=== PATIENT | male | born 1955 | race Two or more races ===

== ENCOUNTER → 2017-05-11 | Outpatient (CLI) | payer MEDICARE, OTHER ==
[~2017-05-11] MED LIST: ACET325 PO; ALBU2.5V5 NEB; ALBU3IS INH; ALBU90OI INH; ALBU90OI6 INH; ALPR.25 PO; ALPR.5 PO; ASCO500 PO; ASTEPRO205.5 MCG/; AZIT250 PO; AZIT500 PO; Acidophilus La100 GM PO; Advil200 M1 PO; Atrovent Inha12.9 GM INH; BENADRYL25 MG PO; BUSP10 PO; Bactrim Ds Tab1 EACH PO; CEFD300 PO; CEPH500 PO; CITA20 PO; CLOT10 MT; CLOT10 SS; DIPH12.5EL PO; DOCU100 PO; ERGO400 PO; FLONASE ALLERG9.9 ML; FLUSAL2505 INH; FURO40 PO; GARCINIA CAMBO1 EACH PO; GUAI600T33 PO; IBUP600 PO; INSDET100 SUBQ; INSUASPI; INSUASPI SUBQ; IPRA.06NI; LACTOBACILLUS PO; LAVAP17G PO; LEVFLO500 PO; LEVO750 PO; LORA.5 PO; LORA10 PO; LORA10ER PO; LORA1SY PO; MONT10T PO; Merrem1000 MG INJ; NYST100P TOP; Novolog Fl100 UNIT/1 SC; OMEP20ER PO; OXYC10TA19 PO; OXYC1TAB11; OXYC5 PO; PANT40 PO; PERIDEX; POTCHL20ER PO; Pedi-Dri 100,0060 GM TOP; Perforomis20 MCG/2 M INH; SACC250C PO; SIME80CH PO; Tazicef1 G1 IV; VANCOCIN HCL250 MG PO; VANCOMYCIN1.5 GM/252 IV; Vancocin 11000 MG/20 INJ; XANAX PO; ZOLP5 PO; Zithromax250 MG PO; [UNRECOGNIZED DRUG - OTHER]
== END | disposition home or self-care (01) ==
LOC: OLS 13:00
DX: J44.9 Chronic obstructive pulmonary disease, unspecified (principal)
CPT/HCPCS: 87070; 87077; 87186; 87205

== ENCOUNTER 2017-06-26 10:27 | Inpatient (IN) | payer MEDICARE, OTHER ==
[~2017-06-26] VITALS: Ht 152.4 cm; Wt 147.4 kg
[~2017-06-26 10:27] MED LIST changes: -ACET325 PO; -ALBU90OI INH; -ALPR.25 PO; -ASTEPRO205.5 MCG/; -AZIT250 PO; -Acidophilus La100 GM PO; -Atrovent Inha12.9 GM INH; -CEFD300 PO; -CEPH500 PO; -CLOT10 MT; -CLOT10 SS; -FLONASE ALLERG9.9 ML; -LACTOBACILLUS PO; -LORA.5 PO; -LORA1SY PO; -Novolog Fl100 UNIT/1 SC; -OXYC1TAB11; -OXYC5 PO; -Pedi-Dri 100,0060 GM TOP; -SACC250C PO; -Tazicef1 G1 IV; -VANCOCIN HCL250 MG PO; -VANCOMYCIN1.5 GM/252 IV; -Vancocin 11000 MG/20 INJ
[2017-06-26 12:02] LABS: BASOPHILS ABSOLUTE AUTO 0.04 K/mm3 (0.00-0.23); BASOPHILS PERCENT AUTO 1 % (0-2); EOSINOPHILS PERCENT AUTO 4 % (0-6); Hematocrit 44.8 % (37.0-53.0); Hemoglobin 14.6 g/dL (13.5-17.5); IMMATURE GRAN ABSOLUTE AUTO 0.01 K/mm3 (0.00-0.10); IMMATURE GRAN PERCENT AUTO 0 % (0-1); LYMPHOCYTES ABSOLUTE AUTO 0.97 K/mm3 (0.84-5.20); LYMPHOCYTES PERCENT AUTO 19 % (21-46); MONOCYTES ABSOLUTE AUTO 0.54 K/mm3 (0.16-1.47); MONOCYTES PERCENT AUTO 11 % (4-13); Mean Corpuscular HGB 31.2 pg (26.0-34.0); Mean Corpuscular HGB Conc 32.6 g/dL (31.5-36.5); Mean Corpuscular Volume 96 fL (80-100); Mean Platelet Volume 9.9 fL (9.1-12.4); NEUTROPHILS ABSOLUTE AUTO 3.25 K/mm3 (1.96-9.15); NEUTROPHILS PERCENT AUTO 65 % (41-73); Platelet Count 224 K/mm3 (150-400); RDW Coefficient Variation 13.6 % (11.7-14.2); Red Blood Cell Count 4.68 M/mm3 (4.30-5.90); White Blood Cell Count 5.01 K/mm3 (4.00-11.30)
[2017-06-26 12:23] LABS: Anion Gap 6 mmol/L (6-16); Blood Urea Nitrogen 12 mg/dL (8-24); Bun/Creatinine Ratio 14.6 (12.0-20.0); CO2, Blood 25 mmol/L (21-32); Calcium, Blood 8.4 mg/dL (8.5-10.1); Chloride, Blood 107 mmol/L (98-108); Creatinine, Blood 0.82 mg/dL (0.60-1.20); Glomerular Filtration Rate >60 (60-); Glucose, Blood 96 mg/dL (70-99); Potassium, Blood 4.2 mmol/L (3.5-5.5); Sodium, Blood 138 mmol/L (136-145)
[2017-06-27 06:01] LABS: BASOPHILS ABSOLUTE AUTO 0.04 K/mm3 (0.00-0.23); BASOPHILS PERCENT AUTO 1 % (0-2); EOSINOPHILS ABSOLUTE AUTO 0.22 K/mm3 (0.00-0.68); EOSINOPHILS PERCENT AUTO 5 % (0-6); Hematocrit 40.6 % (37.0-53.0); Hemoglobin 13.4 g/dL (13.5-17.5); IMMATURE GRAN ABSOLUTE AUTO 0.01 K/mm3 (0.00-0.10); IMMATURE GRAN PERCENT AUTO 0 % (0-1); LYMPHOCYTES ABSOLUTE AUTO 1.75 K/mm3 (0.84-5.20); LYMPHOCYTES PERCENT AUTO 40 % (21-46); MONOCYTES ABSOLUTE AUTO 0.51 K/mm3 (0.16-1.47); MONOCYTES PERCENT AUTO 12 % (4-13); Mean Corpuscular Volume 94 fL (80-100); NEUTROPHILS ABSOLUTE AUTO 1.84 K/mm3 (1.96-9.15); NEUTROPHILS PERCENT AUTO 42 % (41-73); Platelet Count 213 K/mm3 (150-400); RDW Coefficient Variation 13.6 % (11.7-14.2); RDW Standard Deviation 46.5 fL (35.1-46.3); Red Blood Cell Count 4.32 M/mm3 (4.30-5.90); White Blood Cell Count 4.37 K/mm3 (4.00-11.30)
[2017-06-27 06:23] LABS: Anion Gap 8 mmol/L (6-16); Blood Urea Nitrogen 15 mg/dL (8-24); Bun/Creatinine Ratio 16.5 (12.0-20.0); CO2, Blood 24 mmol/L (21-32); Calcium, Blood 8.3 mg/dL (8.5-10.1); Chloride, Blood 107 mmol/L (98-108); Creatinine, Blood 0.91 mg/dL (0.60-1.20); Glomerular Filtration Rate >60 (60-); Glucose, Blood 89 mg/dL (70-99); Sodium, Blood 139 mmol/L (136-145)
[2017-06-27 16:06] LABS: Amikacin, Peak 27.5 ug/mL (10.0-30.0)
[2017-06-28 11:07] LABS: Amikacin 7.1 ug/mL
[2017-06-29 06:23] LABS: Anion Gap 11 mmol/L (6-16); Blood Urea Nitrogen 20 mg/dL (8-24); Bun/Creatinine Ratio 21.8 (12.0-20.0); CO2, Blood 23 mmol/L (21-32); Calcium, Blood 9.1 mg/dL (8.5-10.1); Chloride, Blood 105 mmol/L (98-108); Creatinine, Blood 0.92 mg/dL (0.60-1.20); Glomerular Filtration Rate >60 (60-); Glucose, Blood 95 mg/dL (70-99); Potassium, Blood 4.3 mmol/L (3.5-5.5); Sodium, Blood 139 mmol/L (136-145)
[2017-06-29 06:24] LABS: Vancomycin, Trough 10.3 ug/mL (5.0-10.0)
[2017-06-29] MEDS ORDERED: Pedi-Dri 100,0060 GM TOP (14:53)
[2017-06-30] MEDS ORDERED: Vancocin 11000 MG/20 INJ (07:38)
[2017-06-30] MEDS ORDERED: ALBU90OI6 INH (07:40)
[2017-06-30] MEDS ORDERED: Tazicef1 G1 IV (07:41)
== END 2017-06-30 12:02 | disposition home health service (06) | DRG 189 ==
LOC: ER 10:27 → PCU 15:54 → ERHOLD 15:54 → PCU 17:24
PROVIDERS: Emergency Medicine; Internal Medicine
PROC: 05HY33Z Insertion of Infusion Device into Upper Vein, Percutaneous Approach (ICD-10-PCS; principal; 2017-06-29)
DX: J96.21 Acute and chronic respiratory failure with hypoxia (principal); Z99.11 Dependence on respirator [ventilator] status; J44.1 Chronic obstructive pulmonary disease with (acute) exacerbation; E66.2 Morbid (severe) obesity with alveolar hypoventilation; Z68.43 Body mass index [BMI] 50.0-59.9, adult; J96.22 Acute and chronic respiratory failure with hypercapnia; J40 Bronchitis, not specified as acute or chronic; B95.62 Methicillin resistant Staphylococcus aureus infection as the cause of diseases classified elsewhere; B96.5 Pseudomonas (aeruginosa) (mallei) (pseudomallei) as the cause of diseases classified elsewhere; F41.9 Anxiety disorder, unspecified; F32.9 Major depressive disorder, single episode, unspecified; K21.9 Gastro-esophageal reflux disease without esophagitis; Z93.0 Tracheostomy status; Z87.891 Personal history of nicotine dependence; Z88.8 Allergy status to other drugs, medicaments and biological substances; Z79.1 Long term (current) use of non-steroidal anti-inflammatories (NSAID); Z79.891 Long term (current) use of opiate analgesic; Z79.899 Other long term (current) drug therapy
CPT/HCPCS: 31720; 36415; 36569; 71046; 71260; 80048; 80150; 80202; 82947; 85025; 85379; 87070; 87077; 87147; 87186; 87205; 93005; 93010; 94640; 94760; 94762; 96365; 96367; 97161; 99285; C1751; G8978; G8979; G8980; J0278; J0696; J0713; J1650; J1956; J3370; J7030; J7050; Q9967

== ENCOUNTER 2017-07-16 18:01 | Inpatient (IN) | payer MEDICARE, OTHER ==
[~2017-07-16] VITALS: Ht 152.4 cm; Wt 140.0 kg
[~2017-07-16 18:01] MED LIST changes: +Pedi-Dri 100,0060 GM TOP; +Tazicef1 G1 IV; +Vancocin 11000 MG/20 INJ
[2017-07-16 18:18] LABS: BASOPHILS ABSOLUTE AUTO 0.12 K/mm3 (0.00-0.23); BASOPHILS PERCENT AUTO 1 % (0-2); EOSINOPHILS ABSOLUTE AUTO 0.65 K/mm3 (0.00-0.68); EOSINOPHILS PERCENT AUTO 6 % (0-6); Hematocrit 48.3 % (37.0-53.0); Hemoglobin 15.6 g/dL (13.5-17.5); IMMATURE GRAN ABSOLUTE AUTO 0.06 K/mm3 (0.00-0.10); IMMATURE GRAN PERCENT AUTO 1 % (0-1); LYMPHOCYTES ABSOLUTE AUTO 3.43 K/mm3 (0.84-5.20); LYMPHOCYTES PERCENT AUTO 32 % (21-46); MONOCYTES ABSOLUTE AUTO 1.16 K/mm3 (0.16-1.47); MONOCYTES PERCENT AUTO 11 % (4-13); Mean Corpuscular HGB 31.4 pg (26.0-34.0); Mean Corpuscular HGB Conc 32.3 g/dL (31.5-36.5); Mean Corpuscular Volume 97 fL (80-100); NEUTROPHILS ABSOLUTE AUTO 5.24 K/mm3 (1.96-9.15); NEUTROPHILS PERCENT AUTO 49 % (41-73); Platelet Count 275 K/mm3 (150-400); RDW Coefficient Variation 13.4 % (11.7-14.2); Red Blood Cell Count 4.97 M/mm3 (4.30-5.90); White Blood Cell Count 10.66 K/mm3 (4.00-11.30)
[2017-07-16 18:32] LABS: Alanine Aminotransfer (ALT/SGP 23 U/L (12-78); Albumin, Blood 4.1 g/dL (3.4-5.0); Albumin/Globulin Ratio 0.8 (0.8-1.8); Alk Phos 100 U/L (50-136); Anion Gap 4 mmol/L (6-16); Aspartate Aminotrans (AST/SGOT 28 U/L (12-37); Bilirubin, Total 1.2 mg/dL (0.1-1.0); Blood Urea Nitrogen 16 mg/dL (8-24); Bun/Creatinine Ratio 17.6 (12.0-20.0); CO2, Blood 30 mmol/L (21-32); Calcium, Blood 9.1 mg/dL (8.5-10.1); Chloride, Blood 105 mmol/L (98-108); Creatinine, Blood 0.91 mg/dL (0.60-1.20); Globulin, Blood 4.9 g/dL (2.2-4.0); Glomerular Filtration Rate >60 (60-); Glucose, Blood 146 mg/dL (70-99); Potassium, Blood 4.5 mmol/L (3.5-5.5); Sodium, Blood 139 mmol/L (136-145); Troponin I <0.015 ng/mL (0.000-0.040)
[2017-07-16 19:00] LABS: PCO2 Arterial 89 mmHg (35-45); PO2 Arterial 177 mmHg (80-100); pH Blood Arterial 7.13 (7.35-7.45)
[2017-07-16 21:31] LABS: Influenza A Negative (NEGATIVE); Influenza B Negative (NEGATIVE)
[2017-07-16 21:50] LABS: Source, Urine Catheter
[2017-07-16 21:58] LABS: Bilirubin, Urine Neg (Neg); Blood, Urine 2+ (Neg); Glucose Qualitative, Urine Neg (Neg); Ketones, Urine Neg (Neg); Leukocyte Esterase, Urine Neg (Neg); Nitrite, Urine Neg (Neg); Protein, Urine 4+ (Neg); Specific Gravity, Urine 1.025 (1.003-1.022); Urobilinogen, Urine NORM (Normal)
[2017-07-16 22:09] LABS: U Amphetamine Screen Not Detected; U Barbituate Screen Not Detected; U Benzodiazapine Screen DETECTED; U Buprenorphine Screen Not Detected; U Cannabinoids Screen DETECTED; U Cocaine Screen Not Detected; U Methadone Screen Not Detected; U Methamphetamine Screen Not Detected; U Opiates Screen Not Detected; U Oxycodone Screen Not Detected; U Phencyclidine Screen Not Detected; U Propoxyphene Screen Not Detected
[2017-07-16 22:10] LABS: Appearance, Urine Clear (Clear); Color, Urine Yellow (P-Yellow)
[2017-07-16 22:11] LABS: Bacteria Few /hpf; Granular Casts 0-2 /lpf (0); Red Blood Cells, Urine 0-2 /hpf (0-2); Squamous Epithelial Cells Not Seen /hpf (Few)
[2017-07-16 23:41] LABS: PCO2 Arterial 48.4 mmHg (35-45); PO2 Arterial 98.9 mmHg (80-100); pH Blood Arterial 7.39 (7.35-7.45)
[2017-07-17 01:01] LABS: International Normalized Ratio 1.06
[2017-07-17 03:56] LABS: BASOPHILS ABSOLUTE AUTO 0.04 K/mm3 (0.00-0.23); BASOPHILS PERCENT AUTO 1 % (0-2); EOSINOPHILS ABSOLUTE AUTO 0.07 K/mm3 (0.00-0.68); EOSINOPHILS PERCENT AUTO 1 % (0-6); Hematocrit 38.9 % (37.0-53.0); Hemoglobin 12.7 g/dL (13.5-17.5); IMMATURE GRAN ABSOLUTE AUTO 0.03 K/mm3 (0.00-0.10); IMMATURE GRAN PERCENT AUTO 1 % (0-1); LYMPHOCYTES ABSOLUTE AUTO 1.32 K/mm3 (0.84-5.20); LYMPHOCYTES PERCENT AUTO 21 % (21-46); MONOCYTES ABSOLUTE AUTO 0.74 K/mm3 (0.16-1.47); MONOCYTES PERCENT AUTO 12 % (4-13); Mean Corpuscular HGB Conc 32.6 g/dL (31.5-36.5); Mean Corpuscular Volume 95 fL (80-100); Mean Platelet Volume 10.2 fL (9.1-12.4); NEUTROPHILS PERCENT AUTO 66 % (41-73); Platelet Count 128 K/mm3 (150-400); RDW Coefficient Variation 13.3 % (11.7-14.2); RDW Standard Deviation 46.8 fL (35.1-46.3)
[2017-07-17 04:21] LABS: Alanine Aminotransfer (ALT/SGP 19 U/L (12-78); Albumin, Blood 2.9 g/dL (3.4-5.0); Albumin/Globulin Ratio 0.7 (0.8-1.8); Alk Phos 75 U/L (50-136); Anion Gap 8 mmol/L (6-16); Aspartate Aminotrans (AST/SGOT 16 U/L (12-37); Bilirubin, Total 0.9 mg/dL (0.1-1.0); Blood Urea Nitrogen 15 mg/dL (8-24); Bun/Creatinine Ratio 17.2 (12.0-20.0); CO2, Blood 26 mmol/L (21-32); Calcium, Blood 7.7 mg/dL (8.5-10.1); Chloride, Blood 108 mmol/L (98-108); Creatinine, Blood 0.87 mg/dL (0.60-1.20); Globulin, Blood 3.9 g/dL (2.2-4.0); Glomerular Filtration Rate >60 (60-); Glucose, Blood 112 mg/dL (70-99); Potassium, Blood 4.4 mmol/L (3.5-5.5); Sodium, Blood 142 mmol/L (136-145)
[2017-07-17 04:39] LABS: Total Protein, Blood 6.8 g/dL (6.4-8.2)
[2017-07-17 20:40] LABS: Vancomycin, Trough 17.6 ug/mL (5.0-10.0)
[2017-07-18 03:38] LABS: BASOPHILS ABSOLUTE AUTO 0.05 K/mm3 (0.00-0.23); BASOPHILS PERCENT AUTO 1 % (0-2); EOSINOPHILS ABSOLUTE AUTO 0.41 K/mm3 (0.00-0.68); EOSINOPHILS PERCENT AUTO 7 % (0-6); Hematocrit 40.6 % (37.0-53.0); IMMATURE GRAN ABSOLUTE AUTO 0.02 K/mm3 (0.00-0.10); IMMATURE GRAN PERCENT AUTO 0 % (0-1); LYMPHOCYTES ABSOLUTE AUTO 1.18 K/mm3 (0.84-5.20); LYMPHOCYTES PERCENT AUTO 21 % (21-46); MONOCYTES ABSOLUTE AUTO 0.67 K/mm3 (0.16-1.47); MONOCYTES PERCENT AUTO 12 % (4-13); Mean Corpuscular HGB 30.7 pg (26.0-34.0); Mean Corpuscular Volume 96 fL (80-100); Mean Platelet Volume 10.1 fL (9.1-12.4); NEUTROPHILS ABSOLUTE AUTO 3.38 K/mm3 (1.96-9.15); NEUTROPHILS PERCENT AUTO 59 % (41-73); Platelet Count 183 K/mm3 (150-400); RDW Coefficient Variation 13.7 % (11.7-14.2); RDW Standard Deviation 47.8 fL (35.1-46.3); Red Blood Cell Count 4.24 M/mm3 (4.30-5.90); White Blood Cell Count 5.71 K/mm3 (4.00-11.30)
[2017-07-18 03:55] LABS: Anion Gap 4 mmol/L (6-16); Blood Urea Nitrogen 15 mg/dL (8-24); Bun/Creatinine Ratio 14.7 (12.0-20.0); CO2, Blood 28 mmol/L (21-32); Calcium, Blood 8.4 mg/dL (8.5-10.1); Chloride, Blood 109 mmol/L (98-108); Creatinine, Blood 1.02 mg/dL (0.60-1.20); Glomerular Filtration Rate >60 (60-); Glucose, Blood 98 mg/dL (70-99); Potassium, Blood 4.2 mmol/L (3.5-5.5); Sodium, Blood 141 mmol/L (136-145)
[2017-07-18 06:20] LABS: PCO2 Arterial 39.8 mmHg (35-45); pH Blood Arterial 7.41 (7.35-7.45)
[2017-07-18 14:41] LABS: PO2 Arterial 70.5 mmHg (80-100); pH Blood Arterial 7.04 (7.35-7.45)
[2017-07-18 14:42] LABS: PCO2 Arterial > 105 mmHg (35-45)
[2017-07-18 16:13] LABS: PCO2 Arterial 58.1 mmHg (35-45); PO2 Arterial 82.9 mmHg (80-100)
[2017-07-18 16:14] LABS: pH Blood Arterial 7.25 (7.35-7.45)
[2017-07-19 05:17] LABS: PCO2 Arterial 44.1 mmHg (35-45); PO2 Arterial 117 mmHg (80-100); pH Blood Arterial 7.36 (7.35-7.45)
[2017-07-20 04:26] LABS: BASOPHILS ABSOLUTE AUTO 0.07 K/mm3 (0.00-0.23); BASOPHILS PERCENT AUTO 1 % (0-2); EOSINOPHILS PERCENT AUTO 3 % (0-6); Hematocrit 38.7 % (37.0-53.0); Hemoglobin 12.8 g/dL (13.5-17.5); IMMATURE GRAN ABSOLUTE AUTO 0.01 K/mm3 (0.00-0.10); IMMATURE GRAN PERCENT AUTO 0 % (0-1); LYMPHOCYTES ABSOLUTE AUTO 1.16 K/mm3 (0.84-5.20); LYMPHOCYTES PERCENT AUTO 19 % (21-46); MONOCYTES ABSOLUTE AUTO 0.89 K/mm3 (0.16-1.47); MONOCYTES PERCENT AUTO 15 % (4-13); Mean Corpuscular HGB Conc 33.1 g/dL (31.5-36.5); Mean Corpuscular Volume 94 fL (80-100); NEUTROPHILS ABSOLUTE AUTO 3.71 K/mm3 (1.96-9.15); NEUTROPHILS PERCENT AUTO 61 % (41-73); Platelet Count 219 K/mm3 (150-400); RDW Coefficient Variation 13.8 % (11.7-14.2); RDW Standard Deviation 47.5 fL (35.1-46.3); Red Blood Cell Count 4.13 M/mm3 (4.30-5.90); White Blood Cell Count 6.04 K/mm3 (4.00-11.30)
[2017-07-20 04:42] LABS: Anion Gap 5 mmol/L (6-16); Blood Urea Nitrogen 10 mg/dL (8-24); Bun/Creatinine Ratio 11.7 (12.0-20.0); CO2, Blood 29 mmol/L (21-32); Chloride, Blood 109 mmol/L (98-108); Creatinine, Blood 0.85 mg/dL (0.60-1.20); Glomerular Filtration Rate >60 (60-); Glucose, Blood 118 mg/dL (70-99); Potassium, Blood 3.7 mmol/L (3.5-5.5); Sodium, Blood 143 mmol/L (136-145)
[2017-07-20 05:18] LABS: PCO2 Arterial 43.3 mmHg (35-45); PO2 Arterial 112 mmHg (80-100); pH Blood Arterial 7.43 (7.35-7.45)
[2017-08-09] MEDS ORDERED: OXYC5 (14:54)
[2017-08-09] MEDS ORDERED: Novolog Fl100 UNIT/1 SC (14:55)
[2017-08-09] MEDS ORDERED: Atrovent Inha12.9 GM INH (14:56)
[2017-08-09] MEDS ORDERED: ALBU90OI INH (14:56)
[2017-08-09] MEDS ORDERED: GUAI600T33 PO (14:57)
[2017-08-09] MEDS ORDERED: LORA1SY PO (14:57)
== END 2017-07-20 11:49 | disposition home or self-care (01) | DRG 871 ==
LOC: ER 18:01 → ICUW 19:46 → ICUE 19:46 → ICUW 20:33 → ICUE 07-18 08:00 → PCU 07-18 11:01 → ICUW 07-18 14:55
PROVIDERS: Emergency Medicine; Internal Medicine; Internal Medicine Critical Care Medicine; Internal Medicine Pulmonary Disease
DX: A41.9 Sepsis, unspecified organism (principal); J18.9 Pneumonia, unspecified organism; J96.21 Acute and chronic respiratory failure with hypoxia; J96.22 Acute and chronic respiratory failure with hypercapnia; G93.40 Encephalopathy, unspecified; E66.2 Morbid (severe) obesity with alveolar hypoventilation; Z68.44 Body mass index [BMI] 60.0-69.9, adult; J44.9 Chronic obstructive pulmonary disease, unspecified; Z99.81 Dependence on supplemental oxygen; K21.9 Gastro-esophageal reflux disease without esophagitis; F41.9 Anxiety disorder, unspecified; Z93.0 Tracheostomy status
CPT/HCPCS: 31720; 36415; 36600; 51703; 70450; 71045; 71250; 80048; 80053; 80202; 81001; 82803; 82947; 83605; 83880; 84484; 85025; 85610; 87040; 87070; 87077; 87186; 87205; 87804; 93005; 93010; 94002; 94003; 94640; 94644; 94667; 96365; 96367; 96375; 97110; 97162; 97530; 99285; G8978; G8979; J0278; J0360; J1650; J1956; J2060; J2543; J3370; J7030; J7050; J7120

== ENCOUNTER 2017-08-06 09:34 | Emergency (ER) | payer MEDICARE, OTHER ==
[~2017-08-06] VITALS: Ht 165.1 cm; Wt 226.8 kg
[2017-08-06] MEDS ORDERED: LORA.5 PO (10:28)
[2017-08-06] MEDS ORDERED: OXYC1TAB11 (10:29)
[2017-08-06 10:35] LABS: BASOPHILS ABSOLUTE AUTO 0.03 K/mm3 (0.00-0.23); BASOPHILS PERCENT AUTO 0 % (0-2); EOSINOPHILS ABSOLUTE AUTO 0.08 K/mm3 (0.00-0.68); EOSINOPHILS PERCENT AUTO 1 % (0-6); Hematocrit 38.7 % (37.0-53.0); Hemoglobin 12.6 g/dL (13.5-17.5); IMMATURE GRAN ABSOLUTE AUTO 0.04 K/mm3 (0.00-0.10); IMMATURE GRAN PERCENT AUTO 0 % (0-1); LYMPHOCYTES ABSOLUTE AUTO 0.38 K/mm3 (0.84-5.20); LYMPHOCYTES PERCENT AUTO 4 % (21-46); MONOCYTES ABSOLUTE AUTO 0.77 K/mm3 (0.16-1.47); MONOCYTES PERCENT AUTO 8 % (4-13); Mean Corpuscular HGB 30.7 pg (26.0-34.0); Mean Corpuscular HGB Conc 32.6 g/dL (31.5-36.5); Mean Corpuscular Volume 94 fL (80-100); Mean Platelet Volume 10.1 fL (9.1-12.4); NEUTROPHILS ABSOLUTE AUTO 8.05 K/mm3 (1.96-9.15); NEUTROPHILS PERCENT AUTO 86 % (41-73); Platelet Count 275 K/mm3 (150-400); RDW Coefficient Variation 13.4 % (11.7-14.2); White Blood Cell Count 9.35 K/mm3 (4.00-11.30)
[2017-08-06 10:52] LABS: Alanine Aminotransfer (ALT/SGP 35 U/L (12-78); Albumin/Globulin Ratio 0.7 (0.8-1.8); Alk Phos 126 U/L (50-136); Anion Gap 8 mmol/L (6-16); Aspartate Aminotrans (AST/SGOT 31 U/L (12-37); Bilirubin, Total 1.6 mg/dL (0.1-1.0); Blood Urea Nitrogen 12 mg/dL (8-24); Bun/Creatinine Ratio 16.8 (12.0-20.0); CO2, Blood 25 mmol/L (21-32); Calcium, Blood 8.8 mg/dL (8.5-10.1); Chloride, Blood 107 mmol/L (98-108); Creatinine, Blood 0.71 mg/dL (0.60-1.20); Globulin, Blood 4.4 g/dL (2.2-4.0); Glomerular Filtration Rate >60 (60-); Glucose, Blood 152 mg/dL (70-99); Potassium, Blood 4.2 mmol/L (3.5-5.5); Sodium, Blood 140 mmol/L (136-145); Total Protein, Blood 7.4 g/dL (6.4-8.2)
[2017-08-06] MEDS ORDERED: AZIT250 PO (11:00)
[2017-08-09] MEDS ORDERED: OXYC5 (14:54)
[2017-08-09] MEDS ORDERED: Novolog Fl100 UNIT/1 SC (14:55)
[2017-08-09] MEDS ORDERED: ALBU90OI INH (14:56)
[2017-08-09] MEDS ORDERED: Atrovent Inha12.9 GM INH (14:56)
[2017-08-09] MEDS ORDERED: LORA1SY PO (14:57)
[2017-08-09] MEDS ORDERED: GUAI600T33 PO (14:57)
== END 2017-08-06 12:35 | disposition home or self-care (01) ==
LOC: ER 09:34
PROVIDERS: Emergency Medicine
DX: J44.0 Chronic obstructive pulmonary disease with (acute) lower respiratory infection (principal); J18.9 Pneumonia, unspecified organism; E11.9 Type 2 diabetes mellitus without complications; E66.2 Morbid (severe) obesity with alveolar hypoventilation; Z91.048 Other nonmedicinal substance allergy status; Z91.030 Bee allergy status; Z88.8 Allergy status to other drugs, medicaments and biological substances; Z79.899 Other long term (current) drug therapy; Z79.51 Long term (current) use of inhaled steroids; Z87.891 Personal history of nicotine dependence; Z68.45 Body mass index [BMI] 70 or greater, adult; Z93.0 Tracheostomy status
CPT/HCPCS: 31720; 36415; 71045; 80053; 85025; 93005; 93010; 94640; 96374; 99283; J2060

== ENCOUNTER 2017-08-09 14:06 | Inpatient (IN) | END 2017-08-15 13:57 | disposition home or self-care (01) | DRG 353 ==

== ENCOUNTER 2017-08-18 11:48 | Inpatient (IN) | payer MEDICARE, OTHER ==
[~2017-08-18] VITALS: Ht 167.6 cm; Wt 137.0 kg
[~2017-08-18 11:48] MED LIST changes: +ALBU90OI INH; +AZIT250 PO; +Atrovent Inha12.9 GM INH; +CEPH500 PO; +CLOT10 MT; +LORA.5 PO; +LORA1SY PO; +Novolog Fl100 UNIT/1 SC; +OXYC1TAB11; +OXYC5; +SACC250C PO
[2017-08-18 15:45] LABS: Hematocrit 37.5 % (37.0-53.0); Hemoglobin 12.1 g/dL (13.5-17.5); Mean Corpuscular HGB 30.5 pg (26.0-34.0); Mean Corpuscular HGB Conc 32.3 g/dL (31.5-36.5); Mean Corpuscular Volume 95 fL (80-100); Mean Platelet Volume 9.2 fL (9.1-12.4); Platelet Count 459 K/mm3 (150-400); RDW Coefficient Variation 14.1 % (11.7-14.2); Red Blood Cell Count 3.97 M/mm3 (4.30-5.90)
[2017-08-18 16:04] LABS: Alanine Aminotransfer (ALT/SGP 20 U/L (12-78); Albumin, Blood 2.1 g/dL (3.4-5.0); Albumin/Globulin Ratio 0.4 (0.8-1.8); Alk Phos 225 U/L (50-136); Anion Gap 8 mmol/L (6-16); Aspartate Aminotrans (AST/SGOT 38 U/L (12-37); Bilirubin, Total 1.3 mg/dL (0.1-1.0); Blood Urea Nitrogen 14 mg/dL (8-24); Bun/Creatinine Ratio 18.7 (12.0-20.0); CO2, Blood 26 mmol/L (21-32); Calcium, Blood 9.1 mg/dL (8.5-10.1); Chloride, Blood 102 mmol/L (98-108); Creatinine, Blood 0.75 mg/dL (0.60-1.20); Globulin, Blood 5.3 g/dL (2.2-4.0); Glomerular Filtration Rate >60 (60-); Glucose, Blood 103 mg/dL (70-99); Sodium, Blood 136 mmol/L (136-145); Total Protein, Blood 7.4 g/dL (6.4-8.2)
[2017-08-18 16:31] LABS: BAND PERCENT MAN 3 % (0-8); BASOPHILS PERCENT MAN 0 % (0-2); EOSINOPHILS ABSOLUTE MAN 0.19 K/mm3 (0.00-0.68); EOSINOPHILS PERCENT MAN 1 % (0-6); LYMPHOCYTES ABSOLUTE MAN 1.35 K/mm3 (0.84-5.20); LYMPHOCYTES PERCENT MAN 7 % (21-46); METAMYELOCYTE ABSOLUTE MAN 0.19 K/mm3 (0.00-0.00); METAMYELOCYTE PERCENT MAN 1 % (0-0); MONOCYTES ABSOLUTE MAN 1.73 K/mm3 (0.16-1.47); MONOCYTES PERCENT MAN 9 % (4-13); NEUTROPHILS ABSOLUTE MAN 15.82 K/mm3 (1.96-9.15); SEG NEUTROPHILS PERCENT MAN 79 % (41-73); TOTAL CELLS COUNTED 100
== END 2017-08-18 21:23 | disposition short-term general hospital (02) | DRG 353 ==
LOC: ER 11:48 → PCU 15:51
PROVIDERS: Emergency Medicine
PROC: 0WUF4JZ Supplement Abdominal Wall with Synthetic Substitute, Percutaneous Endoscopic Approach (ICD-10-PCS; principal; 2017-08-18)
DX: K42.0 Umbilical hernia with obstruction, without gangrene (principal); K65.1 Peritoneal abscess; J96.12 Chronic respiratory failure with hypercapnia; Z68.42 Body mass index [BMI] 45.0-49.9, adult; E66.2 Morbid (severe) obesity with alveolar hypoventilation; Z99.81 Dependence on supplemental oxygen; J44.9 Chronic obstructive pulmonary disease, unspecified; E11.9 Type 2 diabetes mellitus without complications; Z79.4 Long term (current) use of insulin; K21.9 Gastro-esophageal reflux disease without esophagitis; F41.9 Anxiety disorder, unspecified; E66.01 Morbid (severe) obesity due to excess calories; Z93.0 Tracheostomy status
CPT/HCPCS: 36415; 74177; 80053; 83690; 85025; 87040; 96361; 96365; 96367; 96375; 96376; 99285; J0744; J3010; J7030; J7120; Q9967

== ENCOUNTER 2017-10-25 09:15 | Inpatient (IN) | payer MEDICARE, OTHER ==
[~2017-10-25] VITALS: Ht 152.4 cm; Wt 127.6 kg
[~2017-10-25 09:15] MED LIST changes: -OXYC5; +OXYC5 PO
[2017-10-25 09:48] LABS: BASOPHILS ABSOLUTE AUTO 0.03 K/mm3 (0.00-0.23); BASOPHILS PERCENT AUTO 0 % (0-2); EOSINOPHILS PERCENT AUTO 3 % (0-6); Hematocrit 34.8 % (37.0-53.0); Hemoglobin 11.2 g/dL (13.5-17.5); IMMATURE GRAN ABSOLUTE AUTO 0.03 K/mm3 (0.00-0.10); IMMATURE GRAN PERCENT AUTO 0 % (0-1); LYMPHOCYTES ABSOLUTE AUTO 0.62 K/mm3 (0.84-5.20); LYMPHOCYTES PERCENT AUTO 8 % (21-46); MONOCYTES ABSOLUTE AUTO 0.66 K/mm3 (0.16-1.47); MONOCYTES PERCENT AUTO 9 % (4-13); Mean Corpuscular HGB 29.4 pg (26.0-34.0); Mean Corpuscular HGB Conc 32.2 g/dL (31.5-36.5); Mean Corpuscular Volume 91 fL (80-100); Mean Platelet Volume 9.4 fL (9.1-12.4); NEUTROPHILS ABSOLUTE AUTO 5.98 K/mm3 (1.96-9.15); NEUTROPHILS PERCENT AUTO 80 % (41-73); Platelet Count 337 K/mm3 (150-400); RDW Coefficient Variation 14.5 % (11.7-14.2); Red Blood Cell Count 3.81 M/mm3 (4.30-5.90); White Blood Cell Count 7.52 K/mm3 (4.00-11.30)
[2017-10-25 10:08] LABS: Alanine Aminotransfer (ALT/SGP 43 U/L (12-78); Albumin, Blood 2.6 g/dL (3.4-5.0); Albumin/Globulin Ratio 0.5 (0.8-1.8); Alk Phos 277 U/L (50-136); Anion Gap 8 mmol/L (6-16); Aspartate Aminotrans (AST/SGOT 35 U/L (12-37); Bilirubin, Total 0.6 mg/dL (0.1-1.0); Blood Urea Nitrogen 9 mg/dL (8-24); Bun/Creatinine Ratio 16.5 (12.0-20.0); CO2, Blood 26 mmol/L (21-32); Calcium, Blood 8.6 mg/dL (8.5-10.1); Chloride, Blood 107 mmol/L (98-108); Creatinine, Blood 0.55 mg/dL (0.60-1.20); Globulin, Blood 5.1 g/dL (2.2-4.0); Glomerular Filtration Rate >60 (60-); Glucose, Blood 157 mg/dL (70-99); Potassium, Blood 3.5 mmol/L (3.5-5.5); Sodium, Blood 141 mmol/L (136-145); Total Protein, Blood 7.7 g/dL (6.4-8.2); Troponin I <0.015 ng/mL (0.000-0.040)
[2017-10-25 12:40] LABS: Source, Urine Catheter
[2017-10-25 12:44] LABS: Appearance, Urine Clear (Clear); Bilirubin, Urine Neg (Neg); Blood, Urine Neg (Neg); Color, Urine Yellow (P-Yellow); Glucose Qualitative, Urine Neg (Neg); Ketones, Urine 1+ (Neg); Leukocyte Esterase, Urine 1+ (Neg); Nitrite, Urine Neg (Neg); Protein, Urine 2+ (Neg); Urobilinogen, Urine 1+ (Normal)
[2017-10-25 12:55] LABS: Bacteria Few /hpf; Red Blood Cells, Urine 0-2 /hpf (0-2); Squamous Epithelial Cells Not Seen /hpf (Few)
[2017-10-25] MEDS ORDERED: ACET325 PO (14:30)
[2017-10-25] MEDS ORDERED: Pedi-Dri 100,0060 GM TOP (14:32)
[2017-10-26 04:59] LABS: BASOPHILS ABSOLUTE AUTO 0.03 K/mm3 (0.00-0.23); BASOPHILS PERCENT AUTO 1 % (0-2); EOSINOPHILS ABSOLUTE AUTO 0.32 K/mm3 (0.00-0.68); EOSINOPHILS PERCENT AUTO 6 % (0-6); Hemoglobin 9.9 g/dL (13.5-17.5); IMMATURE GRAN ABSOLUTE AUTO 0.03 K/mm3 (0.00-0.10); IMMATURE GRAN PERCENT AUTO 1 % (0-1); LYMPHOCYTES ABSOLUTE AUTO 0.74 K/mm3 (0.84-5.20); LYMPHOCYTES PERCENT AUTO 13 % (21-46); MONOCYTES PERCENT AUTO 11 % (4-13); Mean Corpuscular HGB 29.7 pg (26.0-34.0); Mean Corpuscular HGB Conc 30.9 g/dL (31.5-36.5); Mean Platelet Volume 9.5 fL (9.1-12.4); NEUTROPHILS PERCENT AUTO 70 % (41-73); Platelet Count 295 K/mm3 (150-400); RDW Coefficient Variation 14.6 % (11.7-14.2); RDW Standard Deviation 52.2 fL (35.1-46.3); Red Blood Cell Count 3.33 M/mm3 (4.30-5.90); White Blood Cell Count 5.72 K/mm3 (4.00-11.30)
[2017-10-26 05:00] LABS: Mean Corpuscular Volume 96 fL (80-100)
[2017-10-26 05:22] LABS: Albumin, Blood 2.3 g/dL (3.4-5.0); Anion Gap 9 mmol/L (6-16); Blood Urea Nitrogen 10 mg/dL (8-24); Bun/Creatinine Ratio 15.6 (12.0-20.0); CO2, Blood 23 mmol/L (21-32); Calcium, Blood 8.4 mg/dL (8.5-10.1); Chloride, Blood 106 mmol/L (98-108); Creatinine, Blood 0.64 mg/dL (0.60-1.20); Glomerular Filtration Rate >60 (60-); Glucose, Blood 147 mg/dL (70-99); Phosphorus, Blood 3.2 mg/dL (2.5-4.9); Potassium, Blood 3.4 mmol/L (3.5-5.5); Sodium, Blood 138 mmol/L (136-145)
[2017-10-28 04:02] LABS: BASOPHILS ABSOLUTE AUTO 0.04 K/mm3 (0.00-0.23); BASOPHILS PERCENT AUTO 1 % (0-2); EOSINOPHILS ABSOLUTE AUTO 0.47 K/mm3 (0.00-0.68); EOSINOPHILS PERCENT AUTO 7 % (0-6); Hematocrit 31.7 % (37.0-53.0); Hemoglobin 9.9 g/dL (13.5-17.5); IMMATURE GRAN ABSOLUTE AUTO 0.03 K/mm3 (0.00-0.10); IMMATURE GRAN PERCENT AUTO 1 % (0-1); LYMPHOCYTES ABSOLUTE AUTO 1.48 K/mm3 (0.84-5.20); LYMPHOCYTES PERCENT AUTO 23 % (21-46); MONOCYTES PERCENT AUTO 9 % (4-13); Mean Corpuscular HGB 28.9 pg (26.0-34.0); Mean Corpuscular HGB Conc 31.2 g/dL (31.5-36.5); Mean Platelet Volume 9.4 fL (9.1-12.4); NEUTROPHILS ABSOLUTE AUTO 3.86 K/mm3 (1.96-9.15); NEUTROPHILS PERCENT AUTO 60 % (41-73); Platelet Count 369 K/mm3 (150-400); RDW Coefficient Variation 15.1 % (11.7-14.2); RDW Standard Deviation 51.2 fL (35.1-46.3); Red Blood Cell Count 3.42 M/mm3 (4.30-5.90); White Blood Cell Count 6.48 K/mm3 (4.00-11.30)
[2017-10-28 04:03] LABS: Mean Corpuscular Volume 93 fL (80-100)
[2017-10-28 04:20] LABS: Albumin, Blood 2.3 g/dL (3.4-5.0); Anion Gap 6 mmol/L (6-16); Blood Urea Nitrogen 13 mg/dL (8-24); Bun/Creatinine Ratio 16.8 (12.0-20.0); CO2, Blood 30 mmol/L (21-32); Calcium, Blood 8.5 mg/dL (8.5-10.1); Chloride, Blood 105 mmol/L (98-108); Creatinine, Blood 0.78 mg/dL (0.60-1.20); Glomerular Filtration Rate >60 (60-); Glucose, Blood 112 mg/dL (70-99); Phosphorus, Blood 3.4 mg/dL (2.5-4.9); Sodium, Blood 141 mmol/L (136-145)
[2017-10-30 05:37] LABS: Hematocrit 36.4 % (37.0-53.0); Hemoglobin 11.2 g/dL (13.5-17.5); Mean Corpuscular HGB 28.9 pg (26.0-34.0); Mean Corpuscular HGB Conc 30.8 g/dL (31.5-36.5); Mean Corpuscular Volume 94 fL (80-100); Mean Platelet Volume 9.3 fL (9.1-12.4); Platelet Count 441 K/mm3 (150-400); RDW Standard Deviation 52.1 fL (35.1-46.3); Red Blood Cell Count 3.88 M/mm3 (4.30-5.90); White Blood Cell Count 7.53 K/mm3 (4.00-11.30)
[2017-10-30 05:54] LABS: Anion Gap 6 mmol/L (6-16); Blood Urea Nitrogen 13 mg/dL (8-24); Bun/Creatinine Ratio 20.6 (12.0-20.0); CO2, Blood 30 mmol/L (21-32); Chloride, Blood 104 mmol/L (98-108); Creatinine, Blood 0.63 mg/dL (0.60-1.20); Glomerular Filtration Rate >60 (60-); Glucose, Blood 101 mg/dL (70-99); Potassium, Blood 4.5 mmol/L (3.5-5.5); Sodium, Blood 140 mmol/L (136-145)
[2017-10-30 06:19] LABS: Percent Saturation 15.5 % (20.0-50.0)
[2017-10-30] MEDS ORDERED: FLONASE ALLERG9.9 ML (09:45)
[2017-10-30] MEDS ORDERED: GUAI600T33 PO (09:46)
[2017-10-30] MEDS ORDERED: LACTOBACILLUS PO (09:53)
[2017-10-30] MEDS ORDERED: Tazicef1 G1 IV (09:54)
== END 2017-10-31 10:56 | disposition home or self-care (01) | DRG 870 ==
LOC: ER 09:15 → ICUW 12:12 → ICUE 12:12 → PCU 10-26 14:55
PROVIDERS: Emergency Medicine; Internal Medicine; Internal Medicine Critical Care Medicine
PROC: 5A1955Z Respiratory Ventilation, Greater than 96 Consecutive Hours (ICD-10-PCS; principal; 2017-10-25)
DX: A41.9 Sepsis, unspecified organism (principal); J15.1 Pneumonia due to Pseudomonas; J96.21 Acute and chronic respiratory failure with hypoxia; Z99.11 Dependence on respirator [ventilator] status; Z68.43 Body mass index [BMI] 50.0-59.9, adult; E66.2 Morbid (severe) obesity with alveolar hypoventilation; J43.9 Emphysema, unspecified; Y95 Nosocomial condition; E11.9 Type 2 diabetes mellitus without complications; Z87.891 Personal history of nicotine dependence; J47.9 Bronchiectasis, uncomplicated; Z86.14 Personal history of Methicillin resistant Staphylococcus aureus infection
CPT/HCPCS: 31720; 36415; 71045; 80048; 80053; 80069; 81001; 82728; 83540; 83550; 83605; 84484; 85025; 85027; 87040; 87070; 87077; 87086; 87186; 87205; 93005; 93010; 94640; 94762; 96365; 96366; 96368; 99285-25; C9113; J0456; J0713; J2543; J3370; J7030; J7050

== ENCOUNTER 2017-12-15 12:56 | Emergency (ER) | payer MEDICARE, OTHER ==
[~2017-12-15] VITALS: Ht 154.9 cm; Wt 124.7 kg
[~2017-12-15 12:56] MED LIST changes: +ACET325 PO; +FLONASE ALLERG9.9 ML; +LACTOBACILLUS PO
[2017-12-15] MEDS ORDERED: ASTEPRO205.5 MCG/ (13:43)
[2017-12-15] MEDS ORDERED: LORA.5 PO (13:43)
[2017-12-15] MEDS ORDERED: FURO40 PO (13:44)
[2017-12-15] MEDS ORDERED: CEFD300 PO (13:44)
[2017-12-15] MEDS ORDERED: POTCHL20ER PO (13:45)
[2017-12-15] MEDS ORDERED: ALBU90OI INH (13:45)
[2017-12-15] MEDS ORDERED: CLOT10 SS (13:46)
[2017-12-15 14:00] LABS: BASOPHILS ABSOLUTE AUTO 0.05 K/mm3 (0.00-0.23); BASOPHILS PERCENT AUTO 1 % (0-2); EOSINOPHILS ABSOLUTE AUTO 0.16 K/mm3 (0.00-0.68); EOSINOPHILS PERCENT AUTO 3 % (0-6); Hematocrit 46.2 % (37.0-53.0); Hemoglobin 13.8 g/dL (13.5-17.5); IMMATURE GRAN ABSOLUTE AUTO 0.02 K/mm3 (0.00-0.10); IMMATURE GRAN PERCENT AUTO 0 % (0-1); LYMPHOCYTES ABSOLUTE AUTO 1.18 K/mm3 (0.84-5.20); LYMPHOCYTES PERCENT AUTO 19 % (21-46); MONOCYTES ABSOLUTE AUTO 0.47 K/mm3 (0.16-1.47); MONOCYTES PERCENT AUTO 8 % (4-13); Mean Corpuscular HGB 28.2 pg (26.0-34.0); Mean Corpuscular HGB Conc 29.9 g/dL (31.5-36.5); Mean Corpuscular Volume 95 fL (80-100); Mean Platelet Volume 9.2 fL (9.1-12.4); NEUTROPHILS ABSOLUTE AUTO 4.39 K/mm3 (1.96-9.15); NEUTROPHILS PERCENT AUTO 70 % (41-73); Platelet Count 277 K/mm3 (150-400); RDW Coefficient Variation 14.8 % (11.7-14.2); RDW Standard Deviation 51.9 fL (35.1-46.3); Red Blood Cell Count 4.89 M/mm3 (4.30-5.90); White Blood Cell Count 6.27 K/mm3 (4.00-11.30)
[2017-12-15 14:17] LABS: Alanine Aminotransfer (ALT/SGP 27 U/L (12-78); Albumin, Blood 3.6 g/dL (3.4-5.0); Albumin/Globulin Ratio 0.7 (0.8-1.8); Alk Phos 110 U/L (50-136); Anion Gap 6 mmol/L (6-16); Aspartate Aminotrans (AST/SGOT 26 U/L (12-37); Bilirubin, Total 1.1 mg/dL (0.1-1.0); Blood Urea Nitrogen 18 mg/dL (8-24); Bun/Creatinine Ratio 24.6 (12.0-20.0); CO2, Blood 24 mmol/L (21-32); Calcium, Blood 8.8 mg/dL (8.5-10.1); Chloride, Blood 108 mmol/L (98-108); Creatinine, Blood 0.73 mg/dL (0.60-1.20); Globulin, Blood 5.1 g/dL (2.2-4.0); Glomerular Filtration Rate >60 (60-); Glucose, Blood 130 mg/dL (70-99); Potassium, Blood 4.5 mmol/L (3.5-5.5); Sodium, Blood 138 mmol/L (136-145); Total Protein, Blood 8.7 g/dL (6.4-8.2)
== END 2017-12-15 15:50 | disposition home or self-care (01) ==
LOC: ER 12:56
PROVIDERS: Emergency Medicine
DX: J95.03 Malfunction of tracheostomy stoma (principal); A24.9 Melioidosis, unspecified; J44.9 Chronic obstructive pulmonary disease, unspecified; Z91.048 Other nonmedicinal substance allergy status; Z91.038 Other insect allergy status; Z88.8 Allergy status to other drugs, medicaments and biological substances; Z79.51 Long term (current) use of inhaled steroids; Z79.899 Other long term (current) drug therapy; Z87.891 Personal history of nicotine dependence
CPT/HCPCS: 31502; 31720; 36415; 71046; 80053; 85025; 99284-25

== ENCOUNTER 2019-01-25 08:57 | Inpatient (IN) | payer MEDICARE, OTHER ==
[~2019-01-25] VITALS: Ht 152.4 cm; Wt 118.0 kg
[~2019-01-25 08:57] MED LIST changes: +ALPR.25 PO; +ASTEPRO205.5 MCG/; +Acidophilus La100 GM PO; +CEFD300 PO; +CLOT10 SS; +VANCOCIN HCL250 MG PO; +VANCOMYCIN1.5 GM/252 IV
[2019-01-25 09:17] LABS: BASOPHILS PERCENT AUTO 1 % (0-2); EOSINOPHILS PERCENT AUTO 4 % (0-6); Hematocrit 47.9 % (37.0-53.0); Hemoglobin 15.3 g/dL (13.5-17.5); IMMATURE GRAN ABSOLUTE AUTO 0.04 K/mm3 (0.00-0.10); IMMATURE GRAN PERCENT AUTO 0 % (0-1); LYMPHOCYTES ABSOLUTE AUTO 3.09 K/mm3 (0.84-5.20); LYMPHOCYTES PERCENT AUTO 27 % (21-46); MONOCYTES ABSOLUTE AUTO 0.83 K/mm3 (0.16-1.47); MONOCYTES PERCENT AUTO 7 % (4-13); Mean Corpuscular HGB 31.9 pg (26.0-34.0); Mean Corpuscular HGB Conc 31.9 g/dL (31.5-36.5); Mean Corpuscular Volume 100 fL (80-100); NEUTROPHILS ABSOLUTE AUTO 7.11 K/mm3 (1.96-9.15); NEUTROPHILS PERCENT AUTO 61 % (41-73); Platelet Count 273 K/mm3 (150-400); RDW Coefficient Variation 13.5 % (11.7-14.2); RDW Standard Deviation 50.2 fL (35.1-46.3); Red Blood Cell Count 4.79 M/mm3 (4.30-5.90); White Blood Cell Count 11.67 K/mm3 (4.00-11.30)
[2019-01-25 09:28] LABS: PO2 Arterial 92.9 mmHg (80-100); pH Blood Arterial 7.19 (7.35-7.45)
[2019-01-25 09:31] LABS: Alanine Aminotransfer (ALT/SGP 33 U/L (12-78); Albumin, Blood 3.9 g/dL (3.4-5.0); Albumin/Globulin Ratio 0.9 (0.8-1.8); Alk Phos 159 U/L (50-136); Anion Gap 9 mmol/L (6-16); Aspartate Aminotrans (AST/SGOT 33 U/L (12-37); Bilirubin, Total 2.2 mg/dL (0.1-1.0); Blood Urea Nitrogen 16 mg/dL (8-24); Bun/Creatinine Ratio 20.9 (12.0-20.0); CO2, Blood 22 mmol/L (21-32); Calcium, Blood 9.2 mg/dL (8.5-10.1); Chloride, Blood 107 mmol/L (98-108); Creatinine, Blood 0.76 mg/dL (0.60-1.20); Globulin, Blood 4.5 g/dL (2.2-4.0); Glomerular Filtration Rate >60 (60-); Glucose, Blood 134 mg/dL (70-99); Potassium, Blood 3.9 mmol/L (3.5-5.5); Sodium, Blood 138 mmol/L (136-145); Total Protein, Blood 8.4 g/dL (6.4-8.2); Troponin I <0.015 ng/mL (0.000-0.040)
[2019-01-25 10:25] LABS: Influenza A Negative (NEGATIVE); Influenza B Negative (NEGATIVE)
--- NOTE | 2019-01-25 11:45 | NUR ---
PATIENT ADMITTED FROM ED AT 1141. A&O X 3, COOPERATIVE, SLIGHTLY ANXIOUS. HAS #8 XLT WENDY ZENA, INNER CANNULA CHANGED THIS MORNING, IS ON HOME VENTILATOR WITH 3 L/MIN O2 BLED IN. SINUS TACH 108. 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 AZITHROMYCIN INFUSING IN LH 20 G IV. ORIENTED PT TO ROOM, CALL LIGHT, FALL PRECAUTIONS; VERBALIZED UNDERSTANDING. URINAL AT BEDSIDE.
--- NOTE | 2019-01-25 18:15 | NUR ---
SHIFT SUMMARY: DR. PERKINS AT BEDSIDE FOR CONSULTATION AT 1500, NEW ORDERS PLACED. Khushi MARTINEZ, RESP THERAPIST, AT BEDSIDE SEVERAL TIMES TO ADJUST VENT SETTINGS AND EQUIPMENT. POWERGLIDE IV PLACED IN JUDY, IS POSITIONAL. IS IN SINUS RHYTHM, HR 80-90; O2 SAT >95%. LUNGS CONTINUE TO SOUND TIGHT, IS GRUNTING PERIODICALLY WHEN HE DEFLATES TRACH CUFF. C/O GENERALIZED PAIN; MEDICATED WITH OXYCODONE WITH SLOW ONSET OF RELIEF. USING URINAL INDEPENDENTLY. APPETITE FAIR. PLAN IS FOR ABX.
--- NOTE | 2019-01-25 20:14 | NUR ---
ASSUMED CARE RECIEVED REPORT FROM JULY RN. PT IS IN BED AWAKE ON HOME VENT, HE DEFLATES HIS CUFF TO SPEAK (WHEN INSTRUCTED NOT TO), BUT IS ORIENTED TO SELF, PLACE, SITUATION AND TIME. HE SAT'S IN THE HIGH 90'S. HE IS SALINE LOCKED IN HIS LEFT HAND IV, AND LEFT UPPER ARM PG. HE HAS STABLE VITALS. HE HAS A TRACH WITH AN 8.0 SHILEY THAT WAS CHANGED TODAY. SITE IS [facility]. HE SUCTIONS HIMSELF AND IS FAIRLY INDEPENDENT DESPITE MECHANICAL VENTILATION. BED IS LOW AND LOCKED.
[2019-01-26 04:11] LABS: BASOPHILS ABSOLUTE AUTO 0.01 K/mm3 (0.00-0.23); BASOPHILS PERCENT AUTO 0 % (0-2); EOSINOPHILS PERCENT AUTO 0 % (0-6); Hematocrit 45.5 % (37.0-53.0); Hemoglobin 14.6 g/dL (13.5-17.5); IMMATURE GRAN ABSOLUTE AUTO 0.01 K/mm3 (0.00-0.10); IMMATURE GRAN PERCENT AUTO 0 % (0-1); LYMPHOCYTES ABSOLUTE AUTO 0.36 K/mm3 (0.84-5.20); LYMPHOCYTES PERCENT AUTO 8 % (21-46); MONOCYTES ABSOLUTE AUTO 0.13 K/mm3 (0.16-1.47); MONOCYTES PERCENT AUTO 3 % (4-13); Mean Corpuscular HGB 31.2 pg (26.0-34.0); Mean Corpuscular HGB Conc 32.1 g/dL (31.5-36.5); Mean Platelet Volume 10.1 fL (9.1-12.4); NEUTROPHILS PERCENT AUTO 89 % (41-73); Platelet Count 126 K/mm3 (150-400); RDW Coefficient Variation 13.6 % (11.7-14.2); RDW Standard Deviation 48.4 fL (35.1-46.3); Red Blood Cell Count 4.68 M/mm3 (4.30-5.90); White Blood Cell Count 4.71 K/mm3 (4.00-11.30)
[2019-01-26 04:14] LABS: Mean Corpuscular Volume 97 fL (80-100)
--- NOTE | 2019-01-26 04:26 | NUR ---
UPDATE PT CAN GET WORKED UP AND FEEL THAT "[HE] CAN'T BREATHE", WHILE THIS HAPPENS HE MAINTAINS SAT'S IN THE HIGH 90'S. HE COMPLAINS THAT THE HME FILTER IS CLOGGED, SO WE REPLACED IT. HE CONTINUES TO GRUNT AND USE ACCESSORY MUSCLES FOR BREATHING. BUT IT ALL SEEMS TO BE RELATED TO ANXIETY. HOB IS ELEVATED AROUND 45 DEGREES. PT SUCTIONS HIMSELF, AND KEEPS DEFLATING HIS CUFF AROUND HIS INNER CANNULA. I HAVE INFORMED HIM THAT HE SHOULD KEEP INFLATED, BUT HE BELIEVES IT IS WORSE WHEN IT IS INFLATED.
--- NOTE | 2019-01-26 07:17 | NUR ---
SHIFT SUMMARY PT SLEPT MINIMALLY THROUGHOUT NIGHT. HE IS ON HIS HOME VENT WITH 4L O2 BLEED IN; SAT'ING HIGH 90'S. STABLE VITALS, SINUS RHYTHM. VOIDS MINIMALLY IN URINE, ABOUT 100ML PER TIME. SEE PREVIOUS NOTE REGARDING EVENT OVERNIGHT. PT DID NOT HAVE A BM OVERNIGHT. PT WAS WARM AT START OF SHIFT, TEMP 99. AND HAS BEEN AFEBRILE SINCE, AND EVEN COLD/SHIVERING AT ONE POINT, BUT WAS NOT HYPOTHERMIC. PT WAS ABLE TO SUCTION LARGE AMOUNT OF THICK CAZARES SPUTUM, MULTIPLE TIMES THROUGHOUT NIGHT. BED IS LOW AND LOCKED. CALL LIGHT WITHIN REACH.
--- NOTE | 2019-01-26 18:24 | NUR ---
SHIFT SUMMARY: PT A&O X 3, C/O INCREASED ANXIETY; RECEIVED ORDER FOR ATIVAN PRN, WHICH PROVIDES RELIEF. PAIN WELL CONTROLLED WITH CURRENT REGIMEN. IN SINUS RHYTHM WITH PRLONGED QT INTERVAL THIS MORNING, WHICH RESOLVED BY THIS AFTERNOON. DENIES CHEST DISCOMFORT. LUNGS HAVE GREATER AIR MOVEMENT TODAY; PT STATES HE FEELS LIKE HE'S BREATHING BETTER. USING URINAL FREQUENTLY D/T DIURETICS. SISTER VISITED FOR A SHORT TIME TODAY. PLAN IS TO TRANSFER TO PCU AFTER CHANGE OF SHIFT.
--- NOTE | 2019-01-26 23:21 | NUR ---
ASSUMED PT CARE FROM NITO VELÁSQUEZ AT 1999 PT ALERT AND ORIENTED X4; ABLE TO MAKE NEEDS KNOWN. PLEASANT AND COOPERATIVE WITH CARES. HOME VENT SETTINGS: TV 600, RR 24, PEEP 10, 4L OXYGEN BLEED IN; BIOX 95%. PT ABLE TO INDEPENDENTLY CARE FOR TRACH. SUCTIONS OWN SECRETIONS; THICK, BROWN/CAZARES NOTED TO TUBING. LUNG SOUNDS ARE CLEAR T/O ALL LOBES. NSR WITH HR 80'S. ABDOMEN IS MODERATELY DISTENDED, WHICH PT STATES IS NORMAL. UP TO BSC FOR BM TODAY ON DAY SHIFT. PT DENIES ANY NUMBNESS TINGLING TO HANDS/FEET. ABLE TO REPOSITION SELF IN BED. CALL LIGHT LEFT WITHIN REACH.
[2019-01-27 04:49] LABS: BASOPHILS ABSOLUTE AUTO 0.01 K/mm3 (0.00-0.23); BASOPHILS PERCENT AUTO 0 % (0-2); EOSINOPHILS PERCENT AUTO 0 % (0-6); Hemoglobin 13.6 g/dL (13.5-17.5); IMMATURE GRAN ABSOLUTE AUTO 0.08 K/mm3 (0.00-0.10); IMMATURE GRAN PERCENT AUTO 1 % (0-1); LYMPHOCYTES ABSOLUTE AUTO 0.59 K/mm3 (0.84-5.20); LYMPHOCYTES PERCENT AUTO 7 % (21-46); MONOCYTES ABSOLUTE AUTO 0.42 K/mm3 (0.16-1.47); MONOCYTES PERCENT AUTO 5 % (4-13); Mean Corpuscular HGB 31.9 pg (26.0-34.0); Mean Corpuscular HGB Conc 32.4 g/dL (31.5-36.5); Mean Corpuscular Volume 98 fL (80-100); Mean Platelet Volume 10.6 fL (9.1-12.4); NEUTROPHILS ABSOLUTE AUTO 7.96 K/mm3 (1.96-9.15); NEUTROPHILS PERCENT AUTO 88 % (41-73); Platelet Count 159 K/mm3 (150-400); RDW Coefficient Variation 13.9 % (11.7-14.2); RDW Standard Deviation 50.2 fL (35.1-46.3); Red Blood Cell Count 4.27 M/mm3 (4.30-5.90); White Blood Cell Count 9.06 K/mm3 (4.00-11.30)
[2019-01-27 04:54] LABS: PO2 Arterial 101 mmHg (80-100); pH Blood Arterial 7.37 (7.35-7.45)
[2019-01-27 05:07] LABS: Anion Gap 8 mmol/L (6-16); Blood Urea Nitrogen 18 mg/dL (8-24); CO2, Blood 27 mmol/L (21-32); Chloride, Blood 107 mmol/L (98-108); Creatinine, Blood 0.82 mg/dL (0.60-1.20); Glomerular Filtration Rate >60 (60-); Glucose, Blood 159 mg/dL (70-99); Magnesium, Blood 1.9 mg/dL (1.6-2.4); Phosphorus, Blood 1.7 mg/dL (2.5-4.9); Potassium, Blood 4.1 mmol/L (3.5-5.5); Sodium, Blood 142 mmol/L (136-145)
--- NOTE | 2019-01-27 06:48 | NUR ---
END OF SHIFT SUMMARY NO SIGNIFICANT CHANGES FROM LAST ENTRY. VENT SETTINGS REMAIN HOME SETTINGS; TV 600, RR 24, PEEP 10 WITH 3L OXYGEN BLEED IN; BIOX GREATER THAN 91% T/O SHIFT. POWERGLIDE TO LEFT UPPER ARM THAT IS VERY POSITIONAL WITH INFUSIONS; ARM MUST REMAIN STRAIGHT AND IN AN UPWARD FASHION; HOWEVER, PT TOLERATES WELL. PT INDEPENDENT WITH REPOSITIONING SELF IN BED; ASSISTED WITH URINAL TO PREVENT SPILLAGE. PT IS VERY PLEASANT AND COOPERATIVE WITH CARES. WILL CONTINUE TO MONITOR UNTIL REPORT IS HANDED OFF TO ONCOMING RN.
--- NOTE | 2019-01-27 08:00 | NUR ---
ASSUMED CARE OF PATIENT. LYING IN BED, IN NAD. HOME VENTILATOR WITH 3 L/MIN BLED IN, SELF SUCTIONS. DENIES PAIN AT THIS TIME.
[2019-01-27 08:31] LABS: Vancomycin, Trough 10.8 ug/mL (5.0-10.0)
--- NOTE | 2019-01-27 16:12 | NUR ---
GAVE REPORT TO SHO BEAUCHAMP IN PCU. WILL TRANSFER PT TO PCU BED 1.
--- NOTE | 2019-01-27 17:22 | NUR ---
PT ARRIVED TO THE ROOM AT APPROXIMATELY 1645. PT ALERT AND ORIENTED. HE REPORTED ANXIETY. PT ENCOURAGED TO FOCUS ON BREATHING AND RELAX, RESPONDED WELL. WILL CONTINUE TO MONITOR UNTIL REPORT TO ONCOMING RN.
--- NOTE | 2019-01-27 18:01 | NUR ---
SHIFT SUMMARY PT HAS BEEN ALERT AND ORIENTED SINCE ARRIVAL TO THE UNIT. PT HAS HAD NO COMPLAINT OF PAIN SINCE ARRIVING. HE HAS HAD SOME ANXIETY BUT IS ABLE TO DISTRACT. HE CALLS APPROPRIATELY. BP IS ELEVATED, WILL REASSESS AND CONTINUE TO MONITOR.
--- NOTE | 2019-01-28 01:48 | NUR ---
ASSUMED CARE AT 1900. REQUESTS PAIN MED NOW ALTHOUGH REPORTS TRIES VERY HARD TO HOLD OFF LONG POSSIBLE.LIRA SEEMS UNUSUAL TO HIM ALONG W/ USUAL BACK PAIN. COMFORTABLE , BASELINE RELIEF .ENC HS SNACK AND REFUSED. SPILLS URINAL AND STAFF WILL ASSIST IF ALLOWED. TIGHT AIR EXCHANGE. WILL GET ORDER FOR NYSTATIN POWDER PER HOME USE. ONE EXCORIATED AREA NOTED.SEE ASSESS.SELF CARE FOR INFLATE CUFF IN AND OUR W/ AIR DUE TO TALING CAPIBILITIES. VERY CLEAR TO EXPRESS NEEDS .SLEEPING SOUNDLY MOSTLY . AROUSBLE, BUT WHEN ASLEEP HR FREQ SB AT 48. NO MENTATION IMPAIRMENT.ENC TO TURN AND MOVE ABOUT IN BED AND POOR EFFORT. REFUSED HELP FROM STAFF. SX SELF AND SCANT SECRETIONS.
--- NOTE | 2019-01-28 05:41 | NUR ---
SHIFT SUMMARY . SLEPT ALL NOC . NO CHANGE FROM ABOVE. POSITION CHANGE RARE TO MINIMAL. VERY STRONG ARMS . PULLS SELF UP ALOT.
--- NOTE | 2019-01-28 12:03 | NUR ---
awaiting susi from pharmacy
--- NOTE | 2019-01-28 18:50 | NUR ---
sHIFT NOTE PT HAS MANAGED OWN TRACH T/O THE DAY. PT A/O X4, ANSWERING QUESTIONS APPROPRIATELY. PT HAS DENIED PAIN, CP OR WORSENING SOB TODAY. PT STS THAT HE IS FEELING BETTER TODAY THAT HIS BREATHING FEELS LESS DIFFICULT. VITALS HAVE REMAINED STABLE T/O THE DAY. PT HAS DENIED MANY NEEDS T/O THIS SHIFT. POWERGLIDE IS POSITIONAL BUT PATENT
--- NOTE | 2019-01-29 01:57 | NUR ---
ASSUMED CARE AT 1900. NO ACUTE COMPLAINTS. SELF CARE AND REPOSITIONING IN BED.RARE NEED TO SX SELF. AND NOTED PALE YELLOW SECRETIONS. LG HS SNACK AMD H2O. RECENT BATH AND REFUSED VIJAY CARE. LT PANIS EXCORIATED AND REFUSED UNGT TO PROTECT FROM MOISTURE . NO REQ OF PAIN MED AND OFF TO SLEEP POST SLEEPER.MINIMAL TURN WNEN ASLEEP/ NOTED SB AT 50 RATE LOWEST
--- NOTE | 2019-01-29 06:34 | NUR ---
SHIFT SUMMARY. SLEEPING WELL UNTIL AWAKENED BY STAFF. NO ACUTE CHANGES FROM NOTE ABOVE. REVIEWED MEDS AND POTENTIAL HOME HEALTH ASSIST . NO REQUEST FOR PAIN MED TONIGHT
--- NOTE | 2019-01-29 16:08 | NUR ---
SHIFT SUMMARY PT A&Ox4. CALM AND COOPERATIVE WITH CARE. PT IS AWKAING AND RESTING IN BED. 1 PERSON ASSIST TO BSC. REPOSITIONS SELF IN BED. PT DENIES PAIN, CP, WORSENING SOB AND NAUSEA T/O SHIFT. PT HAS TRACH, PT SUCTIONS AND CARE FOR TRACH T/O SHIFT. PT ON VENTILATOR, HOME SETTINGS WITH 3L O2 BLEED IN. SHILEY 8.0, INNER CANNULA CHANGES YESTERDAY PER PT. PT RECEIVING IV STEROIDS AND ANTIBIOTICS. PLANS TO DISCHARGE [facility] WITH HOME HEALTH WITH IV STEROIDS. VSS T/O. NO OTHER ACUTE CHANGES NOTED. WILL CONTINUE TO MONITOR UNITL REPORT GIVNE TO ONCOMING RN.
--- NOTE | 2019-01-29 21:22 | NUR ---
ASSSUMED CARE OF PATIENT AT APPROXIMATELY 1900 FROM DEE DEE Henley RN. PATIENT ALERT AND ORIENTED X4; REPORTEDLY INDEPENDENT TO BEDSIDE COMMODE TODAY; VERBAL CUES ONLY. PATIENT REPORTS PAIN IN BACK AND RIGHT HIP; CHRONIC; MEDICATED PER EMAR. PATIENT ON HOME TRACH VENT WITH 3LPM VIA BLEED IN (BASELINE); PATIENT SUCTIONS SELF AND DOES TRACH CARE. PATIENT DENIES DIZZINESS AND NAUSEA. PATIENT REPORTS RECENT 100LB WEIGHT LOSS SINCE LAST ADMIT AND HIS DIABETES IS CURED. NSR ON TELE; OXYGEN SATURATION ABOVE 90% ON HOME TRACH VENT. PLAN IS TO DISCHARGE TOMORROW POSSIBLY; IV ABX OUTPATIENT; PG TO JUDY S/L. PATIENT EXPRESSED FRUSTRATION WITH SOLUMEDROL "THEY WERE SUPPOSE TO TAPER ME". PATIENT CURRENTLY RESTING IN BED; CALL LIGHT IN REACH; BED ALARM ON; BED IN LOWEST POSISTION; WILL CONTINUE TO MONITOR AND ASSESS UNTIL END OF SHIFT.
--- NOTE | 2019-01-30 06:04 | NUR ---
NO ACUTE CHANGES TO REPORT. PATIENT SLEPT ABOUT SEVEN HOURS LAST NIGHT. VSS. WILL CONTINUE TO MONITOR AND ASSESS UNTIL END OF SHIFT.
--- NOTE | 2019-01-30 10:30 | NUR ---
NOTIFIED DR STOLL THAT HOME ANTIBIOTICS WILL NOT BE AVAILABLE UNITL TOMORROW AFTERNOON. NEW ORDERS TO HOLD DISCHARGE UNTIL TOMORROW AND DISCONTINUE IV SOLUMEDROL
--- NOTE | 2019-01-30 17:30 | NUR ---
SHIFT SUMMARY PT A&Ox4. PT CALM AND COOPERATIVE WITH CARE. PT AWAKW AND RESTING IN BED DURING SHIFT. UP TO BSC THIS AFTERNOON WITH SBA. PT ON HOME VENT SETTING WITH 3L BLEED IN (BASELINE) AND 4L O2 VIA NC WITH ACTIVITY. PT HAS TRACH, SELF SUCTIONS AND CARE FOR TRACH. PT REPORTS HE CHANGED THE INNER CANULA DURING SHIFT. PT REPORTS BACK PAIN, MEDICATED x1 WITH POSITIVE RESULTS. PT DENIES NAUSEA. GOOD APPETEITE. PT STATES HE CURED HIS DIABETES BY LOSSING 100LBS. PT RECEIVED 1 DOSE IV STEROIDS THIS AM. PT RECEIVING IV ANTIBIOTICS. PLANS TO DISCHARGE HOME WITH HOME HEALTH AND IV ANTIBIOTICS TOMORROW. VSS. NO OTHER ACUTE CHANGES NOTED DURING SHIFT. WILL CONTINUE TO MONITOR UNTIL REPORT GIVEN TO ONCOMING RN.
--- NOTE | 2019-01-31 04:35 | NUR ---
LYING IN SEMI FOWLERS WITH EYES CLOSED. HAS RESTED WELL THIS SHIFT. SELF CARE WITH TRACH AND VENT WITH O2 AT 3L/BLED IN. REPOSITIONS SELF IN BED WITH EASE. USES URINAL WHILE IN BED. LEFT UPPER ARM POWERGLIDE SL X ABX. DENIES PAIN, DISCOMFORT, OR FURTHER NEEDS AT THIS TIME. SAFETY MEASURES IN PLACE. WILL GIVE HAND OFF TO ONCOMING SHIFT USING SBAR.
--- NOTE | 2019-01-31 07:37 | NUR ---
PATIENT REFUSED TO LET ME CHECK HIS AM CBG
--- NOTE | 2019-01-31 08:00 | NUR ---
PT LAYING IN BED, UP TO BSC, A/OX3, PLEASANT AND COOPERATIVE WITH CARE, FOLLOWS COMMANDS WELL, DENIES PAIN, STATES HE IS BREATHING OK, DEFLATES HIS TRACH CUFF TO SPEAK, LUNGS ARE COURSE T/O, RESP EVEN AND UNLABORED, IS CURRETNLY ON HIS HOME VENT WITH 3 LITER BLEED IN, HRR, TELE IN PLACE RUNNING SB TO SR PER MONITOR SEE STRIP, NO EDEMA NOTED, PPP+1, CAP REFILL <3SEC, VS STABLE, AFEBRILE, IV IS POWER GLIDE TO JUDY SITE IS CLEAR AND PATENT, BTX4, ABD LARGE SOFT NONTENDER, VOIDS VIA URINAL CLEAR YELLOW URINE, SKIN C/W/D, MOVES UPPER EXT. KRISTI, CALL LIGHT IN REACH.
[2019-01-31] MEDS ORDERED: ACET325 PO ×2 (12:59)
[2019-01-31] MEDS ORDERED: CIPR500 PO ×2 (12:59)
[2019-01-31] MEDS ORDERED: FURO20 PO ×2 (13:00)
[2019-01-31] MEDS ORDERED: ALBU3IS INH ×2 (13:01)
[2019-01-31] MEDS ORDERED: LACT PO ×2 (13:02)
[2019-01-31] MEDS ORDERED: SENN187 PO ×2 (13:03)
[2019-01-31] MEDS ORDERED: Tazicef1 G1 IV ×2 (13:04)
--- NOTE | 2019-01-31 13:16 | NUR ---
SASKIA HAS BEEN DISCHARGED TO HOME, WENT OVER DISCHARGE INSTRUCTIONS WITH HIS SISTER WHO MANAGES HIS MEDS AND APPTS, SHE VERBALIZED UNDERSTANDING. MCKENNA CARRANZA WAS LEFT IN PLACE HE WILL BE GETTING IV ABX FROM . HE HAS ALL HIS BELONGINGS LEFT VIA WHEELCHAIR WITH FAMILY IN ATTENDENCE.
== END 2019-01-31 13:45 | disposition home or self-care (01) | DRG 177 ==
LOC: ER 08:57 → ICUW 10:29 → ICUE 10:29 → PCU 01-27 16:45
PROVIDERS: Emergency Medicine; Internal Medicine Critical Care Medicine; Pharmacist; ADMIT Hospitalist
DX: J15.1 Pneumonia due to Pseudomonas (principal); J96.21 Acute and chronic respiratory failure with hypoxia; J96.22 Acute and chronic respiratory failure with hypercapnia; J44.1 Chronic obstructive pulmonary disease with (acute) exacerbation; J44.0 Chronic obstructive pulmonary disease with (acute) lower respiratory infection; E66.2 Morbid (severe) obesity with alveolar hypoventilation; Z99.11 Dependence on respirator [ventilator] status; E11.9 Type 2 diabetes mellitus without complications; F41.9 Anxiety disorder, unspecified; F32.9 Major depressive disorder, single episode, unspecified; Z93.0 Tracheostomy status; Z86.14 Personal history of Methicillin resistant Staphylococcus aureus infection; Z87.891 Personal history of nicotine dependence
CPT/HCPCS: 31720; 36415; 36600; 71045; 80048; 80053; 80202; 82803; 82947; 83605; 83735; 84100; 84145; 84484; 85025; 87040; 87070; 87077; 87186; 87205; 87804; 93005; 93010; 94640; 94644; 94762; 96361-59; 96365-59; 96367-59; 96375-59; 99285-25; C1751; C9113; J0456; J0696; J0713; J1650; J2060; J2920; J2930; J3370; J7030; J7040; J7050; J7060

== ENCOUNTER 2019-02-02 12:14 | Emergency (ER) | payer MEDICARE, OTHER ==
[~2019-02-02] VITALS: Ht 152.4 cm; Wt 111.1 kg
[~2019-02-02 12:14] MED LIST changes: +CIPR500 PO; +FURO20 PO; +LACT PO; +SENN187 PO
== END 2019-02-02 15:53 | disposition home or self-care (01) ==
LOC: ER 12:14
DX: Z45.2 Encounter for adjustment and management of vascular access device (principal); E11.9 Type 2 diabetes mellitus without complications; Z91.030 Bee allergy status; J44.9 Chronic obstructive pulmonary disease, unspecified; Z87.01 Personal history of pneumonia (recurrent); Z87.891 Personal history of nicotine dependence; Z88.5 Allergy status to narcotic agent; Z88.8 Allergy status to other drugs, medicaments and biological substances; Z79.899 Other long term (current) drug therapy
CPT/HCPCS: 36573; 99283-25; C1894

== ENCOUNTER 2019-02-20 12:32 | Inpatient (IN) | payer MEDICARE, OTHER ==
[~2019-02-20] VITALS: Ht 152.4 cm; Wt 117.0 kg
[2019-02-20 13:36] LABS: BASOPHILS ABSOLUTE AUTO 0.03 K/mm3 (0.00-0.23); BASOPHILS PERCENT AUTO 1 % (0-2); EOSINOPHILS ABSOLUTE AUTO 0.21 K/mm3 (0.00-0.68); EOSINOPHILS PERCENT AUTO 4 % (0-6); Hematocrit 40.8 % (37.0-53.0); Hemoglobin 13.4 g/dL (13.5-17.5); IMMATURE GRAN ABSOLUTE AUTO 0.02 K/mm3 (0.00-0.10); IMMATURE GRAN PERCENT AUTO 0 % (0-1); LYMPHOCYTES ABSOLUTE AUTO 0.73 K/mm3 (0.84-5.20); LYMPHOCYTES PERCENT AUTO 15 % (21-46); MONOCYTES ABSOLUTE AUTO 0.58 K/mm3 (0.16-1.47); MONOCYTES PERCENT AUTO 12 % (4-13); Mean Corpuscular HGB 32.2 pg (26.0-34.0); Mean Corpuscular HGB Conc 32.8 g/dL (31.5-36.5); Mean Corpuscular Volume 98 fL (80-100); Mean Platelet Volume 10.2 fL (9.1-12.4); NEUTROPHILS ABSOLUTE AUTO 3.25 K/mm3 (1.96-9.15); NEUTROPHILS PERCENT AUTO 68 % (41-73); Platelet Count 228 K/mm3 (150-400); RDW Coefficient Variation 13.7 % (11.7-14.2); RDW Standard Deviation 49.8 fL (35.1-46.3); Red Blood Cell Count 4.16 M/mm3 (4.30-5.90); White Blood Cell Count 4.82 K/mm3 (4.00-11.30)
[2019-02-20 13:50] LABS: Alanine Aminotransfer (ALT/SGP 31 U/L (12-78); Albumin, Blood 3.4 g/dL (3.4-5.0); Albumin/Globulin Ratio 0.8 (0.8-1.8); Alk Phos 106 U/L (50-136); Anion Gap 7 mmol/L (6-16); Aspartate Aminotrans (AST/SGOT 29 U/L (12-37); Bilirubin, Total 1.5 mg/dL (0.1-1.0); Blood Urea Nitrogen 15 mg/dL (8-24); Bun/Creatinine Ratio 18.5 (12.0-20.0); CO2, Blood 27 mmol/L (21-32); Calcium, Blood 9.1 mg/dL (8.5-10.1); Chloride, Blood 106 mmol/L (98-108); Creatinine, Blood 0.81 mg/dL (0.60-1.20); Globulin, Blood 4.3 g/dL (2.2-4.0); Glomerular Filtration Rate >60 (60-); Glucose, Blood 101 mg/dL (70-99); Potassium, Blood 4.2 mmol/L (3.5-5.5); Sodium, Blood 140 mmol/L (136-145); Total Protein, Blood 7.7 g/dL (6.4-8.2)
[2019-02-20] MEDS ORDERED: THERA-D2000 UNIT PO (15:40)
--- NOTE | 2019-02-20 20:29 | NUR ---
PT REFUSING CBG AT THIS TIME PT STS NOT DIABETIC AND REFUSING CBG. PT EDUCATED THAT STERIODS BEING USED TO TREAT HIS LUNGS WILL INCREASE BLOOD SUGAR AND THAT IS WHY CBG'S ARE BEING TAKEN. PT REPORTS HIS SUGARS ALWAYS STAYT LEVEL WITH STEROID USE AND CONTINUES TO REFUSE CBG CHECKS.
[2019-02-21 04:46] LABS: BASOPHILS ABSOLUTE AUTO 0.02 K/mm3 (0.00-0.23); BASOPHILS PERCENT AUTO 1 % (0-2); EOSINOPHILS ABSOLUTE AUTO 0.27 K/mm3 (0.00-0.68); EOSINOPHILS PERCENT AUTO 8 % (0-6); Hematocrit 36.1 % (37.0-53.0); Hemoglobin 11.7 g/dL (13.5-17.5); IMMATURE GRAN ABSOLUTE AUTO 0.01 K/mm3 (0.00-0.10); IMMATURE GRAN PERCENT AUTO 0 % (0-1); LYMPHOCYTES PERCENT AUTO 29 % (21-46); MONOCYTES ABSOLUTE AUTO 0.45 K/mm3 (0.16-1.47); MONOCYTES PERCENT AUTO 13 % (4-13); Mean Corpuscular HGB 31.2 pg (26.0-34.0); Mean Corpuscular HGB Conc 32.4 g/dL (31.5-36.5); Mean Corpuscular Volume 96 fL (80-100); Mean Platelet Volume 10.4 fL (9.1-12.4); NEUTROPHILS ABSOLUTE AUTO 1.65 K/mm3 (1.96-9.15); NEUTROPHILS PERCENT AUTO 49 % (41-73); Platelet Count 195 K/mm3 (150-400); RDW Coefficient Variation 13.7 % (11.7-14.2); RDW Standard Deviation 49.1 fL (35.1-46.3); Red Blood Cell Count 3.75 M/mm3 (4.30-5.90)
[2019-02-21 05:04] LABS: Anion Gap 8 mmol/L (6-16); Blood Urea Nitrogen 17 mg/dL (8-24); Bun/Creatinine Ratio 18.8 (12.0-20.0); CO2, Blood 27 mmol/L (21-32); Calcium, Blood 8.5 mg/dL (8.5-10.1); Chloride, Blood 108 mmol/L (98-108); Glomerular Filtration Rate >60 (60-); Glucose, Blood 86 mg/dL (70-99); Potassium, Blood 3.7 mmol/L (3.5-5.5); Sodium, Blood 143 mmol/L (136-145)
--- NOTE | 2019-02-21 06:35 | NUR ---
ASSUMED CARE OF PATIENT AT [facility] 0100 FROM KATERIN Chawla RN. PATIENT ALERT AND ORINETED X4; AGREE WITH PREVIOUS SR. DIRECTOR PRODUCT MANAGEMENT. PATIENT ON HOME TRACH WITH 3-4 LPM BLEED IN; INCREASE TO 4 WITH AMBULATION; 1-2 ASSIST OUT OF BED TO BEDSIDE COMMODE; PATIENT HAD LARGE BM TODAY. NSR ON TELE. PATIENT CURRRENTLY RESTING IN BED; CALL LIGHT IN REACH; BED IN LOWEST POSISITON; BED ALARM ON; WILL CONTINUE TO MONITOR AND ASSESS UNTIL END OF SHIFT.
--- NOTE | 2019-02-21 18:15 | NUR ---
SHIFT NOTE PT HAS REFUSED CBGs TODAY HE STS THE HE IS NO LONGER DIABETIC, ALSO REFUSED LOVENOX SHOT. PT A/O X4. WHEN DEFLATES TRACH CUFF ABLE TO TALK IN FULL SENTENCES. DID HAVE HTN YESTERDAY WHICH HAS SINCE RESOLVED. LS DIMINISHED. VSS. PT REPOSITIONS SELF FOR COMFORT AND PERFORMS OWN TRACH CARE. DR RUSSELL AND DR CONLEY HAVE BEEN IN TO SEE PT.
--- NOTE | 2019-02-22 05:59 | NUR ---
Shift Summary Pt with no acute events overnight. This is a chronic trach pt who self manages suction and care. VSS. No acute concerns throughout night. Pt remains on 3 L which is baseline per pt. Pt uses call light to make needs known, remains alert and oriented. No acute concerns to note. No declines from initial assessment. Pt clinically stable as evidenced by above. Will continue to monitor until day RN assumes care
--- NOTE | 2019-02-23 06:50 | NUR ---
SHIFT SUMMARY PATIENT PLEASENT THROUGHOUT THE NIGHT. PATIENT PROVIDED PAIN MEDICATION AND ANXIETY MEDICATION PER EMAR. PATIENT APPEARED TO SLEEP WELL THROUGHOUT MOST OF THE NIGHT. PATIENT REFUSED TRACH CARE LAST NIGHT. PATIENT ON HOME VENT, RESPIRTORY THERAPY MANAGING SETTINGS. PATIENT MANAGES SUCTION AND THE CUFF. CONTINUOUS BIOX IN PLACE. WILL CONTINUE TO MONITOR PATIENT AND REPORT TO ONCOMING RN.
--- NOTE | 2019-02-23 08:30 | NUR ---
AM NOTE... ASSUMED CARE OF PT APROX 0700. PT IS A&Ox4. PT WAS ADMITTED FOR RESP FAILURE AND IS ON A HOME VENT. PT'S VS STABLE AT THIS TIME. PT STATED THAT HE FEELS THE INHALED TOBRAMYCIN IS CAUSING HIM TO HAVE SOB. PT HAD COUGHED/SUCTIONED UP MODERATE AMOUNT OF THICK CAZARES SPUTUM DURING THIS TIME OF TAKING THE INHALED TOBRAMYCIN. L/S VERY DIM T/O. BT PRESENT AND HYPOACTIVE, ABD IS SOFT AND NONTENDER TO PALP. PT C/O OF BEING ANXIOUS AND CHRONIC PAIN, PT WAS MEDICATED FOR ANXEITY PER EMAR. CALL LIGHT IN REACH, BED IS LOCKED AND LOW WILL CONTINUE TO MONITOR.
[2019-02-23 09:33] LABS: BASOPHILS ABSOLUTE AUTO 0.03 K/mm3 (0.00-0.23); BASOPHILS PERCENT AUTO 1 % (0-2); EOSINOPHILS ABSOLUTE AUTO 0.42 K/mm3 (0.00-0.68); EOSINOPHILS PERCENT AUTO 10 % (0-6); Hematocrit 42.2 % (37.0-53.0); Hemoglobin 13.6 g/dL (13.5-17.5); IMMATURE GRAN ABSOLUTE AUTO 0.01 K/mm3 (0.00-0.10); IMMATURE GRAN PERCENT AUTO 0 % (0-1); LYMPHOCYTES ABSOLUTE AUTO 0.58 K/mm3 (0.84-5.20); LYMPHOCYTES PERCENT AUTO 14 % (21-46); MONOCYTES ABSOLUTE AUTO 0.58 K/mm3 (0.16-1.47); MONOCYTES PERCENT AUTO 14 % (4-13); Mean Corpuscular HGB 31.9 pg (26.0-34.0); Mean Corpuscular HGB Conc 32.2 g/dL (31.5-36.5); Mean Platelet Volume 9.9 fL (9.1-12.4); NEUTROPHILS ABSOLUTE AUTO 2.66 K/mm3 (1.96-9.15); NEUTROPHILS PERCENT AUTO 62 % (41-73); Platelet Count 218 K/mm3 (150-400); RDW Standard Deviation 51.1 fL (35.1-46.3); Red Blood Cell Count 4.27 M/mm3 (4.30-5.90); White Blood Cell Count 4.28 K/mm3 (4.00-11.30)
[2019-02-23 09:34] LABS: Mean Corpuscular Volume 99 fL (80-100)
[2019-02-23 09:48] LABS: Anion Gap 7 mmol/L (6-16); Blood Urea Nitrogen 12 mg/dL (8-24); Bun/Creatinine Ratio 15.6 (12.0-20.0); CO2, Blood 27 mmol/L (21-32); Calcium, Blood 9.1 mg/dL (8.5-10.1); Chloride, Blood 107 mmol/L (98-108); Creatinine, Blood 0.77 mg/dL (0.60-1.20); Glomerular Filtration Rate >60 (60-); Glucose, Blood 103 mg/dL (70-99); Potassium, Blood 4.1 mmol/L (3.5-5.5); Sodium, Blood 141 mmol/L (136-145)
--- NOTE | 2019-02-23 17:59 | NUR ---
SHIFT SUMMARY. NO ACUTE NEGATIVE CHANGES NOTED THIS SHIFT. PT WAS VERY ANXIOUS THE FIRST FEW HOURS OF THIS SHIFT. PT WAS GIVEN ATIVAN 0.25MG AND THIS HELPED. PT HAS BEEN STABLE ON HIS HOME VENT SINCE THIS AM WHEN THE PT HAD SUSPECTED BRONCHO SPASMS. PT REFUSED BEDBATH AND PERSONAL CARE THIS SHIFT. PT EDUCATED ON SKIN CARE AND THE PREVENTION OF SKIN BREAKDOWN, PT STATED HIS UNDERSTANDING. CALL LIGHT IN REACH, BED IS LOCKED AND LOW WILL CONTINUE TO MONITOR UNTIL REPORT IS GIVEN TO ONCOMING RN.
--- NOTE | 2019-02-24 05:08 | NUR ---
SHIFT SUMMARY PATIENT PLEASENT THROUGHOUT THE NIGHT. PATIENT MEDICATED FOR PAIN AND ANXIETY PER EMAR. PATIENT APPEARED TO SLEEP WELL THROUGHOUT THE NIGHT. ANXIETY APPEARED WELL CONTROLLED WITH CURRENT ORDERED MEDICATIONS. PATIENT ON HOME VENT VIA TRACH. RESPIRATORY THERAPY AND PATIENT MANAGING HOME VENT. VITAL SIGNS CHARTED. PATIENT CURRENTLY APPEARS TO BE SLEEPING AT THIS TIME. WILL CONTINUE TO MONITOR PATIENT AND REPORT TO ONCOMING RN.
--- NOTE | 2019-02-24 09:44 | NUR ---
AM NOTE.. ASSUMEDC ARE OF PT APROX 0700. PT IS A&Ox4. PT WAS ADMITTED FOR RESP FAILURE. PT IS ON HIS HOME VENT SETTINGS AND SELF MANAGES. PT'S L/S SLIGHTLY BETTER THAN YESTERDAY BUT STILL VERY DIM T/O. PT IS ON 3L TRACH/VENT. PT IS C/O OF BACK PAIN AND ANXIETY EVEN THOUGH THE PT WAS SLEEPING HARD PRIOR TO THIS RN WAKING HIM UP. PT'S VS STABLE AT THIS TIME. CALL LIGHT IN REACH, BED IS LOCKED AND LOW WILL CONTINUE TO MONITOR.
--- NOTE | 2019-02-24 18:24 | NUR ---
SHIFT SUMMARY PT HAS HAD SOME ANXIETY T/O THE DAY, WHICH HAS BEEN MANAGED WITH ATIVAN. PLAN FOR PICC LINE PLACEMENT TOMORROW SO PT CAN RETURN HOME WITH ANTIBIOTICS. PT'S SISTER WAS PRESENT TO DAY FOR SUPPORT, SHE IS ALSO HIS CAREGIVER. VSS. WILL MONITOR UNTIL REPORT TO ONCOMING RN.
--- NOTE | 2019-02-25 06:45 | NUR ---
SHIFT SUMMARY PATIENT PLEASENT AND COOPERATIVE THROUGHOUT THE NIGHT. PATIENT APPEARED TO HAVE A GOOD NIGHT. PAIN AND ANXIETY MEDICATION GIVEN PER EMAR. PATIENT'S PAIN AND ANXIETY APPEAR TO BE MANAGED WELL WITH CURRENT ORDERED MEDICATIONS. PATIENT ON HOME VENT VIA TRACH. RESPIRTORY THERAPY MANAGING VENT SETTINGS. PATIENT SUCTIONS SELF NEEDED. WILL CONTINUE TO MONITOR PATIENT AND REPORT TO ONCOMING RN.
--- NOTE | 2019-02-25 18:20 | NUR ---
SHIFT SUMMARY PT ALERT; COMPLIANT W/ CARE; PT ON HOME VENT W/ TRACH; RESPIRATORY THERAPY MANAGING SETTINGS; FAMILY AT BEDSIDE EARLIER WHICH SEEMED TO LIFT PT'S SPIRITS; PT STATED HE DID NOT WANT TO RECIEVE A PICC, BUT WANTED TO RECIEVE ANTIBIOTIC REGIMEN IN THE HOSPITAL; HOSPITALIST AWARE OF PT'S DESIRE; CALL LIGHT IN REACH; BED IN LOWEST POSITION; WILL CONTINUE TO MONITOR UNTIL HAND OFF TO NOC RN
--- NOTE | 2019-02-26 05:31 | NUR ---
END OF SHIFT SUMMARY NO ACUTE CHANGES THIS SHIFT. VSS. TRACH CARE BY PT AND THIS RN. HOME VENT SETTINGS. PT REPOSITIONING SELF IN BED. VOIDING IN UIRINAL. HAS REQUIRED LORAZEPAM FOR ANXIETY. PT HAS NOT BEEN OUT OF BED THIS SHIFT. PT STATES BREATHING FEELS BETTER. OCCASIUONALLY HAS TO SUCTION. WILL CONTINUE TO MONITOR UNTIL SHIFT CHANGE. USES SO LLIGHT APPROPRIATELY, WITHIN REACH.
--- NOTE | 2019-02-26 18:50 | NUR ---
PT REPORTS TO KUSUM PIRES THAT HE IS FEELING SHAKEY, DIZZY AND DIAPHORETIC; REQUESTING CBG. CBG 165, PT REQUESTS INSULIN COVERAGE ON MEDIUM SLIDING SCALE. BP 154/82, HR 85, TEMP 99.1. RESP 22-24 AND O2 SATURATIONS 97% ON HOME VENT SETTING VIA TRACH. NOTIFIED DR CONLEY OF PT REQUESTS, NEW ORDERS FOR CBG TID WITH MEALS AND INSULIN COVERAGE WITH LOWE SLIDING SCALE. EDUCATED PT ON COVERAGE AND CBG AND INSULIN, PT REFUSES TO ALLOW REGULAR CBG CHECKS AND INSULIN COVERAGES. STATES "ITS A WASTE OF SKIN, I ONLY WANT TO BE CHECKED WHEN IM NO FEELING WELL." WILL CONTINUE TO MONITOR.
--- NOTE | 2019-02-26 19:40 | NUR ---
PT A&O; STATES HE IS SWEATY AND NOT FEELING "RIGHT"; REFER TO RN NOTE AFTER CALL TO HOSPITALIST; PT ANXIETY HAS INCREASED THIS PM; ATIVAN GIVEN PER EMAR; CONVERSATION TO REDIRECT; IV IN L WRIST FLUSHING APPROPRIATELY; PT ON HOME VENT W/ TRACH; RESPIRATORY THERAPY MONITORING SETTINGS; VSS; DENIES NEEDS AT THIS TIME; CALL LIGHT IN REACH; BED IN LOWEST POSITION; HAND OFF GIVEN TO NOC RN
--- NOTE | 2019-02-26 21:53 | NUR ---
ASSUMED CARE OF PATIENT AT APPROXIMATELY 1910 FROM ANAM Falcon RN. PATIENT ALERT AND ORIENTED X4; ANXIOUS. PATIENT REPORTS PAIN; MEDICATED PER EMAR. PATIENT DENIES NUMBNESS, TINGLING, DIZZINESS AND NAUSEA. NSR ON TELE; OXYGEN SATURATION ABOVE 90% ON HOME VENT WITH 3LPM BLEED INTO HOME VENT; PAITNET DOES TRACH CARE. ONE ASSIST OUT OF BED; PATIENT REPORTS REDUCED APPETITE. PIV S/L. PATIENT CURRENTLY RESTING IN BED; CALL LIGHT IN REACH; BED IN LOWEST POSISTION; WILL CONTINUE TO MONITOR AND ASSESS UNTIL END OF SHIFT.
--- NOTE | 2019-02-27 06:23 | NUR ---
PATIENT MEDICATED ONCE FOR ANXIETY PER EMAR. PATIENT SLEPT ABOUT SEVEN HOURS LAST NIGHT. VSS. WILL CONTINUE TO MONITOR AND ASSESS UNTIL END SHIFT.
--- NOTE | 2019-02-27 18:41 | NUR ---
SHIFT SUMMARY PT A&Ox4. ANXIOUS AT TIMES, MEDICATED PER EMAR. PT COOPERATIVE WITH CARE. PT RESTING IN BED DURING SHIFT. PT ON HOME VENT SETTING WITH 3L O2 BLEED IN, VIA TRACH. PT TAKES CARE OF TRACH, SUCTIONS AND CLEANS. PT LS DIM T/O. PT REPORTS PAIN T/O, MEDICATED PER EMAR WITH POSITIVE RESULTS. PT RECEIVING IV ANTIBIOTICS. PT DENIES DIZZINESS, NAUSEA AND EMESIS. PT REQUESTING GLUCERNA WITH MEALS. VSS. NO OTHER ACUTE CHANGES NOTED DURING SHIFT. WILL CONTINUE TO MONITOR UNTIL REPORT GIVEN TO ONCOMING RN.
--- NOTE | 2019-02-27 23:22 | NUR ---
Assumed care of pt at approx 1900. VSS, breathing even and unlabored on home vent wtih 3.5L bleed in. Pt complains of pain, medicated per emar. Pt also complains of anxiety, medicated at 2300 per orders. No acute concerns to note. Pt is alert and oriented. See shift assessment for detailed assessment. Pt able to communicate needs with call light. Voiding in urinal at bedside. Will continue to monitor
[2019-02-28 03:53] LABS: Hematocrit 37.5 % (37.0-53.0); Hemoglobin 12.3 g/dL (13.5-17.5); Mean Corpuscular HGB 32.1 pg (26.0-34.0); Mean Corpuscular HGB Conc 32.8 g/dL (31.5-36.5); Mean Corpuscular Volume 98 fL (80-100); Mean Platelet Volume 10.3 fL (9.1-12.4); Platelet Count 188 K/mm3 (150-400); RDW Coefficient Variation 13.4 % (11.7-14.2); RDW Standard Deviation 47.9 fL (35.1-46.3); Red Blood Cell Count 3.83 M/mm3 (4.30-5.90); White Blood Cell Count 5.87 K/mm3 (4.00-11.30)
[2019-02-28 04:19] LABS: Alanine Aminotransfer (ALT/SGP 28 U/L (12-78); Albumin, Blood 2.7 g/dL (3.4-5.0); Albumin/Globulin Ratio 0.8 (0.8-1.8); Alk Phos 73 U/L (50-136); Anion Gap 6 mmol/L (6-16); Aspartate Aminotrans (AST/SGOT 13 U/L (12-37); Bilirubin, Total 0.7 mg/dL (0.1-1.0); Blood Urea Nitrogen 22 mg/dL (8-24); Bun/Creatinine Ratio 30.7 (12.0-20.0); CO2, Blood 29 mmol/L (21-32); Calcium, Blood 8.8 mg/dL (8.5-10.1); Chloride, Blood 105 mmol/L (98-108); Creatinine, Blood 0.72 mg/dL (0.60-1.20); Globulin, Blood 3.6 g/dL (2.2-4.0); Glomerular Filtration Rate >60 (60-); Glucose, Blood 113 mg/dL (70-99); Phosphorus, Blood 2.5 mg/dL (2.5-4.9); Sodium, Blood 140 mmol/L (136-145); Total Protein, Blood 6.3 g/dL (6.4-8.2)
[2019-02-28 04:29] LABS: BASOPHILS ABSOLUTE MAN 0.05 K/mm3 (0.00-0.23); BASOPHILS PERCENT MAN 1 % (0-2); EOSINOPHILS ABSOLUTE MAN 0.05 K/mm3 (0.00-0.68); EOSINOPHILS PERCENT MAN 1 % (0-6); LYMPHOCYTES ABSOLUTE MAN 0.82 K/mm3 (0.84-5.20); LYMPHOCYTES PERCENT MAN 14 % (21-46); MONOCYTES ABSOLUTE MAN 0.82 K/mm3 (0.16-1.47); MONOCYTES PERCENT MAN 14 % (4-13); SEG NEUTROPHILS PERCENT MAN 70 % (41-73); TOTAL CELLS COUNTED 100
--- NOTE | 2019-02-28 04:59 | NUR ---
Shift Summary No acute changes this shift. VSS. alert and oriented. no declines from initial assessment. Pt continues to use call light to make needs known. Voids in urinal at bedside. ABX infused per orders. plan is to finish IVABX today then possible d/c per MD notes. No changes in oxygen demand or requirements, continues to manage home vent. No concerns to notes. Will continue to monitor until day RN assumes care.
--- NOTE | 2019-02-28 08:53 | NUR ---
pt laying in bed requeting ativan for anxiety, he is a/ox3, cooperative with care, follows commands well, denies pain, lungs are very dim t/o, resp even and unlabored at this time, he reports he has a lot of anxiety after breathing tx. 0.25 ativan given. he reports he is settling down, he has a trach, with home vent, he manages it himself, hrr, tele in place running sr in the 80's, iv site to left wrist, site is clear and patent, btx4, abd round soft nontender, voids without diff, skin c/w/d, maew, erick, call light in reach.
--- NOTE | 2019-02-28 19:33 | NUR ---
PT NEEDED ATIVAN TWICE TODAY, OTHERWISE HAD AN UNEVENTFUL DAY, HAD A BED BATH, HAD A LARGE BM, DOING WELL. CALL LIGHT IN REACH.
--- NOTE | 2019-03-01 06:27 | NUR ---
SHIFT SUMMARY PT SLEEPING IN ROOM COMFORTABLY AT THIS TIME. NO ACUTE CHANGES IN STATUS. PT SLEPT WELL, DENIED NEEDS T/O NIGHT. CALLED APPROPRIATELY TO EMPTY URINAL. PT MANGED OWN TRACH/VENT AND DID NOT CALL FOR ASSISTANCE. SATS >92% T/O NIGHT. DENIED OTHER NEEDS. CALL LIGHT IN REACH.
--- NOTE | 2019-03-01 08:00 | NUR ---
pt laying in bed watching tv. a/ox3, pleasant and cooperative with care, follows commands, states he is doing ok, needs urinal, lungs are dim t/o, trach with home vent, has 3 liter bleed in, he has no needs this am, his probiotic was given, hrr, no edema noted, iv site is clear and patent, btx4, voids without diff, skin c/w/d, erwin, erick, call light in reach.
--- NOTE | 2019-03-01 12:25 | NUR ---
PT HAS BEEN DISCHARGED TO HOME, CHARGE NURSE WENT OVER INSTRUCTIONS WITH HIM AND HIS SISTER WHO IS HERE. HIS IV WAS REMOVED INTACT, NO NEW MEDS TO CALL IN. HE HAS ALL HIS BELONGINGS. LEFT VIA HIS WHEELCHAIR, WITH FAMILY IN ATTENDENCE.
== END 2019-03-01 12:27 | disposition home or self-care (01) | DRG 207 ==
LOC: ER 12:32 → PCU 15:44
PROVIDERS: Emergency Medicine; Internal Medicine Critical Care Medicine; ADMIT Internal Medicine
PROC: 5A1955Z Respiratory Ventilation, Greater than 96 Consecutive Hours (ICD-10-PCS; principal; 2019-02-20)
PROC: 3E02340 Introduction of Influenza Vaccine into Muscle, Percutaneous Approach (ICD-10-PCS; 2019-02-20)
DX: J96.21 Acute and chronic respiratory failure with hypoxia (principal); J15.1 Pneumonia due to Pseudomonas; J44.1 Chronic obstructive pulmonary disease with (acute) exacerbation; E66.2 Morbid (severe) obesity with alveolar hypoventilation; Z68.42 Body mass index [BMI] 45.0-49.9, adult; Z99.81 Dependence on supplemental oxygen; J96.22 Acute and chronic respiratory failure with hypercapnia; Z87.891 Personal history of nicotine dependence; Z93.0 Tracheostomy status; E11.22 Type 2 diabetes mellitus with diabetic chronic kidney disease; Z22.39 Carrier of other specified bacterial diseases; Z23 Encounter for immunization
CPT/HCPCS: 31720; 36415; 71045; 80048; 80053; 80069; 82947; 84100; 84145; 85007; 85025; 85027; 87070; 87077; 87186; 87205; 90686; 93005; 93010; 94640; 94664; 94667; 94668; 94760; 94762; 98960; 99285-25; G0008; J0713; J1650; J2060; J2543; J2920; J3475; J7050

== ENCOUNTER 2019-04-11 01:15 | Inpatient (IN) | payer MEDICARE, OTHER ==
[~2019-04-11] VITALS: Ht 170.2 cm; Wt 114.2 kg
[~2019-04-11 01:15] MED LIST changes: +THERA-D2000 UNIT PO
[2019-04-11 01:58] LABS: BASOPHILS ABSOLUTE AUTO 0.09 K/mm3 (0.00-0.23); BASOPHILS PERCENT AUTO 1 % (0-2); EOSINOPHILS PERCENT AUTO 2 % (0-6); Hematocrit 45.8 % (37.0-53.0); Hemoglobin 14.6 g/dL (13.5-17.5); IMMATURE GRAN ABSOLUTE AUTO 0.12 K/mm3 (0.00-0.10); IMMATURE GRAN PERCENT AUTO 1 % (0-1); LYMPHOCYTES ABSOLUTE AUTO 2.02 K/mm3 (0.84-5.20); LYMPHOCYTES PERCENT AUTO 16 % (21-46); MONOCYTES ABSOLUTE AUTO 0.97 K/mm3 (0.16-1.47); MONOCYTES PERCENT AUTO 8 % (4-13); Mean Corpuscular HGB 31.5 pg (26.0-34.0); Mean Corpuscular HGB Conc 31.9 g/dL (31.5-36.5); Mean Corpuscular Volume 99 fL (80-100); NEUTROPHILS ABSOLUTE AUTO 8.82 K/mm3 (1.96-9.15); NEUTROPHILS PERCENT AUTO 72 % (41-73); Platelet Count 320 K/mm3 (150-400); RDW Coefficient Variation 13.8 % (11.7-14.2); RDW Standard Deviation 50.3 fL (35.1-46.3); Red Blood Cell Count 4.63 M/mm3 (4.30-5.90); White Blood Cell Count 12.32 K/mm3 (4.00-11.30)
[2019-04-11 02:04] LABS: Alanine Aminotransfer (ALT/SGP 27 U/L (12-78); Albumin, Blood 3.6 g/dL (3.4-5.0); Albumin/Globulin Ratio 0.8 (0.8-1.8); Alk Phos 125 U/L (50-136); Anion Gap 5 mmol/L (6-16); Aspartate Aminotrans (AST/SGOT 17 U/L (12-37); Bilirubin, Total 1.3 mg/dL (0.1-1.0); Blood Urea Nitrogen 15 mg/dL (8-24); Bun/Creatinine Ratio 21.7 (12.0-20.0); CO2, Blood 26 mmol/L (21-32); Calcium, Blood 8.9 mg/dL (8.5-10.1); Chloride, Blood 108 mmol/L (98-108); Creatinine, Blood 0.69 mg/dL (0.60-1.20); Globulin, Blood 4.7 g/dL (2.2-4.0); Glomerular Filtration Rate >60 (60-); Glucose, Blood 145 mg/dL (70-99); Potassium, Blood 4.2 mmol/L (3.5-5.5); Sodium, Blood 139 mmol/L (136-145); Total Protein, Blood 8.3 g/dL (6.4-8.2); Troponin I 0.048 ng/mL (0.000-0.040)
[2019-04-11] MEDS ORDERED: FUROSEMIDE20 MG PO (02:31)
--- NOTE | 2019-04-11 04:30 | NUR ---
PT ADMITTED TO ROOM ICU 6 AT 0304 UNDER PCU STATUS. 5 PERSON SLIDE TRANSFER PT TO BED. PT VERY ANXIOUS, AND WANTS MULTIPLE TASKS DONE FOR HIM. HE MAKES A CLICKING NOISE WITH MOUTH TO TRY TO EXPRESS HIS WANTS AND NEEDS. PT'S BED COMPLETELY SATURATED WITH URINE. WHILE ATTEMPTING TO CLEAN PT, HE WAS TRYING TO GET STAFF TO DO OTHER TASKS AT THE SAME TIME. VERBALLY ATTEMPTED TO CALM PT AND AWAIT BED CHANGE. PT REMAINED VERY ANXIOUS. SECONDARY TO BUMEX BEING GIVEN IN ED DID ATTEMPT TO PLACE CONDOM CATHETER. UNFORTUNATELY, SECONDARY TO ANATOMICAL REASONS, WAS UNABLE TO GET CONDOM CATH TO REMAIN IN PLACE. PT WANTED TO HAVE A SYRINGE AVAILABLE FOR HIM TO INFLATE AND DEFLATE CUFF. RT ADDRESSES PT, AND DID PROVIDE PT WITH 10 ML SYRINGE. WILL REVIEW CHART AND PLAN OF CARE.
--- NOTE | 2019-04-11 06:02 | NUR ---
DR REYES COMES TO ROOM TO ASSESS PT. NEW ORDERS HAVE BEEN RECEIVED. PT HAS BEEN ABLE TO USE URINAL TO VOID. HAS ALSO BEEN INCONTINENT AT TIMES. PT'S ANXIOUSNESS HAS CALMED SOME. USES CALL LIGHT TO HAVE NEEDS MET. SPUTUM SAMPLE COLLECTED AND SENT TO LAB FOR PROCESSING. WILL CONTINUE TO MONITOR PT, AND WILL REPORT OFF TO ONCOMING RN.
--- NOTE | 2019-04-11 07:30 | NUR ---
Received report in room from Adi BEAUCHAMP. Patient lying supine in bed with HOB at 30 degrees. He is alert and oriented and releases trach cuff to peak and reinflates, he is able to communicate his needs. Echo in room finishing up and Dr Pollack present as well. He is on his home vent and RT states 600/34/10/3L bleedin and sats 99%. He denies any difficulty breathing. He refuses simmons and has 4 urinals on bed rail and urinates about 200ml of clear yellow urine at a time and has had 600ml out this shift. He is on droplet and contact isolation for MRSA. He has 20ga LH and dressing intact and site WNL's and is flushed and SL. HR 50-60, systolic 120-140's and is in SR.
[2019-04-11 08:23] LABS: Adenovirus Not Detected (NOT DETECT); Bordetella pertussis Not Detected (NOT DETECT); Chlamydophila pneumoniae Not Detected (NOT DETECT); Coronavirus 229E Not Detected (NOT DETECT); Coronavirus HKU1 Not Detected (NOT DETECT); Coronavirus NL63 Not Detected (NOT DETECT); Coronavirus OC43 Not Detected (NOT DETECT); Human Metapneumovirus Not Detected (NOT DETECT); Human Rhinovirus/Enterovirus Not Detected (NOT DETECT); Influenza A Not Detected (NOT DETECT); Influenza A/2009-H1 Not Detected (NOT DETECT); Influenza A/H1 Not Detected (NOT DETECT); Influenza A/H3 Not Detected (NOT DETECT); Influenza B Not Detected (NOT DETECT); Mycoplasma pneumoniae Not Detected (NOT DETECT); Parainfluenza Virus 1 Not Detected (NOT DETECT); Parainfluenza Virus 2 Not Detected (NOT DETECT); Parainfluenza Virus 3 Not Detected (NOT DETECT); Parainfluenza Virus 4 Not Detected (NOT DETECT); Respiratory Syncytial Virus Not Detected (NOT DETECT)
--- NOTE | 2019-04-11 09:37 | NUR ---
Patient sitting up in bed watching TV. He continues to tolerate home vent at same settings. Notified Pulm. of consult Dr. Rockwell. VSS. He has Abx infusing. No significant changes from am assessment.
[2019-04-11 10:32] LABS: Troponin I 0.822 ng/mL (0.000-0.040)
--- NOTE | 2019-04-11 11:33 | NUR ---
PATIENT CONTINUES ON HOME VENT AND SATS MID 90%'S. HE RECEIVED LASIX 40MG AND HAS HAD ANOTHER 900 CLEAR YELLOW URINE OUT USING URINAL. SISTER CAME BY AND GAVE HER UPDATES AND ANSWERED ANY QUESTIONS SHE HAD. DR RUSSELL BY AND WILL ASSESS PATIENT LATER SINCE NOT IN DISRESS. PATIENT JACQUE ANY CURRENT NEEDS. pLACED WARMBLANKETS OVER PATIENT.
[2019-04-11 13:19] LABS: International Normalized Ratio 1.07; Prothrombin Time Results 11.4 Sec (9.7-11.5)
--- NOTE | 2019-04-11 13:57 | NUR ---
Patient continues to diuresis about 800 q2hrs. Called in cardiology consult for increased troponin Dr Pollack thinks possible NSTEMI. He Denies chest pain but states anxiety and was medicated. Remains on home vent and self suctions and releases cuff for speech. He shows No signs of distress.
--- NOTE | 2019-04-11 16:00 | NUR ---
Dr Khalil by and talked with patient and is doing several more follow up Troponins. He will be NPO after midnight.. He has been drinking Glucerna strawberry. He has been managing his suctin and cuff. Changed out trach sponge and cleaned area. No changes with home vent. He is able to communicate his needs and calls appropriately.
--- NOTE | 2019-04-11 17:11 | NUR ---
Cleaned patient up best he allows and changed linen anbd attends out, repositioned him up. RT changed circuit out earlier. No significant changes.
--- NOTE | 2019-04-11 20:43 | NUR ---
PT RESTING IN BED. ON HOME VENT TO TRACH. DENIES PAIN, SOB, AND N/T. REQUESTING ATIVAN FOR ANXIETY-GIVEN. NO SIGN OF DISTRESS.
[2019-04-11 20:48] LABS: Troponin I 0.497 ng/mL (0.000-0.040)
[2019-04-12 03:26] LABS: BASOPHILS ABSOLUTE AUTO 0.04 K/mm3 (0.00-0.23); BASOPHILS PERCENT AUTO 1 % (0-2); EOSINOPHILS ABSOLUTE AUTO 0.14 K/mm3 (0.00-0.68); EOSINOPHILS PERCENT AUTO 3 % (0-6); Hematocrit 38.7 % (37.0-53.0); Hemoglobin 12.5 g/dL (13.5-17.5); IMMATURE GRAN ABSOLUTE AUTO 0.01 K/mm3 (0.00-0.10); IMMATURE GRAN PERCENT AUTO 0 % (0-1); LYMPHOCYTES ABSOLUTE AUTO 1.14 K/mm3 (0.84-5.20); LYMPHOCYTES PERCENT AUTO 24 % (21-46); MONOCYTES ABSOLUTE AUTO 0.63 K/mm3 (0.16-1.47); MONOCYTES PERCENT AUTO 13 % (4-13); Mean Corpuscular HGB 30.8 pg (26.0-34.0); Mean Corpuscular HGB Conc 32.3 g/dL (31.5-36.5); Mean Platelet Volume 9.9 fL (9.1-12.4); NEUTROPHILS ABSOLUTE AUTO 2.89 K/mm3 (1.96-9.15); NEUTROPHILS PERCENT AUTO 60 % (41-73); Platelet Count 174 K/mm3 (150-400); RDW Coefficient Variation 13.9 % (11.7-14.2); RDW Standard Deviation 49.1 fL (35.1-46.3); Red Blood Cell Count 4.06 M/mm3 (4.30-5.90); White Blood Cell Count 4.85 K/mm3 (4.00-11.30)
[2019-04-12 03:28] LABS: Mean Corpuscular Volume 95 fL (80-100)
[2019-04-12 03:48] LABS: Alanine Aminotransfer (ALT/SGP 23 U/L (12-78); Albumin, Blood 2.9 g/dL (3.4-5.0); Albumin/Globulin Ratio 0.8 (0.8-1.8); Alk Phos 91 U/L (50-136); Anion Gap 6 mmol/L (6-16); Aspartate Aminotrans (AST/SGOT 18 U/L (12-37); Bilirubin, Total 1.3 mg/dL (0.1-1.0); Blood Urea Nitrogen 14 mg/dL (8-24); Bun/Creatinine Ratio 17.2 (12.0-20.0); CO2, Blood 30 mmol/L (21-32); Calcium, Blood 8.8 mg/dL (8.5-10.1); Chloride, Blood 104 mmol/L (98-108); Creatinine, Blood 0.81 mg/dL (0.60-1.20); Globulin, Blood 3.8 g/dL (2.2-4.0); Glomerular Filtration Rate >60 (60-); Glucose, Blood 103 mg/dL (70-99); Potassium, Blood 3.2 mmol/L (3.5-5.5); Sodium, Blood 140 mmol/L (136-145); Total Protein, Blood 6.7 g/dL (6.4-8.2)
--- NOTE | 2019-04-12 05:33 | NUR ---
SUMMARY PT RESTING IN BED. ON HOME VENT TO TRACH WITH HOME SETTINGS. PT ABLE TO INFLATE AND DEFLATE CUFF SO HE CAN TALK AND TAKE PILLS. PT HAS BEEN NPO SINCE MIDNIGHT IN CASE HE IS TO GO TO THE MANUGRAPHER TODAY. TROPONINS STILL ELEVATED BUT IMPROVED. PT IS ABLE TO MOVE SELF IN BED. NO SIGN OF DISTRESS AND CALL LIGHT IN REACH.
--- NOTE | 2019-04-12 07:40 | NUR ---
DR. GUERRA AT BEDSIDE. INSTRUCTED THIS AUTHOR THAT PT NOT GOING TO RF DESIGN ENGINEER TODAY, MORE LIKELY Monday04/15/19. MAKE PT NPO ON MONDAY NIGHT. ORDERS ENTERED.
--- NOTE | 2019-04-12 08:15 | NUR ---
DR. GUARDADO AT BEDSIDE. NO NEW ORDERS AT THIS TIME.
--- NOTE | 2019-04-12 10:30 | NUR ---
DR. DIAZ AT BEDSIDE. THIS AUTHOR GAVE UPDATE ON PT CONDITION. NO NEW ORDERS AT THIS TIME.
--- NOTE | 2019-04-12 12:00 | NUR ---
PT RESTING IN BED. RR 24-26, DEFLATES OWN TRACH CUFF TO SPEAK. DENIES PAIN OR DISCOMFORT.DECLINES TO BE REPOSITIONED, CAN CHANGE POSITION INDEPENDENTLY. VSS, O2 AT 3 L/MIN PER HIS HOME VENT. LUNG SOUNDS DIM THROUGHOUT, LARGE AMT YELLOW SECRETIONS. USING URINAL INDEPENDENTLY.
--- NOTE | 2019-04-12 17:46 | NUR ---
SHIFT SUMMARY: PT REMAINED IN BED ALL SHIFT. VSS, DENIES PAIN. LUNG SOUNDS ARE COARSE THROUGHOUT WITH THICK YELLOW/CAZARES SECRETIONS, SUCTIONS SELF, DEFLATES TRACH CUFF AT WILL TO SPEAK. USED BEDPAN FOR BM, USING URINAL INDEPENDENTLY. APPETITE OK, TAKING ADEQUATE PO FLUIDS. PLAN IS FOR KST OPERATOR FOR POSSIBLLE PCI ON MONDAY.
--- NOTE | 2019-04-12 20:44 | NUR ---
PT RESTING IN BED WATCHING TV. TRACH TO HOME VENT. ABLE TO DEFLATE CUFF TO VOCALIZE NEEDS. CALL LIGHT IN REACH AND PT USES APPROPRIATELY.
[2019-04-13 03:33] LABS: BASOPHILS ABSOLUTE AUTO 0.04 K/mm3 (0.00-0.23); BASOPHILS PERCENT AUTO 1 % (0-2); EOSINOPHILS ABSOLUTE AUTO 0.22 K/mm3 (0.00-0.68); EOSINOPHILS PERCENT AUTO 5 % (0-6); Hematocrit 36.2 % (37.0-53.0); Hemoglobin 11.9 g/dL (13.5-17.5); IMMATURE GRAN PERCENT AUTO 0 % (0-1); LYMPHOCYTES ABSOLUTE AUTO 1.19 K/mm3 (0.84-5.20); LYMPHOCYTES PERCENT AUTO 30 % (21-46); MONOCYTES ABSOLUTE AUTO 0.53 K/mm3 (0.16-1.47); MONOCYTES PERCENT AUTO 13 % (4-13); Mean Corpuscular HGB 31.4 pg (26.0-34.0); Mean Corpuscular HGB Conc 32.9 g/dL (31.5-36.5); Mean Corpuscular Volume 96 fL (80-100); Mean Platelet Volume 10.1 fL (9.1-12.4); NEUTROPHILS ABSOLUTE AUTO 2.06 K/mm3 (1.96-9.15); NEUTROPHILS PERCENT AUTO 51 % (41-73); Platelet Count 163 K/mm3 (150-400); RDW Coefficient Variation 14.1 % (11.7-14.2); RDW Standard Deviation 49.3 fL (35.1-46.3); Red Blood Cell Count 3.79 M/mm3 (4.30-5.90); White Blood Cell Count 4.04 K/mm3 (4.00-11.30)
[2019-04-13 03:51] LABS: Anion Gap 7 mmol/L (6-16); Blood Urea Nitrogen 14 mg/dL (8-24); Bun/Creatinine Ratio 19.6 (12.0-20.0); CO2, Blood 29 mmol/L (21-32); Calcium, Blood 8.8 mg/dL (8.5-10.1); Chloride, Blood 104 mmol/L (98-108); Creatinine, Blood 0.72 mg/dL (0.60-1.20); Glomerular Filtration Rate >60 (60-); Glucose, Blood 99 mg/dL (70-99); Sodium, Blood 140 mmol/L (136-145)
--- NOTE | 2019-04-13 05:57 | NUR ---
SUMMARY PT RESTING IN BED ON HOME VENT TO TRACH. PT DEFLATES CUFF TO VOCALIZE NEEDS. SUCTIONS SELF WITH INLINE SUCTION WELL. ABLE TO MOVE SELF IN BED. NO ISSUES DURING THE NIGHT. WILL BE TRANSFERING TO PCU 5 WHEN BED IS AVAILABLE. NO SIGN OF DISTRESS.
--- NOTE | 2019-04-13 06:14 | NUR ---
CALLED DR. GUIDRY ABOUT LOW POTASSIUM LEVEL. NEW ORDERS FOR PO AND IV POTASSIUM TO BE GIVEN.
--- NOTE | 2019-04-13 06:42 | NUR ---
REPORT GIVEN TO BRANDON BEAUCHAMP. PT TRANSFERED TO PCU 5.
--- NOTE | 2019-04-13 07:00 | NUR ---
PCU CARE ASSUMPTION - TRANSFER OF CARE PT BROUGHT TO PCU RM 05 FROM ICU @ 0451. PT A&O X4. SPO2 > 92% ON HOME VENT. HEPARIN GTT INFUSING PER ORDERS. REPORT GIVEN TO PCU DAY SHIFT RN WHO IS TO ASSUME CARE.
--- NOTE | 2019-04-13 18:21 | NUR ---
SHIFT SUMMARY PT REMAINS ON HOME VENT ON 3L. PT DEFLATES TRACH AT WILL TO TALK AND SELF SUCTIONS. THIS AFTERNOON PT GOT UP TO BSC AND RETURNED TO BED WITH 1 PERSON ASSIST. PT REQUIRED A COUPLE MINUTE RECOVERY WITH O2 AT 7L AND WAS ABLE TO TITRATE BACK DOWN TO 3L. LUNG SOUNDS REMAINED COURSE THROUGH OUT. VSS, TELEMETRY SHOWED PT SINUS INDIRA HIGH 50'S TO SINUS RHYTHM. PT WAS ANXIOUS AT TIMES AND MEDICATED PRN WITH LORAZAPAM.
--- NOTE | 2019-04-13 22:49 | NUR ---
ASSUMED CARE PATIENT AWAKE AND ALERT IN BED, BREATHING REGULAR THROUGH TRACH HOME VENT. ALL VSS. HR AT 74 PER MONITOR, SATURATING AT 97% ON 3L O2 BLEED IN. HEPARIN GTT CONFIRMED WITH SECOND RN AT 18U/KG/HR DOSED AT 85KG = 30.6 ML/HR. PT C/O PAIN TO BACK 12/04, WILL MEDICATE PER EMAR. PATIENT REPORTS OCC SPILLING WHILE USING URINAL, GAVE VIJAY-CARE, PLACED ABSORBENT PAD, AND WILL OBTAIN ORDER FOR NYSTANTIN POWDER. WILL CONTINUE TO MONITOR AND PROVIDE CARE, CALL LIGHT W/IN REACH
[2019-04-14 04:21] LABS: Anion Gap 8 mmol/L (6-16); Blood Urea Nitrogen 14 mg/dL (8-24); Bun/Creatinine Ratio 19.4 (12.0-20.0); CO2, Blood 29 mmol/L (21-32); Chloride, Blood 103 mmol/L (98-108); Creatinine, Blood 0.72 mg/dL (0.60-1.20); Glomerular Filtration Rate >60 (60-); Glucose, Blood 93 mg/dL (70-99); Potassium, Blood 3.4 mmol/L (3.5-5.5); Sodium, Blood 140 mmol/L (136-145)
--- NOTE | 2019-04-14 10:53 | NUR ---
HEPARIN GTT STOPPED AT [address] GUERRA FOR HEART CATH.
--- NOTE | 2019-04-14 11:55 | NUR ---
PT TP [facility] FOR CARDIAC CATH. RT AT BEDSIDE WITH HOME VENT.
--- NOTE | 2019-04-14 13:00 | NUR ---
ASSUMED PT CARE FROM CHRISTINA. PT ARRIVES FROM IT SYSTEMS ANALYST A/O X4, SHOUTING DEMANDS TO STAFF, NEEDING TO BE REMINDED CONSTANTLY NOT TO USE RT ARM THIS IS THE ANGIO INSERTION SITE. PT DOES COMPLY AND SETTLES DOWN STOPS SHOUTING. VSS. TR BAND IN PLACE, NO ACTIVE BLEEDING, RT RADIAL PULSES INTACT, PT WITH GOOD SENSATION AND MOBILITY OF HAND. 11ML AIR IN TR BAND. PT DENIES ANY CP AND INCREASE IN SOB FROM BASELINE.
--- NOTE | 2019-04-14 13:09 | NUR ---
REPORT GIVEN TO NITO HUBER. PT NOW RETURNING BACK TO ROOM FROM [facility].
--- NOTE | 2019-04-14 14:00 | NUR ---
PT REFUSED LUNCH IT WAS NOT WHAT HE ORDERED
--- NOTE | 2019-04-14 17:03 | NUR ---
1ML AIR REMOVED FROM TR BAND, PULSES REMAIN INTACT, NO ACTIVE BLEEDING FROM SITE
--- NOTE | 2019-04-14 18:14 | NUR ---
TOTAL OF 4ML OF AIR REMOVED FROM TR BAND SINCE DEFLATION BEGAN. RADIAL PULSES INTACT. REPORTS GOOD SENSATION. FULL ROM OF FINGERS. NO ACTIVE BLEEDING. CONTUSION NOTED BUT HAS NOT CHANGED SINCE RETUERNING FROM BLAST FURNACE BLOWER
--- NOTE | 2019-04-14 18:44 | NUR ---
SHIFT NNOTE ASSUMED PT CARE POST ANGIO THIS AFTERNOON. A TOTAL OF 6ML REMOVED FROM TR BAND, PT REMAINS WITH GOOD CAP REFILL, FULL ROM OF FINGERS, RADIAL PULSES STRONG. PT TUGS AT TR BAND ATTEMPTING TO REPOSITION DURING LAST AIR REMOVAL, PT AGAIN REMINDED THAT SEVERE BLEEDING WILL OCCUR IF HE REMOVES BAND, PT EXPRESSED UNDERSTANDING OF TEACHING. THERE IS NO ACTIVE BLEEDING FROM SITE. HEMATOMA NOTED BUT HAS NOT CHANGED SINCE RETURNING FROM RAMP MANAGER. PT DNEIES WORSENING SOB OR ANY CP
--- NOTE | 2019-04-15 05:05 | NUR ---
SHIFT SUMMARY PT RESTIGN IN ROOM COMFORTABLY AT THIS TIME. NO ACUTE CHANGES IN STATUS T/O NIGHT. PT SLEPT OFF AND ON. TR BAND WAS FULLY DEFLATED AND REMOVED BY MIDNIGHT. TEGADERM AND ARMBOARD IN PLACE. SLIGHTLY PURPLE AREA NOTED AT INSERTION SITE, THIS WAS UNCHNAGED SINCE SHIFT CHANGE SITE ASSESSMENT WITH DAY SHIFT RN. NO HEMATOMAS NOTED. RESP EVEN UNLABORED ON HOME VENT SETUP. PT MANAGING OWN AIRWAY AND SELF SUCTIONING. SATS >92% ON 3.5L BLEED IN. PT HAS BEEN IRRITABLE W/ STAFF T/O NIGHT, MAKING DEMANDS AND YELLING AT LAB TECHS. PT DEMANDING POWERGLIDE IV TODAY TO AVOID FURTHER POKES. WILL INFORM LADLE WATCHER. PT REFUSING BEDSIDE REPORT IN AM. CALL [facility] IN REACH.
[2019-04-15 05:06] LABS: Albumin, Blood 2.9 g/dL (3.4-5.0); Anion Gap 5 mmol/L (6-16); Blood Urea Nitrogen 13 mg/dL (8-24); Bun/Creatinine Ratio 18.1 (12.0-20.0); CO2, Blood 30 mmol/L (21-32); Calcium, Blood 8.8 mg/dL (8.5-10.1); Chloride, Blood 105 mmol/L (98-108); Creatinine, Blood 0.72 mg/dL (0.60-1.20); Glomerular Filtration Rate >60 (60-); Glucose, Blood 90 mg/dL (70-99); Phosphorus, Blood 2.9 mg/dL (2.5-4.9); Potassium, Blood 3.8 mmol/L (3.5-5.5); Sodium, Blood 140 mmol/L (136-145)
--- NOTE | 2019-04-15 18:08 | NUR ---
SHIFT SUMMARY PT ALERT AND ORIENTED. VS STABLE. 02 SATS REMAIN ABOVE 90% ON HOME VENT WITH 3L BLEED IN. BP STABLE. HR NSR. PT COMPLAINED OF LOWER BACK PAIN THAT WAS RELIEVED WITH MEDICATION ADMINISTRATION. PT ANXIOUS THROUGHOUT SHIFT. PT ABLE TO AMBULATE TO BSC AND RECLINER NEEDED WITH SBA. WILL CONTINUE TO MONITOR AND REPORT TO ONCOMING RN. CALL LIGHT IN REACH.
--- NOTE | 2019-04-16 06:06 | NUR ---
SHIFT SUMMARY PT SLEEPING IN ROOM COMFORTABLY AT THIS TIME. NO ACUTE CHANGES IN STATUS T/O NIGHT. PT SLEPT WELL. DENIED ANY CP OR SOB. PT ON HOME VENT W/ TRACH, AND SELF MANAGES TRACH, AND DEFLATES CUFF TO COMMUNICATE. RESP EVEN UNLABORED W/ SATS >92%. PT DENIED NEEDS T/O NIGHT. CALL LIGHT IN REACH. PT REFUSING BEDSIDE REPORT.
--- NOTE | 2019-04-16 09:11 | NUR ---
SHIFT SUMMARY PT ALERT AND ORIENTED. VS STABLE. HR NSR. BP STABLE. O2 SATS REMAIN ABOVE 90% ON HOME VENT WTIH 3.5L BLEED IN. PT SELF SUCTIONING THICK WHITE SPUTUM. PT DENIES ANY PAIN. PT ANXIOUS AT THIS TIME AND MEDICATED REQUESTED. WILL CONTINUE TO MONITOR CLOSELY.
[2019-04-16] MEDS ORDERED: Aspir 8181 MG PO (11:21)
[2019-04-16] MEDS ORDERED: ATOR20 PO (11:22)
[2019-04-16] MEDS ORDERED: ROBITUSSIN COU237 ML PO (11:24)
[2019-04-16] MEDS ORDERED: Bactrim Ds Tab1 EACH PO (11:26)
--- NOTE | 2019-04-16 12:51 | NUR ---
DISCHARGE DISCHARGE INSTRUCTIONS PROVIDED. IV'S REMOVED. PT EDUCATED ON NEW MEDICATIONS AND MEDICATION CHANGES. PT INSTRUCTED TO MAKE FOLLOW-UP APPTS. ALL QUESTIONS ASNWERED. PT TAKEN OUT BY TRANSPORT.
== END 2019-04-16 12:41 | disposition home or self-care (01) | DRG 280 ==
LOC: ER 01:15 → ICUE 03:02 → ICUW 03:02 → ICUE 03:04 → PCU 04-13 06:40
PROVIDERS: Emergency Medicine; Family Medicine; Hospitalist; Internal Medicine Pulmonary Disease; Pharmacist; ADMIT Internal Medicine
PROC: 4A023N7 Measurement of Cardiac Sampling and Pressure, Left Heart, Percutaneous Approach (ICD-10-PCS; principal; 2019-04-14)
PROC: B211YZZ Fluoroscopy of Multiple Coronary Arteries using Other Contrast (ICD-10-PCS; 2019-04-14)
DX: I21.A1 Myocardial infarction type 2 (principal); J15.6 Pneumonia due to other Gram-negative bacteria; J96.21 Acute and chronic respiratory failure with hypoxia; J96.11 Chronic respiratory failure with hypoxia; J44.0 Chronic obstructive pulmonary disease with (acute) lower respiratory infection; J44.1 Chronic obstructive pulmonary disease with (acute) exacerbation; Z99.11 Dependence on respirator [ventilator] status; E66.2 Morbid (severe) obesity with alveolar hypoventilation; Z93.0 Tracheostomy status; G47.30 Sleep apnea, unspecified; J47.9 Bronchiectasis, uncomplicated; M54.5 Low back pain; E66.01 Morbid (severe) obesity due to excess calories; Z68.39 Body mass index [BMI] 39.0-39.9, adult; E11.9 Type 2 diabetes mellitus without complications
CPT/HCPCS: 0099U; 31720; 36415; 71045; 80048; 80053; 80069; 82550; 83880; 84145; 84484; 85025; 85610; 85730; 87070; 87077; 87186; 87205; 93005; 93010; 93306; 93454; 94640; 94667; 94668; 94762; 96374-59; 97110; 97162; 97166; 97530; 99152; 99285-25; A9270-GY; C1769; C1894; J0456; J0713; J1644; J1650; J1940; J1956; J2250; J3010; J3370; J3480; J7030; J7050; Q9967

== ENCOUNTER 2019-04-19 12:09 | Inpatient (IN) | payer MEDICARE, OTHER ==
[~2019-04-19] VITALS: Ht 165.1 cm; Wt 109.2 kg
[~2019-04-19 12:09] MED LIST changes: +ATOR20 PO; +Aspir 8181 MG PO; +FUROSEMIDE20 MG PO; +ROBITUSSIN COU237 ML PO
[2019-04-19 13:07] LABS: BASOPHILS ABSOLUTE AUTO 0.06 K/mm3 (0.00-0.23); BASOPHILS PERCENT AUTO 1 % (0-2); EOSINOPHILS PERCENT AUTO 4 % (0-6); Hemoglobin 13.8 g/dL (13.5-17.5); IMMATURE GRAN ABSOLUTE AUTO 0.04 K/mm3 (0.00-0.10); IMMATURE GRAN PERCENT AUTO 1 % (0-1); LYMPHOCYTES ABSOLUTE AUTO 0.83 K/mm3 (0.84-5.20); LYMPHOCYTES PERCENT AUTO 11 % (21-46); MONOCYTES ABSOLUTE AUTO 0.68 K/mm3 (0.16-1.47); MONOCYTES PERCENT AUTO 9 % (4-13); Mean Corpuscular HGB 31.4 pg (26.0-34.0); Mean Corpuscular HGB Conc 32.1 g/dL (31.5-36.5); Mean Corpuscular Volume 98 fL (80-100); Mean Platelet Volume 10.5 fL (9.1-12.4); NEUTROPHILS ABSOLUTE AUTO 6.03 K/mm3 (1.96-9.15); NEUTROPHILS PERCENT AUTO 76 % (41-73); Platelet Count 197 K/mm3 (150-400); RDW Coefficient Variation 13.7 % (11.7-14.2); RDW Standard Deviation 50.2 fL (35.1-46.3); Red Blood Cell Count 4.39 M/mm3 (4.30-5.90); White Blood Cell Count 7.94 K/mm3 (4.00-11.30)
[2019-04-19 13:26] LABS: Alanine Aminotransfer (ALT/SGP 29 U/L (12-78); Albumin, Blood 3.5 g/dL (3.4-5.0); Albumin/Globulin Ratio 0.8 (0.8-1.8); Alk Phos 138 U/L (50-136); Anion Gap 5 mmol/L (6-16); Aspartate Aminotrans (AST/SGOT 30 U/L (12-37); Bilirubin, Total 1.2 mg/dL (0.1-1.0); Blood Urea Nitrogen 19 mg/dL (8-24); Bun/Creatinine Ratio 20.3 (12.0-20.0); CO2, Blood 28 mmol/L (21-32); Chloride, Blood 104 mmol/L (98-108); Creatinine, Blood 0.94 mg/dL (0.60-1.20); Globulin, Blood 4.6 g/dL (2.2-4.0); Glomerular Filtration Rate >60 (60-); Glucose, Blood 121 mg/dL (70-99); Sodium, Blood 137 mmol/L (136-145); Total Protein, Blood 8.1 g/dL (6.4-8.2)
[2019-04-19] MEDS ORDERED: STIOLTO RESPIMAT4 GM INH (14:57)
[2019-04-19] MEDS ORDERED: QNASL10.6 GM (14:58)
--- NOTE | 2019-04-19 18:46 | NUR ---
RECEIVED REPORT FROM ER NURSE KANDACE PT ADMITTED FOR ACUTE/CHRONIC RESPI FAILURE. PT ON HOME MECH VENT, PT PERFORMS TRACH CARE AT BEDSIDE PT REPORTED HE WAS DISCHARGED HERE COUPLE DAYS AGO AND HAD BREATHING ISSUES AGAIN. PT WITH HISTORY OF COPD, DM, MRSA, AMD PNA. PT ON DROPLET PRECAUTION. PT REPORTED COPIUOS AMOUNT OF BLOODY SPUTUM ON THE TRACH. PT ARRIVED VIA STRETCHER 1715, HR SR ON THE 80'S DENIES ANY CHEST PAIN AT THIS TIME. TO REPORT TO ONCOMING SHIFT.
--- NOTE | 2019-04-19 19:48 | NUR ---
RECEIVED REPORT FROM NITO RAPHAEL. ASSUMED CARE OF PT. IN NO ACUTE DISTRESS AT THIS TIME, RESTING COMFORTABLY. O2 SATS STABLE AT THIS TIME. CALL LIGHT AND POSSESSIONS IN REACH, WILL CONTINUE TO MONITOR.
[2019-04-20 04:00] LABS: BASOPHILS ABSOLUTE AUTO 0.06 K/mm3 (0.00-0.23); BASOPHILS PERCENT AUTO 2 % (0-2); EOSINOPHILS ABSOLUTE AUTO 0.24 K/mm3 (0.00-0.68); EOSINOPHILS PERCENT AUTO 6 % (0-6); Hematocrit 35.3 % (37.0-53.0); Hemoglobin 11.6 g/dL (13.5-17.5); IMMATURE GRAN ABSOLUTE AUTO 0.01 K/mm3 (0.00-0.10); IMMATURE GRAN PERCENT AUTO 0 % (0-1); LYMPHOCYTES ABSOLUTE AUTO 1.09 K/mm3 (0.84-5.20); LYMPHOCYTES PERCENT AUTO 27 % (21-46); MONOCYTES ABSOLUTE AUTO 0.47 K/mm3 (0.16-1.47); MONOCYTES PERCENT AUTO 12 % (4-13); Mean Corpuscular HGB 31.6 pg (26.0-34.0); Mean Corpuscular HGB Conc 32.9 g/dL (31.5-36.5); Mean Corpuscular Volume 96 fL (80-100); Mean Platelet Volume 10.6 fL (9.1-12.4); NEUTROPHILS PERCENT AUTO 54 % (41-73); Platelet Count 145 K/mm3 (150-400); RDW Coefficient Variation 13.8 % (11.7-14.2); RDW Standard Deviation 48.9 fL (35.1-46.3); Red Blood Cell Count 3.67 M/mm3 (4.30-5.90); White Blood Cell Count 4.07 K/mm3 (4.00-11.30)
[2019-04-20 04:19] LABS: Anion Gap 7 mmol/L (6-16); Blood Urea Nitrogen 22 mg/dL (8-24); CO2, Blood 27 mmol/L (21-32); Calcium, Blood 8.7 mg/dL (8.5-10.1); Chloride, Blood 106 mmol/L (98-108); Creatinine, Blood 0.96 mg/dL (0.60-1.20); Glomerular Filtration Rate >60 (60-); Glucose, Blood 85 mg/dL (70-99); Potassium, Blood 4.1 mmol/L (3.5-5.5); Sodium, Blood 140 mmol/L (136-145)
--- NOTE | 2019-04-20 05:58 | NUR ---
SHIFT SUMMARY: PT SITTING UP IN BED WATCHING TELEVISION, APPEARS COMFORTABLE AT THIS TIME, IN NO ACUTE DISTRESS. PT SELF SUCTIONING APPROPRIATELY. WAS MONITORED EVERY 1-2 HOURS WITH NEEDS MET, DENIES ANY NEEDS AT THIS TIME. CALL LIGHT AND POSSESSIONS IN REACH.
--- NOTE | 2019-04-20 19:22 | NUR ---
SHIFT SUMMARY PT A&Ox4. ANXIOUS BUT COOPERATIVE WITH CARE. PT RESTING IN BED DURING SHIFT, UP 1 PERSON ASSIST TO BSC. PT SOB WITH EXERTION; TRACH WITH HOME VENT SETTING AND 5L O2; INCREASED TO 7-8L O2 WITH ACTIVITY. LUNG DIMINISHED T/O, THIS AM CORASE IN UPPER LOBES. PT SELF SUCTIONS WITH INLINE SUCTIONS. REPORTS OF BLOOD SPUTUM, SPUTUM PINK AT THE BEGINING OF SHIFT, TRANSITIONED TO CAZARES THIS AFTERNOO. PT REPORTS PAIN IN LOWER BACK AND HEADACHE AFTER UP TO BSC; REFUSING TYLENOL; NOTIFIED DR STOLL; NEW ORDERS FOR OXYCODONE 5MG PO BID PRN FOR PAIN. PT DENIES NASUSEA. VSS. NO OTHER ACUTE CHANGES NOTED DURING SHIFT. REPORT GIVEN TO ONCOMING RN.
--- NOTE | 2019-04-20 19:30 | NUR ---
RECEIVED REPORT FROM NITO FUNEZ. ASSUMED CARE OF PT. IN NO ACUTE DISTRESS AT THIS TIME. CALL LIGHT AND POSSESSIONS IN REACH, WILL CONTINUE TO MONITOR.
--- NOTE | 2019-04-20 23:30 | NUR ---
SPOKE WITH DR. EARLY REGARDING PT C/O COUGH AND THROAT IRRITATION. ORDERS RECEIVED.
--- NOTE | 2019-04-21 04:29 | NUR ---
PT REFUSING LAB DRAW AT THIS TIME. WILL ATTEMPT LATER.
--- NOTE | 2019-04-21 06:43 | NUR ---
PT RESTING IN BED COMFORTABLY, IN NO ACUTE DISTRESS. WAS MONITORED EVERY 1-2 HOURS WITH NEEDS MET, DENIES ANY FURTHER NEEDS AT THIS TIME. CALL LIGHT AND POSSESSIONS IN REACH, BED IN LOW POSITION.
--- NOTE | 2019-04-21 18:27 | NUR ---
SHIFT SUMMARY PT A&Ox4; ANXIOUS BUT COOPERATIVE WITH CARE. PT RESTING IN BED DURING SHIFT SHIFT, UP WITH 1 PERSON ASSIST. SOB WITH EXERTION; TRACH COLLAR WITH HOME VENT WITH 4-5L O2, INCREASED TO 6-7L O2 WITH ACTIVITY. PT STARTED CPT DURING SHIFT. LS COARSE AND DIMINISHED T/O. PT DENIES PAIN AND NAUSEA. PT RECEIVING PO LASIX AND IV ANTIBIOTICS. BREATHING TREATMENTS PER RT. VSS. NO OTHER ACUTE CHANGES DURING SHIFT. WILL CONTINUE TO MONITOR UNTIL REPORT GIVEN TO ONCOMING RN.
--- NOTE | 2019-04-21 19:20 | NUR ---
RECEIVED REPORT FROM NITO FUNEZ. ASSUMED CARE OF PT. RESTING IN BED, APPEARS MORE COMFORTABLE AT THIS TIME. DENIES ANY NEEDS AT THIS TIME. CALL LIGHT AND POSSESSIONS IN REACH, WILL CONTINUE TO MONITOR.
--- NOTE | 2019-04-22 06:29 | NUR ---
PT RESTING IN BED COMFORTABLY AT THIS TIME, IN NO ACUTE DISTRESS. WAS MONITORED EVERY 1-2 HOURS WITH NEEDS MET. SLEPT THROUGHOUT THE NIGHT. 02 SATS AND BPS STABLE. DENIES ANY NEEDS AT THIS TIME. CALL LIGHT AND POSSESSIONS IN REACH, WILL CONTINUE TO MONITOR UNTIL REPORT GIVEN TO ONCOMING RN.
--- NOTE | 2019-04-22 20:00 | NUR ---
SHIFT SUMMARY NO ACUTE CHANGES NOTED THROUGH THE DAY. PT REMAINS ON 4 L O2 VIA TRACH THAT SELF MANAGES. PT DENIES CP/SOB. COUGH IS PRODUCTIVE. FAMILY CAME TO VISIT AND BROUGHT IN TRACH SUPPLIES. PT IS REQUESTING TO NOT HAVE INVOLVED IN HIS CARE ANY LONGER. THIS REQUEST WAS MADE KNOWN AT SHIFT CHANGE, NOC RN AWARE. CALL LIGHT IN REACH. REPORT GIVEN TO RN
[2019-04-23 05:48] LABS: BASOPHILS ABSOLUTE AUTO 0.05 K/mm3 (0.00-0.23); BASOPHILS PERCENT AUTO 1 % (0-2); EOSINOPHILS ABSOLUTE AUTO 0.45 K/mm3 (0.00-0.68); EOSINOPHILS PERCENT AUTO 7 % (0-6); Hematocrit 41.5 % (37.0-53.0); Hemoglobin 13.4 g/dL (13.5-17.5); IMMATURE GRAN ABSOLUTE AUTO 0.01 K/mm3 (0.00-0.10); IMMATURE GRAN PERCENT AUTO 0 % (0-1); LYMPHOCYTES ABSOLUTE AUTO 1.51 K/mm3 (0.84-5.20); LYMPHOCYTES PERCENT AUTO 23 % (21-46); MONOCYTES ABSOLUTE AUTO 0.69 K/mm3 (0.16-1.47); MONOCYTES PERCENT AUTO 11 % (4-13); Mean Corpuscular HGB Conc 32.3 g/dL (31.5-36.5); Mean Corpuscular Volume 96 fL (80-100); NEUTROPHILS ABSOLUTE AUTO 3.73 K/mm3 (1.96-9.15); NEUTROPHILS PERCENT AUTO 58 % (41-73); Platelet Count 209 K/mm3 (150-400); RDW Coefficient Variation 13.5 % (11.7-14.2); RDW Standard Deviation 48.4 fL (35.1-46.3); Red Blood Cell Count 4.32 M/mm3 (4.30-5.90); White Blood Cell Count 6.44 K/mm3 (4.00-11.30)
[2019-04-23 06:03] LABS: Anion Gap 5 mmol/L (6-16); Blood Urea Nitrogen 12 mg/dL (8-24); Bun/Creatinine Ratio 19.8 (12.0-20.0); CO2, Blood 28 mmol/L (21-32); Calcium, Blood 9.1 mg/dL (8.5-10.1); Chloride, Blood 105 mmol/L (98-108); Creatinine, Blood 0.61 mg/dL (0.60-1.20); Glomerular Filtration Rate >60 (60-); Glucose, Blood 91 mg/dL (70-99); Sodium, Blood 138 mmol/L (136-145)
--- NOTE | 2019-04-23 07:20 | NUR ---
PT RESTING IN BED COMFORTABLY AT THIS TIME, IN NO ACUTE DISTRESS. WAS MONITORED EVERY 1-2 HOURS WITH NEEDS MET, DENIES ANY NEEDS AT THIS TIME. CALL LIGHT AND POSSESSIONS IN REACH, RT AT THE BEDSIDE. REPORTED OFF TO NITO MEZA.
--- NOTE | 2019-04-23 07:36 | NUR ---
BEDSIDE REPORT AT DOORWAY REC'D FROM TRENA BEAUCHAMP. RT AT BEDSIDE. PT ON HOME VENT. DENIES ANY NEEDS. MUSIC PLAYING, PT APPEARS TO BE SLEEPING, ASSESSMENT NOTED. CALL LIGHT IN REACH.
--- NOTE | 2019-04-23 15:05 | NUR ---
PT WAS DC'D WITH WRITTEN AND VERBAL INSTRUCTIONS. HOME O2 ISSUES RESOLVED TO PT'S AND HIS CG/SISTERS SATISFACTION. PT VERY ANXIOUS WHEN IT WAS TIME TO DC. FEARFUL CONCERNS REGARDING HOME O2. UNABLE TO REDIRECT OR EDUCATE OTHERWISE, UNDERSTANDABLY SO R/T FEELINGS OF HYPOXIA BUT MAKES IT DIFFICULT TO REASON WITH OR EDUCATE. DC INFO PRESENTED TO PT BY PLASTIC PRESS MOLDER. PT ESCORTED OOD IN OWN WC BY SON AND ACCOMPANIED BY SISTER. PT MEASURED FOR CPT VEST AND ORDER SUBMITTED BY RT. WILL DUNAWAY.
== END 2019-04-23 15:07 | disposition home or self-care (01) | DRG 189 ==
LOC: ER 12:09 → PCU 15:09
PROVIDERS: Emergency Medicine; Internal Medicine; ADMIT Internal Medicine
DX: J96.21 Acute and chronic respiratory failure with hypoxia (principal); J47.1 Bronchiectasis with (acute) exacerbation; Z99.11 Dependence on respirator [ventilator] status; E66.2 Morbid (severe) obesity with alveolar hypoventilation; Z68.41 Body mass index [BMI] 40.0-44.9, adult; Z93.0 Tracheostomy status; F41.8 Other specified anxiety disorders; E11.9 Type 2 diabetes mellitus without complications; M54.5 Low back pain; G47.33 Obstructive sleep apnea (adult) (pediatric)
CPT/HCPCS: 31720; 36415; 71045; 71260; 80048; 80053; 84145; 85025; 86003; 87070; 87186; 87205; 87305; 93005; 93010; 94640; 94667; 94668; 94761; 94762; 96374-59; 99285-25; J0696; Q9967

== ENCOUNTER 2019-07-29 19:05 | Emergency (ER) | payer MEDICARE, OTHER ==
[~2019-07-29] VITALS: Ht 152.4 cm; Wt 111.1 kg
[~2019-07-29 19:05] MED LIST changes: +QNASL10.6 GM; +STIOLTO RESPIMAT4 GM INH; -THERA-D2000 UNIT PO
[2019-07-29] MEDS ORDERED: ALPR.5 PO (19:21)
[2019-07-29 19:25] LABS: PCO2 Arterial 56.3 mmHg (35-45); PO2 Arterial 119 mmHg (80-100); pH Blood Arterial 7.34 (7.35-7.45)
[2019-07-29 20:13] LABS: Source, Urine Clean Catch
[2019-07-29 20:16] LABS: Bilirubin, Urine Neg (Neg); Blood, Urine Neg (Neg); Glucose Qualitative, Urine Neg (Neg); Ketones, Urine Neg (Neg); Leukocyte Esterase, Urine Neg (Neg); Nitrite, Urine Neg (Neg); Protein, Urine 1+ (Neg); Urobilinogen, Urine NORM (Normal)
[2019-07-29 20:25] LABS: Appearance, Urine Clear (Clear); Color, Urine Yellow (P-Yellow)
[2019-07-29 20:30] LABS: BASOPHILS ABSOLUTE AUTO 0.06 K/mm3 (0.00-0.23); BASOPHILS PERCENT AUTO 1 % (0-2); EOSINOPHILS ABSOLUTE AUTO 0.36 K/mm3 (0.00-0.68); EOSINOPHILS PERCENT AUTO 6 % (0-6); Hematocrit 41.8 % (37.0-53.0); IMMATURE GRAN ABSOLUTE AUTO 0.02 K/mm3 (0.00-0.10); IMMATURE GRAN PERCENT AUTO 0 % (0-1); LYMPHOCYTES ABSOLUTE AUTO 1.23 K/mm3 (0.84-5.20); LYMPHOCYTES PERCENT AUTO 19 % (21-46); MONOCYTES ABSOLUTE AUTO 0.62 K/mm3 (0.16-1.47); MONOCYTES PERCENT AUTO 10 % (4-13); Mean Corpuscular HGB 29.6 pg (26.0-34.0); Mean Corpuscular HGB Conc 31.1 g/dL (31.5-36.5); Mean Corpuscular Volume 95 fL (80-100); Mean Platelet Volume 9.4 fL (9.1-12.4); NEUTROPHILS ABSOLUTE AUTO 4.15 K/mm3 (1.96-9.15); NEUTROPHILS PERCENT AUTO 65 % (41-73); Platelet Count 299 K/mm3 (150-400); RDW Coefficient Variation 16.2 % (11.7-14.2); RDW Standard Deviation 57.1 fL (35.1-46.3); Red Blood Cell Count 4.39 M/mm3 (4.30-5.90); White Blood Cell Count 6.44 K/mm3 (4.00-11.30)
[2019-07-29 20:51] LABS: Alanine Aminotransfer (ALT/SGP 33 U/L (12-78); Albumin, Blood 3.2 g/dL (3.4-5.0); Albumin/Globulin Ratio 0.6 (0.8-1.8); Alk Phos 128 U/L (50-136); Anion Gap 3 mmol/L (6-16); Aspartate Aminotrans (AST/SGOT 24 U/L (12-37); Bilirubin, Total 1.1 mg/dL (0.1-1.0); Blood Urea Nitrogen 13 mg/dL (8-24); Bun/Creatinine Ratio 22.8 (12.0-20.0); CO2, Blood 31 mmol/L (21-32); Calcium, Blood 9.4 mg/dL (8.5-10.1); Chloride, Blood 106 mmol/L (98-108); Creatinine, Blood 0.57 mg/dL (0.60-1.20); Globulin, Blood 5.6 g/dL (2.2-4.0); Glomerular Filtration Rate >60 (60-); Glucose, Blood 106 mg/dL (70-99); Magnesium, Blood 2.1 mg/dL (1.6-2.4); Potassium, Blood 4.5 mmol/L (3.5-5.5); Sodium, Blood 140 mmol/L (136-145); Total Protein, Blood 8.8 g/dL (6.4-8.2)
[2019-07-30] MEDS ORDERED: AZIT250 PO (16:35)
[2019-07-30] MEDS ORDERED: ATOR40TA PO (19:10)
[2019-07-30] MEDS ORDERED: Ventolin/Prove6.7 GM INH (19:11)
[2019-07-30] MEDS ORDERED: NYST100000 SS (19:16)
[2019-07-30] MEDS ORDERED: IPRATROPIUM 0.02% NEB (19:18)
[2019-07-30] MEDS ORDERED: Vitamin D2000 UNIT PO (19:24)
[2019-07-30] MEDS ORDERED: GUAI600T33 PO (19:32)
[2019-07-30] MEDS ORDERED: OXYC5 PO (19:33)
== END 2019-07-29 22:53 | disposition home or self-care (01) ==
LOC: ER 19:05
PROVIDERS: Emergency Medicine
DX: F41.9 Anxiety disorder, unspecified (principal); J96.11 Chronic respiratory failure with hypoxia; J96.12 Chronic respiratory failure with hypercapnia; J47.9 Bronchiectasis, uncomplicated; F41.8 Other specified anxiety disorders; E11.9 Type 2 diabetes mellitus without complications; Z79.899 Other long term (current) drug therapy; Z79.82 Long term (current) use of aspirin; Z79.51 Long term (current) use of inhaled steroids
CPT/HCPCS: 31720; 36415; 36600; 71045; 80053; 82803; 83735; 85025; 93005; 93010; 99285-25

== ENCOUNTER 2019-07-30 15:56 | Inpatient (IN) | payer MEDICARE, OTHER ==
[~2019-07-30] VITALS: Ht 152.4 cm; Wt 103.1 kg
[2019-07-30] MEDS ORDERED: AZIT250 PO (16:35)
[2019-07-30 16:45] LABS: PO2 Arterial 107 mmHg (80-100)
[2019-07-30 16:47] LABS: pH Blood Arterial 7.29 (7.35-7.45)
[2019-07-30 17:15] LABS: BASOPHILS ABSOLUTE AUTO 0.06 K/mm3 (0.00-0.23); BASOPHILS PERCENT AUTO 1 % (0-2); EOSINOPHILS ABSOLUTE AUTO 0.24 K/mm3 (0.00-0.68); EOSINOPHILS PERCENT AUTO 3 % (0-6); Hematocrit 43.4 % (37.0-53.0); Hemoglobin 13.5 g/dL (13.5-17.5); IMMATURE GRAN ABSOLUTE AUTO 0.03 K/mm3 (0.00-0.10); IMMATURE GRAN PERCENT AUTO 0 % (0-1); LYMPHOCYTES ABSOLUTE AUTO 0.94 K/mm3 (0.84-5.20); LYMPHOCYTES PERCENT AUTO 11 % (21-46); MONOCYTES ABSOLUTE AUTO 0.65 K/mm3 (0.16-1.47); MONOCYTES PERCENT AUTO 7 % (4-13); Mean Corpuscular HGB 29.6 pg (26.0-34.0); Mean Corpuscular HGB Conc 31.1 g/dL (31.5-36.5); Mean Corpuscular Volume 95 fL (80-100); Mean Platelet Volume 9.4 fL (9.1-12.4); NEUTROPHILS ABSOLUTE AUTO 6.88 K/mm3 (1.96-9.15); NEUTROPHILS PERCENT AUTO 78 % (41-73); Platelet Count 293 K/mm3 (150-400); RDW Coefficient Variation 16.1 % (11.7-14.2); Red Blood Cell Count 4.56 M/mm3 (4.30-5.90)
[2019-07-30 17:45] LABS: Magnesium, Blood 1.9 mg/dL (1.6-2.4); Phosphorus, Blood 5.2 mg/dL (2.5-4.9)
[2019-07-30 17:50] LABS: Troponin I <0.015 ng/mL (0.000-0.040)
[2019-07-30 18:01] LABS: Alanine Aminotransfer (ALT/SGP 32 U/L (12-78); Albumin, Blood 3.3 g/dL (3.4-5.0); Albumin/Globulin Ratio 0.6 (0.8-1.8); Alk Phos 127 U/L (50-136); Anion Gap 7 mmol/L (6-16); Aspartate Aminotrans (AST/SGOT 27 U/L (12-37); Bilirubin, Total 1.5 mg/dL (0.1-1.0); Blood Urea Nitrogen 18 mg/dL (8-24); Bun/Creatinine Ratio 26.8 (12.0-20.0); CO2, Blood 27 mmol/L (21-32); Calcium, Blood 9.8 mg/dL (8.5-10.1); Chloride, Blood 104 mmol/L (98-108); Creatinine, Blood 0.67 mg/dL (0.60-1.20); Globulin, Blood 5.5 g/dL (2.2-4.0); Glomerular Filtration Rate >60 (60-); Glucose, Blood 114 mg/dL (70-99); Potassium, Blood 4.4 mmol/L (3.5-5.5); Sodium, Blood 138 mmol/L (136-145); Total Protein, Blood 8.8 g/dL (6.4-8.2)
[2019-07-30] MEDS ORDERED: ATOR40TA PO (19:10)
[2019-07-30] MEDS ORDERED: Ventolin/Prove6.7 GM INH (19:11)
[2019-07-30] MEDS ORDERED: NYST100000 SS (19:16)
[2019-07-30] MEDS ORDERED: IPRATROPIUM 0.02% NEB (19:18)
[2019-07-30] MEDS ORDERED: Vitamin D2000 UNIT PO (19:24)
[2019-07-30] MEDS ORDERED: GUAI600T33 PO (19:32)
[2019-07-30] MEDS ORDERED: OXYC5 PO (19:33)
--- NOTE | 2019-07-30 23:10 | NUR ---
ASSUMED PT CARE FROM ER AT 2145 PT IS ALERT AND ORIENTED AND ABLE TO COMMUNICATE HIS NEEDS WHEN HE DEFLATES HIS TRACH CUFF. ARRIVED ON HOME VENT WITH AC 24, TV 600, PEEP 10 AND 5L OXYGEN BLEEDING IN. PT MANAGES HIS OWN TRACH; SUCTIONED MODERATE AMOUNTS OF THICK, YELLOW SPUTUM. DEFLATES CUFF FREQUENTLY TO COMMUNICATE WITH STAFF. NEEDS REMINDERS TO FULLY INFLATE CUFF IN ORDER TO OBTAIN ADEQUATE TIDAL VOLUMES. PT NOTED TO BE NSR WITH HR 80-90'S; BP'S STABLE; SEE FLOWSHEET. VOIDS USING URINAL WITH ASSIST; MINIMAL AMOUNTS OF TOYIN COLORED URINE. BLANCHABLE REDNESS NOTED TO COCCYX WITH SLIGHT OPEN AREA TO GLUTEAL CLEFT THAT ALIGNS WITH CREASE. PT C/O 10/10 HEADACHE; MEDICATED WITH PRN OXY PER ORDERS. PT ALSO HAD UNCOLLECTED COVID AND RESPIRATORY PANELS THAT NEEDED COLLECTED. PT DIDN'T TOLERATE PROCEDURE VERY WELL; ABLE TO HOLD COVID SWAB IN PLACE FOR 30 SECONDS; HOWEVER, WITH PCR PANEL PT PULL AWAY AND SWAB WAS ONLY IN PLACE FOR A FEW SECONDS. PT HAS ONE IV ACCESS TO RIGHT UPPER CHEST, 22G, THAT IS PATENT AND INFUSING IV VANCO AT THIS TIME. WILL ASK POWERGLIDE NURSE TO ASSESS OTHER SITES LATER THIS SHIFT. CALL LIGHT WITHIN REACH; PT ABLE TO MAKE NEEDS KNOWN. WILL CONTINUE TO MONITOR.
[2019-07-30 23:48] LABS: Adenovirus Not Detected (NOT DETECT); Bordetella pertussis Not Detected (NOT DETECT); Chlamydophila pneumoniae Not Detected (NOT DETECT); Coronavirus 229E Not Detected (NOT DETECT); Coronavirus HKU1 Not Detected (NOT DETECT); Coronavirus NL63 Not Detected (NOT DETECT); Coronavirus OC43 Not Detected (NOT DETECT); Human Metapneumovirus Not Detected (NOT DETECT); Human Rhinovirus/Enterovirus Not Detected (NOT DETECT); Influenza A/2009-H1 Not Detected (NOT DETECT); Influenza A/H1 Not Detected (NOT DETECT); Influenza A/H3 Not Detected (NOT DETECT); Influenza B Not Detected (NOT DETECT); Mycoplasma pneumoniae Not Detected (NOT DETECT); Parainfluenza Virus 1 Not Detected (NOT DETECT); Parainfluenza Virus 2 Not Detected (NOT DETECT); Parainfluenza Virus 3 Not Detected (NOT DETECT); Parainfluenza Virus 4 Not Detected (NOT DETECT); Respiratory Syncytial Virus Not Detected (NOT DETECT)
--- NOTE | 2019-07-31 04:09 | NUR ---
REPOSITIONING EDUCATION OFFERED PT REPOSITIONING WITH PILLOW TO OFFLOAD PRESSURE ON BUTTOCKS THAT HAVE NOTED BLANCHABLE REDNESS. PT DECLINED AND STATED HE IS ABLE TO REPOSITION HIMSELF. PT IS ABLE TO MAKE SLIGHT CHANGES IN POSITION; HOWEVER, MAINLY STAYS ON HIS BACKSIDE WITH PRESSURE ON HIS BUTTOCKS. EDUCATED REGARDING REDNESS AND OPEN AREA NOTED TO BUTTOCK/GLUTEAL CLEFT AREA AND THAT IT IS CAUSED FROM PROLONGED PRESSURE TO AREA WITH LACK OF BLOOD FLOW. EDUCATED REGARDING POSITIONING PILLOW UNDER HIPS TO OFFLOAD PRESSURE. PT VERBALIZED UNDERSTANDING AND STATED FOR NOW HE WOULD LIKE TO STAY HOW HE IS. WILL REAPPROACH PILLOW POSITIONING AGAIN DURING NEXT ROUNDS.
[2019-07-31 04:27] LABS: Anion Gap 9 mmol/L (6-16); Blood Urea Nitrogen 18 mg/dL (8-24); Bun/Creatinine Ratio 27.6 (12.0-20.0); CO2, Blood 24 mmol/L (21-32); Calcium, Blood 8.9 mg/dL (8.5-10.1); Chloride, Blood 106 mmol/L (98-108); Creatinine, Blood 0.65 mg/dL (0.60-1.20); Glomerular Filtration Rate >60 (60-); Glucose, Blood 104 mg/dL (70-99); Potassium, Blood 4.3 mmol/L (3.5-5.5); Sodium, Blood 139 mmol/L (136-145); Vancomycin, Random 20.7 ug/mL
[2019-07-31 04:38] LABS: BASOPHILS ABSOLUTE AUTO 0.06 K/mm3 (0.00-0.23); BASOPHILS PERCENT AUTO 1 % (0-2); EOSINOPHILS ABSOLUTE AUTO 0.41 K/mm3 (0.00-0.68); EOSINOPHILS PERCENT AUTO 7 % (0-6); Hemoglobin 12.8 g/dL (13.5-17.5); IMMATURE GRAN ABSOLUTE AUTO 0.02 K/mm3 (0.00-0.10); IMMATURE GRAN PERCENT AUTO 0 % (0-1); LYMPHOCYTES ABSOLUTE AUTO 1.31 K/mm3 (0.84-5.20); LYMPHOCYTES PERCENT AUTO 21 % (21-46); MONOCYTES ABSOLUTE AUTO 0.66 K/mm3 (0.16-1.47); MONOCYTES PERCENT AUTO 11 % (4-13); Mean Corpuscular HGB 29.7 pg (26.0-34.0); Mean Corpuscular HGB Conc 31.2 g/dL (31.5-36.5); Mean Corpuscular Volume 95 fL (80-100); Mean Platelet Volume 9.4 fL (9.1-12.4); NEUTROPHILS ABSOLUTE AUTO 3.67 K/mm3 (1.96-9.15); NEUTROPHILS PERCENT AUTO 60 % (41-73); Platelet Count 289 K/mm3 (150-400); RDW Coefficient Variation 15.9 % (11.7-14.2); RDW Standard Deviation 56.8 fL (35.1-46.3); Red Blood Cell Count 4.31 M/mm3 (4.30-5.90); White Blood Cell Count 6.13 K/mm3 (4.00-11.30)
--- NOTE | 2019-07-31 06:03 | NUR ---
END OF SHIFT SUMMARY NO SIGNIFICANT CHANGES SINCE ASSUMPTION OF CARE. PT REMAINS ON HOME VENT WITH AC 24, TV 600, PEEP 10, AND 5L BLEED IN. ALERT AND ORIENTED AND ABLE TO COMMUNICATE NEEDS. NSR WITH HR 50-60'S WHEN SLEEPING AND UP TO THE 80'S WHILE AWAKE. BP'S STABLE; SEE FLOWSHEET. PT DOESN'T TOLERATE CUFF ANYWHERE ELSE OTHER THAN RIGHT WRIST. LUNG SOUNDS HAVE BEEN DIMINISHED T/O ALL LOBES. PT CONTINUES TO SUCTION OWN SECRETIONS; THICK AND YELLOW. SPUTUM SAMPLE SENT TO LAB PER ORDERS. PT ABLE TO VOID UTILIZING URINAL. BEDPAN FOR BM'S; NO BM THIS SHIFT. PT UTILIZES CALL LIGHT APPROPRIATELY. CONTINUED TO DECLINE REPOSITIONING EVEN AFTER EDUCATING REGARDING REDNESS TO COCCYX AND THE IMPORTANCE OF OFFLOADING PRESSURE TO BUTTOCKS REGION. PT STATES HE IS ABLE TO MAKE SLIGHT CHANGES BY HIMSELF AND PREFERRED NOT TO HAVE PILLOWS UNDER HIS HIPS IT MAKES IT MORE DIFFICULT FOR HIM TO REPOSITION HIMSELF. WILL CONTINUE TO MONITOR UNTIL REPORT IS HANDED OFF TO ONCOMING RN. PT REMAINS ISOLATION PRECAUTIONS FOR RULE OUT COVID; HOWEVER, PT WILL ALSO REMAIN DROPLET D/T MRSA IN NARES EVEN IF COVID RETURNS NEGATIVE.
[2019-07-31 07:45] LABS: PCO2 Arterial 45.3 mmHg (35-45); PO2 Arterial 132 mmHg (80-100); pH Blood Arterial 7.41 (7.35-7.45)
--- NOTE | 2019-07-31 16:37 | NUR ---
Patient has been resting for several hours and called to try to use bedpan and had small jelly stool with hard small round and 150 ml smiley urine. VSS. He called to have breathing treatment afterwards. Gave warm blankets and turned up heat. He denies any other needs.
--- NOTE | 2019-08-01 00:02 | NUR ---
ASSUMED CARE NOTE: ASSUMED CARE OF PT AT 1900, RECEVIED REPORT FROM MAGGIE BEAUCHAMP. PT IS ALERT AND ORIENTEDX3. PT IS ON HOME VENT WITH SETTINGS AT AC: 24 TV:600, PEEP 10. LUNGS DIM T/O. PT C/O PAIN, MEDICATION GIVEN PER EMAR. PT USES BED BAHENA AND URINE AT BEDSIDE. PT C/O ANXIETY, XANAX GIVEN PERSCRIBED. WILL CONTINUE TO MONITOR PT T/O SHIFT.
--- NOTE | 2019-08-01 06:11 | NUR ---
SHIFT SUMMARY: SEE PREVIOUS NOTES. NO MAJOR CHANGES T/O SHIFT. PT CONTINUES TO BE HOME VENT WITH SETTINGS AT AC24/600/10/3L, SPO2 ABOVE 90% PT HAS BEEN PRODUCING THICK YELLOW SPUTUM. PT DOES OWN TRACH CARE. VITALS HAVE BEEN STABLE. PT HAS BEEN IN SINUS RHYTHM WITH HR IN THE 60'S. PT HAS CHRONIC BACK PAIN, MEDS GIVEN ORDERED. PT HAS USED URINAL T/O SHIFT. PT SLEPT WELL THIS SHIFT. WILL CONTINUE TO MONITOR PT UNTIL REPORT IS GIVEN TO ONCOMING SHIFT
--- NOTE | 2019-08-01 09:00 | NUR ---
ASSUMPTION OF CARE ASSUMED CARE OF PT @ 0700, PT AWAKE IN BED, ORIENTED TO SELF, EVENT, LOCATION AND FOLLOWING DIRECTIONS, USING CALL LIGHT APPROPRIATLEY. PT ON HOME VENT PER TRACH, SET TO AC 24/600/10 WITH A 3L FLOW IN, O2 SATURATIONS>92%, PT SUCTIONS SELF NEEDED. MONITOR SHOWS SINUS RHYTHM, HR 70'S, BP STABLE. PT REPORTS 6/10 HEAD PAIN, DECLINES MEDICATIONS AT THIS TIME. PT MOVES ALL EXTREMETIES, ABLE TO POSITION SELF INDEPENDENTLY, BOOSTS SELF UP IN BED NEEDED. PT TOLERATES PO INTAKE. CALL LIGHT WITHIN REACH.
[2019-08-01 10:12] LABS: Vancomycin, Trough 24.7 ug/mL (5.0-10.0)
--- NOTE | 2019-08-01 10:26 | NUR ---
TO PTS ROOM TO ASSIST TO BEDPAN. PT REPORTS PAIN IN HIS SACRAL AREA, REQUEST CREAM/POWDER TO THE AREA FOR RELEIF. EDUCATED PT ON REDNESS/PAIN RELATED TO PRESSURE FROM LAYING IN BED AND IMPORTANCE OF REPOSITIONING. PT DECLINED MEPILEX AND REPOSITIONING TO R OR L SIDES. PT AGREED TO TRY UP IN CHAIR AFTER XANAX STARTS WORKING FOR ANXIETY.
--- NOTE | 2019-08-01 18:02 | NUR ---
SHIFT SUMMARY PT REMAINS ORIENTED x4 T/O SHIFT, ON HOME VENT SET TO AC 24/600/10 WITH 3L FLOW IN, INCREASED AT TIMES OF EXERTION TO MAINTAIN O2>92%, CPT INITIATED THIS SHIFT, PT CONTINUES TO HAVE MODERATE AMOUNT OF THICK YELLOW SECRETIONS, SUCTIONS PER TRACH ON OWN. MONITOR SHOWS SINUS RHYTHM, HR 70'S-90'S, BP STABLE. PT WITH MILD EXCORIATION/REDNESS TO SACRAL AREA (SEE PREVIOUS NOTE), PT AGREED TO APPLY MEPILEX TO AREA. PT TOLERATES PO INTAKE, BUT HAS POOR APPETITE, PT TO BSC WITH ONE BM THIS SHIFT, PT DECLINES CBG/INSULIN STS HE NO LONGER HAS DIABETES. VOIDS INDEPENDENTLY WITH URINAL. PT UP TO CHAIR THIS SHIFT, ONE PERSON SBA. CALL LIGHT WITHIN REACH, PT USES APPROPRIATELY.
--- NOTE | 2019-08-01 18:27 | NUR ---
REPORT GIVEN TO CHEY BEAUCHAMP
--- NOTE | 2019-08-01 18:31 | NUR ---
Telephone report received from Jeanette Bullard RN. Anticipate transfer of pt from ICU when PCU 7 is clean.
--- NOTE | 2019-08-01 20:01 | NUR ---
TRANSFERED PT TO PCU 7. RT ASSISTED WITH TRANSFER, PT WAS ORIENTED TO THE ROOM. AMARIS BEAUCHAMP TAKING OVER AT BEDSIDE.
--- NOTE | 2019-08-01 20:15 | NUR ---
TRANSFER NOTE PATIENT TRANSFERED FROM ICU AT THIS TIME. PATIENT SETTLED IN AND ORIENTED TO THE ROOM, UNIT, AND CALL LIGHT. WILL CONTINUE TO MONITOR PATIENT.
--- NOTE | 2019-08-01 20:45 | NUR ---
UPDATE PATIENT REFUSED TO HAVE HIS BLOOD SUGAR CHECKED AMADOR STATING, "I'M NOT DIABETIC SO YOU DON'T NEED TO DO THAT." PATIENT ALSO REFUSING TO BE TURNED AND IS REFUSING TRACH CARE STATING, "I DO THAT MYSELF." WILL CONTINUE TO MONITOR.
[2019-08-02 03:58] LABS: BASOPHILS ABSOLUTE AUTO 0.05 K/mm3 (0.00-0.23); BASOPHILS PERCENT AUTO 1 % (0-2); EOSINOPHILS ABSOLUTE AUTO 0.56 K/mm3 (0.00-0.68); EOSINOPHILS PERCENT AUTO 10 % (0-6); Hematocrit 36.9 % (37.0-53.0); Hemoglobin 11.7 g/dL (13.5-17.5); IMMATURE GRAN ABSOLUTE AUTO 0.02 K/mm3 (0.00-0.10); IMMATURE GRAN PERCENT AUTO 0 % (0-1); LYMPHOCYTES ABSOLUTE AUTO 1.48 K/mm3 (0.84-5.20); LYMPHOCYTES PERCENT AUTO 26 % (21-46); MONOCYTES ABSOLUTE AUTO 0.62 K/mm3 (0.16-1.47); MONOCYTES PERCENT AUTO 11 % (4-13); Mean Corpuscular HGB 29.8 pg (26.0-34.0); Mean Corpuscular HGB Conc 31.7 g/dL (31.5-36.5); Mean Corpuscular Volume 94 fL (80-100); Mean Platelet Volume 9.7 fL (9.1-12.4); NEUTROPHILS ABSOLUTE AUTO 3.05 K/mm3 (1.96-9.15); NEUTROPHILS PERCENT AUTO 53 % (41-73); Platelet Count 262 K/mm3 (150-400); RDW Coefficient Variation 16.1 % (11.7-14.2); RDW Standard Deviation 56.4 fL (35.1-46.3); Red Blood Cell Count 3.93 M/mm3 (4.30-5.90); White Blood Cell Count 5.78 K/mm3 (4.00-11.30)
[2019-08-02 04:32] LABS: Anion Gap 7 mmol/L (6-16); Blood Urea Nitrogen 15 mg/dL (8-24); Bun/Creatinine Ratio 21.1 (12.0-20.0); CO2, Blood 28 mmol/L (21-32); Calcium, Blood 9.3 mg/dL (8.5-10.1); Chloride, Blood 104 mmol/L (98-108); Creatinine, Blood 0.71 mg/dL (0.60-1.20); Glomerular Filtration Rate >60 (60-); Glucose, Blood 91 mg/dL (70-99); Potassium, Blood 4.1 mmol/L (3.5-5.5); Sodium, Blood 139 mmol/L (136-145)
--- NOTE | 2019-08-02 07:23 | NUR ---
SHIFT SUMMARY PATIENT PLEASENT THROUGHOUT THE NIGHT BUT FREQUENTLY REFUSED CARE. PATIENT MEDICATED FOR ANXIETY PER EMAR. PATIENT APPEARED TO SLEEP WELL LAST NIGHT. PATIENT USING HOME VENT VIA TRACH COLLAR. VENT SETTINGS BEING MANAGED BY RESPRITORY THERAPY. PATIENT SELF SUCTIONING NEEDED. CONTINUOUS BIOX IN PLACE. REPORT GIVEN TO ONCOMING RN.
--- NOTE | 2019-08-02 08:28 | NUR ---
Refusing CBG checks this morning. STates he is no longer a diabetic. Blood glucose per lab draw this morning 91.
--- NOTE | 2019-08-02 08:51 | NUR ---
Karel states that he is not feeling that much better today. He has been getting up some yellowish secretions when he self-suctions. Presently he is in no distress, but c/o back pain and requesting his ordered prn daily pain medication.
--- NOTE | 2019-08-02 15:13 | NUR ---
Karel requested a breathing treatment after I was in the room to administer his lovenox shot and assist with him getting back to bed after using the BSC.
--- NOTE | 2019-08-02 17:21 | NUR ---
summary Karel has had no episodes of distress or extreme pain today. He was given one dose of narcotic this morning for back pain, with stated good relief. He also was medicated for anxiety this evening, which was indiscernable to me, but vocalized by him, and it was noted that he did have an increase in his blood pressure at the time as well. He has had a good appetite today, voiding using the urinal independently, and was up to the bedside commode with minimal assistance today for a bowel movement.
--- NOTE | 2019-08-03 06:09 | NUR ---
PATIENT HAS BEEN ASLEEP FOR THE MAJORITY OF THE NIGHT. HE IS ABLE TO DO MOST OF HIS SELF CARE. NO ACUTE CHANGED THROUGH OUT THE SHIFT. CALL LIGHT IN REACH. WILL GIVE REPORT TO DAY SHIFT.
--- NOTE | 2019-08-03 07:33 | NUR ---
PATIENT REFUSED CBG
--- NOTE | 2019-08-03 19:24 | NUR ---
SHIFT SUMMARY: PT CONTINUES ON HOME VENT ON 4L OF O2, PT ABLE TO SELF SUCTION AND DEFLATE CUFF WITH NO PROBLEMS. STILL HAS YELLOW THICK SPUTUM ON HIS SUCTION CANISTER. PT CONTINUES ON IV ABO ZOSYN, PLAN TO DISCHARGE ON MONDAY. PT USES BEDSIDE COMMODE FOR TOILETING 1PA. PT HAS BEEN RESTING IN BED ALL DAY. XANAX GIVEN TODAY X1 SO PAIN MEDICATION THIS AFTERNOON AND WAS EFFECTIVE. TOOK MEDS WITHOUT PROBLEM. COOPERATIVE WITH CARES ABLE TO MAKE NEEDS KNOWN. WILL REPORT TO ONCOMING SHIFT.
--- NOTE | 2019-08-04 06:39 | NUR ---
PATIENT SLEPT ENTIRE SHIFT, WOKE FOR VS AND MEDICATIONS. VENT ON SETTINGS 24/600. PERFORMS INLINE SUCTION, CHANGED TRACH DRESSING OUT, AND DEFLATES CUFF FOR COMMUNICATION PURPOSES. NEW SUCTION CANISTER AND TUBING TONIGHT. NO ACUTE CHANGES, WILL REPORT OFF TO ONCOMING SHIFT.
--- NOTE | 2019-08-04 13:32 | NUR ---
PT CONTINUES ON IV ABO, VITALS HAS BEEN STABLE ON HOME VENT 24/600 ON 4L OF O2, PT SELF SUCTIONS AND DEFLATES CUFF WHEN TALKING, SBA TO BEDSIDE COMMODE. CHESTPHYSIOTHERAPY PER RT. PT HAS BEEN COOPERATIVE WITH CARES, ABLE TO MAKE NEEDS KNOWN, CALLS APPROPRIATELY. PT PLAN TO DISCHARGE TOMORROW IF STABLE TO GO HOME. WILL MONITOR
[2019-08-05 05:03] LABS: Hematocrit 38.9 % (37.0-53.0); Hemoglobin 12.3 g/dL (13.5-17.5); Mean Corpuscular HGB 29.9 pg (26.0-34.0); Mean Corpuscular HGB Conc 31.6 g/dL (31.5-36.5); Mean Corpuscular Volume 95 fL (80-100); Mean Platelet Volume 9.5 fL (9.1-12.4); Platelet Count 275 K/mm3 (150-400); RDW Coefficient Variation 16.2 % (11.7-14.2); RDW Standard Deviation 57.1 fL (35.1-46.3); Red Blood Cell Count 4.11 M/mm3 (4.30-5.90); White Blood Cell Count 6.19 K/mm3 (4.00-11.30)
[2019-08-05 05:18] LABS: Anion Gap 7 mmol/L (6-16); Blood Urea Nitrogen 14 mg/dL (8-24); Bun/Creatinine Ratio 16.4 (12.0-20.0); CO2, Blood 27 mmol/L (21-32); Calcium, Blood 9.1 mg/dL (8.5-10.1); Chloride, Blood 104 mmol/L (98-108); Creatinine, Blood 0.85 mg/dL (0.60-1.20); Glomerular Filtration Rate >60 (60-); Glucose, Blood 88 mg/dL (70-99); Potassium, Blood 3.9 mmol/L (3.5-5.5); Sodium, Blood 138 mmol/L (136-145)
--- NOTE | 2019-08-05 06:30 | NUR ---
Shift Summary Pt sleeping throughout shift, VSS, Alert and oriented. home trach, inline suctions. No acute changes overnight. Breathing treatments PRN. Deflates cuff for communication purpose. See shift assessment for detailed systems assessment. SBA to BSC and staff needed for bsc placement and line/trach guidance. Possible d/c today.
--- NOTE | 2019-08-05 10:26 | NUR ---
UPDATE PT ALERT AND ORIENTED. VS STABLE. DR. CONLEY IN THIS AM WITH PLANS FOR DISCHARGE. DISCHARGE INSTRUCTIONS PROVIDED TO PT. NO NEW MEDICATIONS. ALL QUESTIONS ANSWERED. PT'S SISTER AND CAREGIVER NOTIFIED OF PLAN FOR DISCHARGE. TRANSPORT TO BE HERE AT 11 TO TAKE PT HOME. IV REMOVED.
== END 2019-08-05 11:52 | disposition home or self-care (01) | DRG 870 ==
LOC: ER 15:56 → ICUW 21:26 → PCU 21:26 → ICUE 21:26 → ICUW 07-31 05:51 → ICUE 07-31 05:53 → PCU 08-01 19:59
PROVIDERS: Internal Medicine; Physician Assistant; ADMIT Family Medicine
PROC: 5A1955Z Respiratory Ventilation, Greater than 96 Consecutive Hours (ICD-10-PCS; principal; 2019-07-30)
PROC: 8E0ZXY6 Isolation (ICD-10-PCS; 2019-07-30)
DX: A41.4 Sepsis due to anaerobes (principal); J18.0 Bronchopneumonia, unspecified organism; J96.21 Acute and chronic respiratory failure with hypoxia; J96.22 Acute and chronic respiratory failure with hypercapnia; Z99.11 Dependence on respirator [ventilator] status; Z68.42 Body mass index [BMI] 45.0-49.9, adult; I48.92 Unspecified atrial flutter; E66.2 Morbid (severe) obesity with alveolar hypoventilation; R65.20 Severe sepsis without septic shock; Z79.82 Long term (current) use of aspirin; Z87.891 Personal history of nicotine dependence; Z93.0 Tracheostomy status; F32.9 Major depressive disorder, single episode, unspecified; F41.9 Anxiety disorder, unspecified; J43.9 Emphysema, unspecified; J47.9 Bronchiectasis, uncomplicated; B96.89 Other specified bacterial agents as the cause of diseases classified elsewhere
CPT/HCPCS: 0099U; 31720; 36415; 36600; 71260; 80048; 80053; 80202; 82803; 82947; 83605; 83735; 83880; 84100; 84145; 84484; 85025; 85027; 87040; 87070; 87077; 87186; 87205; 93005; 93010; 94640; 94667; 94762; 96365-59; 96367-59; 96375-59; 99285-25; A9270; J0744; J1650; J2543; J3010; J3370; J7050; Q9967; U0003

== ENCOUNTER 2019-11-21 11:06 | Emergency (ER) | payer MEDICARE, OTHER ==
[~2019-11-21] VITALS: Ht 157.5 cm; Wt 95.2 kg
[~2019-11-21 11:06] MED LIST changes: +ATOR40TA PO; -Aspir 8181 MG PO; +IPRATROPIUM 0.02% NEB; +MIRALAX17 GM PO; +Milk Of Ma400 MG/5 M PO; +Vitamin D2000 UNIT PO
[2019-11-21 11:37] LABS: Base Excess Venous 2.7 mmol/L; Bicarbonate Venous 25.7 mmol/L (24.0-30.0); PCO2 Venous 55.4 mmHg (38-42); PO2 Venous 92.1 mmHg (38-42); pH Blood Venous 7.32 (7.34-7.37)
[2019-11-21 11:40] LABS: BASOPHILS ABSOLUTE AUTO 0.05 K/mm3 (0.00-0.23); BASOPHILS PERCENT AUTO 1 % (0-2); EOSINOPHILS ABSOLUTE AUTO 0.29 K/mm3 (0.00-0.68); EOSINOPHILS PERCENT AUTO 4 % (0-6); Hematocrit 42.8 % (37.0-53.0); Hemoglobin 13.4 g/dL (13.5-17.5); IMMATURE GRAN ABSOLUTE AUTO 0.03 K/mm3 (0.00-0.10); IMMATURE GRAN PERCENT AUTO 0 % (0-1); LYMPHOCYTES ABSOLUTE AUTO 0.98 K/mm3 (0.84-5.20); LYMPHOCYTES PERCENT AUTO 14 % (21-46); MONOCYTES PERCENT AUTO 9 % (4-13); Mean Corpuscular HGB 30.7 pg (26.0-34.0); Mean Corpuscular HGB Conc 31.3 g/dL (31.5-36.5); Mean Corpuscular Volume 98 fL (80-100); NEUTROPHILS ABSOLUTE AUTO 5.09 K/mm3 (1.96-9.15); NEUTROPHILS PERCENT AUTO 72 % (41-73); Platelet Count 220 K/mm3 (150-400); RDW Coefficient Variation 14.2 % (11.7-14.2); RDW Standard Deviation 51.6 fL (35.1-46.3); Red Blood Cell Count 4.37 M/mm3 (4.30-5.90); White Blood Cell Count 7.04 K/mm3 (4.00-11.30)
[2019-11-21 12:23] LABS: Anion Gap 5 mmol/L (6-16); Blood Urea Nitrogen 15 mg/dL (8-24); CO2, Blood 29 mmol/L (21-32); Chloride, Blood 104 mmol/L (98-108); Glomerular Filtration Rate >60 (60-); Glucose, Blood 120 mg/dL (70-99); Potassium, Blood 4.3 mmol/L (3.5-5.5); Sodium, Blood 138 mmol/L (136-145)
[2019-11-21 12:24] LABS: Alanine Aminotransfer (ALT/SGP 25 U/L (12-78); Albumin, Blood 3.2 g/dL (3.4-5.0); Albumin/Globulin Ratio 0.6 (0.8-1.8); Alk Phos 145 U/L (50-136); Aspartate Aminotrans (AST/SGOT 22 U/L (12-37); Bilirubin, Total 1.6 mg/dL (0.1-1.0); Calcium, Blood 9.4 mg/dL (8.5-10.1); Total Protein, Blood 8.2 g/dL (6.4-8.2); Troponin I <0.015 ng/mL (0.000-0.040)
[2019-11-21] MEDS ORDERED: ALPR.5 PO (13:49)
[2019-11-21] MEDS ORDERED: OXYC5 PO (13:50)
[2019-11-21] MEDS ORDERED: Ventolin/Prove6.7 GM INH (13:51)
[2019-11-21] MEDS ORDERED: ALBU2.5V5 NEB (13:55)
[2019-11-21] MEDS ORDERED: Aspir 8181 MG PO (13:55)
[2019-11-21] MEDS ORDERED: Brovana15 MCG/2 M INH (14:06)
[2019-11-21] MEDS ORDERED: NYSTATIN100000 UN1 PO (15:56)
[2019-11-26] MEDS ORDERED: BUDE.25 INH (13:51)
[2019-11-26] MEDS ORDERED: SULTRIDS PO (13:52)
[2019-11-26] MEDS ORDERED: Nebcin40 MG/ML INH (13:54)
[2019-11-27] MEDS ORDERED: ALPRAZOLAM0.5 M1 PO (12:50)
[2019-11-27] MEDS ORDERED: SULFAMETHOXAZO1 EACH PO (17:08)
[2019-11-27] MEDS ORDERED: TOBRAMYCIN INH (17:09)
== END 2019-11-21 16:18 | disposition home or self-care (01) ==
LOC: ER 11:06
PROVIDERS: Emergency Medicine
DX: J44.9 Chronic obstructive pulmonary disease, unspecified (principal); F41.9 Anxiety disorder, unspecified; F32.9 Major depressive disorder, single episode, unspecified; E11.9 Type 2 diabetes mellitus without complications; Z99.11 Dependence on respirator [ventilator] status; Z91.030 Bee allergy status; Z79.82 Long term (current) use of aspirin; Z79.899 Other long term (current) drug therapy; Z20.828 Contact with and (suspected) exposure to other viral communicable diseases
CPT/HCPCS: 36415; 36416; 71045; 80053; 82803; 83605; 84484; 85025; 87040; 87070; 87077; 87186; 87205; 93005; 93010; 96361; 96365; 99285-25; J0713; J7030; U0002

== ENCOUNTER 2019-12-01 11:47 | Emergency (ER) | payer MEDICARE, OTHER ==
[~2019-12-01] VITALS: Ht 152.4 cm; Wt 65.8 kg
[~2019-12-01 11:47] MED LIST changes: +ALPRAZOLAM0.5 M1 PO; +Aspir 8181 MG PO; +BUDE.25 INH; +Brovana15 MCG/2 M INH; +IPRAT-ALBUT 0.5-3 ML INH; +NYSTATIN100000 UN1 PO; +Nebcin40 MG/ML INH; +ONDA4ODT MM; +SULFAMETHOXAZO1 EACH PO; +SULTRIDS PO; +TOBRAMYCIN INH; +VISBIOME PO; +Ventolin/Prove6.7 GM INH
[2019-12-01 12:17] LABS: BASOPHILS ABSOLUTE AUTO 0.06 K/mm3 (0.00-0.23); BASOPHILS PERCENT AUTO 1 % (0-2); EOSINOPHILS ABSOLUTE AUTO 0.34 K/mm3 (0.00-0.68); EOSINOPHILS PERCENT AUTO 4 % (0-6); Hematocrit 43.3 % (37.0-53.0); Hemoglobin 13.6 g/dL (13.5-17.5); IMMATURE GRAN ABSOLUTE AUTO 0.04 K/mm3 (0.00-0.10); IMMATURE GRAN PERCENT AUTO 1 % (0-1); LYMPHOCYTES ABSOLUTE AUTO 0.67 K/mm3 (0.84-5.20); LYMPHOCYTES PERCENT AUTO 8 % (21-46); MONOCYTES ABSOLUTE AUTO 0.67 K/mm3 (0.16-1.47); MONOCYTES PERCENT AUTO 8 % (4-13); Mean Corpuscular HGB 30.6 pg (26.0-34.0); Mean Corpuscular HGB Conc 31.4 g/dL (31.5-36.5); Mean Corpuscular Volume 98 fL (80-100); Mean Platelet Volume 9.7 fL (9.1-12.4); NEUTROPHILS ABSOLUTE AUTO 6.46 K/mm3 (1.96-9.15); NEUTROPHILS PERCENT AUTO 79 % (41-73); Platelet Count 201 K/mm3 (150-400); RDW Coefficient Variation 13.8 % (11.7-14.2); RDW Standard Deviation 50.3 fL (35.1-46.3); Red Blood Cell Count 4.44 M/mm3 (4.30-5.90); White Blood Cell Count 8.24 K/mm3 (4.00-11.30)
[2019-12-01 12:26] LABS: PCO2 Arterial 65.8 mmHg (35-45); PO2 Arterial 94.5 mmHg (80-100); pH Blood Arterial 7.35 (7.35-7.45)
[2019-12-01 12:40] LABS: Alanine Aminotransfer (ALT/SGP 30 U/L (12-78); Albumin, Blood 3.5 g/dL (3.4-5.0); Albumin/Globulin Ratio 0.6 (0.8-1.8); Alk Phos 125 U/L (50-136); Anion Gap 3 mmol/L (6-16); Aspartate Aminotrans (AST/SGOT 19 U/L (12-37); Bilirubin, Total 1.2 mg/dL (0.1-1.0); Blood Urea Nitrogen 14 mg/dL (8-24); Bun/Creatinine Ratio 18.2 (12.0-20.0); CO2, Blood 34 mmol/L (21-32); Chloride, Blood 98 mmol/L (98-108); Creatinine, Blood 0.77 mg/dL (0.60-1.20); Globulin, Blood 5.4 g/dL (2.2-4.0); Glomerular Filtration Rate >60 (60-); Glucose, Blood 142 mg/dL (70-99); Potassium, Blood 4.5 mmol/L (3.5-5.5); Sodium, Blood 135 mmol/L (136-145); Total Protein, Blood 8.9 g/dL (6.4-8.2)
[2019-12-01] MEDS ORDERED: ONDA4ODT MM (13:48)
[2019-12-01] MEDS ORDERED: MAGCIT300 PO (13:48)
[2019-12-01] MEDS ORDERED: BISA10S PR (14:35)
== END 2019-12-01 14:44 | disposition home or self-care (01) ==
LOC: ER 11:47
PROVIDERS: Emergency Medicine
DX: J96.11 Chronic respiratory failure with hypoxia (principal); K59.00 Constipation, unspecified; E11.9 Type 2 diabetes mellitus without complications; J44.9 Chronic obstructive pulmonary disease, unspecified; E66.01 Morbid (severe) obesity due to excess calories; Z99.11 Dependence on respirator [ventilator] status; Z93.0 Tracheostomy status; Z91.030 Bee allergy status; Z88.8 Allergy status to other drugs, medicaments and biological substances; Z91.09 Other allergy status, other than to drugs and biological substances; Z79.51 Long term (current) use of inhaled steroids; Z79.899 Other long term (current) drug therapy; Z79.82 Long term (current) use of aspirin; Z87.891 Personal history of nicotine dependence; Z68.28 Body mass index [BMI] 28.0-28.9, adult
CPT/HCPCS: 36415; 36600; 71045; 80053; 82803; 85025; 93005; 93010

== ENCOUNTER 2019-12-20 05:05 | Inpatient (IN) | payer MEDICARE, OTHER ==
[~2019-12-20] VITALS: Ht 157.5 cm; Wt 113.0 kg
[~2019-12-20 05:05] MED LIST changes: +BISA10S PR; +MAGCIT300 PO
[2019-12-20 06:18] LABS: BASOPHILS PERCENT AUTO 1 % (0-2); EOSINOPHILS ABSOLUTE AUTO 0.77 K/mm3 (0.00-0.68); EOSINOPHILS PERCENT AUTO 5 % (0-6); Hematocrit 40.5 % (37.0-53.0); Hemoglobin 12.6 g/dL (13.5-17.5); IMMATURE GRAN ABSOLUTE AUTO 0.12 K/mm3 (0.00-0.10); IMMATURE GRAN PERCENT AUTO 1 % (0-1); LYMPHOCYTES ABSOLUTE AUTO 2.05 K/mm3 (0.84-5.20); LYMPHOCYTES PERCENT AUTO 13 % (21-46); MONOCYTES ABSOLUTE AUTO 1.37 K/mm3 (0.16-1.47); MONOCYTES PERCENT AUTO 8 % (4-13); Mean Corpuscular HGB 30.7 pg (26.0-34.0); Mean Corpuscular HGB Conc 31.1 g/dL (31.5-36.5); Mean Corpuscular Volume 99 fL (80-100); Mean Platelet Volume 10.5 fL (9.1-12.4); NEUTROPHILS ABSOLUTE AUTO 11.81 K/mm3 (1.96-9.15); NEUTROPHILS PERCENT AUTO 73 % (41-73); Platelet Count 329 K/mm3 (150-400); RDW Coefficient Variation 13.9 % (11.7-14.2); RDW Standard Deviation 50.6 fL (35.1-46.3); Red Blood Cell Count 4.11 M/mm3 (4.30-5.90); White Blood Cell Count 16.22 K/mm3 (4.00-11.30)
[2019-12-20 06:31] LABS: Alanine Aminotransfer (ALT/SGP 29 U/L (12-78); Albumin, Blood 3.1 g/dL (3.4-5.0); Albumin/Globulin Ratio 0.5 (0.8-1.8); Alk Phos 176 U/L (50-136); Anion Gap 4 mmol/L (6-16); Aspartate Aminotrans (AST/SGOT 25 U/L (12-37); Bilirubin, Total 1.5 mg/dL (0.1-1.0); Blood Urea Nitrogen 17 mg/dL (8-24); Bun/Creatinine Ratio 29.5 (12.0-20.0); CO2, Blood 30 mmol/L (21-32); Calcium, Blood 9.8 mg/dL (8.5-10.1); Chloride, Blood 102 mmol/L (98-108); Creatinine, Blood 0.58 mg/dL (0.60-1.20); Globulin, Blood 5.8 g/dL (2.2-4.0); Glomerular Filtration Rate >60 (60-); Glucose, Blood 164 mg/dL (70-99); Potassium, Blood 4.4 mmol/L (3.5-5.5); Sodium, Blood 136 mmol/L (136-145); Total Protein, Blood 8.9 g/dL (6.4-8.2); Troponin I <0.015 ng/mL (0.000-0.040)
[2019-12-20 11:54] LABS: PCO2 Arterial 69.9 mmHg (35-45); PO2 Arterial 82.5 mmHg (80-100); pH Blood Arterial 7.26 (7.35-7.45)
--- NOTE | 2019-12-20 13:59 | NUR ---
PT ARRIVES FROM ER WITH FLAT AFFECT, PT IS REPONSIVE TO VERBAL STIMULI. PT MOUTHS WORDS IS UNABLE TO SPEAK WITH TRACH INFLATED. SKIN IS PALE WITH INTERMITTENT DIAPHORESIS. PER ER REPORT PT WITH HYPOTENSION, PRESSURES ARE LOWER IN OF NORMAL BUT STABLE UPON ADMISSION. PT C/O GENERALIZED BODY ACHES "ALL OVER", HE WAS TREATED ON ARRIUAL TO ICU WITH ROXICODONE WHICH SEEMED TO HAVE DONE WELL TO TREAT PAIN. LS DIMINISHED T/O. HOME VENT SETTING WERE NOT CHANGED POST ARRIVAL. PT'S AFFECT DOES BECOME LESS FLAT AFTER PAIN MEDICATION ADMINISTRATION.
--- NOTE | 2019-12-20 17:36 | NUR ---
SHIFT SUMMARY PT ARRIVED FROM ER THIS AFTERNOON. PT ALERT WITH FLAT AFFECT UPON ARRIVAL. PT WAS TREATED WITH ROXICODONE FOR "ALL OVER" PAIN, AFTER PAIN HAD DECREASED PT'S AFFECT IMPROVED. SLIGHT HYPOTENSION WAS NOTED, A 500ML BOLUS OF NS IS CURRENTLY INFUSING AT THIS TIME. PT DID REQUIRE A PICC LINE PLACEMENT AFTER ARRIVAL, WHICH ACCOUNTS FOR LATE ANTIBIOTIC ADMNISTRATION. AT THE END OF THE SHIFT PT REPORTS LIRA, HE REFUSED THE AVAILABLE TYLENOL THEN REPORTS "BAD ANXIETY" HE WAS THEN TREATED WITH XANAX 0,5MG PO WHICH WAS TOLERATED WELL. DR PERKINS WAS IN TO SEE PT AND PT WILL REMAIN ICU STATUS FOR THE EVENING AND WILL RE-EVAL IN THE AM
--- NOTE | 2019-12-20 19:48 | NUR ---
ASSUMING CARE- 1900 PATIENT IS LYING IN BED WIHT EYES CLOSED. HE FOLLOWS COMMANDS APPROPRIATELY. HE HAS A FLAT AFFECT CURRENTLY. HE MOVES ALL FOUR EXTREMITIES EQUALLY. RT AT THE BEDSIDE SUCTIONING TRACH. PATIENT'S TRACH IS CURRENTLY CONNECTED TO A HOME VENTILATOR WITH A 8 L BLEED IN. THE BEDSIDE DENTAL RESIDENT SHOWS NSR. RATE IS WNL. BP CUFF WAS OFF THE PATIENT. EDUCATED PATIENT THAT BP NEEDS TO BE TAKEN EVERY HOUR. BP WNL. URINAL AT BEDSIDE. PICC LINE IN PLACE WITH ABX CURRENTLY INFUSING. CALL LIGHT IS WITHIN REACH.
--- NOTE | 2019-12-21 02:01 | NUR ---
CARE ASSUMPTION PT TRANSFERRED TO PCU FROM ICU VIA BED. SLID OVER TO PCU BED BY 4 PEOPLE. PT REPORTS FEELING DIZZY WHEN LAID FLAT. PT A&O X4. SP02 >96% WITH TRACH HOME VENT WITH IN-LINE SUCTION WITH PT SELF-SUCTIONING. TELEMETRY READS SINUS INDIRA HR 51. PICC LINE INFUSING WITH ANTIBIOTICS PER EMAR. CALL LIGHT WITHIN REACH. WILL CONTINUE TO MONITOR.
--- NOTE | 2019-12-21 02:14 | NUR ---
PATIENT TRANSERED TO PCU 14. RT, MONOTYPE SETTER, AND THIS RN ACCOMPANIED PATINET DURING TRANSFER. PATIENT ON MONITOR DURING TRANSPORT. BELONGINGS, MEDICATIONS, AND CHART TRANSFERED WITH PATIENT.
[2019-12-21 04:41] LABS: Hematocrit 31.3 % (37.0-53.0); Hemoglobin 9.8 g/dL (13.5-17.5); Mean Corpuscular HGB 30.5 pg (26.0-34.0); Mean Corpuscular HGB Conc 31.3 g/dL (31.5-36.5); Mean Corpuscular Volume 98 fL (80-100); Mean Platelet Volume 10.5 fL (9.1-12.4); Platelet Count 144 K/mm3 (150-400); RDW Coefficient Variation 13.7 % (11.7-14.2); RDW Standard Deviation 49.1 fL (35.1-46.3); Red Blood Cell Count 3.21 M/mm3 (4.30-5.90); White Blood Cell Count 4.65 K/mm3 (4.00-11.30)
[2019-12-21 05:01] LABS: Anion Gap 3 mmol/L (6-16); Blood Urea Nitrogen 16 mg/dL (8-24); Bun/Creatinine Ratio 28.2 (12.0-20.0); CO2, Blood 31 mmol/L (21-32); Calcium, Blood 8.8 mg/dL (8.5-10.1); Chloride, Blood 105 mmol/L (98-108); Creatinine, Blood 0.57 mg/dL (0.60-1.20); Glomerular Filtration Rate >60 (60-); Glucose, Blood 179 mg/dL (70-99); Magnesium, Blood 1.9 mg/dL (1.6-2.4); Phosphorus, Blood 2.2 mg/dL (2.5-4.9); Potassium, Blood 4.3 mmol/L (3.5-5.5); Sodium, Blood 139 mmol/L (136-145)
--- NOTE | 2019-12-21 05:47 | NUR ---
END OF SHIFT SUMMARY PT TRANSFERRED TO PCU FROM ICU THIS SHIFT. PT A&O X4. LUNGS DIM T/O. SP02 >95% ON HOME VENT WITH INLINE SUCTION, MANAGED BY RT. TELEMETRY READS SINUS INDIRA, HR 47-50'S. PICC LINE IN UPPER RIGHT ARM, FLUSHES WELL. CAPS CHANGED THIS SHIFT. VANCO INFUSING PER EMAR. PT REMAINS IN DROPLET PRECAUTIONS. WILL CONTINUE TO MONITOR UNTIL END OF SHIFT.
--- NOTE | 2019-12-21 08:00 | NUR ---
pt laying in bed awake a/ox3, pleasant and cooperative with care, follows commands well, states he is doing ok, states he didn't sleep well last night, lungs are dim t/o, resp even and unlabored, is on home vent, and manages it himself, no cough noted, hrr, tele in place running sr per monitor, see strip, no edema noted, ppp+2, cap refill <3sec, vs stable, afebrile, iv site is clear and patent, bt x4, abd flat soft nontender, voids via urinal clear yellow urine, skin c/w/d, erick hood, call light in reach.
--- NOTE | 2019-12-21 15:09 | NUR ---
lou is doing ok, irritable at different things. no changes or needs at this time, call light in reach.
--- NOTE | 2019-12-21 18:33 | NUR ---
NO ACUTE CHANGES THIS SHIFT. SASKIA STATES HE IS FEELING PRETTY GOOD. CALL LIGHT IN REACH.
[2019-12-22 04:43] LABS: Albumin, Blood 2.5 g/dL (3.4-5.0); Anion Gap 6 mmol/L (6-16); Blood Urea Nitrogen 17 mg/dL (8-24); Bun/Creatinine Ratio 27.2 (12.0-20.0); CO2, Blood 30 mmol/L (21-32); Calcium, Blood 8.7 mg/dL (8.5-10.1); Chloride, Blood 106 mmol/L (98-108); Creatinine, Blood 0.63 mg/dL (0.60-1.20); Glomerular Filtration Rate >60 (60-); Glucose, Blood 157 mg/dL (70-99); Phosphorus, Blood 1.6 mg/dL (2.5-4.9); Potassium, Blood 4.2 mmol/L (3.5-5.5); Sodium, Blood 142 mmol/L (136-145)
[2019-12-22 04:53] LABS: Vancomycin, Trough 17.9 ug/mL (5.0-10.0)
--- NOTE | 2019-12-22 05:37 | NUR ---
PT RESTED COMFORTABLY THROUGH NIGHT AO ON HOME VENT WIHT O2 SAT >90% NO BM VOIDING TO URINAL - 300ML NO SKIN ISSUES PAIN X1 ANXIETY X1 VSS CALL LIGHT WITHIN REACH, BED IN LOWEST POSITION. WILL CONTINUE TO MONITOR.
--- NOTE | 2019-12-22 18:37 | NUR ---
SHIFT SUMMARY PT IS ALERT AND ORIENTED, COOPERATIVE AND FOLLOWS COMMANDS. PT IS ON HOME VENT TO TRACH ON 3L O2 MAINTAINING SPO2 >92%. PT REQUIREMED MINIMAL SUCTIONING FROM NURSING TODAY. TELEMETRY HAS SHOWN PT TO BE IN NSR, VITALS HAVE BEEN STABLE. THIS AFTERNOON PT WAS ASSISTED UP TO RECLINER AND PT HAS BEEN UP IN CHAIR SINCE AND TOLERATING WELL.
[2019-12-22 21:55] LABS: Bilirubin, Urine Neg (Neg); Blood, Urine Neg (Neg); Glucose Qualitative, Urine Neg (Neg); Ketones, Urine Neg (Neg); Leukocyte Esterase, Urine Neg (Neg); Nitrite, Urine Neg (Neg); Protein, Urine Neg (Neg); Urobilinogen, Urine NORM (Normal)
[2019-12-22 22:09] LABS: Appearance, Urine Clear (Clear); Color, Urine Yellow (P-Yellow)
--- NOTE | 2019-12-23 05:20 | NUR ---
PT RESTED COMFORTABLY THROUGH NIGHT AO SATS >90% ON HOME VENT GOT UP FROM CHAIR TO BED WITH 1 PERSON ASSIST VOIDING TO URINAL - 400ML - UA NEGATIVE NO BM PAIN MEDS X1 VSS CALL LIGHT WITHIN REACH, BED IN LOWEST POSITION. WILL CONTINUE TO MONITOR.
--- NOTE | 2019-12-23 11:54 | NUR ---
Echocardiogram completed.
--- NOTE | 2019-12-23 16:57 | NUR ---
SHIFT SUMMARY PT ALERT AND ORIENTED. VS STABLE. O2 SATS HAVE REMAINED ABOVE 90% ON HOME VENT VIA TRACH WITH 3L. PT SUCTIONING HIMSELF WITH INLINE SUCTION NEEDED. BP STABLE. HR NSR. PT DENIES ANY PAIN THIS SHIFT. PT COMPLAINED OF ANXIETY AND WAS MEDICATED PER EMAR. PT REPOSITIONING HIMSELF IN BED AND UP TO COMMODE NEEDED. WILL CONTINUE TO MONITOR AND REPORT TO ONCOMING RN. CALL LIGHT IN REACH. PT CALLING APPROPRIATELY.
--- NOTE | 2019-12-24 01:47 | NUR ---
ASSUMED CARE AT 1900 POST BED SIDE REPORT. COMFORTABLE ALL SHIFT. STARTING TO DOZE OFF TO SLEEP NOW. HS SNACKS AND DENIES PAIN. 3L BLEED IN AND SATS 99%. SX SELF CARE AND CBG SELF CARE W/ STAFF TO GIVE INSULIN.BUT NO COVERAGE INDICATED. CAMPOS PORT NOT FLUSHABLE , RED AND WHITE SLOW BUT FLOWING FLUSH AND IVPB PATENT. ENC TO REPOSITION SELF AND ACTIVE ROM , PARTICIPATES IN REQUEST.CHEERFUL. PLEASANT.
[2019-12-24 03:41] LABS: BASOPHILS ABSOLUTE AUTO 0.01 K/mm3 (0.00-0.23); BASOPHILS PERCENT AUTO 0 % (0-2); EOSINOPHILS PERCENT AUTO 0 % (0-6); Hematocrit 36.4 % (37.0-53.0); Hemoglobin 11.3 g/dL (13.5-17.5); IMMATURE GRAN ABSOLUTE AUTO 0.03 K/mm3 (0.00-0.10); IMMATURE GRAN PERCENT AUTO 0 % (0-1); LYMPHOCYTES ABSOLUTE AUTO 0.47 K/mm3 (0.84-5.20); LYMPHOCYTES PERCENT AUTO 5 % (21-46); MONOCYTES ABSOLUTE AUTO 0.67 K/mm3 (0.16-1.47); MONOCYTES PERCENT AUTO 7 % (4-13); Mean Corpuscular Volume 97 fL (80-100); Mean Platelet Volume 10.1 fL (9.1-12.4); NEUTROPHILS ABSOLUTE AUTO 8.77 K/mm3 (1.96-9.15); NEUTROPHILS PERCENT AUTO 88 % (41-73); Platelet Count 232 K/mm3 (150-400); RDW Standard Deviation 49.5 fL (35.1-46.3); Red Blood Cell Count 3.77 M/mm3 (4.30-5.90); White Blood Cell Count 9.95 K/mm3 (4.00-11.30)
[2019-12-24 03:57] LABS: Albumin, Blood 2.5 g/dL (3.4-5.0); Anion Gap 4 mmol/L (6-16); Blood Urea Nitrogen 28 mg/dL (8-24); Bun/Creatinine Ratio 32.8 (12.0-20.0); CO2, Blood 29 mmol/L (21-32); Calcium, Blood 8.6 mg/dL (8.5-10.1); Chloride, Blood 107 mmol/L (98-108); Creatinine, Blood 0.85 mg/dL (0.60-1.20); Glomerular Filtration Rate >60 (60-); Glucose, Blood 140 mg/dL (70-99); Phosphorus, Blood 2.9 mg/dL (2.5-4.9); Potassium, Blood 4.7 mmol/L (3.5-5.5); Sodium, Blood 140 mmol/L (136-145)
[2019-12-24 03:59] LABS: Vancomycin, Trough 29.6 ug/mL (5.0-10.0)
--- NOTE | 2019-12-24 05:44 | NUR ---
NO ACUTE DISCOMFORT OR ISSUES. STAYED UP MOST OF THE NOC. ENC TO TURN AND ACTIVE ROM. SR/SB. JULITOO TROUGH HIGH AND HELD VANCO PER PHARMACY
[2019-12-24 16:04] LABS: Vancomycin, Random 19.8 ug/mL
--- NOTE | 2019-12-24 16:59 | NUR ---
SHIFT SUMMARY PT ALERT AND ORIENTED. VS STABLE. O2 SATS HAVE REMAIN ABOVE 90% ON 3L VIA TRACH AND HOME VENT. PT REPORTS LESS FREQUENT SUCTIONING THIS SHIFT. BP STABLE. HR SB TO NSR. PT DENIES ANY PAIN. PT ABLE TO REPOSITION HIMSELF IN BED. WILL CONTINUE TO MONITOR AND REPORT TO ONCOMING RN. CALL LIGHT IN REACH. PT CALLS APPROPRIATELY.
--- NOTE | 2019-12-25 05:02 | NUR ---
SHIFT SUMMARY NO ACUTE CHANGES THIS SHIFT. PT A&OX4. PLEASANT AND COOPERATIVE. SP02 >92% ON 3L HOME VENT, TRACH WITH IN-LINE SUCTION. PT SELF SUCTIONED WITH MODERATE AMOUNTS OF YELLOW/WHITE SPUTUM. TELEMETRY READS SINUS INDIRA, HR 50'S-60'S. UP TO BSC WITH ASSISTANCE PRODUCING BROWN, PELLET-LIKE STOOL. PT C/O OF BACK PAIN, MEDICATED WITH OXYCODONE PER EMAR. RED PORT OF PICC LINE FLUSHES AND DRAWS WELL. IV ANTIBIOTICS GIVEN DURING SHIFT PER EMAR. CALL LIGHT IN REACH. WILL CONTINUE TO MONITOR.
[2019-12-25 05:04] LABS: BASOPHILS ABSOLUTE AUTO 0.01 K/mm3 (0.00-0.23); BASOPHILS PERCENT AUTO 0 % (0-2); EOSINOPHILS PERCENT AUTO 1 % (0-6); Hematocrit 36.6 % (37.0-53.0); Hemoglobin 11.6 g/dL (13.5-17.5); IMMATURE GRAN ABSOLUTE AUTO 0.06 K/mm3 (0.00-0.10); IMMATURE GRAN PERCENT AUTO 1 % (0-1); LYMPHOCYTES ABSOLUTE AUTO 1.85 K/mm3 (0.84-5.20); LYMPHOCYTES PERCENT AUTO 18 % (21-46); MONOCYTES ABSOLUTE AUTO 0.95 K/mm3 (0.16-1.47); MONOCYTES PERCENT AUTO 9 % (4-13); Mean Corpuscular HGB 30.3 pg (26.0-34.0); Mean Corpuscular HGB Conc 31.7 g/dL (31.5-36.5); Mean Corpuscular Volume 96 fL (80-100); Mean Platelet Volume 9.8 fL (9.1-12.4); NEUTROPHILS PERCENT AUTO 72 % (41-73); Platelet Count 247 K/mm3 (150-400); RDW Coefficient Variation 14.3 % (11.7-14.2); RDW Standard Deviation 50.2 fL (35.1-46.3); Red Blood Cell Count 3.83 M/mm3 (4.30-5.90); White Blood Cell Count 10.57 K/mm3 (4.00-11.30)
[2019-12-25 05:24] LABS: Albumin, Blood 2.3 g/dL (3.4-5.0); Anion Gap 5 mmol/L (6-16); Blood Urea Nitrogen 30 mg/dL (8-24); Bun/Creatinine Ratio 37.1 (12.0-20.0); CO2, Blood 29 mmol/L (21-32); Calcium, Blood 8.4 mg/dL (8.5-10.1); Chloride, Blood 108 mmol/L (98-108); Creatinine, Blood 0.81 mg/dL (0.60-1.20); Glomerular Filtration Rate >60 (60-); Glucose, Blood 96 mg/dL (70-99); Phosphorus, Blood 2.6 mg/dL (2.5-4.9); Sodium, Blood 142 mmol/L (136-145)
--- NOTE | 2019-12-25 10:52 | NUR ---
ASSUME CARE THIS AM: NO ACUTE CHANGE THIS AM. VITALS HRR SINUS INDIRA 55, BP SYSTOLIC 115'S, SATS ABOVE 95% ON HOME VENT SETTINGS WITH 3L O2 BLEED. PT SELF SUCTIONS, DEFLATES CUFF WHEN TALKING. PT C/O CONSTIPATION THIS AM, MIRALAX GIVEN AWAITING FOR RESULT. PT CONTINUES ON IV ABO, RECEIVED XANAX THIS AM. ABLE TO MAKE NEEDS KNOWN. CALL LIGHTS IN REACH WILL MONITOR
--- NOTE | 2019-12-25 17:59 | NUR ---
PT SUMMARY: NO ACUTE CHANGED FOR THE SHIFT, VITALS HAS BEEN STABLE ON HOME VENT SETTINGS ON 3L O2 BLEED, SATS ABOVE 95%. PT C/O CONSTIPATION TODAY ONE DOSE OF DULCOLAX 10MG GIVEN TODAY WITH LARGE BM RESULT. PT RUNNING AT 75MLS/HR ON 1/2NS. PT SELF SUCTIONS THROUGH IN LINE SUCTION WITH THICK WHITE SPUTUM. PT CONTINUES ON IV ABO. 1 PERSON ASSIST TO BEDSIDE COMMODE. ABLE TO MAKE NEEDS KNOWN WILL MONITOR
[2019-12-26 03:38] LABS: BASOPHILS ABSOLUTE AUTO 0.01 K/mm3 (0.00-0.23); BASOPHILS PERCENT AUTO 0 % (0-2); EOSINOPHILS ABSOLUTE AUTO 0.13 K/mm3 (0.00-0.68); EOSINOPHILS PERCENT AUTO 1 % (0-6); Hematocrit 35.2 % (37.0-53.0); Hemoglobin 11.1 g/dL (13.5-17.5); IMMATURE GRAN ABSOLUTE AUTO 0.05 K/mm3 (0.00-0.10); IMMATURE GRAN PERCENT AUTO 1 % (0-1); LYMPHOCYTES ABSOLUTE AUTO 1.46 K/mm3 (0.84-5.20); LYMPHOCYTES PERCENT AUTO 16 % (21-46); MONOCYTES ABSOLUTE AUTO 0.52 K/mm3 (0.16-1.47); MONOCYTES PERCENT AUTO 6 % (4-13); Mean Corpuscular HGB 30.2 pg (26.0-34.0); Mean Corpuscular HGB Conc 31.5 g/dL (31.5-36.5); Mean Corpuscular Volume 96 fL (80-100); Mean Platelet Volume 9.7 fL (9.1-12.4); NEUTROPHILS ABSOLUTE AUTO 7.18 K/mm3 (1.96-9.15); NEUTROPHILS PERCENT AUTO 77 % (41-73); Platelet Count 201 K/mm3 (150-400); RDW Coefficient Variation 14.1 % (11.7-14.2); RDW Standard Deviation 49.6 fL (35.1-46.3); Red Blood Cell Count 3.68 M/mm3 (4.30-5.90); White Blood Cell Count 9.35 K/mm3 (4.00-11.30)
[2019-12-26 03:54] LABS: Albumin, Blood 2.2 g/dL (3.4-5.0); Anion Gap 5 mmol/L (6-16); Blood Urea Nitrogen 31 mg/dL (8-24); Bun/Creatinine Ratio 39.7 (12.0-20.0); CO2, Blood 28 mmol/L (21-32); Calcium, Blood 8.1 mg/dL (8.5-10.1); Chloride, Blood 108 mmol/L (98-108); Creatinine, Blood 0.78 mg/dL (0.60-1.20); Glomerular Filtration Rate >60 (60-); Glucose, Blood 153 mg/dL (70-99); Phosphorus, Blood 2.8 mg/dL (2.5-4.9); Potassium, Blood 4.2 mmol/L (3.5-5.5); Sodium, Blood 141 mmol/L (136-145)
--- NOTE | 2019-12-26 05:50 | NUR ---
SHIFT SUMMARY NO ACUTE CHANGES THIS SHIFT. PT A&OX4. SP02 >92% ON 3L HOME VENT, TRACH WITH IN-LINE SUCTION. PT SELF SUCTIONED WITH MODERATE AMOUNTS OF YELLOW/WHITE SPUTUM. TELEMETRY READS SINUS RHYTHM/SINUS INDIRA, HR 50'S-70'S. PT C/O OF BACK PAIN AND HEADACHE, MEDICATED WITH OXYCODONE PER EMAR. RED PORT OF PICC LINE FLUSHES AND DRAWS, POSITIONAL. IV ANTIBIOTICS AND FLUIDS GIVEN DURING SHIFT PER EMAR. CALL LIGHT IN REACH. WILL CONTINUE TO MONITOR.
--- NOTE | 2019-12-26 08:00 | NUR ---
pt laying in bed watching tv, a/ox3, cooperative with care, follows commands well, denies pain at this time, lungs are clear in upper young, dim in bases, on home vent, bleed in at 3 liters, routinely has a productive cough, hrr, tele in place running sr to sb per monitor, see strip, trace edema noted to b/l le, ppp+2, cap refill <3sec, vs stable, afebrile, iv site is clear and patent, is picc line to estuardo, btx4, abd round soft nontender, voids via urinal with out diff, skin ok, maew, one person assist to get to chair, erick, call light in reach.
--- NOTE | 2019-12-26 12:47 | NUR ---
Dr. Nunes in to see pt. pt was up to bsc, had a bm. call light in reach.
--- NOTE | 2019-12-26 17:26 | NUR ---
PT STATES HE CAN FEEL HIS BLOOD SUGAR IS TOO HIGH, WANTS INSULIN, BECAME VERY AGGITATED, CALLED DR. DIAZ FOR ORDERS, SHE ALLOWED ME TO GIVE HIM 2 UNITS FOR A BLOOD GLUCOSE OF 191, AND AN EXTRA XANEX. HE IS CALMED NOW. RT IN ROOM WORKING WITH TRACH. NO FURTHER CHANGES THIS SHIFT. CALL LIGHT IN REACH.
--- NOTE | 2019-12-27 04:39 | NUR ---
BLOOD CULTURE RESULTS WAS NOTIFIED BY LAB OF PT'S BLOOD CULTURE RESULTS: GRAM POSITIVE COCCI IN CLUSTERS. CALLED PHARMACY TO VERIFY PT'S CURRENT IV ANTIBIOTICS ARE EFFECTIVE AGAINST THIS CULTURE RESULT. PHARMACIST, NURA, RECCOMMENDED TO NOTIFY PROVIDER. CALL PLACED TO MD EARLY, WHO CONFIRMED PT'S CURRENT PRESCRIBED ANTIBIOTICS. MD EARLY WITH NO NEW ORDERS. WILL CONTINUE TO MONITOR.
[2019-12-27 05:47] LABS: BASOPHILS ABSOLUTE AUTO 0.01 K/mm3 (0.00-0.23); BASOPHILS PERCENT AUTO 0 % (0-2); EOSINOPHILS ABSOLUTE AUTO 0.36 K/mm3 (0.00-0.68); EOSINOPHILS PERCENT AUTO 4 % (0-6); Hematocrit 33.1 % (37.0-53.0); Hemoglobin 10.5 g/dL (13.5-17.5); IMMATURE GRAN ABSOLUTE AUTO 0.07 K/mm3 (0.00-0.10); IMMATURE GRAN PERCENT AUTO 1 % (0-1); LYMPHOCYTES ABSOLUTE AUTO 1.67 K/mm3 (0.84-5.20); LYMPHOCYTES PERCENT AUTO 19 % (21-46); MONOCYTES PERCENT AUTO 7 % (4-13); Mean Corpuscular HGB 30.5 pg (26.0-34.0); Mean Corpuscular HGB Conc 31.7 g/dL (31.5-36.5); Mean Corpuscular Volume 96 fL (80-100); Mean Platelet Volume 9.8 fL (9.1-12.4); NEUTROPHILS ABSOLUTE AUTO 6.19 K/mm3 (1.96-9.15); NEUTROPHILS PERCENT AUTO 70 % (41-73); Platelet Count 223 K/mm3 (150-400); RDW Coefficient Variation 14.4 % (11.7-14.2); RDW Standard Deviation 50.3 fL (35.1-46.3); Red Blood Cell Count 3.44 M/mm3 (4.30-5.90)
[2019-12-27 06:08] LABS: Albumin, Blood 2.1 g/dL (3.4-5.0); Anion Gap 4 mmol/L (6-16); Blood Urea Nitrogen 24 mg/dL (8-24); Bun/Creatinine Ratio 29.6 (12.0-20.0); CO2, Blood 29 mmol/L (21-32); Chloride, Blood 109 mmol/L (98-108); Creatinine, Blood 0.81 mg/dL (0.60-1.20); Glomerular Filtration Rate >60 (60-); Glucose, Blood 118 mg/dL (70-99); Phosphorus, Blood 2.7 mg/dL (2.5-4.9); Potassium, Blood 3.8 mmol/L (3.5-5.5); Sodium, Blood 142 mmol/L (136-145)
--- NOTE | 2019-12-27 06:08 | NUR ---
SHIFT SUMMARY PT A&OX4. SP02 >92% ON 3L HOME VENT, TRACH WITH IN-LINE SUCTION. PT SELF SUCTIONED WITH MODERATE AMOUNTS OF YELLOW/WHITE SPUTUM. TELEMETRY READS SINUS RHYTHM, HR 60's. PT C/O BACK PAIN AND HEADACHE, MEDICATED WITH OXYCODONE PER EMAR x1. RED PORT OF PICC LINE FLUSHES AND DRAWS, CAMPOS PORT FLUSHES, POSITIONAL. IV ANTIBIOTICS GIVEN DURING SHIFT PER EMAR. CALL LIGHT IN REACH. WILL CONTINUE TO MONITOR.
--- NOTE | 2019-12-27 08:00 | NUR ---
PT LAYING IN BED UPSET THIS AM BECAUSE HE HAS HEART BURN, WANTS TUMS, WILL CALL FOR THEM JERMAN, LUNGS ARE CLEAR IN UPPER LACEY, DIM IN BASES, RESP EVEN AND UNLABORED ON HOME VENT WITH 3 LITER BLEED IN , SELF SUCTIONS, HRR, TELE IN PLACE RUNNING SR PER MONITOR, SEE STRIP, 2+ EDEMA NOTED TO B/L LE, PICC LINE TO MAIA, SITE IS CLEAR AND PATENT, BTX4, ABD ROUND SOFT NONTENDER, VOIDS VIA URINAL, SKIN PALE, C/W/D, LARA, ONE PERSON ASSIST TO BSC, KRISTI, CALL LIGHT IN REACH.
--- NOTE | 2019-12-27 19:08 | NUR ---
pt got up to bsc this am and had a bm. has been calm all day. no acute changes or needs. call light in reach.
--- NOTE | 2019-12-28 05:46 | NUR ---
SHIFT SUMMARY PT ALERT AND BP STABLE IN LOW 100'S SYSTOLIC T/O SHIFT. PT DENIED BEDTIME CHEM BG. PT ON VENT AND O2 SATS IN HIGH 90'S ON 3LPM, PT REQUESTED 5LPM WHEN AMBULATING TO BEDSIDE COMMODE. PT STATED PAIN AT 8 OF 10 AT STARD OF SHIFT FOR HEADACHE AND BACK PAIN, ADMINISTERED ROXICODONE, PT ASLEEP UNTIL MIDNIGHT AND STATED PAIN AT 4 OF 10 THEN. PT STATED HAVING A "BURNING STOMACH" DID NOT WANT ORAL TUMS BUT TOOK ORAL TUMS THREE HOURS LATER. PT HAS CALL LIGHT WITHIN REACH, BED IN LOW POSITION, AND WILL CONTINUE TO MONITOR UNTIL SHIFT CHANGE.
[2019-12-28 08:51] LABS: BASOPHILS ABSOLUTE AUTO 0.01 K/mm3 (0.00-0.23); BASOPHILS PERCENT AUTO 0 % (0-2); EOSINOPHILS ABSOLUTE AUTO 0.66 K/mm3 (0.00-0.68); EOSINOPHILS PERCENT AUTO 8 % (0-6); Hematocrit 33.8 % (37.0-53.0); Hemoglobin 10.9 g/dL (13.5-17.5); IMMATURE GRAN ABSOLUTE AUTO 0.06 K/mm3 (0.00-0.10); IMMATURE GRAN PERCENT AUTO 1 % (0-1); LYMPHOCYTES ABSOLUTE AUTO 1.24 K/mm3 (0.84-5.20); LYMPHOCYTES PERCENT AUTO 16 % (21-46); MONOCYTES ABSOLUTE AUTO 0.73 K/mm3 (0.16-1.47); MONOCYTES PERCENT AUTO 9 % (4-13); Mean Corpuscular HGB 30.7 pg (26.0-34.0); Mean Corpuscular HGB Conc 32.2 g/dL (31.5-36.5); Mean Corpuscular Volume 95 fL (80-100); Mean Platelet Volume 9.2 fL (9.1-12.4); NEUTROPHILS ABSOLUTE AUTO 5.32 K/mm3 (1.96-9.15); NEUTROPHILS PERCENT AUTO 66 % (41-73); Platelet Count 234 K/mm3 (150-400); RDW Coefficient Variation 14.4 % (11.7-14.2); RDW Standard Deviation 49.9 fL (35.1-46.3); Red Blood Cell Count 3.55 M/mm3 (4.30-5.90); White Blood Cell Count 8.02 K/mm3 (4.00-11.30)
--- NOTE | 2019-12-28 08:59 | NUR ---
PT LAYING IN BED WATCHING TV, A/OX3, IRRITABLE THIS AM, COMPLAINING OF HEART BURN AND NOT LIKEING THE TUMS THAT WAS ORDERED, IN TO SEE HIM, ORDERED SOME MAALOX, LUNGS ARE CLEAR DIM WITH WHEEZE IN THE BASES, RESP EVEN AND UNLABORED ON HOME VENT, DOES BECOME LABORED WITH ACTIVITY, HAS A 3 LITERS BLEED IN, SUCTIONING SPUTUM, HRR, TELE IN PLACE RUNNING SR PER MONITOR, SEE STRIP, 2+EDEMA NOTED TO B/L LE, PPP+1, CAP REFILL <3SEC, VS STABLE, AFEBRILE, IV SITE IS PICC LINE TO MAIA, SITE IS CLEAR AND PATENT, BTX4, ABD FLAT SOFT NONTENDER, VOIDS VIA URINAL, BM UP TO BSC, SKIN C/W/D, KRISTI BERMUDEZ, CALL LIGHT IN REACH.
[2019-12-28 09:08] LABS: Anion Gap 4 mmol/L (6-16); Blood Urea Nitrogen 21 mg/dL (8-24); Bun/Creatinine Ratio 24.9 (12.0-20.0); CO2, Blood 28 mmol/L (21-32); Calcium, Blood 7.8 mg/dL (8.5-10.1); Chloride, Blood 110 mmol/L (98-108); Creatinine, Blood 0.84 mg/dL (0.60-1.20); Glomerular Filtration Rate >60 (60-); Glucose, Blood 100 mg/dL (70-99); Potassium, Blood 4.6 mmol/L (3.5-5.5); Sodium, Blood 142 mmol/L (136-145)
--- NOTE | 2019-12-28 12:31 | NUR ---
SASKIA IS DOING OK TODAY, GAVE HIM SOME MAALOX FOR HEART BURN, SISTER IN TO SEE HIM, CALL LIGHT IN REACH.
--- NOTE | 2019-12-28 17:43 | NUR ---
picc dressing was changed today, pt had an uneventful day. did have a bm, and is voiding. call light in reach.
--- NOTE | 2019-12-29 05:48 | NUR ---
SHIFT SUMMARY PT IS ON A VENT SET AT 24 BREATH/MIN, PT PERFORMS SELF TRACH CARE, ON 3LPM WITH O2 SATS IN THE HIGH 90'S. PT REQUEST TO BE ON 5LPM WHEN GETTING UP TO USE THE BEDSIDE COMMODE. PT HAS PICC LINE, DOES NOT FLUSH WELL AND CAN NOT RUN CONTINOUS IV INF THROUGH IT THE PRESSURE TO OVERCOME IS TOO GREAT FOR THE PUMP. OTHERWISE PT HAD QUIET UNEVENTFUL NIGHT. WILL CONTINUE TO MONITOR UNTIL SHIFT CHANGE.
--- NOTE | 2019-12-29 16:44 | NUR ---
SHIFT SUMMARY PT A&Ox4; ANXIOUS BUT COOPERATIVE WITH MAJOIRTY OF CARE. PT REFUSING CBG AND LOVENOX DURING SHIFT. PT RESTING IN BED, 1 PERSON ASSIST TO BSC TO MANAGE LINES. PT REPORTS CHRONIC BACK PAIN, MEDICATED x1 PER EMAR. PT REPROTS ANXIETY; MEDCIATED PER EMAR. PT SOB WITH EXERTION, REQUESTS TO INCREASE FROM 3L O2 VIA VENT TO 5L O2 VIA VENT WITH ACTIVITY. PT DENIES NAUSEA AND DIZZINESS. VSS. NO OTHER ACUTE CHANGES NOTED DURING SHIFT. WILL COTNINUE TO MONITOR UNTIL REPORT GIVEN TO ONCOMING RN.
--- NOTE | 2019-12-30 04:16 | NUR ---
SHIFT SUMMARY PT DENIED BEDTIME CHEM BG AND INSULIN, EDUCATED PT ON THE IMPORTANCE OF GLUCOSE CHECKS AND MEDICATION ADHERENCE. PT SELF MANAGES TRACH AND TRACH CARE, ON VENT AT 24 BPM WITH 3LPM 02 BLEED-IN, INCREASED TO 5LPM WITH EXERTION, 02 SATS IN HIGH 90'S. HR STABLE, BP HYPOTENSIVE AND STABLE 93-111 SYSTOLIC. PICC LINE INFUSING NS AND ZOSYN T/O THE NIGHT. PT HAD QUIET NIGHT, WILL CONTINUE TO MONITOR UNTIL SHIFT CHANGE. BED IN LOW POSITION AND CALL LIGHT WITHIN REACH.
--- NOTE | 2019-12-30 17:55 | NUR ---
SUMMARY NO ACUTE CHANGES NOTED THROUGH THE DAY. PT REMAINS ON 3-5 L O2, MAINTAINS HIS OWN VENT W/ASSISTANCE PRN. ABX INFUSED PER EMAR. TOLERATING PO INTAKE, BM NOTED TODAY. NYSTATIN POWDER TO ABD FOLD/GROIN. PT IS REFUSING HIS GLUCOSE CHECKS & INSULIN BUT HAS BEEN COOPERATIVE WITH ALL OTHER CARE. CALL LIGHT IN REACH, WCTM.
--- NOTE | 2019-12-31 05:59 | NUR ---
SHIFT SUMMARY PT SLEEPING IN ROOM COMFORTABLY. NO ACUTE CHANGES IN STATUS T/O NIGHT. PT SLEPT WELL, DENIED NEEDS. CALLED FOR PAIN MEDS ONCE. DENIED ANY CP OR SOB. PT ON HOME VENT AND SELF MANAGES VENT. SATS >95% T/O NIGHT. PT DENIED OTHER NEEDS. IV ABX INFUSING IN PICC LINE PER PHARMACY. CALL LIGHT IN REACH. PT CAN REPOSITION SELF.
--- NOTE | 2019-12-31 17:40 | NUR ---
SHIFT SUMMARY PT A&Ox3; ANXIOUS, MEDICATED PER EMAR. PT COOPERATIVE WITH MAJOIRTY OF CARE; REFUSING POC CBG. PT REPORTS BACK PAIN, MEDICATED PER EMAR. SOB WITH EXERTION, HOME VENT WITH TRACH; SPO2 >96% ON 3L O2 VIA NC AT REST, PT REQUEST O2 TITRATED TO 5L O2 WITH ACTIVITY. PT DENIES CHEST PAIN, DIZZINESS AND NAUSEA T/O SHIFT. VSS. NO OTHER ACUTE CHANGES NOTED DURING SHIFT. WILL CONTINUE TO MONITOR UNILT REPORT GIVEN TO ONCOMING RN.
--- NOTE | 2019-12-31 19:30 | NUR ---
REPORT RECEIVED FROM DEE DEE BEAUCHAMP, ASSUMED CARE OF PT. PT SITTING UP IN BED, A&Ox3, RESTING COMFORTABLY. TRACH TO VENT, NO ACUTE RESP DISTRESS. WILL CONTINUE TO MONITOR
--- NOTE | 2020-01-01 05:49 | NUR ---
SUMMARY PT SLEPT ON AND OFF THROUGHOUT SHIFT. TRACH TO VENT, BASELINE SETTINGS REMAIN UNCHANGED. LUNG SOUNDS DECREASED THROUGHOUT, NO ACUTE DISTRESS OBSERVED. TELEMETRY SR IN 80'S WITH 1 EPISODE OF UNSUSTAINED SVT. PT ASYMPTOMATIC. WILL CONTINUE TO MONITOR
[2020-01-01 07:58] LABS: Performing Lab UW; Test Name COLISTIN
--- NOTE | 2020-01-01 16:47 | NUR ---
SHIFT SUMMARY PT A&ox4; ANXIOUS BUT COOPERATIVE WITH CARE; MEDICATED PER EMAR. PT RESTING IN BED. UP SBA TO BSC TO ASSIST WITH LINES. PT REPORTS CHRONIC BACK PAIN, MEDICATED x1 PER EMAR WITH POSITIVE RESULTS. PT SOB WITH EXERTION AND ANXIETY; HOME VENT WITH TRACH; ON 3L O2 AT REST AND REQUESTS TITRATION TO 5L O2 WITH ACTIVITY. PT DENIES CHEST PAIN, NASUEA AND DIZZINESS T/O SHIFT. VSS. NO OTHER ACUTE CHANGES NOTED DURING SHIFT. WILL CONTINUE TO MONITOR UNTIL REPORT GIVEN TO ONCOMING RN.
--- NOTE | 2020-01-02 05:34 | NUR ---
SHIFT SUMMARY PT ON VENT WITH TRACH AT 24 BREATHS/MIN WITH 3LPM O2 BLEED-IN SATS STABLE IN THE 90'S. O2 UP TO 5LPM WHEN UP TO USE BSC. PICC LINE DRESSING CHANGED, 5CM CATH EXPOSED PRE AND POST DRESSING CHANGE, PT TOLERATED DRESSING CHANGE WELL. SUCTION LINE AND CANISTER CHANGED, MINIMAL SPUTUM T/O SHIFT, LESS THAN PREVIOUS SHIFTS. BP AND HR STABLE T/O SHIFT. WILL CONTINUE TO MONITOR UNTIL SHIFT CHANGE.
--- NOTE | 2020-01-02 08:00 | NUR ---
pt is in a good mood this am, states he actually slept last night, lungs are clear in upper young, dim/course in bases, resp even and unlabored at rest on home vent, in line suctioning, takes po meds without diff, hrr, tele in place running sr per monitor, see strip, 2+ edema noted to b/l le, ppp+1, cap refill <3 sec, v.s. stable, afebrile, iv site is picc line to estuardo, site is clear and patent, btx4, abd round soft nontender, voids without diff via urinal, skin c/w/d, maew, able to stand and transfer to chair pretty indep, erick, call light in reach.
[2020-01-02 09:19] LABS: BASOPHILS ABSOLUTE AUTO 0.02 K/mm3 (0.00-0.23); BASOPHILS PERCENT AUTO 1 % (0-2); EOSINOPHILS ABSOLUTE AUTO 0.26 K/mm3 (0.00-0.68); EOSINOPHILS PERCENT AUTO 7 % (0-6); Hematocrit 30.6 % (37.0-53.0); Hemoglobin 9.7 g/dL (13.5-17.5); IMMATURE GRAN ABSOLUTE AUTO 0.01 K/mm3 (0.00-0.10); IMMATURE GRAN PERCENT AUTO 0 % (0-1); LYMPHOCYTES ABSOLUTE AUTO 0.83 K/mm3 (0.84-5.20); LYMPHOCYTES PERCENT AUTO 21 % (21-46); MONOCYTES ABSOLUTE AUTO 0.49 K/mm3 (0.16-1.47); MONOCYTES PERCENT AUTO 12 % (4-13); Mean Corpuscular HGB 30.8 pg (26.0-34.0); Mean Corpuscular HGB Conc 31.7 g/dL (31.5-36.5); Mean Corpuscular Volume 97 fL (80-100); NEUTROPHILS ABSOLUTE AUTO 2.33 K/mm3 (1.96-9.15); NEUTROPHILS PERCENT AUTO 59 % (41-73); RDW Coefficient Variation 15.1 % (11.7-14.2); Red Blood Cell Count 3.15 M/mm3 (4.30-5.90); White Blood Cell Count 3.94 K/mm3 (4.00-11.30)
[2020-01-02 09:39] LABS: Mean Platelet Volume 9.9 fL (9.1-12.4); Platelet Count 158 K/mm3 (150-400)
[2020-01-02 09:40] LABS: Anion Gap 6 mmol/L (6-16); Blood Urea Nitrogen 8 mg/dL (8-24); Bun/Creatinine Ratio 17.1 (12.0-20.0); CO2, Blood 21 mmol/L (21-32); Chloride, Blood 123 mmol/L (98-108); Creatinine, Blood 0.47 mg/dL (0.60-1.20); Glomerular Filtration Rate >60 (60-); Glucose, Blood 89 mg/dL (70-99); Potassium, Blood 2.6 mmol/L (3.5-5.5); Sodium, Blood 150 mmol/L (136-145)
--- NOTE | 2020-01-02 12:52 | NUR ---
SASKIA DOING PRETTY WELL THIS AFTERNOON, STATES HES' FEELING OK, GOT UP TO BSC FOR BM. CALL LIGHT IN REACH.
--- NOTE | 2020-01-02 18:11 | NUR ---
PT HAD AN UNEVENTFUL DAY, NO COMPLAINTS OR ACUTE CHANGES, TOOK A GOOD NAP THIS AFTERNOON, CALL LIGHT IN REACH.
--- NOTE | 2020-01-03 04:17 | NUR ---
SHIFT SUMMARY START OF SHIFT PT STATED HAVING HEART PALPITATIONS AND WAS CONCERNED STATING IT WAS ABNORMAL WITH HR AROUND 100BPM. PT SEEMED ANXIOUS AT THIS POINT, WAS GIVEN PERSCRIBED PM MEDS AND PT WENT TO SLEEP, HR DOWN AROUND 80BPM THE REST OF THE SHIFT. PT REFUSED GLUCOSE CHECK AND INSULIN. PT ON 3LPM BLEED-IN ON VENT WITH TRACH, O2 SATS IN THE HIGH 90'S T/O SHIFT. PT ALERT AND COOPERATIVE, WILL CONTINUE TO MONITOR UNTIL SHIFT CHANGE.
[2020-01-03 10:10] LABS: BASOPHILS ABSOLUTE AUTO 0.03 K/mm3 (0.00-0.23); BASOPHILS PERCENT AUTO 1 % (0-2); EOSINOPHILS ABSOLUTE AUTO 0.27 K/mm3 (0.00-0.68); EOSINOPHILS PERCENT AUTO 6 % (0-6); Hematocrit 31.6 % (37.0-53.0); Hemoglobin 9.9 g/dL (13.5-17.5); IMMATURE GRAN ABSOLUTE AUTO 0.02 K/mm3 (0.00-0.10); IMMATURE GRAN PERCENT AUTO 0 % (0-1); LYMPHOCYTES ABSOLUTE AUTO 0.87 K/mm3 (0.84-5.20); LYMPHOCYTES PERCENT AUTO 19 % (21-46); MONOCYTES ABSOLUTE AUTO 0.49 K/mm3 (0.16-1.47); MONOCYTES PERCENT AUTO 11 % (4-13); Mean Corpuscular HGB 30.7 pg (26.0-34.0); Mean Corpuscular HGB Conc 31.3 g/dL (31.5-36.5); Mean Corpuscular Volume 98 fL (80-100); Mean Platelet Volume 9.6 fL (9.1-12.4); NEUTROPHILS ABSOLUTE AUTO 2.92 K/mm3 (1.96-9.15); NEUTROPHILS PERCENT AUTO 63 % (41-73); Platelet Count 156 K/mm3 (150-400); RDW Standard Deviation 54.3 fL (35.1-46.3); Red Blood Cell Count 3.23 M/mm3 (4.30-5.90)
[2020-01-03 10:41] LABS: Anion Gap 6 mmol/L (6-16); Blood Urea Nitrogen 11 mg/dL (8-24); Bun/Creatinine Ratio 16.9 (12.0-20.0); CO2, Blood 25 mmol/L (21-32); Chloride, Blood 113 mmol/L (98-108); Creatinine, Blood 0.65 mg/dL (0.60-1.20); Glomerular Filtration Rate >60 (60-); Glucose, Blood 100 mg/dL (70-99); Potassium, Blood 3.8 mmol/L (3.5-5.5); Sodium, Blood 144 mmol/L (136-145)
[2020-01-03 10:42] LABS: Calcium, Blood 8.2 mg/dL (8.5-10.1)
--- NOTE | 2020-01-03 18:07 | NUR ---
SHIFT SUMMARY; A/A/OX4 THROUGHOUT SHIFT. REMAINS ON HOME VENT WITH 3L O2. SBA ASSIST TO BEDSIDE COMMODE, REPOISITONS SELF, PERFORMED SELF TRACH CARE AND SUCTIONING NEEDED. ABX CONTINUED PER ORDERS, NO ACUTE CHANGES DURING SHIFT, WILL CONTINUE TO MONITOR AND TREAT UNTIL CHANGE OF SHIFT.
--- NOTE | 2020-01-03 22:14 | NUR ---
ASSUMED CARE AT 1915. PT A/OX4. USING HOME VENT IND., DENIES NEED FOR ASSISTANCE WITH VENT. USING CALL LIGHT APPR. DENIES FURTHER NEEDS.
[2020-01-04 05:03] LABS: BASOPHILS ABSOLUTE AUTO 0.02 K/mm3 (0.00-0.23); BASOPHILS PERCENT AUTO 1 % (0-2); EOSINOPHILS ABSOLUTE AUTO 0.25 K/mm3 (0.00-0.68); EOSINOPHILS PERCENT AUTO 7 % (0-6); Hematocrit 30.3 % (37.0-53.0); Hemoglobin 9.6 g/dL (13.5-17.5); IMMATURE GRAN ABSOLUTE AUTO 0.01 K/mm3 (0.00-0.10); IMMATURE GRAN PERCENT AUTO 0 % (0-1); LYMPHOCYTES ABSOLUTE AUTO 0.83 K/mm3 (0.84-5.20); LYMPHOCYTES PERCENT AUTO 23 % (21-46); MONOCYTES ABSOLUTE AUTO 0.43 K/mm3 (0.16-1.47); MONOCYTES PERCENT AUTO 12 % (4-13); Mean Corpuscular HGB 30.9 pg (26.0-34.0); Mean Corpuscular HGB Conc 31.7 g/dL (31.5-36.5); Mean Corpuscular Volume 97 fL (80-100); Mean Platelet Volume 9.8 fL (9.1-12.4); NEUTROPHILS ABSOLUTE AUTO 2.03 K/mm3 (1.96-9.15); NEUTROPHILS PERCENT AUTO 57 % (41-73); Platelet Count 139 K/mm3 (150-400); RDW Coefficient Variation 15.2 % (11.7-14.2); RDW Standard Deviation 54.3 fL (35.1-46.3); Red Blood Cell Count 3.11 M/mm3 (4.30-5.90); White Blood Cell Count 3.57 K/mm3 (4.00-11.30)
--- NOTE | 2020-01-04 05:05 | NUR ---
SHIFT SUMMARY PT A/O X4. REPOSITIONS SELF IN BED. PT USING HOME TRACH/VENT SETUP IND. AND DENIED NEED FOR ASSISTANCE WITH VENT. USING 3L O2 WITH VENT. REPORTS THAT HE FEELS HIS BREATHING IS GETTING BETTER OVERALL. TOLERATING PO INTAKE. PT REFUSED CBG AND INSULIN. USING URINAL IND. NO ACUTE CHANGES. PICC LINE FLUSHES AND DRAWS WELL.
--- NOTE | 2020-01-04 17:52 | NUR ---
SHIFT SUMMARY; A/A/OX4 DURING SHIFT. HOME VENT WITH 3L O2. TRACH CARE AND SUCTION PROVIDED BY PT. ABX PER ORDERS DURING SHIFT. NO ACUTE MEDICAL CHANGES. SBA ASSIST TO BEDSIDE COMMODE, REPOSITIONS SELF DURING SHIFT NEEDED. WILL CONTINUE TO MONITOR AND TREAT UNTIL CHANGE OF SHIFT.
--- NOTE | 2020-01-05 05:28 | NUR ---
END OF SHIFT SUMMARY NO ACUTE CHANGES THIS SHIFT. VSS. REMAINS ON BASELINE HOME VERNT 2-3L BLEEDIN. LUNGS DIM BILATERALLY. PT PERFORMING TRACH CARE. PT REMAINS IN SR. AXO. USEING URINAL. CONTINUES TO REFUSE BLOOD GLUCOSE CHECKS/INSULIN. OTHERWISE, PT RESTING IN ROOM QUIETLY. WILL CONTINUE TO MONITOR UNTIL SHIFT CHANGE.
[2020-01-05 06:17] LABS: BASOPHILS ABSOLUTE AUTO 0.03 K/mm3 (0.00-0.23); BASOPHILS PERCENT AUTO 1 % (0-2); EOSINOPHILS ABSOLUTE AUTO 0.19 K/mm3 (0.00-0.68); EOSINOPHILS PERCENT AUTO 6 % (0-6); Hematocrit 30.4 % (37.0-53.0); Hemoglobin 9.6 g/dL (13.5-17.5); IMMATURE GRAN ABSOLUTE AUTO 0.02 K/mm3 (0.00-0.10); IMMATURE GRAN PERCENT AUTO 1 % (0-1); LYMPHOCYTES PERCENT AUTO 27 % (21-46); MONOCYTES ABSOLUTE AUTO 0.38 K/mm3 (0.16-1.47); MONOCYTES PERCENT AUTO 11 % (4-13); Mean Corpuscular HGB 30.8 pg (26.0-34.0); Mean Corpuscular HGB Conc 31.6 g/dL (31.5-36.5); Mean Corpuscular Volume 97 fL (80-100); NEUTROPHILS ABSOLUTE AUTO 1.83 K/mm3 (1.96-9.15); NEUTROPHILS PERCENT AUTO 55 % (41-73); Platelet Count 138 K/mm3 (150-400); RDW Coefficient Variation 15.6 % (11.7-14.2); RDW Standard Deviation 55.4 fL (35.1-46.3); Red Blood Cell Count 3.12 M/mm3 (4.30-5.90); White Blood Cell Count 3.35 K/mm3 (4.00-11.30)
--- NOTE | 2020-01-05 18:10 | NUR ---
SHIFT SUMMARY; A/A/OX4 DURING SHIFT. REMAINS ON HOME VENT. SELF SUCTIONS AND SELF TRACH CARE. ASSISTED TO BEDSIDE COMMODE WITHOUT DIFFICULTY. ABX CONTINUED, NO ACUTE MEDICAL CHANGES. VSS, WILL CONTINUE TO MONITOR AND TREAT UNTIL CHANGE OF SHIFT.
[2020-01-06 04:45] LABS: BASOPHILS ABSOLUTE AUTO 0.03 K/mm3 (0.00-0.23); BASOPHILS PERCENT AUTO 1 % (0-2); EOSINOPHILS ABSOLUTE AUTO 0.17 K/mm3 (0.00-0.68); EOSINOPHILS PERCENT AUTO 5 % (0-6); Hematocrit 32.3 % (37.0-53.0); IMMATURE GRAN PERCENT AUTO 0 % (0-1); LYMPHOCYTES ABSOLUTE AUTO 0.98 K/mm3 (0.84-5.20); LYMPHOCYTES PERCENT AUTO 29 % (21-46); MONOCYTES ABSOLUTE AUTO 0.42 K/mm3 (0.16-1.47); MONOCYTES PERCENT AUTO 12 % (4-13); Mean Corpuscular HGB 30.3 pg (26.0-34.0); Mean Corpuscular Volume 98 fL (80-100); Mean Platelet Volume 10.2 fL (9.1-12.4); NEUTROPHILS ABSOLUTE AUTO 1.83 K/mm3 (1.96-9.15); NEUTROPHILS PERCENT AUTO 53 % (41-73); Platelet Count 132 K/mm3 (150-400); RDW Coefficient Variation 15.4 % (11.7-14.2); RDW Standard Deviation 55.8 fL (35.1-46.3); White Blood Cell Count 3.43 K/mm3 (4.00-11.30)
--- NOTE | 2020-01-06 05:48 | NUR ---
pt rested through night still refusing cbg checks vss picc line not drawing ao tele nsr home vent settings in place with 3lnc no bm voiding to urinal pain meds x1 call light within reach, bed in lowest position. will continue to monitor.
--- NOTE | 2020-01-06 17:30 | NUR ---
SHIFT SUMMARY PT ALERT AND ORIENTED. VS STABLE. O2 SATS REMAIN ABOVE 90% ON 3L VIA TRACH AND HOME VENT. HR NSR. BP STABLE. PT DENIES ANY PAIN. PT REPOSITIONING HIMSELF IN BED. WILL CONTINUE TO MONITOR CLOSELY AND REPORT TO ONCOMING RN. CALL LIGHT IN REACH.
[2020-01-07 04:41] LABS: BASOPHILS ABSOLUTE AUTO 0.03 K/mm3 (0.00-0.23); BASOPHILS PERCENT AUTO 1 % (0-2); EOSINOPHILS ABSOLUTE AUTO 0.26 K/mm3 (0.00-0.68); EOSINOPHILS PERCENT AUTO 8 % (0-6); Hematocrit 29.6 % (37.0-53.0); Hemoglobin 9.5 g/dL (13.5-17.5); IMMATURE GRAN ABSOLUTE AUTO 0.01 K/mm3 (0.00-0.10); IMMATURE GRAN PERCENT AUTO 0 % (0-1); LYMPHOCYTES ABSOLUTE AUTO 0.99 K/mm3 (0.84-5.20); LYMPHOCYTES PERCENT AUTO 29 % (21-46); MONOCYTES ABSOLUTE AUTO 0.39 K/mm3 (0.16-1.47); MONOCYTES PERCENT AUTO 12 % (4-13); Mean Corpuscular HGB 31.3 pg (26.0-34.0); Mean Corpuscular HGB Conc 32.1 g/dL (31.5-36.5); Mean Corpuscular Volume 97 fL (80-100); Mean Platelet Volume 9.9 fL (9.1-12.4); NEUTROPHILS ABSOLUTE AUTO 1.71 K/mm3 (1.96-9.15); NEUTROPHILS PERCENT AUTO 50 % (41-73); Platelet Count 126 K/mm3 (150-400); RDW Coefficient Variation 15.6 % (11.7-14.2); RDW Standard Deviation 55.9 fL (35.1-46.3); Red Blood Cell Count 3.04 M/mm3 (4.30-5.90); White Blood Cell Count 3.39 K/mm3 (4.00-11.30)
--- NOTE | 2020-01-07 05:16 | NUR ---
SHIFT SUMMARY PT SLEPT WELL T/O NIGHT. DENIED NEEDS. PT MANAGED OWN TRACH W/O ASSIST. USED URINAL IN ROOM W/O ASSIST. DENIED ANY CP OR SOB. SLEPT WELL. RESP EVEN UNLABORED ON TRACH W/ 3L. DENIED OTHER NEEDS. CALL LIGHT IN REACH.
--- NOTE | 2020-01-07 17:35 | NUR ---
SHIFT SUMMARY PT ALERT AND ORIENTED. VS STABLE. O2 SATS REMAIN ABOVE 90% ON 3L VIA HOME VENT AND TRACH. PT SUCTIONS HIMSELF NEEDED. PT REPOSITIONING HIMSELF IN BED. PT UP TO COMMODE NEEDED TO VOID WITH SBA. DENIES ANY PAIN. WILL CONTINUE TO MONITOR AND REPORT TO ONCOMING RN. CALL LIGHT IN REACH. PT CALLS APPROPRIATELY.
--- NOTE | 2020-01-07 20:54 | NUR ---
CARE ASSUMPTION PT A&O X4. COOPERATIVE AND PLEASANT. SP02 >96% ON HOME VENT WITH TRACH, 3L BLEED IN WITH IN-LINE SUCTION. PT SELF SUCTIONS. TELEMETRY READS SR, HR 80. PT WITH Q8 VITAL SIGNS ORDERED. PT REQUESTING MIDNIGHT VITALS BUT REQUESTING NO 0400 VITALS SO HE CAN SLEEP. PT VITAL SIGNS STABLE. PT STATES BACK PAIN 7/10, MEDICATED PER EMAR. CALL LIGHT IN REACH. WILL CONTINUE TO MONITOR.
[2020-01-08 05:20] LABS: BASOPHILS ABSOLUTE AUTO 0.03 K/mm3 (0.00-0.23); BASOPHILS PERCENT AUTO 1 % (0-2); EOSINOPHILS ABSOLUTE AUTO 0.22 K/mm3 (0.00-0.68); EOSINOPHILS PERCENT AUTO 8 % (0-6); Hematocrit 30.2 % (37.0-53.0); Hemoglobin 9.5 g/dL (13.5-17.5); IMMATURE GRAN PERCENT AUTO 0 % (0-1); LYMPHOCYTES ABSOLUTE AUTO 1.01 K/mm3 (0.84-5.20); LYMPHOCYTES PERCENT AUTO 35 % (21-46); MONOCYTES ABSOLUTE AUTO 0.28 K/mm3 (0.16-1.47); MONOCYTES PERCENT AUTO 10 % (4-13); Mean Corpuscular HGB 30.8 pg (26.0-34.0); Mean Corpuscular HGB Conc 31.5 g/dL (31.5-36.5); Mean Corpuscular Volume 98 fL (80-100); Mean Platelet Volume 10.4 fL (9.1-12.4); NEUTROPHILS ABSOLUTE AUTO 1.37 K/mm3 (1.96-9.15); NEUTROPHILS PERCENT AUTO 47 % (41-73); Platelet Count 125 K/mm3 (150-400); RDW Coefficient Variation 15.6 % (11.7-14.2); RDW Standard Deviation 56.1 fL (35.1-46.3); Red Blood Cell Count 3.08 M/mm3 (4.30-5.90); White Blood Cell Count 2.91 K/mm3 (4.00-11.30)
--- NOTE | 2020-01-08 05:44 | NUR ---
SHIFT SUMMARY NO ACUTE CHANGES THIS SHIFT. PT A&O X4. SP02 >96% ON HOME VENT WITH TRACH, WITH 3L BLEED IN. IN-LINE SUCTION WELL WITH PT SELF SUCTIONING, PRODUCING VERY LIGHT YELLOW/CLEAR THIN SPUTUM. TELEMETRY READS SR, HR 80'S. PT USED URINAL AT BEDSIDE SEVERAL TIMES T/O SHIFT. THIS RN WITNESSED PT DOING ARM AND LEG EXERCISES THIS SHIFT, PT STATES LEG EXERCISES HELP WITH HIS LEG EDEMA. PT WATCHED TV EARLY IN THE SHIFT AND SLEPT MOST OF THE NIGHT. PT REQUESTED TO NOT BE AWAKENED FOR 0400 VITALS, SEE PREVIOUS NOTE. VSS. CALL LIGHT IN REACH. WILL CONTINUE TO MONTIOR.
--- NOTE | 2020-01-08 17:53 | NUR ---
PT SUMMARY: NO ACUTE CHANGE FOR THE SHIFT, PT TO DISCHARGE TOMORROW IF STABLE. VITALS STABLE FOR THE SHIFT. CONTINUED ON HOME VENT WITH 3L O2 BLEED SATS 100%, PT SELF SUCTIONS. CPT/BREATHING TX PER RT. CONTINUES ON MARILYNN ABO. ABLE TO MAKE NEEDS KNOWN, WILL REPORT TO ONCOMING SHIFT
--- NOTE | 2020-01-08 19:00 | NUR ---
CARE ASSUMPTION PT A&OX4. SP02>96% ON HOME VENT WITH TRACH. 3L BLEED IN WITH IN-LINE SUCTION. PT SELF SUCTIONS, PRODUCING SMALL AMOUNTS OF THIN, CLEAR SPUTUM. PT C/O PART OF SUCTION "HAD GUNK IN IT". RESPIRATORY TO ROOM, ASSISTED PT W/ NEW PART NEEDED. PT ABLE TO SUCCESSFULLY SUCTION. TELEMETRY READS SR, HR 70'S. PT VOIDED IN URINAL AT BEDSIDE, CLEAR YELLOW URINE. PT STATES HE IS "EXCITED" AND "READY" TO GO HOME TOMORROW. CALL LIGHT IN REACH. WILL CONTINUE TO MONITOR.
[2020-01-09 03:57] LABS: BASOPHILS ABSOLUTE AUTO 0.02 K/mm3 (0.00-0.23); BASOPHILS PERCENT AUTO 1 % (0-2); EOSINOPHILS ABSOLUTE AUTO 0.15 K/mm3 (0.00-0.68); EOSINOPHILS PERCENT AUTO 5 % (0-6); Hematocrit 30.9 % (37.0-53.0); Hemoglobin 9.8 g/dL (13.5-17.5); IMMATURE GRAN ABSOLUTE AUTO 0.01 K/mm3 (0.00-0.10); IMMATURE GRAN PERCENT AUTO 0 % (0-1); LYMPHOCYTES ABSOLUTE AUTO 0.98 K/mm3 (0.84-5.20); LYMPHOCYTES PERCENT AUTO 34 % (21-46); MONOCYTES ABSOLUTE AUTO 0.32 K/mm3 (0.16-1.47); MONOCYTES PERCENT AUTO 11 % (4-13); Mean Corpuscular HGB 30.9 pg (26.0-34.0); Mean Corpuscular HGB Conc 31.7 g/dL (31.5-36.5); Mean Corpuscular Volume 98 fL (80-100); NEUTROPHILS ABSOLUTE AUTO 1.37 K/mm3 (1.96-9.15); NEUTROPHILS PERCENT AUTO 48 % (41-73); Platelet Count 120 K/mm3 (150-400); RDW Coefficient Variation 15.4 % (11.7-14.2); RDW Standard Deviation 55.2 fL (35.1-46.3); Red Blood Cell Count 3.17 M/mm3 (4.30-5.90); White Blood Cell Count 2.85 K/mm3 (4.00-11.30)
--- NOTE | 2020-01-09 05:42 | NUR ---
SHIFT SUMMARY NO ACUTE CHANGES THIS SHIFT. PT A&OX4. PLEASANT AND COOPERATIVE. SP02>96% ON HOME VENT WITH TRACH. 3L BLEED IN WITH IN-LINE SUCTION. PT SELF SUCTIONS. TELEMETRY READS SR W/ PVC'S, HR 60'S-70'S. PT REQUESTED TO NOT HAVE 0400 VITALS TAKEN. PT VSS. PT USED URINAL AT BEDSIDE T/O SHIFT. [place] [facility] [place], HAD ONE SMALL WATERY BM, ACCOMPANIED BY A LOT OF A GAS. PT STATES BACK PAIN 7/10. MEDICATED PER EMAR. PT STATES PAIN LOWERED TO 3/10. PT STATES HE IS EXCITED TO GO HOME. PT STATES, "I'VE BEEN READY FOR A FEW DAYS NOW, BUT I AM GLAD THEY TOOK THEIR TIME WITH EVERYTHING." AND "I'M EXCITED TO SEE PEANUT" (HIS DOG).
--- NOTE | 2020-01-09 09:00 | NUR ---
Dr. Zavala was here to see Karel. Karel is cheerful, states that he feels good today. Able to get Up to BSC for voiding and having bm this morning. Oxygen was increased to 5 l/min during the activity, and he tolerated it very well. Denies cough, or dyspnea.
--- NOTE | 2020-01-09 22:45 | NUR ---
DISCHARGE NOTE PT A&O X4. VSS. PICC LINE REMOVED WNL AFTER ANTIBIOTIC COMPLETE. PT DISCHARGED HOME BY [facility] W/ HOME VENT W/ 3L BLEED IN. DISCHARGE INSTRUCTIONS REVIEWED W/ PT. PT DISCHARGED @ APPROX 2230.
== END 2020-01-09 22:34 | disposition home or self-care (01) | DRG 870 ==
LOC: ER 05:05 → PCU 11:25 → ICUW 11:25 → PCU 12-21 02:00
PROVIDERS: Emergency Medicine; Hospitalist; Internal Medicine Critical Care Medicine; Student in an Organized Health Care Education/Training Program; ADMIT Internal Medicine
PROC: 5A1955Z Respiratory Ventilation, Greater than 96 Consecutive Hours (ICD-10-PCS; principal; 2019-12-20)
DX: A41.52 Sepsis due to Pseudomonas (principal); J96.21 Acute and chronic respiratory failure with hypoxia; J96.22 Acute and chronic respiratory failure with hypercapnia; J15.1 Pneumonia due to Pseudomonas; Z99.11 Dependence on respirator [ventilator] status; E66.2 Morbid (severe) obesity with alveolar hypoventilation; J44.1 Chronic obstructive pulmonary disease with (acute) exacerbation; J44.0 Chronic obstructive pulmonary disease with (acute) lower respiratory infection; E87.2 Acidosis; Z20.828 Contact with and (suspected) exposure to other viral communicable diseases; Z87.891 Personal history of nicotine dependence; R65.20 Severe sepsis without septic shock; Z93.0 Tracheostomy status; F32.9 Major depressive disorder, single episode, unspecified; F41.9 Anxiety disorder, unspecified; K59.00 Constipation, unspecified; E83.39 Other disorders of phosphorus metabolism; G47.00 Insomnia, unspecified; Z68.39 Body mass index [BMI] 39.0-39.9, adult
CPT/HCPCS: 31720; 36415; 36569; 36600; 71045; 80048; 80053; 80069; 80150; 80202; 81003; 82565; 82803; 82947; 83605; 83735; 83880; 84100; 84145; 84484; 85025; 85027; 87040; 87070; 87077; 87186; 87205; 93005; 93010; 93306; 94640; 94667; 94668; 94762; 96361; 96365; 96366; 97110; 97161; 97165; 97530; 97535; 99285-25; A9270; A9270-GY; C1751; G0008; J0278; J0456; J0696; J0714; J1650; J2543; J2920; J2930; J2997; J3370; J7030; J7050; J7060; J7626; Q2038; U0003

== ENCOUNTER 2020-02-08 16:03 | Observation (INO) | payer MEDICARE, OTHER ==
[~2020-02-08] VITALS: Ht 152.4 cm; Wt 89.8 kg
[~2020-02-08 16:03] MED LIST changes: -ALPRAZOLAM0.5 M1 PO; -Ventolin/Prove6.7 GM INH
[2020-02-08 16:50] LABS: BASOPHILS ABSOLUTE AUTO 0.09 K/mm3 (0.00-0.23); BASOPHILS PERCENT AUTO 1 % (0-2); EOSINOPHILS ABSOLUTE AUTO 0.41 K/mm3 (0.00-0.68); EOSINOPHILS PERCENT AUTO 6 % (0-6); Hematocrit 46.1 % (37.0-53.0); Hemoglobin 14.6 g/dL (13.5-17.5); IMMATURE GRAN ABSOLUTE AUTO 0.02 K/mm3 (0.00-0.10); IMMATURE GRAN PERCENT AUTO 0 % (0-1); LYMPHOCYTES PERCENT AUTO 22 % (21-46); MONOCYTES ABSOLUTE AUTO 0.57 K/mm3 (0.16-1.47); MONOCYTES PERCENT AUTO 8 % (4-13); Mean Corpuscular HGB 30.2 pg (26.0-34.0); Mean Corpuscular HGB Conc 31.7 g/dL (31.5-36.5); Mean Corpuscular Volume 95 fL (80-100); Mean Platelet Volume 10.8 fL (9.1-12.4); NEUTROPHILS ABSOLUTE AUTO 4.33 K/mm3 (1.96-9.15); NEUTROPHILS PERCENT AUTO 63 % (41-73); Platelet Count 233 K/mm3 (150-400); RDW Coefficient Variation 13.2 % (11.7-14.2); RDW Standard Deviation 46.9 fL (35.1-46.3); Red Blood Cell Count 4.84 M/mm3 (4.30-5.90); White Blood Cell Count 6.92 K/mm3 (4.00-11.30)
[2020-02-08 17:10] LABS: Alanine Aminotransfer (ALT/SGP 32 U/L (12-78); Albumin, Blood 3.5 g/dL (3.4-5.0); Albumin/Globulin Ratio 0.7 (0.8-1.8); Alk Phos 126 U/L (50-136); Anion Gap 4 mmol/L (6-16); Aspartate Aminotrans (AST/SGOT 35 U/L (12-37); Bilirubin, Total 0.8 mg/dL (0.1-1.0); Blood Urea Nitrogen 15 mg/dL (8-24); CO2, Blood 31 mmol/L (21-32); Calcium, Blood 9.6 mg/dL (8.5-10.1); Chloride, Blood 108 mmol/L (98-108); Creatinine, Blood 0.68 mg/dL (0.60-1.20); Glomerular Filtration Rate >60 (60-); Glucose, Blood 124 mg/dL (70-99); Potassium, Blood 4.2 mmol/L (3.5-5.5); Sodium, Blood 143 mmol/L (136-145); Total Protein, Blood 8.5 g/dL (6.4-8.2); Troponin I <0.015 ng/mL (0.000-0.040)
[2020-02-08] MEDS ORDERED: ALPR1 PO (20:02)
[2020-02-08] MEDS ORDERED: Ventolin/Prove6.7 GM INH (20:03)
[2020-02-08] MEDS ORDERED: OXYC5 PO (20:43)
[2020-02-08] MEDS ORDERED: GUAI600T33 PO (20:44)
--- NOTE | 2020-02-08 23:05 | NUR ---
RECEIVED PT. FROM ER TO ICU BED 7 VIA GURNEY. PT. TRACH TO VENT. A&OX4, TV 600, PEEP 10, FIO2 30%. PT. SELF SUCTIONING WITH OLIVA. PT ALSO SELF INFLATING AND DEFLATING CUFF. PT. IS ABLE TO MAKE NEEDS KNOWN. LUNG SOUNDS VERY COARSE THROUGHTOUT. PT. MAINTAINING SPO2 > 92%. BOWEL TONES NORMAL THROUGHOUT. PT USING URINAL FOR ELIMINATION. NO LOWER EXTREMITY SWELLING NOTED.
[2020-02-08 23:08] LABS: Bicarbonate Venous 28.1 mmol/L (24.0-30.0); PCO2 Venous 34.9 mmHg (38-42); PO2 Venous 134 mmHg (38-42)
--- NOTE | 2020-02-09 05:24 | NUR ---
PT REFUSED LOVENOX AND IS ALSO REFUSING GLUCOSE CHECK.
--- NOTE | 2020-02-09 05:29 | NUR ---
SHIFT SUMMARY PT REMAINS TRACH TO VENT, AC 24, TV 600, PEEP 10 30% FIO2. PT. IS SELF SUCTIONING AND INFLATES AND DEFLATES HIS CUFF FREQUENTLY. SPUTUM APPEARS THICK AND PALE YELLOW. LUNG SOUNDS COARSE THROUGHOUT. PT'S SISTER ROSETTA IS BRINGING IN A NEW CIRCUIT FOR PT'S HOME VENT TO SEE IF LEAK IS REPAIRED WITH A NEW CIRCUIT. IF MACHINE IS NOT REPAIRED WITH A NEW CIRCUIT, RESPIRATORY WILL CALL [facility] TO INSPECT PT'S HOME VENT FOR REPAIR. PT REFUSING GLUCOSE CHECKS WELL LOVENOX. EDUCATED PT ON IMPORTANCE OF BOTH, PT. CONTINUES TO REFUSE.
--- NOTE | 2020-02-09 08:11 | NUR ---
AM NOTE... ASSUMED CARE OF PT APROX 0700. PT IS A&Ox4. PT WAS ADMITTED FOR RESPIRATORY DISTRESS. PT HAS HOME VENT AND TRACH. PER REPORT OF NOC SHIFT RN THE PT'S SISTER IS TO BRING AN EXTRA PART TO HIS VENT TO SEE IF THAT WILL FIX THE PROBLEM. PT HAS BEEN REFUISNG CARE SINCE ADMIT, PT HAS REFUSED TO ALLOW THIS RN TO CHECK IS CBG AND HAS REFUSED TO LEAVE THE BP CUFF AND PULSOX ON. PT'S VS STABLE FROM THE MINIMAL MONITORING HE IS ALLOWING AT THIS TIME. PT HAS BEEN AGITATED AND ANXIOUS. AT ONE POINT WHEN THIS RN WAS IN THE ROOM HE WAS ATTEMPTING TO SUCTION HIMSELF AND THE SUCTION TUBING DID NOT HAVE ENOUGH SLACK, SO HE AGGRESIVELY YANKED ON THE TUBING JERKING THE VENT. L/S COARSE T/O PT'S VENT SETTINGS ARE AC:24,600,10 AND 30%FIO2. WITH O2 SATS>90%. PT REFUSED OTHER ASSESSMENTS. CALL LIGHT IN REACH WILL CONTINUE TO MONITORN.
--- NOTE | 2020-02-09 13:06 | NUR ---
D/C HOME.... PT D/C VIA [facility] [facility]. PT REFUSED ANY CBG CHECKS AND ALSO REFUSED HIS VIRAL PCR TEST. ALL OF PT'S BELONGINGS PACKED AND SENT WITH THE PT. D/C EDUCATION PROVIDED PT VERBALIZED HIS UNDERSTANDING. IV REMOVED WNL.
== END 2020-02-09 13:00 | disposition home or self-care (01) ==
LOC: ER 16:03 → ICUW 16:04 → ICUE 16:04
PROVIDERS: Emergency Medicine; ADMIT Family Medicine
DX: J44.1 Chronic obstructive pulmonary disease with (acute) exacerbation (principal); J96.21 Acute and chronic respiratory failure with hypoxia; R65.11 Systemic inflammatory response syndrome (SIRS) of non-infectious origin with acute organ dysfunction; I25.10 Atherosclerotic heart disease of native coronary artery without angina pectoris; F41.9 Anxiety disorder, unspecified; F32.9 Major depressive disorder, single episode, unspecified; E11.9 Type 2 diabetes mellitus without complications; E66.2 Morbid (severe) obesity with alveolar hypoventilation; Z68.38 Body mass index [BMI] 38.0-38.9, adult; Z93.0 Tracheostomy status; Z99.11 Dependence on respirator [ventilator] status; Z99.81 Dependence on supplemental oxygen; Z88.8 Allergy status to other drugs, medicaments and biological substances; Z91.030 Bee allergy status; Z91.09 Other allergy status, other than to drugs and biological substances; Z79.51 Long term (current) use of inhaled steroids; Z79.82 Long term (current) use of aspirin; Z79.899 Other long term (current) drug therapy; Z85.828 Personal history of other malignant neoplasm of skin; Z90.49 Acquired absence of other specified parts of digestive tract; Z95.5 Presence of coronary angioplasty implant and graft; Z87.891 Personal history of nicotine dependence; Z51.5 Encounter for palliative care
CPT/HCPCS: 36415; 71045; 80053; 82803; 83880; 84484; 85025; 93005; 93010; 94002; 94003; 94640; 96374; 96375; 96376; 99285-25; G0378; J2405; J3010

== ENCOUNTER → 2020-03-13 | Outpatient (CLI) | payer MEDICARE, OTHER ==
[~2020-03-13] MED LIST changes: +ALPR1 PO; +KRILL OIL 1,001 EACH PO; +Norco 5-325 Ta1 EACH PO; +Ventolin/Prove6.7 GM INH
== END | disposition home or self-care (01) ==
LOC: LAB SHORT 11:31
DX: J96.10 Chronic respiratory failure, unspecified whether with hypoxia or hypercapnia (principal); J44.9 Chronic obstructive pulmonary disease, unspecified
CPT/HCPCS: 87070; 87077; 87186; 87205

== ENCOUNTER 2020-04-17 16:56 | Emergency (ER) | payer MEDICARE, OTHER ==
[~2020-04-17] VITALS: Ht 152.4 cm; Wt 133.8 kg
[~2020-04-17 16:56] MED LIST changes: -ALPR1 PO; -KRILL OIL 1,001 EACH PO; -Norco 5-325 Ta1 EACH PO; -Ventolin/Prove6.7 GM INH
[2020-04-17 17:27] LABS: BASOPHILS ABSOLUTE AUTO 0.04 K/mm3 (0.00-0.23); BASOPHILS PERCENT AUTO 1 % (0-2); EOSINOPHILS ABSOLUTE AUTO 0.32 K/mm3 (0.00-0.68); EOSINOPHILS PERCENT AUTO 5 % (0-6); Hematocrit 40.3 % (37.0-53.0); Hemoglobin 12.2 g/dL (13.5-17.5); IMMATURE GRAN ABSOLUTE AUTO 0.01 K/mm3 (0.00-0.10); IMMATURE GRAN PERCENT AUTO 0 % (0-1); LYMPHOCYTES ABSOLUTE AUTO 0.97 K/mm3 (0.84-5.20); LYMPHOCYTES PERCENT AUTO 15 % (21-46); MONOCYTES ABSOLUTE AUTO 0.57 K/mm3 (0.16-1.47); MONOCYTES PERCENT AUTO 9 % (4-13); Mean Corpuscular HGB 29.4 pg (26.0-34.0); Mean Corpuscular HGB Conc 30.3 g/dL (31.5-36.5); Mean Corpuscular Volume 97 fL (80-100); NEUTROPHILS ABSOLUTE AUTO 4.55 K/mm3 (1.96-9.15); NEUTROPHILS PERCENT AUTO 70 % (41-73); Platelet Count 202 K/mm3 (150-400); RDW Coefficient Variation 14.7 % (11.7-14.2); RDW Standard Deviation 53.2 fL (35.1-46.3); Red Blood Cell Count 4.15 M/mm3 (4.30-5.90); White Blood Cell Count 6.46 K/mm3 (4.00-11.30)
[2020-04-17 17:50] LABS: Alanine Aminotransfer (ALT/SGP 20 U/L (12-78); Albumin, Blood 3.4 g/dL (3.4-5.0); Albumin/Globulin Ratio 0.7 (0.8-1.8); Alk Phos 124 U/L (50-136); Anion Gap 1 mmol/L (6-16); Aspartate Aminotrans (AST/SGOT 14 U/L (12-37); Blood Urea Nitrogen 12 mg/dL (8-24); Bun/Creatinine Ratio 20.5 (12.0-20.0); CO2, Blood 36 mmol/L (21-32); Calcium, Blood 9.2 mg/dL (8.5-10.1); Chloride, Blood 103 mmol/L (98-108); Creatinine, Blood 0.59 mg/dL (0.60-1.20); Globulin, Blood 4.6 g/dL (2.2-4.0); Glomerular Filtration Rate >60 (60-); Glucose, Blood 133 mg/dL (70-99); Potassium, Blood 4.3 mmol/L (3.5-5.5); Sodium, Blood 140 mmol/L (136-145)
[2020-06-29] MEDS ORDERED: Ventolin/Prove6.7 GM INH (20:34)
[2020-06-29] MEDS ORDERED: Aspir 8181 MG PO (20:35)
[2020-06-29] MEDS ORDERED: ALPR1 PO (20:35)
[2020-07-08] MEDS ORDERED: Norco 5-325 Ta1 EACH PO (17:18)
== END 2020-04-17 21:15 | disposition home or self-care (01) ==
LOC: ER 16:56
PROVIDERS: Physician Assistant
DX: J44.9 Chronic obstructive pulmonary disease, unspecified (principal); F41.9 Anxiety disorder, unspecified; E11.9 Type 2 diabetes mellitus without complications; I25.10 Atherosclerotic heart disease of native coronary artery without angina pectoris; Z88.8 Allergy status to other drugs, medicaments and biological substances; Z91.030 Bee allergy status; Z79.899 Other long term (current) drug therapy; Z87.891 Personal history of nicotine dependence
CPT/HCPCS: 36415; 71045; 80053; 83880; 85025; 93005; 93010; 96374; 99285-25; J2060

== ENCOUNTER 2020-04-21 18:25 | Emergency (ER) | payer MEDICARE, OTHER ==
[~2020-04-21] VITALS: Ht 152.4 cm; Wt 104.3 kg
[2020-04-21 20:15] LABS: BASOPHILS ABSOLUTE AUTO 0.08 K/mm3 (0.00-0.23); BASOPHILS PERCENT AUTO 1 % (0-2); EOSINOPHILS ABSOLUTE AUTO 0.42 K/mm3 (0.00-0.68); EOSINOPHILS PERCENT AUTO 5 % (0-6); Hematocrit 42.4 % (37.0-53.0); Hemoglobin 13.1 g/dL (13.5-17.5); IMMATURE GRAN ABSOLUTE AUTO 0.04 K/mm3 (0.00-0.10); IMMATURE GRAN PERCENT AUTO 0 % (0-1); LYMPHOCYTES ABSOLUTE AUTO 0.96 K/mm3 (0.84-5.20); LYMPHOCYTES PERCENT AUTO 11 % (21-46); MONOCYTES ABSOLUTE AUTO 0.48 K/mm3 (0.16-1.47); MONOCYTES PERCENT AUTO 5 % (4-13); Mean Corpuscular HGB 30.3 pg (26.0-34.0); Mean Corpuscular HGB Conc 30.9 g/dL (31.5-36.5); Mean Corpuscular Volume 98 fL (80-100); Mean Platelet Volume 10.9 fL (9.1-12.4); NEUTROPHILS ABSOLUTE AUTO 7.12 K/mm3 (1.96-9.15); NEUTROPHILS PERCENT AUTO 78 % (41-73); Platelet Count 223 K/mm3 (150-400); RDW Coefficient Variation 14.7 % (11.7-14.2); RDW Standard Deviation 53.5 fL (35.1-46.3); Red Blood Cell Count 4.33 M/mm3 (4.30-5.90)
[2020-04-21 20:30] LABS: Alanine Aminotransfer (ALT/SGP 22 U/L (12-78); Albumin, Blood 3.6 g/dL (3.4-5.0); Albumin/Globulin Ratio 0.7 (0.8-1.8); Alk Phos 119 U/L (50-136); Anion Gap 3 mmol/L (6-16); Aspartate Aminotrans (AST/SGOT 19 U/L (12-37); Bilirubin, Total 1.1 mg/dL (0.1-1.0); Blood Urea Nitrogen 15 mg/dL (8-24); Bun/Creatinine Ratio 24.4 (12.0-20.0); CO2, Blood 33 mmol/L (21-32); Calcium, Blood 9.4 mg/dL (8.5-10.1); Chloride, Blood 103 mmol/L (98-108); Creatinine, Blood 0.62 mg/dL (0.60-1.20); Globulin, Blood 4.9 g/dL (2.2-4.0); Glomerular Filtration Rate >60 (60-); Glucose, Blood 154 mg/dL (70-99); Potassium, Blood 4.4 mmol/L (3.5-5.5); Sodium, Blood 139 mmol/L (136-145); Total Protein, Blood 8.5 g/dL (6.4-8.2); Troponin I <0.015 ng/mL (0.000-0.040)
[2020-06-29] MEDS ORDERED: Ventolin/Prove6.7 GM INH (20:34)
[2020-06-29] MEDS ORDERED: Aspir 8181 MG PO (20:35)
[2020-06-29] MEDS ORDERED: ALPR1 PO (20:35)
[2020-07-08] MEDS ORDERED: Norco 5-325 Ta1 EACH PO (17:18)
== END 2020-04-22 02:21 | disposition home or self-care (01) ==
LOC: ER 18:25
PROVIDERS: Emergency Medicine
DX: R06.00 Dyspnea, unspecified (principal); J44.9 Chronic obstructive pulmonary disease, unspecified; E11.9 Type 2 diabetes mellitus without complications; Z91.030 Bee allergy status; Z88.8 Allergy status to other drugs, medicaments and biological substances; Z79.899 Other long term (current) drug therapy; Z87.891 Personal history of nicotine dependence
CPT/HCPCS: 31720; 71045; 80053; 83735; 83880; 84145; 84484; 85025; 93005; 93010; 96374; 99285-25; J2060

== ENCOUNTER 2020-06-03 16:15 | Inpatient (IN) | payer MEDICARE, OTHER ==
[~2020-06-03] VITALS: Ht 152.4 cm; Wt 98.0 kg
[2020-06-03 16:44] LABS: PO2 Arterial 207 mmHg (80-100); pH Blood Arterial 7.04 (7.35-7.45)
[2020-06-03 16:45] LABS: PCO2 Arterial > 105 mmHg (35-45)
[2020-06-03 17:32] LABS: BASOPHILS PERCENT AUTO 1 % (0-2); EOSINOPHILS ABSOLUTE AUTO 0.93 K/mm3 (0.00-0.68); EOSINOPHILS PERCENT AUTO 8 % (0-6); Hematocrit 42.9 % (37.0-53.0); Hemoglobin 13.1 g/dL (13.5-17.5); IMMATURE GRAN ABSOLUTE AUTO 0.08 K/mm3 (0.00-0.10); IMMATURE GRAN PERCENT AUTO 1 % (0-1); LYMPHOCYTES ABSOLUTE AUTO 3.97 K/mm3 (0.84-5.20); LYMPHOCYTES PERCENT AUTO 32 % (21-46); MONOCYTES ABSOLUTE AUTO 0.73 K/mm3 (0.16-1.47); MONOCYTES PERCENT AUTO 6 % (4-13); Mean Corpuscular HGB Conc 30.5 g/dL (31.5-36.5); Mean Corpuscular Volume 98 fL (80-100); Mean Platelet Volume 10.1 fL (9.1-12.4); NEUTROPHILS ABSOLUTE AUTO 6.51 K/mm3 (1.96-9.15); NEUTROPHILS PERCENT AUTO 53 % (41-73); Platelet Count 316 K/mm3 (150-400); RDW Coefficient Variation 14.4 % (11.7-14.2); RDW Standard Deviation 52.1 fL (35.1-46.3); Red Blood Cell Count 4.36 M/mm3 (4.30-5.90); White Blood Cell Count 12.32 K/mm3 (4.00-11.30)
[2020-06-03 18:10] LABS: Alanine Aminotransfer (ALT/SGP 25 U/L (12-78); Albumin, Blood 3.7 g/dL (3.4-5.0); Albumin/Globulin Ratio 0.7 (0.8-1.8); Alk Phos 157 U/L (50-136); Anion Gap 5 mmol/L (6-16); Aspartate Aminotrans (AST/SGOT 27 U/L (12-37); Bilirubin, Total 1.1 mg/dL (0.1-1.0); Blood Urea Nitrogen 17 mg/dL (8-24); Bun/Creatinine Ratio 24.3 (12.0-20.0); CO2, Blood 29 mmol/L (21-32); Chloride, Blood 104 mmol/L (98-108); Globulin, Blood 5.2 g/dL (2.2-4.0); Glomerular Filtration Rate >60 (60-); Glucose, Blood 159 mg/dL (70-99); Potassium, Blood 4.1 mmol/L (3.5-5.5); Sodium, Blood 138 mmol/L (136-145); Total Protein, Blood 8.9 g/dL (6.4-8.2); Troponin I <0.015 ng/mL (0.000-0.040)
[2020-06-03 20:30] LABS: Influenza A, PCR NEGATIVE (NEGATIVE); Influenza B, PCR NEGATIVE (NEGATIVE); Resp Syncytial Virus, PCR NEGATIVE (NEGATIVE); SARS-Cov-2 (COVID-19) PCR, MMC NEGATIVE (NEGATIVE)
[2020-06-03 21:05] LABS: PCO2 Arterial 95.7 mmHg (35-45); PO2 Arterial 202 mmHg (80-100)
[2020-06-04 05:07] LABS: BASOPHILS ABSOLUTE AUTO 0.01 K/mm3 (0.00-0.23); BASOPHILS PERCENT AUTO 0 % (0-2); EOSINOPHILS PERCENT AUTO 0 % (0-6); Hematocrit 34.6 % (37.0-53.0); Hemoglobin 10.9 g/dL (13.5-17.5); IMMATURE GRAN ABSOLUTE AUTO 0.02 K/mm3 (0.00-0.10); IMMATURE GRAN PERCENT AUTO 0 % (0-1); LYMPHOCYTES ABSOLUTE AUTO 0.22 K/mm3 (0.84-5.20); LYMPHOCYTES PERCENT AUTO 4 % (21-46); MONOCYTES ABSOLUTE AUTO 0.13 K/mm3 (0.16-1.47); MONOCYTES PERCENT AUTO 2 % (4-13); Mean Corpuscular HGB Conc 31.5 g/dL (31.5-36.5); Mean Corpuscular Volume 95 fL (80-100); Mean Platelet Volume 10.1 fL (9.1-12.4); NEUTROPHILS ABSOLUTE AUTO 5.93 K/mm3 (1.96-9.15); NEUTROPHILS PERCENT AUTO 94 % (41-73); Platelet Count 153 K/mm3 (150-400); RDW Coefficient Variation 13.9 % (11.7-14.2); RDW Standard Deviation 49.2 fL (35.1-46.3); Red Blood Cell Count 3.63 M/mm3 (4.30-5.90); White Blood Cell Count 6.31 K/mm3 (4.00-11.30)
--- NOTE | 2020-06-04 05:23 | NUR ---
SHIFT SUMMARY PATIENT ARRIVED TO ICU 7 @ 20:35. GAVE FENTANYL AND ATIVAN FOR PAIN, ANXIETY, PT. SLEPT WELL THROUGH REST OF NIGHT. CURRENTLY AWAITING ABG. VSS. ASSESSMENT IS CHARTED, COMPLETED ADMISSION ASSESSMENT AND QUERIES WITH HELP OF SISTER, ROSETTA. PER ROSETTA, PT. TRILOGY VENTILATOR DID NOT "SHUT OFF" PREVIOUSLY REPORTED, HAS HAD ISSUES WITH MUCUS PLUGGING, SHE STATES VENTILATOR NEVER SHUT OFF, SWITCHED TO MANUAL BAGGING WHEN HE STARTED TO DECLINE IN RESPIRATORY STATUS. WILL CONTINUE TO MONITOR.
[2020-06-04 05:32] LABS: PO2 Arterial 195 mmHg (80-100); pH Blood Arterial 7.43 (7.35-7.45)
[2020-06-04 05:33] LABS: Anion Gap 6 mmol/L (6-16); Blood Urea Nitrogen 19 mg/dL (8-24); Bun/Creatinine Ratio 24.8 (12.0-20.0); CO2, Blood 34 mmol/L (21-32); Calcium, Blood 8.8 mg/dL (8.5-10.1); Chloride, Blood 103 mmol/L (98-108); Creatinine, Blood 0.77 mg/dL (0.60-1.20); Glomerular Filtration Rate >60 (60-); Glucose, Blood 178 mg/dL (70-99); Potassium, Blood 3.7 mmol/L (3.5-5.5); Sodium, Blood 143 mmol/L (136-145)
--- NOTE | 2020-06-04 11:55 | NUR ---
REASSESSMENT PT WAS AGITATED THIS MORNING THAT HE COULDN'T HAVE A SYRINGE TO CONTROL THE CUFF ON HIS TRACH BUT AFTER TALKING WITH NURSING STAFF AND RT JEREMÍAS PT WAS AGREEABLE TO WAITING TILL DR. LÓPEZ AND LETTING HER DECIDE. WHEN DR. LÓPEZ ROUNDED SHE DISCUSSED THIS WITH THE PATIENT AND AFTER MAKING SOME ADJSUTMENT TO THE VENTILATOR SHE GAVE HIM PERMISSION TO HAVE THE SYRINGE TO CONTROL THE CUFF PRESSURE. PT'S LUNGS ARE COARSE AT TIMES, PT SUCTIONING HIMSELF WITH THE INLINE SUCTION. SR, BP STABLE. DR. LÓPEZ OK'D DIET FOR PT. PT IS REFUSING TURNS. HE SAYS HE IS MAKING SMALL ADJUSTMENTS HE NEEDS TO GET COMFORTABLE AND WILL LET STAFF KNOW IF HE STARTS TO GET SORE. RISK FOR BEDSORES EXPLAINED TO HIM AND PT VERBALIZED UNDERSTANDING BUT STILL DOESN'T WANT PILLOWS UNDER HIM. SPOKE WITH PT'S FAMILY AND PROVIDED UPDATE. CONTINUING TO MONITOR.
--- NOTE | 2020-06-04 16:52 | NUR ---
SHIFT SUMMARY PT REMAINS ON HOSPITAL VENT AFTER TRAIL TO SWITCH HIM TO HOME VENT. PT BECAME VERY ANXIOUS, HR UP TO 150S, SBP UP TO 170S AND PT STATING THAT HE FELT LIKE HE WAS GOING TO . ANXIOLYTICS GIVEN WITHOUT IMMPROVEMENT. DR. LÓPEZ CAME TO THE BEDSIDE AND DECIDED TO SWITCH PT BACK TO HOSPITAL VENT. RT NOTIFYING HOME VENT COMPANY TO TROUBLESHOOT ANY PROBLEMS WITH IT. PT STILL ALLOWED TO CONTROL HIS OWN CUFF PRESSURE, BUT HAS REQUIRED ENCOURAGEMENT TO KEEP THE CUFF INFLATED WHEN HE SAYS HE IS FEELING SHORT OF BREATH. LUNGS ARE COARSE, COUGHING UP WHITE SPUTUM WITH A SLIGHT PINK TINGE STILL. PT IS SUCTIONING HIMSELF WITH INLINE SUCTION. AFTER EPISODE OF TACHY WHEN PT WAS ON HOME VENT HIS HR SETTLED BACK DOWN TO THE LOW 100S AND SBP CAME DOWN TO 140S. PT IS TOLERATING HIS DIET, BUT IS MOSTLY REQUESTING GLUCERNA TO DRINK. GARCIA CATHETER REMAINS IN PLACE.PT HAS REQUESTED MANY TIMES FOR IT TO BE LEFT IN WHILE HE IS ON IV DIURETICS. PT IS STILL REFUSING TURNS, BUT HAS BEEN OBSERVED ADJUSTING HIS POSITION IN BED ON HIS OWN. HIS SISTER CAME IN AND VISITED TODAY. SHE WAS ALSO UPDATED VIA PHONE IN THE MORNING. CONTINUING TO MONITOR.
[2020-06-05 04:15] LABS: BASOPHILS ABSOLUTE AUTO 0.01 K/mm3 (0.00-0.23); BASOPHILS PERCENT AUTO 0 % (0-2); EOSINOPHILS PERCENT AUTO 0 % (0-6); Hematocrit 32.1 % (37.0-53.0); Hemoglobin 10.6 g/dL (13.5-17.5); IMMATURE GRAN ABSOLUTE AUTO 0.02 K/mm3 (0.00-0.10); IMMATURE GRAN PERCENT AUTO 0 % (0-1); LYMPHOCYTES ABSOLUTE AUTO 0.41 K/mm3 (0.84-5.20); LYMPHOCYTES PERCENT AUTO 6 % (21-46); MONOCYTES ABSOLUTE AUTO 0.24 K/mm3 (0.16-1.47); MONOCYTES PERCENT AUTO 4 % (4-13); Mean Corpuscular HGB 30.9 pg (26.0-34.0); Mean Corpuscular Volume 94 fL (80-100); Mean Platelet Volume 10.5 fL (9.1-12.4); NEUTROPHILS PERCENT AUTO 90 % (41-73); Platelet Count 139 K/mm3 (150-400); RDW Coefficient Variation 14.4 % (11.7-14.2); RDW Standard Deviation 49.1 fL (35.1-46.3); Red Blood Cell Count 3.43 M/mm3 (4.30-5.90); White Blood Cell Count 6.88 K/mm3 (4.00-11.30)
--- NOTE | 2020-06-05 04:33 | NUR ---
SHIFT SUMMARY PATIENT HAS SLEPT OFF AND ON THROUGH NIGHT. GAVE X3 DOSES OF ATIVAN FOR ANXIETY, TRIED TO ENCOURAGE PATIENT NOT TO DEFLATE CUFF AND TO TAKE SHORTER TIME TO SUCTION, OBSERVED TAKING UP TO 3 MINUTES, TRIED EXPLAINING HOW THIS WOULD DEPLETE OXYGEN/CAUSE COUGHING THAT TAKES MORE TIME TO RECOVER, PT. CONTINUES TO TAKE HIS TIME WITH SUCTIONING, DISMISSING MY EDUCATION. PAIN CONTROLLED WITH PRN FENTANYL. SECRETIONS SIGNIFICANTLY DECREASED COMPARED TO YESTERDAY. VSS. ASSESSMENT IS CHARTED. WILL CONTINUE TO MONITOR.
[2020-06-05 04:40] LABS: Anion Gap 2 mmol/L (6-16); Blood Urea Nitrogen 21 mg/dL (8-24); Bun/Creatinine Ratio 30.2 (12.0-20.0); CO2, Blood 37 mmol/L (21-32); Calcium, Blood 8.8 mg/dL (8.5-10.1); Chloride, Blood 103 mmol/L (98-108); Glomerular Filtration Rate >60 (60-); Glucose, Blood 169 mg/dL (70-99); Potassium, Blood 3.6 mmol/L (3.5-5.5); Sodium, Blood 142 mmol/L (136-145)
[2020-06-05 05:16] LABS: PCO2 Arterial 47.1 mmHg (35-45); PO2 Arterial 93.4 mmHg (80-100); pH Blood Arterial 7.51 (7.35-7.45)
--- NOTE | 2020-06-05 07:34 | NUR ---
ASSUMED CARE: RESPIRATORY THERAPIST AT BEDSIDE AND SWITCHED PT BACK TO HOME VENT. STATES HE IS AWARE OF MALFUNCTION OF HOME VENT YESTERDAY AND IS TRYING SOMETHING TO RESOLVE THE ISSUE. RT IS UNSURE IF REP WILL ACTUALLY BE IN TODAY. RT MANAGING AT THIS TIME. PT HAS ACCESS TO SYRINGE THAT HE USES TO DEFLATE BALLOON. NIGHT RN STATES HE GOT PERMISSION FROM DR LÓPEZ TO DO THIS. RT REMAINS AT BEDSIDE AT THIS TIME. NSR ON TELE AT THIS TIME.
--- NOTE | 2020-06-05 07:58 | NUR ---
RT STATES PT IS SWITCHED BACK TO HOME VENT AND HE IS ON A 10L BLEED IN WITH BASELINE OF 6. TOLERATING WELL AT THIS TIME.
--- NOTE | 2020-06-05 11:42 | NUR ---
PT APPEARED TO GET ANXIOUS WHILE RT WAS TRYING TO SET UP CPT. RT SWITCHED PT BACK TO HOSPITAL VENT FOR THIS. RT STATES PT'S ANXIETY AND NOT VENT WAS THE REASON FOR DESATURATION. CURRENTLY ON HOSPITAL VENT AT 24/500/10/30%.
--- NOTE | 2020-06-05 15:06 | NUR ---
WORD PROCESSOR OPERATOR FROM [employer] AT BEDSIDE AT THIS TIME.
--- NOTE | 2020-06-05 16:33 | NUR ---
VENT REP CAME TO FIX PT'S HOME MACHINE AND FOUND HE WAS CUTTING THE TUBING TOO LONG SO THERE WAS TOO MUCH SPACE AND HE WAS PLUGGING O2 INTO TUBING RATHER THAN BLEEDING IT INTO MACHINE. CALL TO PT'S SISTER TO UPDATE HER AND MAKE HER AWARE. PT CURRENTLY GETTING 5L BLEED IN AND SATTING MID 90S. HOME BASELINE IS 6. INTERNET AND E BUSINESS PROJECT MANAGER AWARE
--- NOTE | 2020-06-05 18:39 | NUR ---
PT ASKED TO BE PLACED ON BSC. NURSING STAFF EDUCATED HIM ON HOW DANGEROUS THAT WOULD BE CONSIDERING WE HAVE BEEN WORKING ON THE SETTINGS OF HIS VENT T/O DAY. PLACED ON BEDPAN. PT THEN CALLED STAFF AND SAID HE WANTED THE BEDPAN REMOVED BECAUSE IT WAS TOO UNCOMFORTABLE. STAFF WAS GOWNING UP TO ENTER ROOM AND PT BEGAN TO BEAT ON BEDRAIL, DEFLATED CUFF OF TRACH AND SAID HE CAN'T BREATHE. TOLD PT TO REINFLATE CUFF WE WERE ENTERING ROOM. HR IN 170S TO 190S. O2 IN 70S. INCREASED O2 ON VENT AND GOT ATIVAN. ATIVAN ADMINISTERED. CALL TO RT WHO WAS UNAVAILABLE. RT CALLED BACK AND SAID TO LET ATIVAN WORK SO THAT PT COULD REMAIN ON HOME VENT. SPOKE WITH DR GUIDRY WHO ALSO STATED TO GIVE ATIVAN A FEW MORE MINUTES AND IF INEFFECTIVE GIVE IV METOPROLOL IN 2.5 MG INCREMENTS. ADMINISTERED 2.5 MG OF IV METOPROLOL X2 DUE TO PT REMAINING WITH HR IN 140S, WHICH DR GUIDRY INTERPRETED SVT. CURRENT HR RANGING FROM 110-134. O2 BACK TO 5L BLEED IN AND SATTING IN 90S.
--- NOTE | 2020-06-05 19:30 | NUR ---
ASSUMED CARE OF PT FROM NITO GRACE. RT AT BEDSIDE, PT ON HOME VENT, 5L BLEED IN TO MACHINE. PT WITH SATS>97%. PT IN CONTROL OF HIS CUFF, LETS IT UP AND DOWN, PT WANTING TO TALK. HAVING A BREATHING TX AND ITS COMING OUT HIS MOUTH, ENCOURAGED TO BRING HIS CUFF UP DURING HIS TX. LUNGS DIMINISHED T/O, BOWEL TONES QUIET, GARCIA DRAINING TO GRAVITY, YELLOW RETURN. PT PULLED UP AND REPOSITIONED IN BED, STATES THANK YOU. DOESN'T WANT ANY PILLOWS. ORAL CARE COMPLETED, HEAD SHAMPOOED, FACE WASHED. PT REFUSES ANY BEVERAGE. PT ASKS IF I HAVE A DOG WITH ME HE LOOKS TO MY SIDE. WE DISCUSSED PETS, WE DISCUSSED HIS PHONE, CALL MADE TO SISTER, ONLY HIS TABLET HERE. PT STILL CONCERNED FOR HIS SHEET. APPARENTLY HE CAME IN ON HIS NEW SHEETS FROM HOME VIA EMS AND HAVE BEEN UNABLE TO LOCATE SINCE ARRIVAL.
--- NOTE | 2020-06-06 02:30 | NUR ---
PT UP TO BSC AT HIS INSISTENCE. TOLERATED TRANSFER TO [facility], ON THE WAY BACK HE WAS VERY SOB/HE HAD BEEN STRAINING AND WAS ENCOURAGED TO NOT PUSH, LET IT HAPPEN HIS HR WENT TO 160 AND HIS BREATHING WAS LABORED. HE CONTINUED TO DEFLATE HIS CUFF, DESPITE ENCOURAGING HIM TO KEEP IT UP. HIS OXYGEN WAS TURNED UP TO 10L BRIEFLY WHILE SITTING ON THE EDGE OF THE BED TRYING TO CATCH HIS BREATH. AFTER BEING REPOSITIONED IN BED, HE WAS 99% AND THE OXYGEN WENT BACK TO 5L.
[2020-06-06 03:50] LABS: BASOPHILS ABSOLUTE AUTO 0.01 K/mm3 (0.00-0.23); BASOPHILS PERCENT AUTO 0 % (0-2); EOSINOPHILS PERCENT AUTO 0 % (0-6); Hematocrit 38.3 % (37.0-53.0); Hemoglobin 12.2 g/dL (13.5-17.5); IMMATURE GRAN ABSOLUTE AUTO 0.03 K/mm3 (0.00-0.10); IMMATURE GRAN PERCENT AUTO 0 % (0-1); LYMPHOCYTES ABSOLUTE AUTO 1.06 K/mm3 (0.84-5.20); LYMPHOCYTES PERCENT AUTO 10 % (21-46); MONOCYTES ABSOLUTE AUTO 1.01 K/mm3 (0.16-1.47); MONOCYTES PERCENT AUTO 9 % (4-13); Mean Corpuscular HGB 30.3 pg (26.0-34.0); Mean Corpuscular HGB Conc 31.9 g/dL (31.5-36.5); Mean Corpuscular Volume 95 fL (80-100); Mean Platelet Volume 10.3 fL (9.1-12.4); NEUTROPHILS ABSOLUTE AUTO 8.65 K/mm3 (1.96-9.15); NEUTROPHILS PERCENT AUTO 80 % (41-73); Platelet Count 195 K/mm3 (150-400); RDW Coefficient Variation 14.7 % (11.7-14.2); RDW Standard Deviation 51.8 fL (35.1-46.3); Red Blood Cell Count 4.03 M/mm3 (4.30-5.90); White Blood Cell Count 10.76 K/mm3 (4.00-11.30)
[2020-06-06 04:18] LABS: Anion Gap 4 mmol/L (6-16); Blood Urea Nitrogen 27 mg/dL (8-24); Bun/Creatinine Ratio 40.8 (12.0-20.0); CO2, Blood 37 mmol/L (21-32); Calcium, Blood 9.2 mg/dL (8.5-10.1); Chloride, Blood 103 mmol/L (98-108); Creatinine, Blood 0.66 mg/dL (0.60-1.20); Glomerular Filtration Rate >60 (60-); Glucose, Blood 134 mg/dL (70-99); Potassium, Blood 3.7 mmol/L (3.5-5.5); Sodium, Blood 144 mmol/L (136-145)
--- NOTE | 2020-06-06 06:07 | NUR ---
SASKIA IS CURRENTLY SLEEPING ON HIS HOME VENTILATOR. HE HAS REMAINED ON HIS VENT THROUGHOUT THE SHIFT, HE TOLERATED WELL MOSTLY. (SEE NOTE ABOUT USING BSC). HE HAS GARCIA DRAINING, TOYIN, CONCENTRATED RETURN. HE HAD ONE BM, USING BSC. HE TOOK IN A GLUCERNA AND HALF A GRILLED CHEESE SANDWICH. HE HAS RESTED A COUPLE OF TIMES THIS SHIFT. HE WAS MEDICATED WITH FENTANYL AT THE BEGINNING OF THE SHIFT AND WITH LORAZEPAM MID SHIFT. HE HAS BEEN COOPERATIVE AND APPRECIATIVE. REPOSITIONS SELF, REFUSES EFFORTS TO TURN WITH PILLOW PROPS, WANTS TO "DO IT HIMSELF" "HE'S FINE" HE HAS BEEN ABLE TO USE THE SUCTION HIMSELF, CAZARES WITH RED STREAKS RETURNED. LUNGS REMAIN DIM. BOWEL TONES HYPO. PULSES GOOD.
--- NOTE | 2020-06-06 08:15 | NUR ---
INITIAL ASSESSMENT PATIENT ALERT AND ORIENTED X 4. PATIENT IRRITABLE AND ANXIOUS AT TIMES. AFEBRILE. WEAK IN BED. DENIES PAIN. PATIENT ON HOME VENTILATOR SETTINGS OF AC 24, TV 600, PEEP 10 AND 5 L BLEED IN O2. ESTABLISHED TRACH. LUNGS DIMINISHED. PATIENT GRUNTS AT TIMES WITH BREATHING AND HAS DYSPNEA ON EXERTION. PATIENT COUGHING UP MODERATE AMOUNT OF THICK, BROWN SPUTUM. PATIENT IN ST WITH PACS. HR IN THE 120S. SBP 120S TO 150S. GARCIA DRAINING DARK ORANGE, FOUL SMELLING URINE. PATIENT REFUSING REPOSITIONING AND STATES HE IS DOING IT HIMSELF. BED LOW, CALL LIGHT IN REACH. WILL CONTINUE TO MONITOR PATIENT FREQUENTLY THROUGHOUT SHIFT.
--- NOTE | 2020-06-06 12:30 | NUR ---
PATIENT AFEBRILE. NO SIGNS OF PAIN. HR IN THE 90S. SBP IN THE 140S. PATIENT REMAINS ON SAME VENTILATOR SETTINGS. PATIENT REFUSED TO HAVE BLOOD SUGAR CHECKED.
--- NOTE | 2020-06-06 14:45 | NUR ---
SHIFT SUMMARY PATIENT MOSTLY CALM AND COOPERATIVE THIS SHIFT WITH SOME PERIODS OF ANXIETY AND IRRITATION. NO COMPLAINTS OF PAIN. PATIENT REMAINED AFEBRILE. PATIENT REMAINED SATTING 90% AND GREATER ON HOME VENTILATOR WITH HOME SETTINGS OF AC 24, TV 600, PEEP 10 AND 5 L O2 BLEED IN. PATIENT REMAINED COUGHING UP THICK, BROWN SPUTUM. PATIENT IN SR TO ST WITH PACS. HR RANGED FROM 80S TO 150S. SBP LOW 100S TO 150S. PATIENT RECEIVED PRN DOSE OF METOPROLOL IV OT. HR DECREASED TO 80S AFTER 1.5 MG ADMINISTRATION. NO BM THIS SHIFT. PATIENT HAD GOOD APPETITE. GARCIA DRAINED ADEQUATE AMOUNT OF DARK ORANGE, FOUL SMELLING URINE. NO CHANGES TO SKIN. PATIENT CONTINUED TO REFUSE TURNS AND CONTINUED TO PROCLAIM HE HAD BEEN REPOSITIONING HIMSELF. PATIENT RECEIVED TAZICEF. PATIENT WILL BE TRANSFERRING TO PCU 06 SHORTLY.
--- NOTE | 2020-06-06 15:11 | NUR ---
PATIENT TRANSFERRED TO U 06. ALL BELONGINGS SENT WITH PATIENT.
--- NOTE | 2020-06-06 18:08 | NUR ---
SHIFT SUMMARY; ASSUMED CARE FROM ICU. REPORT FROM BRUNO. TO PCU 6 VIA BED ON HOME VENT. A/A/OX4, NO RESPIRATORY DISTRESS. VSS. IV REMOVED FROM RIGHT FOREARM DUE TO INFILTRATION, UNABLE TO FIND ANOTHER ACCESS SITE. ROSS BEAUCHAMP IN ROOM FOR POWER GLIDE. UNABLE TO START 1600 ABX UNTIL IV ACCESS IS ESTABLISHED. PRESSURE DRESSING TO RIGHT FOREARM. MINIMAL INFILTRATION. WILL CONTINUE TO TREAT AND MONITOR UNTIL CHANGE OF SHIFT.
[2020-06-07 05:25] LABS: BASOPHILS ABSOLUTE AUTO 0.01 K/mm3 (0.00-0.23); BASOPHILS PERCENT AUTO 0 % (0-2); EOSINOPHILS ABSOLUTE AUTO 0.01 K/mm3 (0.00-0.68); EOSINOPHILS PERCENT AUTO 0 % (0-6); Hematocrit 35.5 % (37.0-53.0); Hemoglobin 11.6 g/dL (13.5-17.5); IMMATURE GRAN ABSOLUTE AUTO 0.02 K/mm3 (0.00-0.10); IMMATURE GRAN PERCENT AUTO 0 % (0-1); LYMPHOCYTES ABSOLUTE AUTO 1.68 K/mm3 (0.84-5.20); LYMPHOCYTES PERCENT AUTO 21 % (21-46); MONOCYTES ABSOLUTE AUTO 0.78 K/mm3 (0.16-1.47); MONOCYTES PERCENT AUTO 10 % (4-13); Mean Corpuscular HGB 30.8 pg (26.0-34.0); Mean Corpuscular HGB Conc 32.7 g/dL (31.5-36.5); Mean Corpuscular Volume 94 fL (80-100); Mean Platelet Volume 10.2 fL (9.1-12.4); NEUTROPHILS PERCENT AUTO 69 % (41-73); Platelet Count 179 K/mm3 (150-400); RDW Coefficient Variation 14.9 % (11.7-14.2); RDW Standard Deviation 51.8 fL (35.1-46.3); Red Blood Cell Count 3.77 M/mm3 (4.30-5.90)
--- NOTE | 2020-06-07 05:34 | NUR ---
SHIFT SUMMARY PT IS ALERT AND ORIENTED. HE HAS BEEN ON 3L O2 WITH SATS >92% THROUGH THE NIGHT. THIS MORNING PT STATES HAVING TROUBLE BREATHING. HE HAS BEEN CLEARING OWN TRACH. VITALS STABLE. GARCIA IN PLACE AND DRAINING. PT REFUSES Q2 TURNS. PT REFUSES CBG'S. NO ACUTE CHANGES. POWERGLIDE WAS PLACED BY WOOD BLOCK ARTIST DUE TO NOT HAVING GOOD IV ACCESS.
[2020-06-07 05:53] LABS: Anion Gap 4 mmol/L (6-16); Blood Urea Nitrogen 32 mg/dL (8-24); Bun/Creatinine Ratio 49.6 (12.0-20.0); CO2, Blood 37 mmol/L (21-32); Calcium, Blood 8.7 mg/dL (8.5-10.1); Chloride, Blood 101 mmol/L (98-108); Creatinine, Blood 0.65 mg/dL (0.60-1.20); Glomerular Filtration Rate >60 (60-); Glucose, Blood 135 mg/dL (70-99); Potassium, Blood 3.4 mmol/L (3.5-5.5); Sodium, Blood 142 mmol/L (136-145)
--- NOTE | 2020-06-07 17:36 | NUR ---
SHIFT SUMMARY: NO ACUTE CHANGES. PT CONTINUES A&O T/OUT SHIFT, MAINTAINING O2 SATS >92% ON HOME VENT WITH 3L/MIN BLEED IN, SINUS RHYTHM ON MONITOR. PT CLEARING OWN TRACH, USING CALL LIGHT FOR ASSISTANCE WHEN NEEDED. ABX THERAPY CONTINUES. INDWELLING GARCIA PATENT AND CONTINUES TO DRAIN TO GRAVITY. WILL CONTINUE TO MONITOR AND TREAT ACCORDINGLY UNTIL CHANGE OF SHIFT.
--- NOTE | 2020-06-07 19:30 | NUR ---
ASSUMED CARE PT ALERT AND ORIENTED. PT AGITATED IN ROOM. VITALS STABLE AND O2 AT 3L WITH SATS OF >92%. PT WITH HOME TACH SYSTEM. REPORTS TIGHTNESS IN CHEST AND HEADACHE VENTILATION. GARCIA CATH IN PLACE AND DRAINING. WILL CONTINUE TO MONITOR.
--- NOTE | 2020-06-08 05:36 | NUR ---
SHIFT SUMMRY PT HAS BEEN ALERT AND ORIENTED THROUGHOUT NIGHT. HAD SOME ANXIETY AND AGITATION AND WAS MEDICATED PER EMAR. VITALS HAVE BEEN STABLE WITH SATS OF >92% ON 3L VIA TACH; HAS BEEN RECIEVING RT TREATMENT THROUGH NIGHT. GARCIA CATHETER IN PLACE AND DRAINING. PT REFUSES CBG'S AND Q2 TURNS.
[2020-06-08 12:29] LABS: Anion Gap 5 mmol/L (6-16); Blood Urea Nitrogen 32 mg/dL (8-24); Bun/Creatinine Ratio 46.2 (12.0-20.0); CO2, Blood 36 mmol/L (21-32); Calcium, Blood 9.1 mg/dL (8.5-10.1); Chloride, Blood 100 mmol/L (98-108); Creatinine, Blood 0.69 mg/dL (0.60-1.20); Glomerular Filtration Rate >60 (60-); Glucose, Blood 179 mg/dL (70-99); Sodium, Blood 141 mmol/L (136-145)
--- NOTE | 2020-06-08 19:30 | NUR ---
SHIFT SUMMARY: NO ACUTE CHANGES T/OUT SHIFT. PT CONTINUES A&O, NO CHANGES TO HOME VENT SETTINGS, PT SUCTIONING HIS OWN TRACHEA, MOSTLY BROWN/YELLOW SPUTUM WITH A SMALL AMOUNT OF RED SPUTUM. PT TRANSFERED SELF TO BSC TODAY, CONTINUES ABLE TO MAKE NEEDS KNOWN. REPORT GIVEN TO NITO BOX TO ASSUME CARE OF PT.
--- NOTE | 2020-06-08 22:33 | NUR ---
[facility] APPROX[facility]ATELY 1900 FROM CLEO Lemus RN. PATIENT ALERT AND ORIENTED X4; CHAIRFAST; TURNS SELF IN BED; REFUSES TO BE REPOSISTIONED; REFUSES OTHER CARE AT TIMES. PATIENT ANXIOUS; REQUESTS PRN XANAX. PATIENT REPORTS CHRONIC PAIN IN HIS BACK; MEDICATED PER EMAR. NSR ON TELE; OXYGEN SATURATION ABOVE 90% ON HOME VENT W/ 3LPM BLEED IN. PATIENT WILL ONLY DRINK DASANI WATER IN BOTTLES. PG JUDY PANTOJA. PATIENT CURRENTLY RESTING IN BED; CALL LIGHT IN REACH; BED IN LOWEST POSISTION ;BED ALARM ON.
--- NOTE | 2020-06-09 04:25 | NUR ---
PATIENT ANXIOUS IN ROOM; ANNOYED WITH PULSE OXIMETRY GOING OFF; PATIENT WILL NOT ALLOW STAFF TO USE STICKER OXIMETRY AND OXIMETRY FALLS OFF FINGER; REPORTS HE HASNT BEEN ABLE TO SLEEP; MEDICATED FOR ANXIETY; PATIENT REPORTS XANAX FROM EARLIER DID NOT HELP.
[2020-06-09 04:35] LABS: BASOPHILS ABSOLUTE AUTO 0.01 K/mm3 (0.00-0.23); BASOPHILS PERCENT AUTO 0 % (0-2); EOSINOPHILS ABSOLUTE AUTO 0.12 K/mm3 (0.00-0.68); EOSINOPHILS PERCENT AUTO 2 % (0-6); Hematocrit 36.8 % (37.0-53.0); Hemoglobin 12.3 g/dL (13.5-17.5); IMMATURE GRAN ABSOLUTE AUTO 0.04 K/mm3 (0.00-0.10); IMMATURE GRAN PERCENT AUTO 1 % (0-1); LYMPHOCYTES ABSOLUTE AUTO 1.71 K/mm3 (0.84-5.20); LYMPHOCYTES PERCENT AUTO 22 % (21-46); MONOCYTES ABSOLUTE AUTO 0.58 K/mm3 (0.16-1.47); MONOCYTES PERCENT AUTO 8 % (4-13); Mean Corpuscular HGB 31.1 pg (26.0-34.0); Mean Corpuscular HGB Conc 33.4 g/dL (31.5-36.5); Mean Corpuscular Volume 93 fL (80-100); Mean Platelet Volume 10.7 fL (9.1-12.4); NEUTROPHILS ABSOLUTE AUTO 5.32 K/mm3 (1.96-9.15); NEUTROPHILS PERCENT AUTO 68 % (41-73); Platelet Count 195 K/mm3 (150-400); RDW Coefficient Variation 14.5 % (11.7-14.2); RDW Standard Deviation 50.6 fL (35.1-46.3); Red Blood Cell Count 3.95 M/mm3 (4.30-5.90); White Blood Cell Count 7.78 K/mm3 (4.00-11.30)
[2020-06-09 04:50] LABS: Anion Gap 5 mmol/L (6-16); Blood Urea Nitrogen 31 mg/dL (8-24); Bun/Creatinine Ratio 43.3 (12.0-20.0); CO2, Blood 37 mmol/L (21-32); Calcium, Blood 8.9 mg/dL (8.5-10.1); Chloride, Blood 101 mmol/L (98-108); Creatinine, Blood 0.72 mg/dL (0.60-1.20); Glomerular Filtration Rate >60 (60-); Glucose, Blood 105 mg/dL (70-99); Potassium, Blood 3.7 mmol/L (3.5-5.5); Sodium, Blood 143 mmol/L (136-145)
--- NOTE | 2020-06-09 06:52 | NUR ---
NO ACUTE CHANGES
--- NOTE | 2020-06-09 09:54 | NUR ---
PATIENT REFUSED Q6 BLOOD SUGAR CHECK THIS MORNING.
--- NOTE | 2020-06-09 17:03 | NUR ---
SHIFT SUMMARY NO ACUTE EVENTS THIS SHIFT, PATIENT TACHYCARDIC AT TIMES. PATIENT WAS VERY ANXIOUS AT TIMES, STATED HE FELT HE WAS HAVING "ANXIETY ATTACKS." ATIVAN GIVEN PER EMAR. IV ABX CONTIUED. PATIENT REFUSED Q6 BLOOD SUGAR CHECKS TWICE THIS SHIFT, AFTERNOON CHECK WAS ALLOWED BY PATIENT, CBG 169. STANDBY ASSIST TO BEDSIDE COMMODE. HOME VENT IN USE, MANAGED PER RT.
--- NOTE | 2020-06-09 21:00 | NUR ---
PT REFUSED CBG TONIGHT. PT MEDICATED FOR HEADACHE PAIN WITH GOOD RELIEF. PT TOLERATING PO FLUIDS. PT DENIES ANY NAUSEA, NUMBNESS OR TINGLING. GARCIA DRAINING CLEAR YELLOW URINE. FLUIDS AT BEDSIDE. CALL LIGHT WITHIN REACH. BED IN LOW POSITION. PT IS COOPERATIVE WITH CARE.
[2020-06-10 04:54] LABS: BASOPHILS ABSOLUTE AUTO 0.02 K/mm3 (0.00-0.23); BASOPHILS PERCENT AUTO 0 % (0-2); EOSINOPHILS ABSOLUTE AUTO 0.32 K/mm3 (0.00-0.68); EOSINOPHILS PERCENT AUTO 3 % (0-6); Hematocrit 39.9 % (37.0-53.0); Hemoglobin 13.1 g/dL (13.5-17.5); IMMATURE GRAN ABSOLUTE AUTO 0.09 K/mm3 (0.00-0.10); IMMATURE GRAN PERCENT AUTO 1 % (0-1); LYMPHOCYTES ABSOLUTE AUTO 2.46 K/mm3 (0.84-5.20); LYMPHOCYTES PERCENT AUTO 24 % (21-46); MONOCYTES ABSOLUTE AUTO 0.86 K/mm3 (0.16-1.47); MONOCYTES PERCENT AUTO 8 % (4-13); Mean Corpuscular HGB 30.9 pg (26.0-34.0); Mean Corpuscular HGB Conc 32.8 g/dL (31.5-36.5); Mean Corpuscular Volume 94 fL (80-100); Mean Platelet Volume 10.4 fL (9.1-12.4); NEUTROPHILS ABSOLUTE AUTO 6.61 K/mm3 (1.96-9.15); NEUTROPHILS PERCENT AUTO 64 % (41-73); Platelet Count 201 K/mm3 (150-400); RDW Coefficient Variation 14.7 % (11.7-14.2); RDW Standard Deviation 50.9 fL (35.1-46.3); Red Blood Cell Count 4.24 M/mm3 (4.30-5.90); White Blood Cell Count 10.36 K/mm3 (4.00-11.30)
--- NOTE | 2020-06-10 05:02 | NUR ---
PT STATED PREFERENCE FOR ONLY COVID VACCINATED NURSING STAFF IN ROOM - PT EDUCATED BY UYEN TAYLOR THAT COVID VACCINATED STAFF IS CONFIDENTIAL INFORMATION. PT CURRENTLY IN DROPLET ISOLATION - WHICH MEETS GUIDELINES FOR COVID PRECAUTIONS.
--- NOTE | 2020-06-10 05:02 | NUR ---
PT STATING HIS PREFERENCE FOR ONLY COVID VACCINATED NURSING STAFF IN ROOM - UYEN TAYLOR EDUCATED PT THAT THIS IS A PERSONAL CHOICE. DROPLET PRECAUTIONS ARE CURRENTLY IN PLACE FOR THIS PATIENT.
[2020-06-10 05:10] LABS: Anion Gap 4 mmol/L (6-16); Blood Urea Nitrogen 31 mg/dL (8-24); Bun/Creatinine Ratio 44.7 (12.0-20.0); CO2, Blood 35 mmol/L (21-32); Calcium, Blood 8.8 mg/dL (8.5-10.1); Chloride, Blood 101 mmol/L (98-108); Creatinine, Blood 0.69 mg/dL (0.60-1.20); Glomerular Filtration Rate >60 (60-); Glucose, Blood 97 mg/dL (70-99); Potassium, Blood 3.9 mmol/L (3.5-5.5); Sodium, Blood 140 mmol/L (136-145)
--- NOTE | 2020-06-10 05:30 | NUR ---
SHIFT SUMMARY - PT SLEPT FOR APPX 6 HOURS TONIGHT, CONTINUOUS BIOX ON - SATS WNL. TRACH COLLAR IN PLACE. PT VOICED CONCERN ABOUT STAFF/COVID VACCINES (SEE PREVIOUS NOTE.) OTHERWISE, NO ACUTE CHANGES THROUGHOUT THIS SHIFT. SATS WNL THROUGHOUT THE NIGHT - CONTINUOUS BIOX ON. PT REPORTED HEADACHE PAIN X1, RELIEVED BY PAIN MEDICATION. PT DENIED ANY FURTHER REQUESTS FOR PAIN MEDICATION. PT TOLERATED PO FLUIDS WITHOUT COMPLICATIONS. FLUIDS AT BEDSIDE. CALL LIGHT WITHIN REACH. BED IN LOW POSITION. POWERGLIDE TO MAIA DID NOT DRAW FOR AM LAB, TRANSPORTATION LEAD TO ROOM FOR LAB DRAW.
--- NOTE | 2020-06-10 13:34 | NUR ---
PT'S SISTER/CAREGIVER NOTIFIED OF PT'S DISCHARGE THIS AFTERNOON AT 5PM. TRANSPORTATION HAS BEEN ARRANGED WITH [facility]. PT'S SISTER STATES SHE WILL BE HOME WHEN PT'S ARRIVES.
--- NOTE | 2020-06-10 16:40 | NUR ---
PATIENT PROVIDED DISCHARGE INFO REGARDING FOLLOW UP PLANS, REASONS TO RETURN TO THE HOSPITAL, AND MEDICATION INFORMATION. PATIENT VERBALIZED UNDERSTANDING. NO SIGNS OF ACUTE DISTRESS, TO LEAVE VIA MEDICAL TRANSPORT.
[2020-06-29] MEDS ORDERED: Ventolin/Prove6.7 GM INH (20:34)
[2020-06-29] MEDS ORDERED: Aspir 8181 MG PO (20:35)
[2020-06-29] MEDS ORDERED: ALPR1 PO (20:35)
[2020-07-08] MEDS ORDERED: Norco 5-325 Ta1 EACH PO (17:18)
== END 2020-06-10 17:07 | disposition home or self-care (01) | DRG 207 ==
LOC: ER 16:15 → ICUW 19:36 → ICUE 19:36 → PCU 06-06 15:13
PROVIDERS: Emergency Medicine; Family Medicine; Internal Medicine Critical Care Medicine; Internal Medicine Pulmonary Disease; Nurse Practitioner Acute Care; ADMIT Internal Medicine
PROC: 5A1955Z Respiratory Ventilation, Greater than 96 Consecutive Hours (ICD-10-PCS; principal; 2020-06-03)
DX: J96.21 Acute and chronic respiratory failure with hypoxia (principal); J18.9 Pneumonia, unspecified organism; E66.2 Morbid (severe) obesity with alveolar hypoventilation; Z68.42 Body mass index [BMI] 45.0-49.9, adult; J44.0 Chronic obstructive pulmonary disease with (acute) lower respiratory infection; R78.81 Bacteremia; J95.03 Malfunction of tracheostomy stoma; J96.22 Acute and chronic respiratory failure with hypercapnia; Z20.822 Contact with and (suspected) exposure to COVID-19; E87.6 Hypokalemia; F41.9 Anxiety disorder, unspecified; B96.5 Pseudomonas (aeruginosa) (mallei) (pseudomallei) as the cause of diseases classified elsewhere; K59.09 Other constipation; F32.9 Major depressive disorder, single episode, unspecified; I25.10 Atherosclerotic heart disease of native coronary artery without angina pectoris; E11.9 Type 2 diabetes mellitus without complications; Z87.891 Personal history of nicotine dependence; Z88.8 Allergy status to other drugs, medicaments and biological substances; Z91.030 Bee allergy status; Z91.048 Other nonmedicinal substance allergy status; Z79.899 Other long term (current) drug therapy; Z90.49 Acquired absence of other specified parts of digestive tract; Z86.14 Personal history of Methicillin resistant Staphylococcus aureus infection; Z85.828 Personal history of other malignant neoplasm of skin
CPT/HCPCS: 0241U; 31720; 36415; 36600; 51702; 71045; 80048; 80053; 82803; 82947; 83605; 83735; 83880; 84484; 85025; 87040; 87070; 87077; 87186; 87205; 93005; 93010; 94002; 94640; 94644; 94762; 96365-59; 96375-59; 99285-25; A9270; C1751; J0713; J1650; J1940; J2060; J2543; J2920; J2930; J3010; J7050

== ENCOUNTER 2020-06-30 16:16 | Inpatient (IN) | payer MEDICARE, OTHER ==
[~2020-06-30] VITALS: Ht 152.4 cm; Wt 95.5 kg
[~2020-06-30 16:16] MED LIST changes: +ALPR1 PO; +Ventolin/Prove6.7 GM INH
[2020-06-30 16:35] LABS: Calcium, Ionized (POC) 1.26 mmol/L (1.10-1.46); Chloride (POC) 104 mmol/L (98-108); Creatinine (POC) 0.8 mg/dL (0.8-1.3); Glucose (ISTAT POC) 191 mg/dL (70-99); Potassium (POC) 5.2 mmol/L (3.5-5.5); Sodium (POC) 140 mmol/L (135-148); Total CO2 (POC) 31 mmol/L (21-32)
[2020-06-30 16:50] LABS: BASOPHILS ABSOLUTE AUTO 0.07 K/mm3 (0.00-0.23); BASOPHILS PERCENT AUTO 1 % (0-2); EOSINOPHILS ABSOLUTE AUTO 0.83 K/mm3 (0.00-0.68); EOSINOPHILS PERCENT AUTO 7 % (0-6); Hematocrit 45.9 % (37.0-53.0); Hemoglobin 14.5 g/dL (13.5-17.5); IMMATURE GRAN ABSOLUTE AUTO 0.08 K/mm3 (0.00-0.10); IMMATURE GRAN PERCENT AUTO 1 % (0-1); LYMPHOCYTES ABSOLUTE AUTO 6.62 K/mm3 (0.84-5.20); LYMPHOCYTES PERCENT AUTO 55 % (21-46); MONOCYTES ABSOLUTE AUTO 0.71 K/mm3 (0.16-1.47); MONOCYTES PERCENT AUTO 6 % (4-13); Mean Corpuscular HGB 31.2 pg (26.0-34.0); Mean Corpuscular HGB Conc 31.6 g/dL (31.5-36.5); Mean Corpuscular Volume 99 fL (80-100); Mean Platelet Volume 11.2 fL (9.1-12.4); NEUTROPHILS ABSOLUTE AUTO 3.81 K/mm3 (1.96-9.15); NEUTROPHILS PERCENT AUTO 31 % (41-73); Platelet Count 312 K/mm3 (150-400); RDW Coefficient Variation 14.5 % (11.7-14.2); RDW Standard Deviation 52.8 fL (35.1-46.3); Red Blood Cell Count 4.65 M/mm3 (4.30-5.90); White Blood Cell Count 12.12 K/mm3 (4.00-11.30)
[2020-06-30 17:12] LABS: PCO2 Arterial 85.1 mmHg (35-45); PO2 Arterial 186 mmHg (80-100); pH Blood Arterial 7.16 (7.35-7.45)
[2020-06-30 17:18] LABS: Alanine Aminotransfer (ALT/SGP 36 U/L (12-78); Albumin, Blood 3.8 g/dL (3.4-5.0); Albumin/Globulin Ratio 0.7 (0.8-1.8); Alk Phos 152 U/L (50-136); Anion Gap 3 mmol/L (6-16); Aspartate Aminotrans (AST/SGOT 49 U/L (12-37); Bilirubin, Total 1.4 mg/dL (0.1-1.0); Blood Urea Nitrogen 20 mg/dL (8-24); Bun/Creatinine Ratio 28.8 (12.0-20.0); CO2, Blood 31 mmol/L (21-32); Calcium, Blood 9.6 mg/dL (8.5-10.1); Chloride, Blood 105 mmol/L (98-108); Globulin, Blood 5.1 g/dL (2.2-4.0); Glomerular Filtration Rate >60 (60-); Glucose, Blood 194 mg/dL (70-99); Sodium, Blood 139 mmol/L (136-145); Total Protein, Blood 8.9 g/dL (6.4-8.2); Troponin I <0.015 ng/mL (0.000-0.040)
[2020-06-30 17:32] LABS: Source, Urine Catheter
[2020-06-30 17:38] LABS: Appearance, Urine Hazy (Clear); Bilirubin, Urine Neg (Neg); Blood, Urine 1+ (Neg); Color, Urine Yellow (P-Yellow); Glucose Qualitative, Urine Neg (Neg); Ketones, Urine Neg (Neg); Leukocyte Esterase, Urine Neg (Neg); Nitrite, Urine Neg (Neg); Protein, Urine 4+ (Neg); Urobilinogen, Urine 1+ (Normal)
[2020-06-30 18:08] LABS: Bacteria Mod /hpf; Squamous Epithelial Cells Few /hpf (Few)
[2020-06-30 18:37] LABS: U Amphetamine Screen Not Detected; U Barbituate Screen Not Detected; U Benzodiazapine Screen DETECTED; U Buprenorphine Screen Not Detected; U Cannabinoids Screen DETECTED; U Cocaine Screen Not Detected; U Methadone Screen Not Detected; U Methamphetamine Screen Not Detected; U Opiates Screen Not Detected; U Oxycodone Screen DETECTED; U Phencyclidine Screen Not Detected; U Propoxyphene Screen Not Detected
[2020-06-30 19:30] LABS: PCO2 Arterial 55.3 mmHg (35-45); PO2 Arterial 316 mmHg (80-100); pH Blood Arterial 7.34 (7.35-7.45)
[2020-06-30] MEDS ORDERED: KRILL OIL 1,001 EACH PO (23:51)
--- NOTE | 2020-07-01 00:05 | NUR ---
ADMIT NOTE PT ARRIVED TO ICU FROM ED VIA ED STRETCHER AT APPROX 2315. PT WAS SLID BY 4 STAFF FROM ED STRETCHER TO ICU BED. VSS. P A&OX4. ABLE TO MAKE NEEDS KNOWN. SP02>92% ON TRACH W/ HOME VENT. PT DEFLATES CUFF TO SPEAK. PT ALSO SELF SUCTIONS. TELEMTRY READS SR, HR 70'S. PT C/O OF HEADACHE AND L LEG PAIN WHERE IO IS INSERTED. PT HAS SKIN ABRASION ON L CHEST, SEE PIC IN CHART. SCATTERED BRUISING T/O. PT ORIENTED TO ROOM, TO CALL LIGHT, CALL LIGHT IN REACH, BED IN LOW POSITION.
[2020-07-01 03:42] LABS: BASOPHILS ABSOLUTE AUTO 0.03 K/mm3 (0.00-0.23); BASOPHILS PERCENT AUTO 1 % (0-2); EOSINOPHILS ABSOLUTE AUTO 0.17 K/mm3 (0.00-0.68); EOSINOPHILS PERCENT AUTO 3 % (0-6); Hematocrit 42.4 % (37.0-53.0); Hemoglobin 13.5 g/dL (13.5-17.5); IMMATURE GRAN ABSOLUTE AUTO 0.02 K/mm3 (0.00-0.10); IMMATURE GRAN PERCENT AUTO 0 % (0-1); LYMPHOCYTES ABSOLUTE AUTO 0.96 K/mm3 (0.84-5.20); LYMPHOCYTES PERCENT AUTO 14 % (21-46); MONOCYTES ABSOLUTE AUTO 0.64 K/mm3 (0.16-1.47); MONOCYTES PERCENT AUTO 10 % (4-13); Mean Corpuscular HGB 31.1 pg (26.0-34.0); Mean Corpuscular HGB Conc 31.8 g/dL (31.5-36.5); Mean Corpuscular Volume 98 fL (80-100); Mean Platelet Volume 10.4 fL (9.1-12.4); NEUTROPHILS ABSOLUTE AUTO 4.83 K/mm3 (1.96-9.15); NEUTROPHILS PERCENT AUTO 73 % (41-73); Platelet Count 189 K/mm3 (150-400); RDW Coefficient Variation 14.2 % (11.7-14.2); Red Blood Cell Count 4.34 M/mm3 (4.30-5.90); White Blood Cell Count 6.65 K/mm3 (4.00-11.30)
[2020-07-01 03:58] LABS: Anion Gap 4 mmol/L (6-16); Blood Urea Nitrogen 18 mg/dL (8-24); Bun/Creatinine Ratio 28.2 (12.0-20.0); CO2, Blood 29 mmol/L (21-32); Calcium, Blood 9.3 mg/dL (8.5-10.1); Chloride, Blood 108 mmol/L (98-108); Creatinine, Blood 0.64 mg/dL (0.60-1.20); Glomerular Filtration Rate >60 (60-); Glucose, Blood 82 mg/dL (70-99); Potassium, Blood 4.3 mmol/L (3.5-5.5); Sodium, Blood 141 mmol/L (136-145)
--- NOTE | 2020-07-01 06:24 | NUR ---
SHIFT SUMMARY NO ACUTE CHANGE THIS SHIFT. PT A&OX4. SP02>92% ON TRACH W/ HOME VENT W/ 5L BLEED IN. TELEMETRY READS SR, HR 60'S-70'S. PT USED URINAL WITH HELP TO VOID. PT C/O OF 8/10 L LEG PAIN, BACK PAIN, AND HEADACHE. MEDICATED W/ DILAUDID PER EMAR X1. NURSE IN ROOM ATTEMPTING TO GET POWERGLIDE ACCESS. PT WANTS IO ACCESS REMOVED. CALL LIGHT IN REACH. WILL GIVE REPORT TO ONCOMING NURSE.
--- NOTE | 2020-07-01 08:23 | NUR ---
Recieved report from Noc RN. Patient awake and is on home vent. he self deflates cuff and suctions self at times. He c/o copius secretions and stated to Dr Pollack he has pneumonia. He was c/o plugged cannula and called RT to change out with new HME. He calls very frequently for simple needs and expressed to him to try to cluster needs together before calling every 5 minutes. He rerquested food from kitchen and was delivered and set up in fromnt of him. RT in room now. He has PowerGlide to JUDY and flushed and SL's. He calls and uses urinal appropriately. He has IO site c/d/i to left leg.
--- NOTE | 2020-07-01 09:37 | NUR ---
Patient very anxious after RT worked with his cannula to clear and gave treatment. Medicated per MAR for anxiety and is resting well. Prior ate a little bit of breakfast and now currently sleeping. Tolerated am meds with Glucerna. Inflates and defaltes cuff as he feels needed and suctions self and i suctioned as well, brown thick secretions. VSS Se EMR. He is able to communicates his needs frequently.
--- NOTE | 2020-07-01 11:38 | NUR ---
Patient awoke and stated he could not breath, tried suctioning trach and had very little secretions and called RT and they came and checked system and we tried titrating O2 down and he started to get worse. his sats dropped as low as 76 and increased to mid 90% with 15L bleed in. RT placed CPT vest after order and levaged him and suctioned some plugs. He continues to be on CPT and improving. Received new order for anxiety and will medicate for pain.
--- NOTE | 2020-07-01 13:57 | NUR ---
Patient has been sleeping since last episode and has been titrated back to 5L O2 bleed in. After talking with patient when he awoke stated eating and probably aspirated on his drink or egg. His sats on his vent setting are 95%. VSS, See EMR. He fell asleep after CPT finished.
--- NOTE | 2020-07-01 16:00 | NUR ---
Sister by and spoke with and feels better about plan of care. He awoke while she was here and than aske for pain medication prior to CPT. CPT done and he is back to resting quietly and did not have a periiod of anxiety while awake. VSS See EMR. Sats >95% while on own vent /12/29.
--- NOTE | 2020-07-01 17:33 | NUR ---
There has been no significant changes with patient. He continues to sleep and on same home vent settings 26/600/10/5L and sats >95%. He adjusts side to side but needs help repositioning. He has only used urinal once for 100 mls of smiley urine.
--- NOTE | 2020-07-01 18:45 | NUR ---
Per admit trigger, I was tasked to offer pt information on advanced care planning. Karel has a POLST in EMR stating his wishes as Full Code all heroic measures. He is satisfied with this status.
--- NOTE | 2020-07-02 00:38 | NUR ---
ASSUMPTION OF CARE REPORT RECEIVED FROM NITO SERRANO. PT ASLEEP IN ROOM ON HOME VENT. ALL LINES SALINE LOCKED. VSS, NS ON MONITOR HR 60-80'S. CALL LIGHT WITHIN REACH. PER REPORT, PT SELF SUCTIONS AND IS ABLE TO INFLATE/DEFLATE CUFF.
--- NOTE | 2020-07-02 13:09 | NUR ---
REASSESSMENT PT RESTING IN BED THROUGHOUT THE MORNING. HE REMAINS ON HIS HOME VENT AND HAS A SYRINGE TO CONTROL THE PRESSURE IN TRACH CUFF. HE HAD ONE EPISODE THIS MORNING WHEN HE WAS TALKING ABOUT POSSIBLY GOING HOME THAT PT GOT VERY ANXIOUS, STARTED SAYING HIS VENT WAS WORKING AND DESATURATED TO THE MID 80S. ATIVAN GIVEN, OXYGEN TURNED UP TO 15L AND PT TOLD TO LEAVE CUFF INFLATED. PT TOOK ABOUT 5 MINUTES BUT HE RECOVERED AND OXYGEN TURNED BACK TO 5L VIA VENT. HE CONTINUES TO SUCTION OUT THICK, CAZARES/BROWN SPUTUM. SPEECH THERAPY EVALUATED HIM. HE REFUSES TURNING ASSISTANCE. VERBAL REMINDERS TO MOVE AROUND IN BED TO PREVENT SORES GIVEN. CONTINUING TO MONITOR.
--- NOTE | 2020-07-02 18:57 | NUR ---
Pt has been stable, vital signs and spo2 stable on home vent. He requested help using the BSC but due to concerns about safe transfer from the bed and his low stature, no appropriate foot stool available, and his refusal to use the bedpan, use of lift for transfer to BS was decided upon. The pt was agreeable to this. However, when we were ready to attempt it he said that he no longer had any urge and would wait until later. He did not want to eat dinner, but did drink an ensure. Medicated for anxiety once this evening, and he appears to be calm and comfortable at this time.
--- NOTE | 2020-07-02 22:32 | NUR ---
ASSUMPTION OF CARE REPORT RECEIVED FROM NITO GUERRIER. PT ON HOME VENT, O2 SATURATION >92%. IV LINES CURRENTLY SALINE LOCKED. VSS. RESTING COMFORTABLY IN BED.
--- NOTE | 2020-07-03 00:45 | NUR ---
Patint transferred to unit from ICU without issue. VSS. Patient with chronic trach and vent back on normal home settings per RT. Cuff inflated by patient. Patient grouchy but states breathing slightly improved since admit. Frequently requested pain and anxiety medication and gets very frustrated if not time yet.Suctions himself. Useful to set firm boundaries with patient as he can be demanding at times. NSR on monitor. No acute distress noted. Will continue to monitor.
[2020-07-03] MEDS ORDERED: TOBRAMYCIN INH (15:06)
--- NOTE | 2020-07-03 16:42 | NUR ---
DISCHARGE: PT PROVIDED WITH DISCHARGE PAPERWORK AND INSTRUCTIONS. PT DENIES QUESTIONS. PT DEPARTS VIA [facility] IN [facility].
[2020-07-08] MEDS ORDERED: Norco 5-325 Ta1 EACH PO (17:18)
== END 2020-07-03 16:42 | disposition home or self-care (01) | DRG 208 ==
LOC: ER 16:16 → ICUW 16:17 → ER 22:08 → ICUW 23:13 → PCU 07-03 00:39
PROVIDERS: Nurse Practitioner Acute Care; Student in an Organized Health Care Education/Training Program; ADMIT Internal Medicine
PROC: 5A1935Z Respiratory Ventilation, Less than 24 Consecutive Hours (ICD-10-PCS; principal; 2020-07-02)
DX: J96.21 Acute and chronic respiratory failure with hypoxia (principal); E66.2 Morbid (severe) obesity with alveolar hypoventilation; Z68.44 Body mass index [BMI] 60.0-69.9, adult; J44.9 Chronic obstructive pulmonary disease, unspecified; Z93.0 Tracheostomy status; K59.09 Other constipation; F41.9 Anxiety disorder, unspecified; E11.9 Type 2 diabetes mellitus without complications; I25.10 Atherosclerotic heart disease of native coronary artery without angina pectoris; Z85.828 Personal history of other malignant neoplasm of skin; F32.9 Major depressive disorder, single episode, unspecified; Z90.49 Acquired absence of other specified parts of digestive tract; Z98.890 Other specified postprocedural states; Z87.891 Personal history of nicotine dependence; Z88.8 Allergy status to other drugs, medicaments and biological substances; Z79.899 Other long term (current) drug therapy; Z79.82 Long term (current) use of aspirin
CPT/HCPCS: 31502; 31720; 36415; 36600; 70450; 71045; 80047; 80048; 80053; 81001; 82803; 83605; 84145; 84484; 85014; 85025; 87040; 87086; 92610; 93005; 93010; 94640; 94644; 94667; 94668; 94762; 96372; 96374; 96374-59; 96375; 96376; 99284-25; 99285-25; A9270; C9113; G0378; J0713; J1170; J1650; J2060; J2310; J7030

== ENCOUNTER 2020-07-03 17:40 | Emergency (ER) | payer MEDICARE, OTHER ==
[~2020-07-03] VITALS: Ht 152.4 cm; Wt 99.8 kg
[~2020-07-03 17:40] MED LIST changes: +KRILL OIL 1,001 EACH PO
[2020-07-03 19:24] LABS: PCO2 Arterial 54.3 mmHg (35-45); PO2 Arterial 93.7 mmHg (80-100); pH Blood Arterial 7.39 (7.35-7.45)
[2020-07-08] MEDS ORDERED: Norco 5-325 Ta1 EACH PO (17:18)
== END 2020-07-03 21:36 | disposition home or self-care (01) ==
LOC: ER 17:40
PROVIDERS: Emergency Medicine
DX: F41.9 Anxiety disorder, unspecified (principal); E11.9 Type 2 diabetes mellitus without complications; I25.10 Atherosclerotic heart disease of native coronary artery without angina pectoris; Z91.030 Bee allergy status; Z88.8 Allergy status to other drugs, medicaments and biological substances; Z79.899 Other long term (current) drug therapy; Z79.82 Long term (current) use of aspirin; Z87.891 Personal history of nicotine dependence
CPT/HCPCS: 31720; 36600; 82803; 99285-25; A9270

== ENCOUNTER 2020-07-08 23:21 | Inpatient (IN) | payer MEDICARE, OTHER ==
[~2020-07-08] VITALS: Ht 165.1 cm; Wt 108.9 kg
[~2020-07-08 23:21] MED LIST changes: +Norco 5-325 Ta1 EACH PO
[2020-07-09 00:03] LABS: PCO2 Arterial 79.6 mmHg (35-45); PO2 Arterial 160 mmHg (80-100); pH Blood Arterial 7.29 (7.35-7.45)
--- NOTE | 2020-07-09 04:03 | NUR ---
SHIFT SUMMARY RECIVED PATIENT FROM ED AT APPROXIMETLY 0230 FOR ACUTE RESP. FAILURE. PATIENT ALERT AND ORIENTED X 4 IN GOOD SPIRITS THIS AM. BLE WEAKNESS AT BASELINE. MOVES ALL EXTREMETIES AND FOLLOWING COMMANDS. 10/10 PAIN TO HEAD AND PRN NORCO GIVEN WITH GOOD RELIEF. PATIENT WITH CHRONIC TRACH COLLAR IN PLACE AND HOME BIPAP WITH 10L TO START NOW WEANED TO 4L SATING MID 90'S. SUCTIONS SELF. NSR IN THE 60'S AND NO CHEST PAIN NOTED. HEART HEALTHY DIET AND ACHS SUGAR CHECKS ORDERED. ATTENDS BRIEF IN PLACE. NO OPEN WOUNDS NOTED. FALL PRECAUTIONS IN PLACE. IV ABX INFUSING PER ORDER. WILL CONTINUE TO MONITOR.
[2020-07-09 04:35] LABS: BASOPHILS ABSOLUTE AUTO 0.04 K/mm3 (0.00-0.23); BASOPHILS PERCENT AUTO 1 % (0-2); EOSINOPHILS ABSOLUTE AUTO 0.19 K/mm3 (0.00-0.68); EOSINOPHILS PERCENT AUTO 3 % (0-6); Hematocrit 36.3 % (37.0-53.0); Hemoglobin 11.6 g/dL (13.5-17.5); IMMATURE GRAN ABSOLUTE AUTO 0.03 K/mm3 (0.00-0.10); IMMATURE GRAN PERCENT AUTO 1 % (0-1); LYMPHOCYTES ABSOLUTE AUTO 1.12 K/mm3 (0.84-5.20); LYMPHOCYTES PERCENT AUTO 20 % (21-46); MONOCYTES ABSOLUTE AUTO 0.76 K/mm3 (0.16-1.47); MONOCYTES PERCENT AUTO 13 % (4-13); Mean Corpuscular HGB 30.6 pg (26.0-34.0); Mean Corpuscular Volume 96 fL (80-100); Mean Platelet Volume 10.4 fL (9.1-12.4); NEUTROPHILS ABSOLUTE AUTO 3.52 K/mm3 (1.96-9.15); NEUTROPHILS PERCENT AUTO 62 % (41-73); Platelet Count 188 K/mm3 (150-400); RDW Coefficient Variation 13.5 % (11.7-14.2); RDW Standard Deviation 48.4 fL (35.1-46.3); Red Blood Cell Count 3.79 M/mm3 (4.30-5.90); White Blood Cell Count 5.66 K/mm3 (4.00-11.30)
[2020-07-09 04:50] LABS: Anion Gap 2 mmol/L (6-16); Blood Urea Nitrogen 17 mg/dL (8-24); Bun/Creatinine Ratio 28.7 (12.0-20.0); CO2, Blood 36 mmol/L (21-32); Chloride, Blood 105 mmol/L (98-108); Creatinine, Blood 0.59 mg/dL (0.60-1.20); Glomerular Filtration Rate >60 (60-); Glucose, Blood 120 mg/dL (70-99); Potassium, Blood 4.5 mmol/L (3.5-5.5); Sodium, Blood 143 mmol/L (136-145)
[2020-07-09 04:56] LABS: PCO2 Arterial 69.6 mmHg (35-45); PO2 Arterial 76.9 mmHg (80-100); pH Blood Arterial 7.34 (7.35-7.45)
[2020-07-09] MEDS ORDERED: LORA.5 PO (12:14)
[2020-07-09 13:19] LABS: PCO2 Arterial 104 mmHg (35-45); PO2 Arterial 369 mmHg (80-100); pH Blood Arterial 7.15 (7.35-7.45)
--- NOTE | 2020-07-09 14:00 | NUR ---
INITIAL ASSESSMENT PATIENT ARRIVED TO UNIT FROM PCU AROUND 1300. PATIENT GASPING FOR AIR, BRUNO/ BLUE IN COLOR WHEN ARRIVED. PATIENT SATTING IN THE 60S TO 70S WHEN ARRIVED. PATIENT TO ROOM AND IMMEDIATELY STARTED TO BAG. PATIENT EASY TO BAG. COLOR STARTED TO IMPROVE. PATIENT PLACED ON HOSPITAL VENTILATOR. PATIENT RESPONDING TO VERBAL STIMULATION AFTER BEING PLACED ON HOSPITAL VENTILATOR. PATIENT SWITCHING BETWEEN ANXIOUS AND LETHARGIC. PATIENT COMPLAINS OF HEADACHE. PATIENT ON VENT SETTINGS OF AC 24, TV 450, PEEP 10, 40% FIO2. VENT TO TRACH. CUFF INFLATED. LUNGS VERY DIMINISHED, COARSE AND WHEEZY. PATIENT IN ST, HR LOW 100S TO 120S. ABDOMEN MODERATLEY DISTENDED, SOFT, WITH HYPOACTIVE BS NOTED. ATTENDS IN PLACE FOR OCCASIONAL INCONTINENCE. HEELS AND COCCYX REDDENED. BED LOW, CALL LIGHT IN REACH. WILL CONTINUE TO MONITOR PATIENT FREQUENTLY THROUGHOUT SHIFT.
--- NOTE | 2020-07-09 14:47 | NUR ---
SISTER UPDATED ON PATIENT STATUS. SISTER UPSET THAT NO ONE HAD CONTACTED HER FOR THIS PATIENT'S WHOLE STAY. INFORMED SISTER THAT TYPICALLY FAMILY/ FRIENDS CALL FOR UPDATES UNLESS PATIENT STATUS CHANGES OR PATIENT BECOMES SICKER. DR. JEAN BAPTISTE ASKED TO CALL SISTER TO UPDATE HER. SISTER APPRECIATIVE AND MORE CALM BY END OF CALL.
--- NOTE | 2020-07-09 14:50 | NUR ---
PATIENT ALERT AND ORIENTED AT START OF SHIFT, HOME VENT IN PLACE. PATIENT ABLE TO TAKE PO INTAKE SAFELY, ORAL MEDICATIONS TAKEN WITHOU EVENT. NO COUGH NOTED. PATIENT EXPRESSED FEELING ANXIOUS, PO XANAX GIVEN PER EMAR AT 0758. STARTING AT 1100 PATIENT ENDORSED INCREASED ANXIETY. PATIENT STARTED TO DESAT TO 80S ANXIETY INCREASED. RT CALLED, SUCTIONING DONE PER RT AND O2 BLEED IN INCREASED PER RT WITH RECOVERY OF O2 SATS TO THE 90S. DR. HWANG NOTIFIED OF INCREASE IN ANXIETY AND THAT PATIENT DIPS TO 80S WHEN ENDORSING "PANIC ATTACKS", ORDERS FOR ONE TIME PO XANAX GIVEN, ADMIN PER EMAR AT 1209. 2ND PO XANAX GIVEN PATIENT CONTINUED TO DESATURATE, O2 SATS DOWN TO 70S. PATIENT APPEARED LETHARGIC AND FACE WAS A GRAYISH COLOR AT THAT TIME. THIS RN CALLED DR. HWANG AGAIN AT WHICH TIME SHE AGREED TO COME AND SEE PATIENT. PATIENT GRADUALLY CAME UP TO O2 SATURATION IN THE 90S, AT THAT TIME DR. HWANG AND DR. GUARDADO ARRIVED TO BEDSIDE TO SEE PATIENT. ORDERS FOR IV ATIVAN 1 MG GIVEN AND ADMINISTERED PER EMAR, HYDRALAZINE PRN D/T PATIENT MAINTAINING HTN OF 170s/110s AND GIVEN PER EMAR. CHEST X-RAY ORDERED, PATIENT'S FACIAL COLORING IMPROVED TO BASELINE PINKISH COLORING, O2 SATS IN LOW 90S. RT WENT WITH TO XRAY. ON RETURN FROM XRAY PATIENT AGAIN WAS AN ASHEN COLOR, EYES ROLLED BACK AND NON-RESPONSIVE, RAPID RESPONSE TEAM CALLED. THIS RN AND RT ASSISTED IN TRANSFER TO ICU, WHERE REPORT WAS GIVEN TO BRUNO BEAUCHAMP.
--- NOTE | 2020-07-09 16:00 | NUR ---
PATIENT AFEBRILE. HR LOW 100S TO 120S. SBP 140S TO 180S. REMAINS ON SAME VENT SETTINGS. NO OTHER ACUTE CHANGES TO NOTE ON AT THIS TIME. WILL CONTINUE TO MONITOR.
--- NOTE | 2020-07-09 18:53 | NUR ---
SHIFT SUMMARY PATIENT HAS REMAINED MOSTLY SLEEPING SINCE ARRIVING TO UNIT. PATIENT HAS AWAKENED A FEW TIMES FEELING ANXIOUS AND SOB. PATIENT HAS REMAINED SATTING WELL ON VENT SETTINGS AC 24, TV 450, PEEP 10 AND FIO2 35%. PATIENT HAS CONTINUED TO HAVE LARGE TO COPIOUS AMOUNT OF THICK, YELLOW SPUTUM BEING SUCTIONED FROM ETT. SPUTUM CULTURE SENT TO LAB THIS SHIFT. PATIENT HAS REMAINED IN ST, HR LOW 100S TO 120S. SBP 1-TEENS TO 180S. NO BM THIS SHIFT. PATIENT HAS ATTENDS ON, C/D/I, FOR OCCASIONAL INCONTINENCE OF URINE. PATIENT REPOSITIONED Q2H. MEPILEX APPLIED TO REDDENED HEELS. PATIENT RECEIVED TAZICEF. PG INSERTED IN ICU. BLOOD SUGAR 138 AROUND 1700. PATIENT APPEARS COMFORTABLE AT THIS TIME. BED LOW, CALL LIGHT IN REACH. WILL BE GIVING REPORT TO ONCOMING LOCOMOTIVE INSPECTOR NURSE SHORTLY.
[2020-07-10 04:14] LABS: BASOPHILS ABSOLUTE AUTO 0.05 K/mm3 (0.00-0.23); BASOPHILS PERCENT AUTO 1 % (0-2); EOSINOPHILS ABSOLUTE AUTO 0.25 K/mm3 (0.00-0.68); EOSINOPHILS PERCENT AUTO 4 % (0-6); Hematocrit 37.5 % (37.0-53.0); Hemoglobin 11.6 g/dL (13.5-17.5); IMMATURE GRAN ABSOLUTE AUTO 0.02 K/mm3 (0.00-0.10); IMMATURE GRAN PERCENT AUTO 0 % (0-1); LYMPHOCYTES ABSOLUTE AUTO 0.86 K/mm3 (0.84-5.20); LYMPHOCYTES PERCENT AUTO 14 % (21-46); MONOCYTES ABSOLUTE AUTO 0.68 K/mm3 (0.16-1.47); MONOCYTES PERCENT AUTO 11 % (4-13); Mean Corpuscular HGB 30.2 pg (26.0-34.0); Mean Corpuscular HGB Conc 30.9 g/dL (31.5-36.5); Mean Corpuscular Volume 98 fL (80-100); Mean Platelet Volume 9.6 fL (9.1-12.4); NEUTROPHILS ABSOLUTE AUTO 4.46 K/mm3 (1.96-9.15); NEUTROPHILS PERCENT AUTO 71 % (41-73); Platelet Count 233 K/mm3 (150-400); RDW Coefficient Variation 13.6 % (11.7-14.2); RDW Standard Deviation 48.9 fL (35.1-46.3); Red Blood Cell Count 3.84 M/mm3 (4.30-5.90); White Blood Cell Count 6.32 K/mm3 (4.00-11.30)
[2020-07-10 04:29] LABS: Albumin, Blood 2.8 g/dL (3.4-5.0); Anion Gap 2 mmol/L (6-16); Blood Urea Nitrogen 16 mg/dL (8-24); Bun/Creatinine Ratio 26.9 (12.0-20.0); CO2, Blood 37 mmol/L (21-32); Calcium, Blood 9.4 mg/dL (8.5-10.1); Chloride, Blood 103 mmol/L (98-108); Glomerular Filtration Rate >60 (60-); Glucose, Blood 91 mg/dL (70-99); Phosphorus, Blood 3.1 mg/dL (2.5-4.9); Potassium, Blood 4.5 mmol/L (3.5-5.5); Sodium, Blood 142 mmol/L (136-145)
--- NOTE | 2020-07-10 06:19 | NUR ---
SHIFT SUMMARY PATIENT SLEPT WELL THROUGH NIGHT. ANXIETY, PAIN WELL CONTROLLED WITH AVAILABLE PRN MEDICATIONS. ASSESSMENT IS CHARTED. VSS. WILL CONTINUE TO MONITOR.
--- NOTE | 2020-07-10 08:15 | NUR ---
INITIAL ASSESSMENT PATIENT ALERT AND ORIENTED. AFEBRILE. NO COMPLAINTS OF PAIN. PATIENT ANXIOUS AT TIMES. VENT TO 8.0 TRACH. VENT SETTINGS AC 24, TV 450, PEEP 10 AND 35% FIO2. LUNGS WHEEZY AND DIMINISHED IN UPPER LOBES AND DIMINISHED IN LOWER LOBES. LARGE AMOUNT OF THICK, YELLOW SECRETIONS BEING SUCTIONED FROM ETT. PATIENT IN SR, HR 70S TO 80S. SBP 80S TO 130S. INCREASED RR WITH ANXIETY. HYPOACTIVE BS NOTED. PATIENT WOULD NOT EAT BREAKFAST BECAUSE HE STATES THAT HE CANNOT EAT AND SWALLOW WITH CUFF INFLATED AND PATIENT HAS BEEN INSTRUCTED BY DOCTORS TO KEEP HIS CUFF INFLATED FOR THE TIME BEING. DATE OF LAST BM UNKNOWN. ATTTENDS IN PLACE FOR OCCASIONAL INCONTINENCE. PATIENT DOES REQUEST URINAL MOST TIMES. PATIENT BEING REPOSITIONED Q2H AND PRN. COCCYX AND HEELS REDDENED. MEPILEX C/D/I TO HEELS. PATIENT HAD CTA OF CHEST EARLY THIS AM. BED LOW, CALL LIGHT IN REACH. WILL CONTINUE TO MONITOR PATIENT FREQUENTLY THROUGHOUT SHIFT.
--- NOTE | 2020-07-10 09:47 | NUR ---
DR. JEAN BAPTISTE ASSESSED PATIENT. STATED TO PLACE PATIENT BACK ON HOME VENTILATOR, ALLOW HIM TO USE SYRINGE TO INFLATE AND DEFLATE CUFF PATIENT DESIRES, AND ALLOW HIM TO EAT.
--- NOTE | 2020-07-10 11:05 | NUR ---
PATIENT PLACED BACK ON HOME VENTILATOR AC 24, TV 600, PEEP 10 AND 5 L O2 BLEED IN. PATIENT LASTED ONLY FEW MINUTES BEFORE BECOMING VERY ANXIOUS, NOT TAKING ADEQUATE BREATHS, FACE TURNING BLUE AND SATS DECREASING TO 60S-70S. PATIENT PLACED BACK ON HOSPITAL VENTILATOR AND SATS RETURNED TO HIGH 90S. PATIENT GIVEN PRN ATIVAN. PATIENT CHANGED BACK TO ICU STATUS FROM PCU STATUS.
--- NOTE | 2020-07-10 12:30 | NUR ---
PATIENT AFEBRILE. HR 90S TO LOW 100S. SBP 1-TEENS TO 140S. PATIENT SATTING 90% AND GREATER ON SAME HOSPITAL VENT SETTINGS. PATIENT CONTINUES TO REFUSE BLOOD SUGAR CHECKS. NEW SEROQUEL ORDER SCHEDULED TO TRY AND HELP WITH PATIENT OFF AND ON ANXIETY; PATIENT ABLE TO TAKE WITH NO PROBLEMS. NO OTHER ACUTE CHANGES TO NOTE ON AT THIS TIME. WILL CONTINUE TO MONITOR.
--- NOTE | 2020-07-10 16:00 | NUR ---
PATIENT AFEBRILE. PATIENT HAS CONTINUED ALL DAY TO MOUTH "I CAN'T BREATH" TO STAFF. PATIENT'S O2 SATURATING IN THE MID TO HIGH 90S DURING THESE EPISODES. HR 80S TO LOW 100S. SBP LOW 100S UP TO 160S WHEN ANXIOUS. PATIENT CONTINUES TO REFUSE BLOOD SUGAR CHECKS. PATIENT'S SISTER HERE TO VISIT FOR SHORT TIME. NO OTHER ACUTE CHANGES TO NOTE ON AT THIS TIME. WILL CONTINUE TO MONITOR.
--- NOTE | 2020-07-10 19:17 | NUR ---
SHIFT SUMMARY PATIENT VERY ANXIOUS THIS SHIFT. PATIENT GIVEN PRN ATIVAN A COUPLE TIMES. PATIENT STARTED ON SCHEDULED PO SEROQUEL. PATIENT ULTIMATELY STARTED ON PRECEDEX. PATIENT CONTINUED TO STATE THAT HE COULD NOT BREATH, HOWEVER O2 SATS WERE MID TO HIGH 90S AND DR. BRAVO SEE PATIENT SEVERAL TIMES. LUNGS REMAINED COARSE AND WHEEZY. PATIENT TRIALED ON HOME VENT BUT IT LASTED ABOUT 10 MINUTES BEFORE PATIENT SATS DECREASING. PATIENT REMAINED IN SR TO ST. BPS STABLE. SBP INCREASED WITH ANXIETY. NO BM THIS SHIFT. PATIENT CONTINUED TO REFUSE BLOOD SUGAR CHECKS. POOR PO INTAKE THIS SHIFT. PATIENT USED URINAL AND REMAINED INCONTINENT AT TIMES. NO CHANGE IN SKIN. PATIENT REPOSITIONED THROUGHOUT SHIFT. PRECEDEX AT 0.2 MCG/ KG/ HOUR, NS TKO. PATIENT APPEARS COMFORTABLE AT THIS TIME. BED LOW, CALL LIGHT IN REACH. REPORT HAS BEEN GIVEN TO ASSUMING PRECISION STRUCTURAL METAL FITTER NURSE.
[2020-07-11 03:51] LABS: BASOPHILS ABSOLUTE AUTO 0.03 K/mm3 (0.00-0.23); BASOPHILS PERCENT AUTO 0 % (0-2); EOSINOPHILS ABSOLUTE AUTO 0.16 K/mm3 (0.00-0.68); EOSINOPHILS PERCENT AUTO 2 % (0-6); Hematocrit 36.2 % (37.0-53.0); Hemoglobin 11.5 g/dL (13.5-17.5); IMMATURE GRAN ABSOLUTE AUTO 0.02 K/mm3 (0.00-0.10); IMMATURE GRAN PERCENT AUTO 0 % (0-1); LYMPHOCYTES ABSOLUTE AUTO 0.71 K/mm3 (0.84-5.20); LYMPHOCYTES PERCENT AUTO 9 % (21-46); MONOCYTES PERCENT AUTO 14 % (4-13); Mean Corpuscular HGB 30.7 pg (26.0-34.0); Mean Corpuscular HGB Conc 31.8 g/dL (31.5-36.5); Mean Corpuscular Volume 97 fL (80-100); Mean Platelet Volume 9.9 fL (9.1-12.4); NEUTROPHILS PERCENT AUTO 74 % (41-73); Platelet Count 176 K/mm3 (150-400); RDW Coefficient Variation 13.3 % (11.7-14.2); RDW Standard Deviation 47.8 fL (35.1-46.3); Red Blood Cell Count 3.74 M/mm3 (4.30-5.90); White Blood Cell Count 7.92 K/mm3 (4.00-11.30)
[2020-07-11 04:09] LABS: Albumin, Blood 2.5 g/dL (3.4-5.0); Anion Gap 1 mmol/L (6-16); Blood Urea Nitrogen 13 mg/dL (8-24); Bun/Creatinine Ratio 20.9 (12.0-20.0); CO2, Blood 38 mmol/L (21-32); Chloride, Blood 103 mmol/L (98-108); Creatinine, Blood 0.62 mg/dL (0.60-1.20); Glomerular Filtration Rate >60 (60-); Glucose, Blood 110 mg/dL (70-99); Phosphorus, Blood 2.9 mg/dL (2.5-4.9); Potassium, Blood 4.7 mmol/L (3.5-5.5); Sodium, Blood 142 mmol/L (136-145)
--- NOTE | 2020-07-11 05:53 | NUR ---
SHIFT SUMMARY PATIENT HAS SLEPT WELL THRU NIGHT. A COUPLE OF TIMES HAS COMPLAINED OF DIFFICULTY BREATHING AFTER DEEP SUCTIONING. TWICE GAVE ATIVAN IVP, SEE EMAR, WITH MOST RELIEF. AT 04:30 INCREASED PRECEDEX DRIP FOR INCREASING AGITATION, FIGHTING VENTILATOR. PATIENT STATES "I'M NOT BREATHING, I'M NOT BREATHING, INSTRUCTED TO STOP REPEATING "I'M NOT BREATHING" AND TAKE SOME BREATHS, TO NO AVAIL. AM LABWORK UNREMARKABLE. ASSESSMENT IS CHARTED. VSS. WILL CONTINUE TO MONITOR.
--- NOTE | 2020-07-11 07:15 | NUR ---
ASSUMED CARE OF PT AT THIS TIME. PT ON HOSPITAL VENT. SETTINGS AC 24/450/10/35%. PT INCREDIBLY ANXIOUS, DIAPHORETIC DESPITE BEING ON PRECEDEX 0.3MCG/KG/HR. PT BECOMES TACHYCARDIC WITH HR 130-140S, HYPERTENSIVE SBP OVER 200. RR IN 40S. TREATED FOR ANXIETY PER EMAR. PT RESTING COMFORTABLY AT THIS TIME. PT MODERATELY COOPERATIVE WITH CARE AND FOLLOWING COMMANDS. SEE SHIFT ASSESSMENT.
--- NOTE | 2020-07-11 07:31 | NUR ---
PATIENT AWAKE, BANGING CALL LIGHT ON BED
--- NOTE | 2020-07-11 07:50 | NUR ---
PATIENT VENT DEPENDENT. 8.0 XLT SHILEY CUFFED TRACH
--- NOTE | 2020-07-11 14:44 | NUR ---
PT'S SISTER AT BEDSIDE REQUESTING TO TALK TO ELECTRICIAN RECTIFIER MAINTENANCE REGARDING [facility]IA'S WISH TO TRANSFER TO DIFFERENT FACILITY FOR VENT MANAGEMENT. DR. JEAN BAPTISTE DISCUSSED TRANSFER OPTIONS TO HOSPITAL'S IN [facility] VS USP CARE FACILITIES WITHIN [place] AND WITHOUT. DR. JEAN BAPTISTE TO CALL AND ATTEMPT TO FIND ACCEPTING FACILITY/DOCTOR. PT'S SISTER STATES UNDERSTANDING. PT APPEARS VERY SLEEPY, PRECEDEX OFF FOR 2 HOURS. PT DECLINED BREAKFAST THIS AM WELL LUNCH. ATTEMPTED TO LET PT HAVE SIP OF WATER, PT COUGHED. WILL ATTEMPT ALLOWING PT WATER WITH NOC MEDS. PT'S SISTER REMAINS AT BEDSIDE. PT'S VSS AT THIS TIME.
--- NOTE | 2020-07-11 18:42 | NUR ---
SHIFT SUMMARY PT REMAINS ON HOSPITAL VENT, VENT SETTINGS UNCHANGED. AC / WITH SATS MAINTAINING >90%. PT LESS ANXIOUS SINCE THIS AM. PT HAD MODERATE TO LARGE AMOUNT OF CAZARES/THICK SECRETIONS FROM ET TUBE, BECOMING BLOOD-TINGED THIS EVENING. DR JEAN BAPTISTE NOTIFIED AND EVALUATED PT. PT REQUESTING TRACH REPLACEMENT. RESPIRATORY THERAPY AWARE. PLAN TO POSSIBLY REPLACE IN AM. PT ALERT, COOPERATIVE WITH CARE, AND IN AGREEANCE WITH PLAN. PRECEDEX REMAINS OFF. TMAX 100.9. PT DIAPHORETIC THROUGHOUT MOST OF SHIFT. VSS AT THIS TIME. SEE PREVIOUS NOTES FROM THIS SHIFT. WILL REPORT TO ONCOMING RN.
--- NOTE | 2020-07-11 18:46 | NUR ---
THIS RN REVIEWED NEONATAL CRITICAL CARE NURSE DOCUMENTATION AND ASSESSMENTS AND AGREE WITH NEONATAL CRITICAL CARE NURSE EVALUATIONS.
[2020-07-11 22:13] LABS: PCO2 Arterial 80.9 mmHg (35-45); PO2 Arterial 68.6 mmHg (80-100); pH Blood Arterial 7.27 (7.35-7.45)
--- NOTE | 2020-07-12 00:45 | NUR ---
07/11 @ 21:[address] JEAN BAPTISTE REGARDING PT INCREASING WEAKNESS, LESS ALERT THAN EARLIER IN SHIFT, CONSTANTLY COUGHING ON VENT. VITAL SIGNS ARE STABLE AT THIS POINT. ALSO NOTIFIED OF SMALL AMMOUT OF BLEEDING NOTED UNDER TRACH, RT ALFREDO HAD JUST REPLACED INNER CANNULA, PER HIM "SOME BLOOD AT BASE OF CANNULA." PER DR. JEAN BAPTISTE, OBTAIN ABG, CHEST X-RAY, HAVE SUJIT ROMERO, EDUCATIONAL PROGRAM ASSISTANT READ XR WHEN AVAILABLE. AFTER SOME DELAY IN ED, XRAY OBTAINED, AND PER SUJIT, "NO ACUTE CHANGES, HONESTLY IT LOOKS EVEN BETTER THAN PREVIOUS." RELAYED THESE RESULTS TO DR JEAN BAPTISTE, WILL PLAN FOR BRONCH IN AM. OKAY TO RESTART PRECEDEX IF NEED BE FOR VENTILATOR COMPLIANCE.
[2020-07-12 03:13] LABS: BASOPHILS ABSOLUTE AUTO 0.11 K/mm3 (0.00-0.23); BASOPHILS PERCENT AUTO 1 % (0-2); EOSINOPHILS ABSOLUTE AUTO 0.25 K/mm3 (0.00-0.68); EOSINOPHILS PERCENT AUTO 1 % (0-6); Hematocrit 37.5 % (37.0-53.0); Hemoglobin 11.6 g/dL (13.5-17.5); IMMATURE GRAN PERCENT AUTO 1 % (0-1); LYMPHOCYTES ABSOLUTE AUTO 1.31 K/mm3 (0.84-5.20); LYMPHOCYTES PERCENT AUTO 7 % (21-46); MONOCYTES ABSOLUTE AUTO 2.44 K/mm3 (0.16-1.47); MONOCYTES PERCENT AUTO 13 % (4-13); Mean Corpuscular HGB 30.5 pg (26.0-34.0); Mean Corpuscular HGB Conc 30.9 g/dL (31.5-36.5); Mean Corpuscular Volume 99 fL (80-100); Mean Platelet Volume 9.8 fL (9.1-12.4); NEUTROPHILS ABSOLUTE AUTO 14.38 K/mm3 (1.96-9.15); NEUTROPHILS PERCENT AUTO 78 % (41-73); Platelet Count 280 K/mm3 (150-400); RDW Coefficient Variation 13.5 % (11.7-14.2); RDW Standard Deviation 49.6 fL (35.1-46.3); White Blood Cell Count 18.59 K/mm3 (4.00-11.30)
[2020-07-12 03:29] LABS: Albumin, Blood 3.1 g/dL (3.4-5.0); Anion Gap 1 mmol/L (6-16); Blood Urea Nitrogen 15 mg/dL (8-24); Bun/Creatinine Ratio 23.8 (12.0-20.0); CO2, Blood 38 mmol/L (21-32); Calcium, Blood 8.6 mg/dL (8.5-10.1); Chloride, Blood 103 mmol/L (98-108); Creatinine, Blood 0.63 mg/dL (0.60-1.20); Glomerular Filtration Rate >60 (60-); Glucose, Blood 124 mg/dL (70-99); Phosphorus, Blood 2.7 mg/dL (2.5-4.9); Potassium, Blood 4.3 mmol/L (3.5-5.5); Sodium, Blood 142 mmol/L (136-145)
--- NOTE | 2020-07-12 04:16 | NUR ---
07/12 @ 04:[address] FALCON FOR LACTIC ACID CONSIDERING HYPOTENSION, JUMP IN WHITE BLOOD COUNT, PER DR. FALCON "NO, DAY TEAM WILL ADDRESS THE INCREASE IN WHITE BLOOD CELLS." WILL CONTINUE TO MONITOR.
[2020-07-12 04:36] LABS: PCO2 Arterial 71.4 mmHg (35-45); PO2 Arterial 72.1 mmHg (80-100); pH Blood Arterial 7.34 (7.35-7.45)
--- NOTE | 2020-07-12 06:50 | NUR ---
07/12 @ 0600 OBSERVED PATIENT PULLING ON TRACHEOSTOMY TUBING, PLACED IN RESTRAINTS, OBTAINED APPROPRIATE ORDERS, INFORMED FAMILY OF CHANGES THROUGH TONIGHT.
--- NOTE | 2020-07-12 08:00 | NUR ---
ASSUMED CARE OF PT, REPORT RCV'D FROM NITO MENDOSA. PT ALERT TO VERBAL STIMULI, APPEARS SOMULENT AND INCREASINGLY WEAK WHEN COMPARED TO PREVIOUS SHIFT. PT TRACHED AND ON HOSPITAL VENT, SETTINGS AC 26/450/10/30%. PRECEDEX @ 0.1 MCG/KG/HR. NEOSYNEPHRINE @ 40 MCG/MIN, LEVOPHED @ 25 MCG/MIN. BICARB GTT @ 75 ML/HR. PT IN RESTRAINTS AT START OF SHIFT D/T PULLING AT TRACH AND CENTRAL LINE, PT TRIALED OUT OF RESTRAINTS FOR SHORT PERIOD OF BUT CONTINUED TO PULL AT LINES/CORDS. PT PLACED BACK IN RESTRAINTS FOR PT SAFETY. PT NOTED TO BE IN AFIB RVR WITH HR IN UPPER 150'S, DR. JEAN BAPTISTE NOTIFED AND ORDER FOR DIGOXIN X2 DOSES ORDERED. PLAN TO PLACE PT ON SEDATION AND BROCH AT 11 AM. STARTING VASOPRESSIN WITH GOAL TO TITRATE THERESA OFF. PT AND PT'S SISTER UPDATED WITH PLAN OF CARE. SEE FULL SHIFT ASSESSMENT
[2020-07-12 08:20] LABS: PCO2 Arterial 72.1 mmHg (35-45); PO2 Arterial 84.7 mmHg (80-100); pH Blood Arterial 7.35 (7.35-7.45)
--- NOTE | 2020-07-12 10:45 | NUR ---
GARCIA PLACED IN URETHRA BY CASING MIXER SUPERVISED BY THIS NURSE. CATHETER INSERTED SMOOTHLY WITH NO RESISTANCE, BALLOON INFLATED AND SIGNIFICANT AMOUNT OF BLOOD RETURNED INTO CATHETER. CHARGE NURSE CALLED TO BEDSIDE FOR EVALUATION, SUGGESTED TO FLUSH CATHETER/BLADDER WITH STERILE WATER AND OBSERVE. PT CONTINUED TO HAVE BLOODY OUTPUT INTO CATHETER, THIS NURSE REMOVED EXSISTING GARCIA CATHETER AND PLACED 18F TEMP GARCIA, IMMEDIATE BLOOD TINGED URINARY RETURN (U/A SENT TO LAB). PT CONTINUES TO HAVE SLIGHT BLOOD OOZING FROM AROUND URETHRA. WILL CONTINUE TO MONITOR.
--- NOTE | 2020-07-12 11:45 | NUR ---
PT PLACED ON PROPOFOL @ 20 MCG/KG/MIN, RESTING COMFORTABLY. BRONCH COMPLETED. THERESA OFF. LEVOPHED @ 25 MCG/MIN, VASOPRESSIN @ 0.04 MCG/MIN, PRECEDEX ON STANDBY.
[2020-07-12 12:47] LABS: Source, Urine Catheter
[2020-07-12 12:52] LABS: Bilirubin, Urine Neg (Neg); Blood, Urine 5+ (Neg); Glucose Qualitative, Urine Neg (Neg); Ketones, Urine 1+ (Neg); Leukocyte Esterase, Urine 2+ (Neg); Nitrite, Urine Pos (Neg); Protein, Urine 3+ (Neg); Specific Gravity, Urine 1.015 (1.003-1.022); Urobilinogen, Urine NORM (Normal)
[2020-07-12 12:58] LABS: Appearance, Urine Bloody (Clear); Color, Urine Red (P-Yellow)
[2020-07-12 13:00] LABS: Bacteria Few /hpf; Red Blood Cells, Urine TNTC /hpf (0-2); Squamous Epithelial Cells Few /hpf (Few)
--- NOTE | 2020-07-12 18:16 | NUR ---
SHIFT SUMMARY PT REMAINS ON HOSPITAL VENT AC //35%. PROPOFOL @ 15 MCG/KG/MIN, VASOPRESSIN @ 0.04 UNITS/MIN, LEVOPHED @ 6 MCG/MIN, BICARB @ 75 ML/HR BLOOD PRESSURE STABLE AT THIS TIME. PT OCCASIONALLY OPENS EYES TO VERBAL STIMULI, FAILS TO FOLLOW COMMANDS, TOLERATES REPOSITIONING WELL. PT CONTINUES TO HAVE OCCASIONAL PRODUCTIVE COUGH WITH THICK CAZARES SPUTUM. PT CONTINUES TO BE IN AFIB, NO LONGER RVR. HR 70'S-80'S. TMAX 99.0. 300 ML BLOOD TINGED URINARY OUTPUT PLUS 2 INCONTINENT UNMEASURED VOIDS. SEE PREVIOUS NOTES FROM THIS SHIFT. WILL REPORT TO ONCOMING NURSE.
--- NOTE | 2020-07-12 19:27 | NUR ---
ASSUMPTION OF CARE RECEIVED REPORT FROM KALEB Hedrick [id number]. ASSUMED CARE OF PATIENT. PATIENT SEDATED ON 15MCG/KG OF PROPOFOL. LEVOPHED AND VASO INFUSING. MAP NOTED OF 100, VASO PLACED ON STANDBY. PROPOFOL DECREASED TO 10MCG/KG AFTER ASSESSMENT COMPLETED. WILL REVIEW ORDERS AND TREAT PRESCRIBED.
--- NOTE | 2020-07-12 19:36 | NUR ---
ORIENTATION PATIENT AWOKE DURING ORAL CARE. ATTEMPTING TO SPEAK STATING NO AND MOVING HANDS TO MOUTH. PATIENT COMPLETELY AWAKE MOVING ALL EXTREMITIES. RT TO BEDSIDE PROVIDING SUCTIONING. PATIENT NODDED HEAD YES WHEN ASKED IF HE WANTED TO BE LEFT ALONE. INCREASED PROPOFOL BACK TO 15MCG/KG AND DECREASED LEVOPHED TO 5MCG, VASO REMAINS ON STANDBY.
--- NOTE | 2020-07-12 20:28 | NUR ---
TACHYCARDIA PATIENT'S HEART RATE INCREASING TO 120-130'S. NOTIFIED DR. JEAN BAPTISTE VIA T/P. RECEIVED ORDERS TO INCREASE FLUIDS AND START DILTIAZEM DRIP FOR RATE CONTROL.
--- NOTE | 2020-07-13 | NUR ---
REASSESSMENT NO ACUTE CHANGES FROM INITIAL ASSESSMENT. VENT SETTINGS REMAIN UNCHANGES. FIO2 AT 35% WITH SATS ABOVE 95%. PATIENT AWAKE, CONVERSING AND FOLLOWING COMMANDS ON PROPOFOL OF 15MCG/KG. PATIENT STATING HE IS IN PAIN 8/10 IN ABD. ORIENTED PATIENT TO CURRENT SITUATION. PATIENT CALM, TOLERATING VENT. VITALS STABLE. WILL MEDICATE FOR PAIN.
[2020-07-13 03:32] LABS: BASOPHILS ABSOLUTE AUTO 0.08 K/mm3 (0.00-0.23); BASOPHILS PERCENT AUTO 1 % (0-2); EOSINOPHILS PERCENT AUTO 0 % (0-6); Hematocrit 33.5 % (37.0-53.0); Hemoglobin 10.5 g/dL (13.5-17.5); IMMATURE GRAN ABSOLUTE AUTO 0.08 K/mm3 (0.00-0.10); IMMATURE GRAN PERCENT AUTO 1 % (0-1); LYMPHOCYTES ABSOLUTE AUTO 0.25 K/mm3 (0.84-5.20); LYMPHOCYTES PERCENT AUTO 2 % (21-46); MONOCYTES ABSOLUTE AUTO 0.74 K/mm3 (0.16-1.47); MONOCYTES PERCENT AUTO 5 % (4-13); Mean Corpuscular HGB 29.9 pg (26.0-34.0); Mean Corpuscular HGB Conc 31.3 g/dL (31.5-36.5); Mean Corpuscular Volume 95 fL (80-100); Mean Platelet Volume 10.1 fL (9.1-12.4); NEUTROPHILS ABSOLUTE AUTO 14.49 K/mm3 (1.96-9.15); NEUTROPHILS PERCENT AUTO 93 % (41-73); Platelet Count 224 K/mm3 (150-400); RDW Coefficient Variation 13.2 % (11.7-14.2); RDW Standard Deviation 46.7 fL (35.1-46.3); Red Blood Cell Count 3.51 M/mm3 (4.30-5.90); White Blood Cell Count 15.64 K/mm3 (4.00-11.30)
[2020-07-13 03:54] LABS: Anion Gap 3 mmol/L (6-16); Blood Urea Nitrogen 11 mg/dL (8-24); Bun/Creatinine Ratio 20.5 (12.0-20.0); CO2, Blood 40 mmol/L (21-32); Calcium, Blood 7.8 mg/dL (8.5-10.1); Chloride, Blood 97 mmol/L (98-108); Creatinine, Blood 0.54 mg/dL (0.60-1.20); Glomerular Filtration Rate >60 (60-); Glucose, Blood 162 mg/dL (70-99); Phosphorus, Blood 1.4 mg/dL (2.5-4.9); Sodium, Blood 140 mmol/L (136-145)
--- NOTE | 2020-07-13 04:00 | NUR ---
REASSESSMENT NO ACUTE CHANGES FROM PREVIOUS ASSESSMENT. VENT SETTINGS UNCHANGED, FIO2 35% WITH SATS ABOVE 95% PATIENT IS CURRENTLY A/O. RESTRAINTS REMOVED. CONVERSING AND REMAINING CALM/COOPERATIE WITH CARE. TITRATING DRIPS NEEDED FOR COMFORT AND BLOOD PRESSURE. BLOOD TYPE DRAINAGE NOTED FROM PENILE AREA AROUND GARCIA CATHETER. WILL MONITOR, LABS REVIEWED. VITALS STABLE.
--- NOTE | 2020-07-13 06:02 | NUR ---
SHIFT SUMMARY PATIENT WITH TRACH AND VENTILATOR IN PLACE. FIO2 35% WITH SATS ABOVE 95%. VASO TURNED OFF AT START OF SHIFT PREVIOUSLY CHARTED, LEVOPHED TITRATED DOWN TO 5MCG WITH MAPS ABOVE 65. SODIUM BICARB IS CURRENTLY INFUSING AT 100ML/HR ORDERED. DILT DRIP WAS NOT INITIATED PATIENT SELF CONVERTED TO SINUS RHTYHM AROUND 0030. CURRENT HEART RATE IS 80'S. SUCTIONING THICK, CAZARES SECRETIONS VIA TRACH AND ORALLY. RESTRAINTS WERE REMOVED PER PATIENT'S REQUEST. PATIENT IS ALERT AND ORIENTED, COMMUNICATES NEEDS, MEDICATED FOR PAIN ONE TIME AND PROPOFOL CONTINUES WHILE PATIENT IS NPO FOR VENT TOLERATION. GARCIA CATHETER WITH CLEAR, LIGHT TOYIN URINE. RED DISCHARGE NOTED AROUND GARCIA INSERTION SITE. LABS REVIEWED, PHOS LEVEL REPORTED TO DR. JEAN BAPTISTE AND ORDERS RECEIVED FOR TREATMENT. WILL CONTINUE TO MONITOR AND REPORT TO ONCOMING RN.
--- NOTE | 2020-07-13 08:00 | NUR ---
INITIAL ASSESSMENT PATIENT INTUBATED AND ON SEDATION. PATIENT ABLE TO FOLLOW SIMPLE COMMANDS. PATIENT WEAK BUT ABLE TO MOVE ALL EXTREMITIES. PATIENT AFEBRILE. NO SIGNS OF PAIN NOTED. PATIENT ON VENT SETTINGS OF AC 25, TV 450, PEEP 10 AND 35% FIO2. LUNG SOUNDS COARSE THROUGHOUT. MODERATE AMOUNT OF THICK, CAZARES SECRETIONS BEING SUCTIONED FROM TRACH. PATIENT IN SR, HR IN THE 80S. SBP 90S TO 120S. LEVOPHED AT 4 MCG/ MINUTE. VASPRESSIN ON SB. ABDOMEN MILDLY DISTENDED, SOFT, WITH HYPOACTIVE BS NOTED. NO BM DOCUMENTED SINCE ADMISSION. TEMP PROBE GARCIA IN PLACE DRAINING DARK ORANGE COLORED URINE. COCCYX AND HEELS REDDENED; MEPILEX IN PLACE. SCATTERED BRUISES NOTED T/O. SODIUM BICARB INFUSING AT 100 MLS/ HOUR, PROPOFOL AT 20 MCG/ KG/ MINUTE, VASO SB, LEVOPHED AT 4 MCG/ MINUTE. PATIENT RECEIVING 30 MM KPHOS THIS AM FOR PHOSPHORUS LEVEL OF 1.9. BED LOW, CALL LIGHT IN REACH. WILL CONTINUE TO MONITOR PATIENT FREQUENTLY THROUGHOUT SHIFT.
--- NOTE | 2020-07-13 12:00 | NUR ---
PATIENT AFEBRILE. HR 70S TO 80S. SBP 70S TO 150S. PATIENT HYPOTENSIVE ON LEVOPHED ALONE AND ADDITION OF VASOPRESSIN INCREASES BP DRAMATICALLY. TRACH CARE PERFORMED. PATIENT ON SAME VENT SETTINGS. DOBHOFF PLACED AND CHEST XR CONFIRMED BY DR. JEAN BAPTISTE FOR NG USE. BLOOD SUGAR OF 187; COVERAGE GIVEN. NO OTHER ACUTE CHANGES TO NOTE ON AT THIS TIME. WILL CONTINUE TO MONITOR.
[2020-07-13 14:32] LABS: PCO2 Arterial 71.7 mmHg (35-45)
--- NOTE | 2020-07-13 16:00 | NUR ---
PATIENT AFEBRILE. NO SIGNS OF PAIN NOTED. PATIENT IN SR WITH OCCASIONAL PACS. HR 60S TO 70S. SBP 80S TO LOW 100S. VASOPRESSIN AT 0.04 UNITS/ MINUTE AND LEVOPHED AT 1 MCG/ MINUTE. VHP TF INFUSING AT 25 MLS/ HOUR. NO OTHER ACUTE CHANGES TO NOTE ON AT THIS TIME. WILL CONTINUE TO MONITOR.
--- NOTE | 2020-07-13 18:40 | NUR ---
SHIFT SUMMARY PATIENT REMAINED INTUBATED AND ON SEDATION. PATIENT ABLE TO FOLLOW SIMPLE COMMANDS. SEDATION LOWERED WHILE PATIENT'S SISTER HERE SO THAT THEY COULD COMMUNICATE. PATIENT REMAINED AFEBRILE. NO PAIN NOTED THIS SHIFT. PATIENT REMAINED WEAK BUT ABLE TO MOVE ALL EXTREMITIES. PATIENT REMAINED ON VENT SETTINGS OF AC 26, TV 450, PEEP 10 AND 35% FIO2. PATIENT CONTINUED TO HAVE SMALL TO MODERATE AMOUNTS OF THICK, CAZARES SPUTUM BEING SUCTIONED FROM TRACH. PATIENT REMAINED IN SR WITH OCCASIONAL PACS. HR 60S TO 80S. SBP RANGED ANYWERE FROM 70S TO 150S. PATIENT BP REACTS MUCH MORE TO VASOPRESSIN THAN TO THE LEVOPHED. DR. JEAN BAPTISTE STATED TO TITRATE LEVO TO OFF AND THEN CAN TITRATE VASOPRESSIN DOWN BY INCREMENTS OF 0.01 TO KEEP MAPS 65 AND GREATER. NO BM THIS SHIFT. PATIENT GIVEN MOM. DOBHOFF INSERTED. PATIENT STARTED ON VHP TF AT 25 MLS PER HOUR WITH GOAL OF 45 MLS/ HOUR. 30 ML WATER FLUSH Q4H. GARCIA DRAINED 400 MLS OF DARK ORANGE COLORED URINE. URETHRAL BLEEDING IMPROVED. NO CHANGE TO SKIN. PATIENT REPOSITIONED THROUGHOUT SHIFT. BICARB INFUSING AT 100 MLS/ HOUR, PROPOFOL AT 25 MCG/ KG/ MINUTE, VASOPRESSIN AT 0.04 UNITS/ MINUTE, LEVOPHED AT 0.5 MCG/ MINUTE. PATIENT RECEIVED 30 MM KPHOS REPLACEMENT THIS SHIFT. PATIENT RECEIVED ALBUMIN. BLOOD SUGARS 187 AND 166; COVERAGE GIVEN BOTH TIMES. PATIENT APPEARS COMFORTABLE AT THIS TIME. BED LOW, CALL LIGHT IN REACH. REPORT WILL BE GIVEN TO ONCOMING WASTE CHOPPER NURSE SHORTLY.
--- NOTE | 2020-07-13 19:55 | NUR ---
ASSUMPTION OF CARE RECEIVED REPORT FROM BRUNO BEAUCHAMP AT 1915. ASSUMED CARE OF PATIENT. PATIENT SEDATED ON 25MCG/KG OF PROPOFOL SAS 3-4. WILL AWAKEN TO PHYSICAL STIMULI. VENTED TRACH WITH SETTINGS AC 26/450/10/35% WITH SATS ABOVE 95%. SUCTIONING THICK, CAZARES SPUTUM VIA TRACH. SINUS RHYTHM IN THE 60'S WITH VASO AT 0.04MCG AND LEVO AT 0.5MCG BEING PLACED ON STANDBY AT 1945 FOR MAP ABOVE 65. TUBE FEEDS INFUSING OF VITAL HP A 25ML/HR VIA DOBHOFF IN LEFT NARE. GARCIA PATENT AND DRAINING WITH CLEAR, YELLOW URINE NO BLEEDING CURRENTLY NOTED. WILL REVIEW ORERS AND TREAT PRESCRIBED.
--- NOTE | 2020-07-14 | NUR ---
REASSESSMENT NO ACUTE CHANGES FROM INITIAL ASSESSMENT. VENT SETTINGS UNCHANGED, FIO2 35% WITH SATS ABOVE 95%. SUCTIONING THICK, CAZARES SPUTUM VIA TRACH. TF INFUSING AT 25ML/HR WITH RESIDUALS OF 110 ML, REFED. VITALS STABLE. TITRATING LEVOPHED FOR MAP. GARCIA REMAINS PATENT. PATIENT AWAKE, ORIENTED. COOPERATIVE AND FOLLOWING DIRECTIONS.
--- NOTE | 2020-07-14 02:23 | NUR ---
TUBE FEED INCREASED TUBE FEED TO GOAL RATE OF 45ML/HR
[2020-07-14 04:20] LABS: BASOPHILS ABSOLUTE AUTO 0.02 K/mm3 (0.00-0.23); BASOPHILS PERCENT AUTO 0 % (0-2); EOSINOPHILS PERCENT AUTO 0 % (0-6); Hematocrit 31.1 % (37.0-53.0); Hemoglobin 9.8 g/dL (13.5-17.5); IMMATURE GRAN ABSOLUTE AUTO 0.03 K/mm3 (0.00-0.10); IMMATURE GRAN PERCENT AUTO 0 % (0-1); LYMPHOCYTES ABSOLUTE AUTO 0.23 K/mm3 (0.84-5.20); LYMPHOCYTES PERCENT AUTO 3 % (21-46); MONOCYTES ABSOLUTE AUTO 0.52 K/mm3 (0.16-1.47); MONOCYTES PERCENT AUTO 8 % (4-13); Mean Corpuscular HGB 30.1 pg (26.0-34.0); Mean Corpuscular HGB Conc 31.5 g/dL (31.5-36.5); Mean Corpuscular Volume 95 fL (80-100); Mean Platelet Volume 10.6 fL (9.1-12.4); NEUTROPHILS ABSOLUTE AUTO 6.15 K/mm3 (1.96-9.15); NEUTROPHILS PERCENT AUTO 89 % (41-73); Platelet Count 146 K/mm3 (150-400); RDW Coefficient Variation 13.1 % (11.7-14.2); RDW Standard Deviation 46.2 fL (35.1-46.3); Red Blood Cell Count 3.26 M/mm3 (4.30-5.90); White Blood Cell Count 6.95 K/mm3 (4.00-11.30)
--- NOTE | 2020-07-14 04:23 | NUR ---
REASSESSMENT NO ACUTE CHANGES FROM INITIAL ASSESSMENT. PATIENT WITH SAS OF 4. AWOKE DURING REPOSITIONING. CURRENTLY RESTING COMFORTABLY. VITALS STABLE. LEVOPHED TITRATED CHARTED WITH MAPS ABOVE 65. TF RESIDUALS 250, REFED. WILL CONTINUE TO MONITOR.
[2020-07-14 04:35] LABS: Albumin, Blood 3.4 g/dL (3.4-5.0); Anion Gap 2 mmol/L (6-16); Blood Urea Nitrogen 13 mg/dL (8-24); Bun/Creatinine Ratio 22.2 (12.0-20.0); CO2, Blood 43 mmol/L (21-32); Calcium, Blood 7.7 mg/dL (8.5-10.1); Chloride, Blood 92 mmol/L (98-108); Creatinine, Blood 0.59 mg/dL (0.60-1.20); Glomerular Filtration Rate >60 (60-); Glucose, Blood 182 mg/dL (70-99); Magnesium, Blood 2.1 mg/dL (1.6-2.4); Phosphorus, Blood 1.6 mg/dL (2.5-4.9); Potassium, Blood 3.6 mmol/L (3.5-5.5); Sodium, Blood 137 mmol/L (136-145)
--- NOTE | 2020-07-14 06:21 | NUR ---
SHIFT SUMMARY PATIENT WITH VENT SETTINGS UNCHANGED. FIO2 AT 35% WITH SATS ABOVE 95%. TF AT GOAL OF 45. PROPOFOL TURNED OFF AFTER SECOND SEROQUEL DOSE. LEVOPHED AT 2MCG AND VASO AT 0.04MCG. PHOS OF 1.[address] JEAN BAPTISTE, RECEIVED ORDERS TO REPLACE. PATIENT CURRENTLY WIDE AWAKE, MOUTHING HE IS FINE AND COMFORTABLE. PROVIDED PEN AND PAPER FOR WRITING WELL CALL LIGHT. CONTINUING TO MONITOR AND WILL REPORT TO ONCOMING RN.
--- NOTE | 2020-07-14 11:34 | NUR ---
AM NOTE.... ASSUMED CARE OF PT AT 0700. PT IS A&Ox4 PT IS OFF OF PROPOFOL AT THIS TIME, PT IS ABLE TO MOUTH WORDS BUT IS HARD TO UNDERSTAND AT THIS TIME. PT CONTINUES TO BE ON VASOPRESSIN AT 0.04U/HR AND LEVOPHED RUNNING AT 1MCG/MIN TO KEEP MAPS >60. PT'S VENT SETTINGS CONTINUE TO BE AC: 26/450/10/35% KEEPING HIS O2 SATS >90%. L/S COARSE T/O WITH SOME SCATTERED WHEEZES HEARD T/O. THICK CAZARES TRACHIAL SECRETIONS NOTED WITH SUCTIONING. BT PRESENT AND HYPOACTIVE, ABD IS SOFT AND SLIGHTLY TENDER TO PALP. PT'S GARCIA IS PATENT AND DRAINING SMALL AMOUNT OF DARK YELLOW URINE. PT HAD A LARGE BROWN BM. TUBE FEED RUNNING AT GOAL OF 45MLS/HR WITH 30MLS FLUSHES OF H20 Q4HRS. PT HAS BEEN MEDICATED FOR ANXIETY PER EMAR. WILL CONTINUE TO MONITOR.
--- NOTE | 2020-07-14 18:48 | NUR ---
SHIFT SUMMARY.... AT 1825 PT'S HR INCREASED TO THE 180'S PT HAD CONVERTED FROM NSR TO AFIB W/RVR PT BECAME VERY ANXIOUS AND HAD INCREASED SOB, PT WAS SUCTIONED VIA ET TUBE WITH THICK CAZARES SECRETIONS, PT'S O2 SATS DROPED DOWN TO THE LOW 80'S DURING THIS TIME. PT WAS GIVEN 2MG OF ATIVAN WHICH HELPED PT'S WORK OF BREATHING DECREASED. AN EKG WAS OBTAINED AT THE BEDSIDE LABS WERE DRAWN WELL. CHEST XRAY WAS OBTAINED. PT'S HR HAS SLOWED TO THE 120'S-140'S BUT CONTINUES TO BE IN AFIB. PT'S GARCIA CONTINUES TO BE PATENT AND DRAINING TOYIN URINE TO GRAVITY. PT HAS HAD 2 LARGE BMs THIS SHIFT. TUBE FEEDS RUNNING AT GOAL PER ORDERS. LEVOPHED WAS INCREASED TO 8MCG/MIN TO KEEP MAPS >60. VASOPRESSIN CONTINUES TO BE ON SB. NO CHANGES TO VENT SETTINGS. WILL CONTINUE TO MONITOR UNTIL REPORT IS GIVEN TO ONCOMING RN.
--- NOTE | 2020-07-14 19:15 | NUR ---
ASSUMPTION OF CARE RECEIVED REPORT FROM RON BEAUCHAMP. ASSUMED CARE OF PATIENT. PATIENT IN BED. AWAKE, MOUTHING WORDS AND POINTING TO LINES. EDUCATED PATIENT REGARDING DOBHOFF TUBE AND CENTRAL LINE. AMIO BOLUS INFUSING. LEVOPHED AT 8MCG. TRACH VENT WITH FIO2 35%. PATIENT TOLERATING WELL. WILL REVIEW ORDERS AND TREAT PRESCRIBED.
[2020-07-14 19:50] LABS: Magnesium, Blood 2.1 mg/dL (1.6-2.4); Phosphorus, Blood 2.6 mg/dL (2.5-4.9); Potassium, Blood 3.7 mmol/L (3.5-5.5); Troponin I <0.015 ng/mL (0.000-0.040)
--- NOTE | 2020-07-14 21:20 | NUR ---
AFIB AT [address] LÓPEZ AND REPORTED PATIENT'S HEART RATE IN THE 130'S AND STILL IN AFIB AFTER AMIO BOLUS INFUSED. RECEIVED ORDERS TO START AMIO DRIP PER PROTOCOL. UPON RECEIVED DRIP AND ENTERING PATIENT'S ROOM PATIENT CONVERTED TO SINUS RHYTHM IN THE 90'S. AMIO DRIP IS NOT INITIATED, WILL MONITOR HEART RATE AND RHYTHM.
--- NOTE | 2020-07-15 | NUR ---
REASSESSMENT NO ACUTE CHANGES FROM PREVIOUS ASSESSMENT. PATIENT CONVERTING FROM SR TO AFIB FREQUENTLY. WILL INITIATE AMIO DRIP. LEVO HAS BEEN TITRATED FOR MAP CONTROL. O2 SATS MAINTAIN WITH FIO2 OF 35%. PATIENT IS ORIENTED, MOUTHING NEEDS. UNDERSTANDS CARE AND IS COOPERATIVE, HAS NOT BEEN PULLING AT LINES. WILL CONTINUE TO MONITOR.
[2020-07-15 02:32] LABS: BASOPHILS ABSOLUTE AUTO 0.04 K/mm3 (0.00-0.23); BASOPHILS PERCENT AUTO 0 % (0-2); EOSINOPHILS ABSOLUTE AUTO 0.01 K/mm3 (0.00-0.68); EOSINOPHILS PERCENT AUTO 0 % (0-6); Hemoglobin 10.7 g/dL (13.5-17.5); IMMATURE GRAN ABSOLUTE AUTO 0.18 K/mm3 (0.00-0.10); IMMATURE GRAN PERCENT AUTO 1 % (0-1); LYMPHOCYTES ABSOLUTE AUTO 0.53 K/mm3 (0.84-5.20); LYMPHOCYTES PERCENT AUTO 4 % (21-46); MONOCYTES ABSOLUTE AUTO 1.11 K/mm3 (0.16-1.47); MONOCYTES PERCENT AUTO 9 % (4-13); Mean Corpuscular HGB 30.7 pg (26.0-34.0); Mean Corpuscular HGB Conc 32.4 g/dL (31.5-36.5); Mean Corpuscular Volume 95 fL (80-100); Mean Platelet Volume 9.9 fL (9.1-12.4); NEUTROPHILS ABSOLUTE AUTO 11.16 K/mm3 (1.96-9.15); NEUTROPHILS PERCENT AUTO 86 % (41-73); NRBC ABSOLUTE 0.03 K/mm3 (0.00-0.02); NRBC Auto 0.2 /100 WBC (0.0-0.2); Platelet Count 311 K/mm3 (150-400); RDW Coefficient Variation 13.4 % (11.7-14.2); RDW Standard Deviation 46.9 fL (35.1-46.3); Red Blood Cell Count 3.48 M/mm3 (4.30-5.90); White Blood Cell Count 13.03 K/mm3 (4.00-11.30)
[2020-07-15 02:51] LABS: Albumin, Blood 3.4 g/dL (3.4-5.0); Blood Urea Nitrogen 18 mg/dL (8-24); Bun/Creatinine Ratio 29.4 (12.0-20.0); Calcium, Blood 7.9 mg/dL (8.5-10.1); Chloride, Blood 90 mmol/L (98-108); Creatinine, Blood 0.61 mg/dL (0.60-1.20); Glomerular Filtration Rate >60 (60-); Glucose, Blood 148 mg/dL (70-99); Magnesium, Blood 2.2 mg/dL (1.6-2.4); Phosphorus, Blood 1.8 mg/dL (2.5-4.9); Sodium, Blood 136 mmol/L (136-145); Troponin I 0.027 ng/mL (0.000-0.040)
[2020-07-15 02:55] LABS: Anion Gap Unable to Calculate mmol/L (6-16); CO2, Blood >45 mmol/L (21-32)
--- NOTE | 2020-07-15 04:00 | NUR ---
REASSESSMENT NO ACUTE CHANGES FROM PREVIOUS ASSESSMENT. LEVOPHED AT 6MCG, TF AT GOAL OF 45ML/HR. GARCIA WITH CLEAR, YELLOW URINE. VENT SETTINGS UNCHANGED WITH FIO2 OF 35% AND SATS ABOVE 95%. WILL CONTINUE TO MONITOR.
--- NOTE | 2020-07-15 06:33 | NUR ---
SHIFT SUMMARY PATIENT A/O. COMMUNICATES WELL BY MOUTHING WORDS. COOPERATIVE WITH CARE. TF REMAINED AT GOAL OF 45ML/HR WITH RESIDUALS CHARTED. LEVOPHED TITRATED TO MAINTAIN A MAP OF 65. AMIO STARTED FOR AFIB RVR. URINE OUTPUT ADEQUATE THROUGH SHIFT. REPOSITIONED CHARTED. CONTINUING TO SUCTION THICK, CAZARES SPUTUM VIA TRACH. CONTINUING TO MONITOR. WILL REPORT TO ONCOMING RN.
--- NOTE | 2020-07-15 10:26 | NUR ---
CARE ASSUMED ASSESSMENTS COMPLETED, PT AWAKE AND ALERT, FOLLOWS DIRECTIONS. MEDICATED FOR ANXIETY. PT ABLE TO COMMUNICATE BY MOUTHING WORDS, UNABLE TO DEFLATE TRACH CUFF PER ORDERS. LS COARSE T/O WITH FINE EXP WHEEZE TO FABBY, CAZARES SPUTUM FROM ETT. TRACH TUBE IN PLACE, VENT SETTINGS C 26, Vt 450, PEEP 10, FIO2 35%, SPO2 MID 90'S, DESAT WITH EXERTION BUT RECOVERS QUICKLY WITH REST AND SUCTIONING. HR 90-110 IRREGULAR SINUS, AMIODARONE INFUSING AT 0.5MG/MIN. BP STABLE WITH LEVOPHED 8MCG, WILL TITRATE DOWN ABLE. ABD DISTENDED, BT HYPOACTIVE, PT ATTEMPTED A BM ON BEDPAN WITH NO RESULTS, ADMINISTERING BOWEL CARE ORDERED. VITAL HP INFUSING AT 45ML/HR VIA DOBHOFF PER ODERS. GARCIA WITH ORANGE URINE OUTPUT, SCANT OOZING OF BLOOD FROM MEATUS, CATH CARE COMPLETED. AM CARES COMPLETED, PT REPOSITIONED. DOCTOR IN TO ASSESS, PT/OT AT BEDSIDE FOR THERAPY.
--- NOTE | 2020-07-15 14:29 | NUR ---
UPDATE RT ATTEMPTED TO DEFLATE TRACH CUFF THIS MORNING WITHOUT SUCCESS, PT REMAINS ON VENT WITH SETTINGS UNCHANGED. SPO2 MID 90'S, RR 16. PT SEEMS CONFUSED AT TIMES, REPEATS QUESTIONS ABOUT HIS HOME WHEEL CHAIR AND ASKS "WHAT HAPPENED TO ME?" PT REMINDED OF CIRCUMSTANCES OF ADMISSION. LEVOPHED TITRATED TO 5MCG, WILL CONTINUE TO TITRATE DOWN ABLE. DR. LÓPEZ IN TO ASSESS, PLANNING TO START MIDODRINE.
--- NOTE | 2020-07-15 19:19 | NUR ---
END OF SHIFT PT UP TO CHAIR FOR A COUPLE HOURS THIS EVENING, TOLERATED WELL WITH STABLE VS. PT FORGETFUL, REMAINS APPROPRIATE. LS DIMINISHED BUT CLEAR THIS EVNING, SPUTUM PRODUCTION SEEMS TO HAVE SLOWED SOME. VENT SETTINGS UNCHANGED. LEVOPHED TITRATED DOWN TO 1MCG, MAP REMAINS 60'S, MIDODRINE ADMINISTERED THIS EVENING. HR 80'S SINUS, PT DENIED CP T/O SHIFT, NO EPISODES OF AFIB NOTED TODAY, AMIO CONTINUES AT 0.5MG/MIN. NO BM TODAY, ABD SOFT WITH BT PRESENT. VITAL HP AT 60ML/HR PER NEW ORDER. URINE REMAINS ORANGE, CLEAR, NO CLOTS THIS EVENING, GOOD URINE OUTPUT. EDEMA REMAINS UNCHANGED, MOSTLY NOTED IN UE'S. REPORT TO ONCOMING SHIFT.
--- NOTE | 2020-07-15 22:28 | NUR ---
Care Assumed 1900 Pt awake and able to follow directions. Denies having pain at this time but nods yes to being anxious, mouthing words fequently, able to understand occasionally. Trach tube in place, Vent settings AC 26/450/10/35%, SPO2 > 90%. Levophed 1 mcg/min and Amiodarone 0.5 mg/min when care assumed. Amiodarone placed on SB after starting PO Amiodarone. Levophed GTT titerated initally up to 7 mcg/min due to low MAPs, since Levophed has been placed on SB, MAP > 75. VHP at goal, resiudal of 5, infusing via Dobhoff. Leos with orange urine output. Call light within reach.
--- NOTE | 2020-07-16 01:08 | NUR ---
Amiodarone restarted - Afib Amiodarone restarted at 0.5 mg/min, per Dr. Umaña. Pts HR elevated 130-140 and pt in Afib. Provider would also like Cardio consult, will call. Levo remains on standby, MAP > 70. Pt is able to use TV remote and call light. Nods yes to being in pain, treated per emar. Vent settings unchanged. Attempted to use bedpan, no BM, bowel care has been started. Pt unable to assist with turns, requires two nurses.
--- NOTE | 2020-07-16 02:32 | NUR ---
DOBHOFF PULLED Patient pulled Dobhoff out of nare. Pt states he was not aware of it. Educated on importance of Dobhoff and replaced. Pt states understanding and states he will not remove it. Pt tolerated replacement well. Dobhoff measured to [address] Shen called to request for imagining before restarting tube feed.
[2020-07-16 04:44] LABS: BASOPHILS ABSOLUTE AUTO 0.04 K/mm3 (0.00-0.23); BASOPHILS PERCENT AUTO 0 % (0-2); EOSINOPHILS ABSOLUTE AUTO 0.02 K/mm3 (0.00-0.68); EOSINOPHILS PERCENT AUTO 0 % (0-6); Hemoglobin 11.9 g/dL (13.5-17.5); IMMATURE GRAN ABSOLUTE AUTO 0.11 K/mm3 (0.00-0.10); IMMATURE GRAN PERCENT AUTO 1 % (0-1); LYMPHOCYTES ABSOLUTE AUTO 0.41 K/mm3 (0.84-5.20); LYMPHOCYTES PERCENT AUTO 4 % (21-46); MONOCYTES ABSOLUTE AUTO 0.97 K/mm3 (0.16-1.47); MONOCYTES PERCENT AUTO 9 % (4-13); Mean Corpuscular HGB 30.2 pg (26.0-34.0); Mean Corpuscular HGB Conc 31.3 g/dL (31.5-36.5); Mean Corpuscular Volume 96 fL (80-100); Mean Platelet Volume 10.2 fL (9.1-12.4); NEUTROPHILS ABSOLUTE AUTO 9.21 K/mm3 (1.96-9.15); NEUTROPHILS PERCENT AUTO 86 % (41-73); Platelet Count 203 K/mm3 (150-400); RDW Coefficient Variation 13.2 % (11.7-14.2); RDW Standard Deviation 47.6 fL (35.1-46.3); Red Blood Cell Count 3.94 M/mm3 (4.30-5.90); White Blood Cell Count 10.76 K/mm3 (4.00-11.30)
[2020-07-16 05:01] LABS: Blood Urea Nitrogen 24 mg/dL (8-24); Bun/Creatinine Ratio 38.3 (12.0-20.0); Calcium, Blood 8.6 mg/dL (8.5-10.1); Chloride, Blood 94 mmol/L (98-108); Creatinine, Blood 0.63 mg/dL (0.60-1.20); Glomerular Filtration Rate >60 (60-); Glucose, Blood 168 mg/dL (70-99); Magnesium, Blood 2.2 mg/dL (1.6-2.4); Phosphorus, Blood 1.7 mg/dL (2.5-4.9); Potassium, Blood 3.2 mmol/L (3.5-5.5); Sodium, Blood 142 mmol/L (136-145)
[2020-07-16 05:04] LABS: Anion Gap Unable to Calculate mmol/L (6-16); CO2, Blood >45 mmol/L (21-32)
--- NOTE | 2020-07-16 05:26 | NUR ---
Provider call - Dobhoff imaging Dr. Shen confirmed placement of Dobhoff, will restart VHP at goal. Pt educted on importance of keep dobhoff in place and not pulling on line. Pt states understanding. Will monitor closely. Provider updated on patients labs as well and new orders to be placed.
--- NOTE | 2020-07-16 07:46 | NUR ---
Shift Summary Pts vent settings unchanged, SPO2 > 90%. Levo remains on SB, MAP > 65. Amiodarone 0.5 mg/min. Pt remains in irregular rhythm. During end of shift patient with increased agitation. Attempting to sit up in bed and get to wheelchair. Asking multiple times, "where is my wheelchair." Pt pulling on tube feed and Vent. Reoriented to location and updated on care being provided. Pt made aware that if he continues to pull on lines he will need restraints. After this patient apologizing and states he will not pull on restraints. VHP restarted at goal, pt tolerating well. Leos in place, draining to gravity. Will report to oncoming shift.
--- NOTE | 2020-07-16 09:30 | NUR ---
CARE ASSUMED ASSESSMENTS COMPLETED, PT REMAINS INTUBATED WITHOUT SEDATION, VENT AC 26, Vt 450, PEEP10, FIO2 30%. SPO2 MID 90'S, RR 26, MODERATE AMOUNT OF CAZARES SECRETIONS FROM ETT. LS COARSE. HR 80-90'S SINUS ARRHYTHMIA WITH PAC'S AND OCCASIONAL PVC'S, PT DENIES CHEST DISCOMFORT, AMIO INFUSING AT 0.5MG/MIN. BP STABLE WITH MIDODRINE, MAPS >65. ABD MODERATELY DISTENDED, FIRM, PT REPORTS SOME TENDERNESS ON PALPATION. BT PRESENT, BOWEL CARE IN PLACE. VITAL HP AT 60ML/HR VIA DOBOFF. GARCIA WITH CLEAR URINE, NO CLOTS NOTED. URINE APPEARING MORE ORANCE VOLUME ACCUMULATES IN GARCIA BAG. RT ATTEMPTED TO DEFLATE TRACH CUFF, PT BECAME SOB WITH SPO2 MID 80'S WITHIN A MINUTE OF DEFLATION, CUFF REINFLATED. 'S IN TO ASSESS.
--- NOTE | 2020-07-16 15:13 | NUR ---
UPDATE BATH GIVEN THIS MORNING, PT TOLERATED WELL WITH NO DESATS. PT THEN RESTED FOR A WHILE, BECAME AGITATED THIS AFTERNOON, WAS GIVEN ATIVAN WITH GOOD RESULTS. PT THEN ASSISTED UP TO CHAIR USING LIFT, SISTER IN TO VISIT. PT RECEIVING CPT, SPUTUM HAS INCREASED TO LARGE AMOUNTS AFTER CPT, LS REMAIN COARSE. AMIO CONTINUES TO INFUSE, PLAN TO TRANSITION TO PO CARDIZEM THIS EVENING AND INFUSE AMIO UNTIL CURRENT BAG EXPIRES AT 0230 ON 07/17/20. PT CONTINUES TO DENY CHEST PAIN/DISCOMFORT. PT REMAINS FORGETFUL, FREQUENTLY REMINDED OF SITUATION.
--- NOTE | 2020-07-16 19:00 | NUR ---
END OF SHIFT PT BACK TO BED AT THIS TIME, TOLERATED CHAIR AND LIFT TRANSFER WELL. LS COARSE, LARGE AMOUNTS OF SPUTUM THIS EVENING. VENT SETTINGS UNCHANGED, PT MAINTAINING SPO2 >90% AND RR 26-30. HR REMAINS IRREGULAR SINUS/ST WITH INTERMITTENT BRIEF EPISODES OF AFIB, AMIO INFUSING, CARDIZEM ADMINISTERED PER ORDERS. PT MEDICATED ONCE WITH FENTANYL FOR PAIN WITH GOOD RESULTS. TF INFUSING AT GOAL 60ML/HR, PROTECTIVE DRESSINGS TO BILAT HEELS REPLACED, PG DRESSING CHANGED. PT IN BED GETTING CPT FROM RT AT THIS TIME.
[2020-07-17 04:07] LABS: BASOPHILS ABSOLUTE AUTO 0.06 K/mm3 (0.00-0.23); BASOPHILS PERCENT AUTO 1 % (0-2); EOSINOPHILS ABSOLUTE AUTO 0.75 K/mm3 (0.00-0.68); EOSINOPHILS PERCENT AUTO 7 % (0-6); Hematocrit 36.5 % (37.0-53.0); Hemoglobin 11.4 g/dL (13.5-17.5); IMMATURE GRAN ABSOLUTE AUTO 0.15 K/mm3 (0.00-0.10); IMMATURE GRAN PERCENT AUTO 1 % (0-1); LYMPHOCYTES ABSOLUTE AUTO 0.63 K/mm3 (0.84-5.20); LYMPHOCYTES PERCENT AUTO 6 % (21-46); MONOCYTES ABSOLUTE AUTO 1.29 K/mm3 (0.16-1.47); MONOCYTES PERCENT AUTO 12 % (4-13); Mean Corpuscular HGB 30.2 pg (26.0-34.0); Mean Corpuscular HGB Conc 31.2 g/dL (31.5-36.5); Mean Corpuscular Volume 97 fL (80-100); Mean Platelet Volume 9.9 fL (9.1-12.4); NEUTROPHILS ABSOLUTE AUTO 8.34 K/mm3 (1.96-9.15); NEUTROPHILS PERCENT AUTO 74 % (41-73); Platelet Count 188 K/mm3 (150-400); RDW Coefficient Variation 13.5 % (11.7-14.2); RDW Standard Deviation 48.4 fL (35.1-46.3); Red Blood Cell Count 3.77 M/mm3 (4.30-5.90); White Blood Cell Count 11.22 K/mm3 (4.00-11.30)
[2020-07-17 04:21] LABS: Albumin, Blood 3.5 g/dL (3.4-5.0); Blood Urea Nitrogen 33 mg/dL (8-24); Bun/Creatinine Ratio 51.7 (12.0-20.0); Calcium, Blood 8.6 mg/dL (8.5-10.1); Chloride, Blood 95 mmol/L (98-108); Creatinine, Blood 0.64 mg/dL (0.60-1.20); Glomerular Filtration Rate >60 (60-); Glucose, Blood 133 mg/dL (70-99); Phosphorus, Blood 1.8 mg/dL (2.5-4.9); Potassium, Blood 2.7 mmol/L (3.5-5.5); Sodium, Blood 143 mmol/L (136-145)
[2020-07-17 04:22] LABS: Anion Gap Unable to Calculate mmol/L (6-16)
[2020-07-17 04:23] LABS: CO2, Blood >45 mmol/L (21-32)
--- NOTE | 2020-07-17 05:53 | NUR ---
SHIFT SUMMARY PATIENT HAS SLEPT WELL THROUGH NIGHT. HAVE ASKED MULTIPLE TIMES FOR PATIENT NOT TO SCOOT SELF DOWN IN BED SO HE WON'T BE ESSENTIALLY LYING FLAT, CAUSE HIMSELF DISCOMFORT/ANXIETY LEADING TO SHORTNESS OF BREATH, TO NO AVAIL. PT. HAS DOME THIS REPEATEDLY MANY TIMES IN THE PAST THAT THIS NURSE CAN RECALL. NO C/O PAIN. VSS. ASSESSMENT IS CHARTED. WILL CONTINUE TO MONITOR.
--- NOTE | 2020-07-17 08:00 | NUR ---
PT AWAKE, ALERT, ANXIOUS. PT GRIMACING, COUGHING, AND APPEARS TENSE. MURRAY, BUT WEAK. RR 32, SATS 87%, & BP 178/100. -MED WITH FENTANYL 75 MCG IVP X1 AND ATIVAN 2 MG IVP X 1 FOR PAIN/ANXIETY. ECG SHOWS AFIB WITH RATE 90-120'S. SBP TRENDING 100-110'S WHEN PT CALM. LUNGS VERY COARSE THROUGH OUT. TRACH TO VENT: AC 26, TV 450, PEEP 10, FIO2 35%. ORAL CARE AND TRACH SUCTION PRODUCTIVE OF LARGE AMOUNT OF THICK, CAZARES/YELLOW SECRETIONS-SLIGHTLY BLOOD TINGED THIS AM. DOBHOFF PATENT AND PT TOLERATING VITAL HIGH PROTEIN @ 60 CC/HR WITH MINIMAL RESIDUAL. ABDOMEN DISTENDED WITH BT'S X4-PT PASSING LOTS OF FLATUS. GARCIA TO BSD WITH SMALL AMOUNT OF ORANGE URINE WITH SEDIMENT. ROUTINE AM LASIX GIVEN-SEE EMAR. FOAM DRESSING TO HEELS-COCCYX SLIGHTLY RED-PT POSITIONED TO RIGHT SIDE OFF OF COCCYX AND BUTTOCKS. BILATERAL UPPER EXTREMITIES ARE BRUISED. CPT VEST PLACED AND CHEST CPT X 20 MINUTES.
--- NOTE | 2020-07-17 08:55 | NUR ---
RR 40'S. SATS 82%-SUCTION PRODUCTIVE OF SMALL AMOUNT OF THICK/TENACIOUS, CAZARES SECRETIONS. PT APPEARS ANXIOUS-MED WITH ATIVAN 2 MG IVP X1 -SEE EMAR. COCCYX NOTED TO HAVE A DIME SIZED OPEN AREA IN THE MIDDLE OF THE COCCYX AREA. FOAM DRESSING PLACED TO COCCYX AND PT POSITONED OFF OF COCCYX/BUTTOCKS TO LEFT SIDE.
--- NOTE | 2020-07-17 10:00 | NUR ---
RESPIRATORY RATE 40'S, PT STACKING BREATHES ON VENT. SATS 80'S. RESUMED PROPOFOL @ 25 MCG/KG/MIN.
--- NOTE | 2020-07-17 10:15 | NUR ---
MAP TRENDING LESS THAN 60 WITH PROPOFOL DRIP-DR. JEAN BAPTISTE AWARE- LEVOPHED DRIP INTIATED @ 4 MCG/MIN. WILL TITRATE LEVOPHED DRIP TO MAP 60-65.
--- NOTE | 2020-07-17 12:00 | NUR ---
PT RESTING QUIETLY ON VENT WITH PROPOFOL @ 25 MCG/KG/MIN. MAP TRENDING LESS THAN 60-65 DESPITE LEVOPHED @ 10 MCG/MIN. VASOPRESSIN DRIP INITIATED @ 0.04 UNITS/MIN @ 1145. LUNGS REMAIN COARSE. SUCTION APROX. EVERY 1-2 HOURS PRODUCTIVE OF COPIOUS, TENACIOUS CAZARES SECRETIONS. GARCIA WITH SMALL AMOUNT OF ORANGE URINE WITH SEDIMENT. CBG 119-NO COVERAGE REQUIRED.
--- NOTE | 2020-07-17 13:33 | NUR ---
TRACH CARE DONE- INNER CANULA AND TRACH TIE CHANGED. PT TOLERATED WELL. CHEM PANEL DRAWN AND SENT TO LAB.
[2020-07-17 13:58] LABS: Blood Urea Nitrogen 42 mg/dL (8-24); Bun/Creatinine Ratio 59.1 (12.0-20.0); Calcium, Blood 8.2 mg/dL (8.5-10.1); Chloride, Blood 95 mmol/L (98-108); Creatinine, Blood 0.71 mg/dL (0.60-1.20); Glomerular Filtration Rate >60 (60-); Glucose, Blood 201 mg/dL (70-99); Potassium, Blood 3.1 mmol/L (3.5-5.5); Sodium, Blood 136 mmol/L (136-145)
--- NOTE | 2020-07-17 14:00 | NUR ---
BED BATH COMPLETED AND LINEN CHANGE DONE. ORAL CARE PRODUCTIVE OF BRIGHT, RED SECRETIONS. GARCIA WITH LARGE AMOUNT OF DRIED BLOOD TO MEATUS. DR. JEAN BAPTISTE MADE AWARE-WILL MONITOR.
[2020-07-17 14:09] LABS: Anion Gap -3 mmol/L (6-16); CO2, Blood 44 mmol/L (21-32)
--- NOTE | 2020-07-17 16:30 | NUR ---
PT REMAINS SEDATED ON PROPOFOL @ 25 MCG/KG/MIN. TEMP 99.4 ECG CONTINUES SR WITH FREQUENT PAC'S-RATE 90'S. LEVOPHED @ 10 MCG/MIN AND VASOPRESSIN @ 0.04 UNITS/MIN-TITRATING LEVOPHED TO KEEP MAP 60-65. MIDODRINE DOSE INCREASED AND DOSE GIVEN EARLY SEE EMAR. ALBUMIN INFUSING. KCL #1 OF 3 20 MEQ RIDERS INFUSING. PT SHAVED, HAIR WASHED, AND [facility] C.L. DRESSING CHANGED. ORAL CARE CONTINUES TO BE PRODUCTIVE OF BLOODY SECRETIONS.
[2020-07-18 04:42] LABS: BASOPHILS ABSOLUTE AUTO 0.02 K/mm3 (0.00-0.23); BASOPHILS PERCENT AUTO 0 % (0-2); EOSINOPHILS ABSOLUTE AUTO 1.43 K/mm3 (0.00-0.68); EOSINOPHILS PERCENT AUTO 11 % (0-6); Hematocrit 32.5 % (37.0-53.0); Hemoglobin 9.9 g/dL (13.5-17.5); IMMATURE GRAN ABSOLUTE AUTO 0.16 K/mm3 (0.00-0.10); IMMATURE GRAN PERCENT AUTO 1 % (0-1); LYMPHOCYTES ABSOLUTE AUTO 0.58 K/mm3 (0.84-5.20); LYMPHOCYTES PERCENT AUTO 4 % (21-46); MONOCYTES ABSOLUTE AUTO 1.72 K/mm3 (0.16-1.47); MONOCYTES PERCENT AUTO 13 % (4-13); Mean Corpuscular HGB 30.7 pg (26.0-34.0); Mean Corpuscular HGB Conc 30.5 g/dL (31.5-36.5); Mean Corpuscular Volume 101 fL (80-100); Mean Platelet Volume 10.2 fL (9.1-12.4); NEUTROPHILS ABSOLUTE AUTO 9.53 K/mm3 (1.96-9.15); NEUTROPHILS PERCENT AUTO 71 % (41-73); NRBC ABSOLUTE 0.02 K/mm3 (0.00-0.02); NRBC Auto 0.1 /100 WBC (0.0-0.2); Platelet Count 146 K/mm3 (150-400); RDW Coefficient Variation 13.9 % (11.7-14.2); Red Blood Cell Count 3.23 M/mm3 (4.30-5.90); White Blood Cell Count 13.44 K/mm3 (4.00-11.30)
[2020-07-18 05:01] LABS: Albumin, Blood 3.8 g/dL (3.4-5.0); Blood Urea Nitrogen 42 mg/dL (8-24); Bun/Creatinine Ratio 63.2 (12.0-20.0); Calcium, Blood 8.2 mg/dL (8.5-10.1); Chloride, Blood 92 mmol/L (98-108); Creatinine, Blood 0.67 mg/dL (0.60-1.20); Glomerular Filtration Rate >60 (60-); Glucose, Blood 161 mg/dL (70-99); Phosphorus, Blood 3.6 mg/dL (2.5-4.9); Potassium, Blood 3.6 mmol/L (3.5-5.5); Sodium, Blood 136 mmol/L (136-145)
[2020-07-18 05:33] LABS: Anion Gap Unable to Calculate mmol/L (6-16); CO2, Blood >45 mmol/L (21-32)
--- NOTE | 2020-07-18 06:39 | NUR ---
SHIFT SUMMARY SASKIA SLEPT WELL TONIGHT. EARLIER TURNED OFF VASOPRESSIN, BP HAS BEEN STABLE ON 15 MCG OF LEVOPHED. ATTEMPTED TO TURN PROPOFOL DOWN LOW 5 MCG/KG/MIN, SASKIA WOKE UP IN A PANIC, IMMEDIATELY DESATURATED TO 82%, SUCTIONED SECRETIONS FOR ABOUT 2 MINUTES SOLIDLY, COPIOUS OUTPUT. INCREASED PROPOFOL TO 10 MCG WHERE IT SITS NOW. NO ORDERS PER DR. ARRIAGA REGARDING HIGH CO2 ON BMP. ASSESSMENT IS CHARTED. VSS. WILL CONTINUE TO MONITOR.
--- NOTE | 2020-07-18 08:00 | NUR ---
PT REMAINS ON VENT VIA TRACH. PT AGITATED, TENSE, COUGHING WITH PROPOFOL @ 10 MCG/KG/MIN-TITRATED UP TO 25 MCG/KG/MIN AND MED WITH FENTANYL 50 MCG IVP X 1 -SEE EMAR. ECG SHOWS SR WITH FREQUENT PAC'S. LEVOPHED @ 15 MCG/MIN VASOPRESSIN @0.04 UNITS/MIN-TITRATING TO MAP 60-65. LUNGS REMAIN VERY COARSE. SATS>90% ON AC/VC26, TV 450, PEEP 10, FIO2 35% TRACH SUCTION PRODUCTIVE OF COPIOUS, THICK, BLOODY SECRETIONS. DR. JEAN BAPTISTE AWARE. LASIX 40 MG IVP X 1 GIVEN. PT CONTINUES TO TOLERATE DOBHOFF TF WITH MINIMAL RESIDUAL. PASSING ALOT OF FLATUS. GARCIA WITH SMALL AMOUNT OF HEMATURIA AND SEDIMENT NOTED. DR. JEAN BAPTISTE TO EVALUATE NEED FOR XARELTO LATER THIS AM. COCCYX DRESSING C/D/I-PT POSITIONED TO COMFORT ON RIGHT SIDE OFF OF COCCYX.
--- NOTE | 2020-07-18 11:00 | NUR ---
PT REPOSITIONED IN BED FOR VEST CPT. NOTED THAT THE LIFT SHEET WAS SATURATED WITH HEMATURIA AND VERY LARGE CLOT NOTED AROUND THE MEATUS. GARCIA IRRIGATED AND REPOSITIONED-CONFIRMED THAT THERE WAS 10 CC WATER IN THE BALLOON. DR. JEAN BAPTISTE MADE AWARE OF HEMATURIA. NO NEW ORDERS.
--- NOTE | 2020-07-18 12:00 | NUR ---
PT LESS AGITATED-PROPOFOL TITRATED DOWN TO 15 MCG/KG/MIN. PT REMAINS AFEBRILE. ECG CONTINUES SR WITH PAC'S-RATE 70-90'S. MAP 60-65 WITH VASOPRESSIN @0.04 UNITS/MIN AND LEVOPHED @ 10 MCG/MIN. ALBUMIN 25% INFUSING PER DR. JEAN BAPTISTE ORDER. PT MED WITH FENTANYL 50 MCG IVP X 1, THEN TRACH CARE DONE, ORAL CARE DONE, BEDBATH GIVEN AND AND LINEN CHANGE COMPLETED. PT TOLERATED VERY WELL. CONTINUE TO SUCTION COPIOUS, THICK, RED TRACH SECRETIONS. HEMATURIA CONTINUES, BUT FEWER CLOTS NOTED. PT PANUS WITH WHAT LOOKS LIKE SKIN TEARS-OOZING SMALL AMOUNT OF BLOOD.
--- NOTE | 2020-07-18 14:20 | NUR ---
SEDATION ON STANDBY-RT MADE AWARE. RT TO ATTEMPT PS10 PEEP 10 TOLERATED BU BUR 6 TOLERATED-PER SYNCHRONOUS WITH VENT. RT CATHERINE AT BEDSIDE.
--- NOTE | 2020-07-18 14:25 | NUR ---
PT PLACE ON PS OF 10, THEN 12. AWAKE, ALERT, FOLLOWING COMMANDS. AFTER APROXIMATELY 1 1/2 MINUTES, MINUTE VENTILATION DROPPED, SATS TO 79%, HR 120'S WITH FREQUENT PVC'S. PROPOFOL RESUMED AND VENT RETURNED TO PREVIOUS SETTINGS:AC/VC 26, TV 450 , PEEP 10, FIO2 40%-SATS >90%
--- NOTE | 2020-07-18 17:50 | NUR ---
PT CONTINUES TO HAE BOTH HEMOPTYSIS AND HEMATURIA. DR. JEAN BAPTISTE AWARE. CONFIRMED THAT PT IS TO RECEIVE THIS EVENING DOSE OF XARELTO PRIOR TO ADMINISTRATION. MAIA PICC LINE IN PLACE-NEFTALI Carvajal DISCONTINUED.
[2020-07-19 04:55] LABS: BASOPHILS ABSOLUTE AUTO 0.02 K/mm3 (0.00-0.23); BASOPHILS PERCENT AUTO 0 % (0-2); EOSINOPHILS ABSOLUTE AUTO 0.75 K/mm3 (0.00-0.68); EOSINOPHILS PERCENT AUTO 8 % (0-6); Hematocrit 31.1 % (37.0-53.0); Hemoglobin 9.5 g/dL (13.5-17.5); IMMATURE GRAN PERCENT AUTO 2 % (0-1); LYMPHOCYTES ABSOLUTE AUTO 0.42 K/mm3 (0.84-5.20); LYMPHOCYTES PERCENT AUTO 4 % (21-46); MONOCYTES ABSOLUTE AUTO 1.17 K/mm3 (0.16-1.47); MONOCYTES PERCENT AUTO 12 % (4-13); Mean Corpuscular HGB 30.1 pg (26.0-34.0); Mean Corpuscular HGB Conc 30.5 g/dL (31.5-36.5); Mean Corpuscular Volume 98 fL (80-100); Mean Platelet Volume 10.9 fL (9.1-12.4); NEUTROPHILS ABSOLUTE AUTO 7.39 K/mm3 (1.96-9.15); NEUTROPHILS PERCENT AUTO 74 % (41-73); Platelet Count 119 K/mm3 (150-400); RDW Coefficient Variation 13.7 % (11.7-14.2); RDW Standard Deviation 49.1 fL (35.1-46.3); Red Blood Cell Count 3.16 M/mm3 (4.30-5.90); White Blood Cell Count 9.95 K/mm3 (4.00-11.30)
[2020-07-19 05:10] LABS: PO2 Arterial 80.2 mmHg (80-100); pH Blood Arterial 7.34 (7.35-7.45)
[2020-07-19 05:11] LABS: PCO2 Arterial 88.8 mmHg (35-45)
[2020-07-19 05:11] LABS: Albumin, Blood 3.6 g/dL (3.4-5.0); Blood Urea Nitrogen 43 mg/dL (8-24); Bun/Creatinine Ratio 71.9 (12.0-20.0); Calcium, Blood 8.3 mg/dL (8.5-10.1); Chloride, Blood 90 mmol/L (98-108); Glomerular Filtration Rate >60 (60-); Glucose, Blood 178 mg/dL (70-99); Phosphorus, Blood 3.5 mg/dL (2.5-4.9); Potassium, Blood 3.6 mmol/L (3.5-5.5); Sodium, Blood 135 mmol/L (136-145)
[2020-07-19 05:30] LABS: Anion Gap Unable to Calculate mmol/L (6-16); CO2, Blood >45 mmol/L (21-32)
--- NOTE | 2020-07-19 06:38 | NUR ---
SHIFT SUMMARY SASKIA HAS MAINTAINED TONIGHT. HAVE BEEN SLOWLY DECREASING PROPOFOL DRIP PT. HAD NO COUGH/GAG REFLEX, HAS COME BACK WITH LOWER PROPOFOL DOSE, INTERMITTENTLY FOLLOWING DIRECTIONS, TOLERATING VENT AT THIS TIME. HAVE BEEN ABLE TO DECREASE LEVOPHED DRIP, HAVE BEEN MAKING CHANGES VERY SLOWLY TO AVOID AGITATION/DESATURATION, ATTEMPTED TO DECREASE PROFOL MORE AGGRESSIVELY YESTERDAY AND MET WITH IMMEDIATE DESATURATION. HAVE CONTINUED TO HAVE BLEEDING FROM PICC SITE, PENIS, MOUTH, HOWEVER MUCH LESS TO NONE THIS AM IN SPUTUM. ASSESSMENT IS CHARTED. VSS. WILL CONTINUE TO MONITOR.
--- NOTE | 2020-07-19 08:00 | NUR ---
PT AWAKE, ALERT, AGITATED PEAK PRESSURES 60'S WITH PROPOFOL @ 4 MCG/KG/MIN. TITRATED UP TO 20 MCG/KG/MIN.PT MURRAY, BUT WEAK. NODS APPROPRIATELY AND FOLLOWS COMMANDS AT TIMES. ECG SHOWS SR WITH FREQUENT PAC'S. LEVOPHED @ 5 MCG/MIN AND VASOPRESSIN @ 0.04 UNITS/MIN-TITATING TO MAP 60-65. LUNGS VERY COARSE WITH SCATTERED WZ. TRACH TO VENT AC/VC 26, TVO 450, PEEP 10 , FIO2 40%. PT RESP ASYNCHRONOUS WITH THE VENT, BUT SATS<90% ON FIO2 40% ORAL CARE DONE AND CONTINUES TO BE PRODUCTIVE OF BLOODY SECRETIONS. TRACH SUCTION PRODUCTIVE OF COPIOUS, TENACIOUS, CAZARES SPUTUM. DOBHOFF DRESSING/TAPE CHANGED. PT TOLERATING TF WELL @ 55 ML/HR WHICH IS GOAL. PT HAS NOT HAD A BOWEL MOVEMENT X 3 DAYS. WILL GIVE DUCOLAX SUPPOSITORY LATER TODAY. DRESSING TO COCCYX C/D/I. LEFT FOREARM SKIN TEAR WITH FOAM DRESSING C/D/I. HEEL PROTECTIVE DRESSING INTACT X2 AND EXTREMITIES ELEVATED ON PILLOWS. GARCIA WITH SMALL AMOUNT OF HEMATURIA WITH CLOTS NOTED-IRRIGATED WITH 20 CC H20 AND FEW CLOTS PASSED. PICC LINE DRESSING WITH OLD BLOOD, BUT DRY AND INTACT. PT PANUS OOZING SMALL AMOUNT OF BLOOD WELL.
--- NOTE | 2020-07-19 10:05 | NUR ---
PLATEAU PRESSURE 44. PEAK PRESSURE TRENDING IN THE UPPER 50'S-60. DR. JEAN BAPTISTE AWARE-STAT CXR ORDERED.
--- NOTE | 2020-07-19 10:55 | NUR ---
SPOKE WITH PT SISTER ROSETTA ON THE PHONE-UPDATED TO CURRENT STATUS AND PLAN OF CARE.
--- NOTE | 2020-07-19 11:46 | NUR ---
PT PRE MED WITH FENTANYL 50 MCG IVP X 1 , THEN TRACH CARE DONE AND INNER CANNULA CHANGED. PT TOLERATED WELL. PEAK PRESSURE STILL IN THE UPPER 50'S. NO VENT CHANGES-SATS>90% ON FIO2 40%. CONTINUE TO SUCTION COPIOUS, TENACIOUS, CAZARES/GREEN SECRETIONS.
--- NOTE | 2020-07-19 14:00 | NUR ---
PEEP DECREASE TO 8 @ 1300 AND PT STILL MAINTAINING SATS>90% ON FIO2 40%. ALBUMIN AND LASIX GIVEN PER DR. JEAN BAPTISTE ORDERS- SEE EMAR. PICC LINE DRESSING CHANGE COMPLETED IT WAS SATURATED WITH BLOOD-BUT IMMEDIATELY AFTER THE DRESSING CHANGE COMPLETED, THE INSERTION SITE BEGAN TO OOZE.
--- NOTE | 2020-07-19 17:30 | NUR ---
PT SEDATED ON PROPOFOL @ 25 MCG/KG/MIN. PT WAS VERY AWAKE AND AGITATED WITH WOUND PHOTO AND WOUND CARE. MED WITH FENTANYL 50 MCG IVP X 1. WHILE TURNED ONTO LEFT SIDE, VENT TUBING POPPED OFF OF TRACH AND APROXIMATELY 250 CC OF THICK, BROWN/GREEN SECRETIONS POURED OUT-PT SUCTIONED FOR ADDITONAL LARGE AMOUNT ONCE VENT CIRCUIT PLACED BACK TO TRACH. PT MAINTAINED SATS>90% PT SECRETIONS ARE THE CONSISTENCY OF NECTAR. PT HAS NOT HAD A BM FOR 3 DAYS. SMALL AMOUNT OF HARD, BROWN STOOL DIGITALLY REMOVED, THEN PT GIVEN DUCOLAX SUPPOSITORY. GARCIA WITH 1000CC URINE OUTPUT THIS SHIFT. URINE APPEARS MORE YELLOW, LESS BLOODY, AND FEWER CLOTS THAN PREVIOUS ASSESSMENT.
--- NOTE | 2020-07-19 19:30 | NUR ---
CARE ASSUMED REPORT RECEIVED. PT ON VENT, SETTINGS A/C VC TV 450, 40%, RATE 26, PEEP 8. PICC LINE IN PLACE, INFUSING PROPOFOL @ 20 MCG/KG. MIN, LEVO @ 5 MCG/MIN, VASO @ 0.04 UNITS /MIN. PT EYES OPEN, FOLLOWS. GARCIA IN PLACE, TOYIN OUTPUT NOTED. TUBE FEED RUNNING @ 55 ML/HR. POC: CONTINUE ASSESSMENT AND CARE, Q2 TURNS, SKIN CARE, Q4 ORAL CARE.
--- NOTE | 2020-07-19 19:45 | NUR ---
DR. JEAN BAPTISTE AT BEDSIDE FOR ASSESSMENT
--- NOTE | 2020-07-19 21:01 | NUR ---
INCREASED TUBE FEED TO GOAL RATE OF 60 ML/HR PER ORDERS.
--- NOTE | 2020-07-20 00:33 | NUR ---
ASSESSED PT REMAINS ON VENT, PROPOFOL WAS ATTEMPTED TO WEAN- PT WITH INCREADED PEAK PRESSURSES, 58-59, INCREASED RR 30-40. SXN: LARGE AMTS OF CREAMY YELLOW/CAZARES SECREATIONS, VERY WEAK COUGH. CONTINUE ASSESSMENT.
[2020-07-20 04:28] LABS: BASOPHILS ABSOLUTE AUTO 0.01 K/mm3 (0.00-0.23); BASOPHILS PERCENT AUTO 0 % (0-2); EOSINOPHILS ABSOLUTE AUTO 0.83 K/mm3 (0.00-0.68); EOSINOPHILS PERCENT AUTO 12 % (0-6); Hematocrit 26.8 % (37.0-53.0); Hemoglobin 8.6 g/dL (13.5-17.5); IMMATURE GRAN ABSOLUTE AUTO 0.07 K/mm3 (0.00-0.10); IMMATURE GRAN PERCENT AUTO 1 % (0-1); LYMPHOCYTES ABSOLUTE AUTO 0.69 K/mm3 (0.84-5.20); LYMPHOCYTES PERCENT AUTO 10 % (21-46); MONOCYTES PERCENT AUTO 16 % (4-13); Mean Corpuscular HGB 31.3 pg (26.0-34.0); Mean Corpuscular HGB Conc 32.1 g/dL (31.5-36.5); Mean Corpuscular Volume 98 fL (80-100); Mean Platelet Volume 11.8 fL (9.1-12.4); NEUTROPHILS ABSOLUTE AUTO 4.33 K/mm3 (1.96-9.15); NEUTROPHILS PERCENT AUTO 62 % (41-73); Platelet Count 100 K/mm3 (150-400); RDW Coefficient Variation 13.9 % (11.7-14.2); RDW Standard Deviation 49.2 fL (35.1-46.3); Red Blood Cell Count 2.75 M/mm3 (4.30-5.90); White Blood Cell Count 7.03 K/mm3 (4.00-11.30)
--- NOTE | 2020-07-20 04:33 | NUR ---
ASSESS PT REMAINS ON VENT WITH LARGE AMTS CREAMY YELLOW SECREATIONS, WEAK COUGH, HIGH PEAK PRESSURES NOTED, INCREASED WOB NOTED. AM LABS SENT. GTTS CONTINUE, SEE FLOWSHEET FOR RATES. VITALS STABLE. CONTINUE TO ASSESS.
[2020-07-20 04:47] LABS: Alanine Aminotransfer (ALT/SGP 30 U/L (12-78); Albumin, Blood 3.5 g/dL (3.4-5.0); Albumin/Globulin Ratio 1.3 (0.8-1.8); Alk Phos 97 U/L (50-136); Anion Gap 3 mmol/L (6-16); Aspartate Aminotrans (AST/SGOT 23 U/L (12-37); Bilirubin, Direct 0.5 mg/dL (0.0-0.3); Bilirubin, Indirect 0.8 mg/dL (0.1-0.7); Bilirubin, Total 1.3 mg/dL (0.1-1.0); Blood Urea Nitrogen 44 mg/dL (8-24); Bun/Creatinine Ratio 77.5 (12.0-20.0); CO2, Blood 43 mmol/L (21-32); Calcium, Blood 7.8 mg/dL (8.5-10.1); Chloride, Blood 84 mmol/L (98-108); Creatinine, Blood 0.57 mg/dL (0.60-1.20); Globulin, Blood 2.7 g/dL (2.2-4.0); Glomerular Filtration Rate >60 (60-); Glucose, Blood 266 mg/dL (70-99); Phosphorus, Blood 3.5 mg/dL (2.5-4.9); Potassium, Blood 3.4 mmol/L (3.5-5.5); Sodium, Blood 130 mmol/L (136-145); Total Protein, Blood 6.2 g/dL (6.4-8.2)
--- NOTE | 2020-07-20 06:10 | NUR ---
ASSESS PT REMAINS ON VENT. SETTINGS AC VC 450, RATE 26, 8 PEEP, 40%. BS: RHONCHI T/O, SX: COPIOUS AMTS YELLOW SPUTUM WITH WEAK COUGH. PT ASYNCHRONOUS WITH VENT AT TIMES, OVERNIGHT, UNABLE TO WEAN PROPOFOL OFF. GTTS: PROPOFOL @ 15, VASO @ 0.02, LEVO @ 5. VITALS STABLE. GARCIA WITH DARK TOYIN/BURGUNDY AND CLOTS, 500ML OUTPUT. TUBE FEED INCREASED TO GOAL OF 60ML/HR.CONTINUE ASSESSMNT AND CARE TILL REPORT OFF TO ONCOMING SHIFT.
--- NOTE | 2020-07-20 10:06 | NUR ---
Care Assumed 1900 Pt sedated with propofol @ 15 mcg/kg/min. Levophed @ 5 when care assumed, titerated to 1 mcg/kg/min and Vasopressin @ 0.04 units/min, MAP > 80, infusing via PICC. Trach to vent AC/VC 26,450,PEEP 8, FIO2 40%, SPO2 > 90%. VHP at goal, BT hypoactive. Temp simmons in place, draining to gravity with smiley urine with clots. Pt responds to noxious stimuli. Moving all extrems. Dr. Zavala and medical student in to see patients. No new orders recievied.
--- NOTE | 2020-07-20 11:46 | NUR ---
Family called Spoke to patients sister, Argelia. All questions answer. Argelia states she will be coming to visit at 2 pm and states "Karel would not want to be fed through tubes" "Dicisions need to be made."
--- NOTE | 2020-07-20 11:50 | NUR ---
Vent tubing change Pt with increased peak pressures (62). Thick russell secreations from ETT. Bagged pt while RT (Krystle) changed vent tubbing. Blood tinged secreations during oral care. Pt responds to noxious stimuli. Vent settings unchanged, lung sounds coarse. Propofol 15 mcg/kg/min, Levo @ 1 mcg/min, and Vasopressin 0.04 units/min, MAP > 65.
--- NOTE | 2020-07-20 14:10 | NUR ---
Update Levophed and Vaso placed on SB, MAP > 70. Pt had episode of destating after having diarrhea/bowel movement. Pt destated to 70% and appeared dusky/pale. RT at bedside, vent tubbing changed and patient was bagged at this time. Pt continues to have copious amount of russell secretion's from ETT. Oral care completed with bloody secretion's. No wound found in mouth. Vent settings unchanged. VHP at goal, BT hypoactive. Leos in place draining to gravity. Pts sister at bedside.
--- NOTE | 2020-07-20 14:30 | NUR ---
FIO2 increased to 45% Patient destats to 87%, FIO2 increased to 45%, other vent settings remain the same.
--- NOTE | 2020-07-20 15:27 | NUR ---
Provider Visit - code status change Dr. Thornton in to see patient and sister. Propofol GTT decreased to 10 mcg/kg/min. Vent settings changed to AC 26/400/8/40%, initally pt with increased peak pressures (60-65), decreased to 50's after vent setting changes. SPO2 > 88%. Pt responds to noxious sitmuli. Opens eyes occasionally, not tracking. Code status changed to DNR. Sister states, "he would not like to live like this." DNR band placed on left wrist and patient door.
--- NOTE | 2020-07-20 18:35 | NUR ---
Shift summary Pt responds to noxious stimuli. Moves extrems, eyes opens occasionally but not tracking or following commands. Levo and Vaso on SB, MAP > 70. Propofol @ 10 mcg/kg/min. Vent settings : AC/VC 26/400/8/45%, SPO2 > 90%. When FIO2 decreased to 40%, SPO2 decreases to 87%. Pt continues to have russell copious secretion's from ETT, frequent suctioning. Oral care done frequently, pt continues to have blood tinged secretion's. VHP at goal, pt had large brown loose BM. Leos in place, draining dark smiley urine with occasional clots, 900 urine output, T-max, 100.4. Will report to oncoming shift.
--- NOTE | 2020-07-20 21:05 | NUR ---
ASSUMPTION OF CARE PT SEDATED AND ON VENTILATOR PER TRACH, VENT SET TO AC 26/400 PEEP 8 FIO2 40%. PT UNRESPONSIVE TO VERBAL STIMULI, NO CORNEAL REFLEX, WITHDRAWS FROM PAIN TO BLE BUT NO RESPONSE IN BUE. PT WITH MODERATE AMOUNT OF RED SECRETIONS FROM ORAL CAVITY, INSPECTION OF ORAL CAVITY SHOWED LARGE SKIN BREAKDOWN/ULCERATION TO THE SOFT PALATE. COPIOUS AMOUNTS OF THICK, CAZARES, PINK TINGED SECRETIONS FROM TRACH. CYANOSIS NOTED TO FINGERTIPS AND TOES. MONITOR SHOWS AN IRREGULAR RHYTHM WITH HR 90'S-110, BP STABLE. SKIN IS PALE AND FRAGILE, SKIN TEAR TO L FOREARM, MEPILEX REPLACED. POWDER APPLIED TO VIJAY AREA AND BILAT BREAST FOLDS. REDENED AREA TO COCCYX APPEARS STABLE, LEFT CHANDU AT THIS TIME. PT WITH DOBHPOFF, SECURED AT NOSE AND CHEEK, TF INFUSION CHANGED TO 55ml/hr PER ORDER. GARCIA IN PLACE, BLOOD NOTED AROUND URETHRA, CLOTS AND BLOOD IN URINE.
--- NOTE | 2020-07-21 00:30 | NUR ---
PT CONTINUES TO BE VERY SEDATED, TITRATING PROPOFOL DOWN (SEE FLOWSHEET), MIDNIGHT DOSES OF ATIVAN AND HYDROCODONE HELD R/T SEDATION, NO S/SX OF PAIN/ANXIETY, VS WNL, RR RIDING THE VENT AT 26. PRN PAIN AND ANXIETY MEDICATIONS AVAILABLE.
[2020-07-21 03:58] LABS: PCO2 Arterial 98.3 mmHg (35-45); PO2 Arterial 116 mmHg (80-100); pH Blood Arterial 7.33 (7.35-7.45)
[2020-07-21 05:11] LABS: BASOPHILS ABSOLUTE AUTO 0.02 K/mm3 (0.00-0.23); BASOPHILS PERCENT AUTO 0 % (0-2); Hematocrit 31.7 % (37.0-53.0); Hemoglobin 9.7 g/dL (13.5-17.5); LYMPHOCYTES ABSOLUTE AUTO 0.88 K/mm3 (0.84-5.20); LYMPHOCYTES PERCENT AUTO 11 % (21-46); MONOCYTES ABSOLUTE AUTO 1.39 K/mm3 (0.16-1.47); MONOCYTES PERCENT AUTO 17 % (4-13); Mean Corpuscular HGB 30.4 pg (26.0-34.0); Mean Corpuscular HGB Conc 30.6 g/dL (31.5-36.5); Mean Corpuscular Volume 99 fL (80-100); Platelet Count 134 K/mm3 (150-400); RDW Coefficient Variation 13.9 % (11.7-14.2); RDW Standard Deviation 50.5 fL (35.1-46.3); Red Blood Cell Count 3.19 M/mm3 (4.30-5.90); White Blood Cell Count 7.99 K/mm3 (4.00-11.30)
[2020-07-21 05:25] LABS: Albumin, Blood 3.5 g/dL (3.4-5.0); Blood Urea Nitrogen 48 mg/dL (8-24); Bun/Creatinine Ratio 76.7 (12.0-20.0); Calcium, Blood 9.1 mg/dL (8.5-10.1); Chloride, Blood 90 mmol/L (98-108); Creatinine, Blood 0.63 mg/dL (0.60-1.20); Glomerular Filtration Rate >60 (60-); Glucose, Blood 129 mg/dL (70-99); Magnesium, Blood 2.1 mg/dL (1.6-2.4); Phosphorus, Blood 4.4 mg/dL (2.5-4.9); Potassium, Blood 3.7 mmol/L (3.5-5.5); Sodium, Blood 137 mmol/L (136-145)
[2020-07-21 05:34] LABS: EOSINOPHILS PERCENT AUTO 9 % (0-6); IMMATURE GRAN ABSOLUTE AUTO 0.07 K/mm3 (0.00-0.10); IMMATURE GRAN PERCENT AUTO 1 % (0-1); NEUTROPHILS ABSOLUTE AUTO 4.93 K/mm3 (1.96-9.15); NEUTROPHILS PERCENT AUTO 62 % (41-73)
[2020-07-21 05:52] LABS: Anion Gap Unable to Calculate mmol/L (6-16)
[2020-07-21 05:54] LABS: CO2, Blood >45 mmol/L (21-32)
--- NOTE | 2020-07-21 06:27 | NUR ---
SHIFT SUMMARY PT REMAINED SEDATED AND VENTED THROUGH MUCH OF SHIFT, PROPOFOL PLACED ON SB @ 0430, PT CONTINUES TO HAVE DEC LOC BUT OPENS EYES TO VERBAL STIMULI, COUGH REFLEX PRESENT, PT DOES NOT FOLLOW COMMANDS. PT CONTINUES TO HAVE EXCESSIVE SECRETIONS PER TRACH. MONITOR SHOWS AFIB VS AFLUTTER, HR 90'S-110, BP STABLE. NO BM THIS SHIFT. DOBHOFF REMAINS IN PLACE WITH TF @ GOAL RATE OF 55ml/hr. GARCIA REMAINS IN PLACE, DRAINING DARK YELLOW TO TOYIN PINK TINGED URINE. MORNING ABG RESULTS CALLED TO DR PERKINS, ORDER TO DC SCHEDULED ATIVAN AND HYDROCODONE. PT REACHING FOR FACE THIS AM, SEE NEW ORDER FOR SWB RESTRAINT TO PROTECT TUBES, LINES AND CORDS.
--- NOTE | 2020-07-21 07:57 | NUR ---
ASSUMED CARE RECEIVED REPORT FROM NITO WILLAMS. PT HAS 8.0 XLT TRACH ON VENT AC 26/400/8/45%, NO CURRENT SEDATION INFUSING. PEAK PRESSURES HAVE BEEN IN 50s, PT HAVING COPIOUS SECRETIONS. PT IS MINIMALLY RESPONSIVE TO VERBAL AND NOXIOUS STIMULI. GARCIA IS PATETN AND DRAINING CLOUDY YELLOW URINE WITH SEDIMENT, AND POSSIBLY SMALL BLOOD CLOTS. PT IN SWB RESTRAINTS, SECURED TO BED. PT IN AFIB, WITH CONTROLLED RATE, 80s. BP STABLE, MAP > 65. BED LOW AND LOCKED.
--- NOTE | 2020-07-21 10:44 | NUR ---
UPDATE PT HAVING COPIOUS AMOUNTS OF SECRETIONS SUCTIONED FROM INLINE CATHETER - THICK, CREAMY, CAZARES AND PINK-TINGED AT TIMES. IN PT's ORAL CAVITY - HE IS HAVING DARK-RED SECRETIONS SUCTIONED DURING ORAL CARE, PT HAS WHAT APPEARS TO BE A BLOOD CLOT, OR SOME SORT OF RED-DARK RED SOFT TISSUE IN THE BACK LEFT PORTION OF HIS ORAL CAVITY. DR. PERKINS AWARE. PT IS MINIMALLY RESPONSIVE TO VERBAL AND SLIGHTLY MORE TO NOXIOUS STIMULI. HE CAN OPEN HIS EYES, AND MOVE EACH EXTREMITY NON-PURPOSEFULLY AND MINIMALLY. HE DOES NOT TRACK WITH HIS EYES, OR FOLLOW ANY COMMANDS. POSITIVE CORNEAL REFLEX. ROUND, EQUAL AND REACTIVE PUPILS. DR. PERKINS HAD CONFIRMED PLACEMENT OF DOBHOF, TF RESUMED AFTER BEING PAUSED FROM [id number] D/T POSSIBLE ASPIRATION OF TF. HE HAS ORDERED TO ADD DYE TO THE TF (WHICH WILL BE CHANGING TO PIVOT 1.5 PER CIRCULAR KNITTER HELPER, ALONG WITH A RATE DECREASE) TO CONFIRM HE IS NOT ASPIRATING.
--- NOTE | 2020-07-21 11:15 | NUR ---
UPDATE PEAK PRESSURES PRIMARILY IN 50s, BUT REACHES HIGH THE 60s - DR. PERKINS INCREASED TIDAL VOLUMES TO 450 ML D/T SEVERE HYPERCAPNIA. DR. PERKINS SEEN AND EVALUATED BLOOD CLOT IN ORAL CAVITY - HAS ORDERED A CONSULT FOR AN ENT. DR. ADHIKARI's OFFICE HAS BEEN CALLED AND NOTIFIED AT 1110 - 07/21/2020.
--- NOTE | 2020-07-21 16:30 | NUR ---
UPDATE PT HAD LEAKED URINE FROM HIS URETHRA, THERE WAS A "POOL" OF URINE IN HIS GROIN AREA, MOMENTARILY. THERE WAS EVEN A SMALL BLOOD CLOT THAT ALSO LEAKED. PT HAD ADEQUATE URINE OUTPUT FOR MAJORITY OF DAY, BUT HAS HAD A DECREASE AMOUNT THE LAST 1-2 HOURS. CATHETER WAS OUT OF STAT LOCK AND DID NOT SEEM SECURE IN THE URETHRA/BLADDER, SALINE (10mL) WAS ADDED TO THE BALLOON, AND IT WAS SHOWING SOME TENSION WITH A LIGHT PULL. NO LEAKAGE SEEN AFTER 30 MINUTES. PARTIAL BED BATH PERFORMED, COMPLETE LINEN CHANGED, AND BED SANITIZED. PT CONTINUOUS TO HAVE COPIOUS THICK, CAZARES SECRETIONS AND THERE IS NO SIGN OF THE GREENISH-BLUE TUBE FEEDING. WILL CONTINUE TO MONITOR.
--- NOTE | 2020-07-21 18:39 | NUR ---
UPDATE - END OF SHIFT AFTER INSERTING SALINE INTO THE GARCIA BALLOON, IT SEEMED TO STOP LEAKING, BUT PT WAS HAVING BARLEY ANY URINE OUTPUT. THE GARCIA WAS THEN FLUSHED WITH 10 ML OF SALINE, AND ALMOST IMMEDIETLY THE CATHETER STATRTED DRAINING CLOUDY YELLOW URINE, WITH SEDIMENT AND VERY SMALL BLOOD CLOTS. 450 ML OF URINE WAS EMPTIED WITHIN 15 MINUTES. CONTINUES TO HAVE COPIOUS, THICK-CREAMY, CAZARES SECRETIONS (NO DYE COLORING NOTED). PEAK PRESSURES REMAIN 50s, PEAKING IN THE 60s WITH NOXIOUS STIMULI. VSS, MAP > 65, INTERMITTENT HYPERTENSION WITH NOXIOUS STIMULI. AFIB RATE 80-90s, LOW 100s WITH NOXIOUS STIMULI. DR. ADHIKARI WAS CONSULTED AND HAD CAME INTO THE ICU TO EVALUATE PT - HE STATES HE SEES A HEMATOMA, AND THAT IT DOES NOT APPEAR TO BE NEOPLASTIC TISSUE. THERE IS NO NECESSARY INTERVENTION AT THIS TIME. HE TOOK A PIECE OF IT OUT OF THE ORAL CAVITY TO VISUALIZE IT BETTER. PT BLED SOME. HE THEN STATES THAT THIS IS COMMONLY SEEN IN PATIENTS WHO HAVE BEEN INTUBATED, AND THAT THIS APPEARS TO BE CAUSED BY SOME FORM OF TRAUMA - POSSIBLY FROM ORAL CARE. DR. PERKINS AWARE. ALL SEDATIVE MEDICATIONS ARE STILL BEING HELD FROM PATIENT, TO SEE IF HE WILL CLEAR UP NEUROLOGICALLY. HE APPEARS TO BE MORE AWAKE, AND WILL LOOK SOMEWHAT FASTER TOWARDS A SOUNDS STIMULUS, BUT CONTINUES TO NOT TRACK OR FOLLOW COMMANDS. HE MOVES NONPURPOSEFULLY, AND DOES SO SLIGHTLY MORE THAN HE WAS EARLIER TODAY. HE WITHDRAWS TO PERIPHERAL PAIN RESPONSES. BED LOW AND LOCKED. SWB RESTRAINTS SECURED TO BED AND PT.
--- NOTE | 2020-07-21 19:00 | NUR ---
ASSUMED CARE ASSUMED CARE OF PATIENT. WITHDRAWS EXTREMITIES TO NOXIOUS STIMULI AND SOME GROSS MOTOR MOVEMENT NOTED IN UPPER EXTREMITIES. OPENS EYES TO NOXIOUS STIMULI, BUT DOES NOT TRACK. NOT FOLLOWING ANY COMMANDS. BILATERAL SOFT WRIST RESTRAINTS IN PLACE TO PREVENT SELF-EXTUBATION. MECHANICAL VENTILATION- AC 26, TV 400, PEEP 8, FIO2 40%. RR 26. CONTINUES WITH COPIOUS THICK CAZARES SECRETIONS REQUIRING FREQUENT SUCTIONING. MONITOR SHOWS NSR WITH PACs, RATE 80s. BP STABLE. AFEBRILE. DOBHOFF WITH PIVOT 1.5 AT GOAL RATE OF 25CC/HR. H20 FLUSH 30CC Q4H. GARCIA PATENT AND DRAINING CLOUDY YELLOW URINE. SEE SHIFT ASSESSMENT FOR FULL ASSESSMENT.
[2020-07-22 05:45] LABS: BASOPHILS ABSOLUTE AUTO 0.07 K/mm3 (0.00-0.23); BASOPHILS PERCENT AUTO 1 % (0-2); EOSINOPHILS ABSOLUTE AUTO 0.84 K/mm3 (0.00-0.68); EOSINOPHILS PERCENT AUTO 10 % (0-6); Hematocrit 33.9 % (37.0-53.0); Hemoglobin 10.3 g/dL (13.5-17.5); IMMATURE GRAN ABSOLUTE AUTO 0.09 K/mm3 (0.00-0.10); IMMATURE GRAN PERCENT AUTO 1 % (0-1); LYMPHOCYTES ABSOLUTE AUTO 1.01 K/mm3 (0.84-5.20); LYMPHOCYTES PERCENT AUTO 13 % (21-46); MONOCYTES ABSOLUTE AUTO 1.59 K/mm3 (0.16-1.47); MONOCYTES PERCENT AUTO 20 % (4-13); Mean Corpuscular HGB Conc 30.4 g/dL (31.5-36.5); Mean Corpuscular Volume 99 fL (80-100); NEUTROPHILS ABSOLUTE AUTO 4.47 K/mm3 (1.96-9.15); NEUTROPHILS PERCENT AUTO 55 % (41-73); Platelet Count 157 K/mm3 (150-400); RDW Coefficient Variation 14.2 % (11.7-14.2); RDW Standard Deviation 51.5 fL (35.1-46.3); Red Blood Cell Count 3.43 M/mm3 (4.30-5.90); White Blood Cell Count 8.07 K/mm3 (4.00-11.30)
[2020-07-22 05:58] LABS: Albumin, Blood 3.4 g/dL (3.4-5.0); Blood Urea Nitrogen 50 mg/dL (8-24); Bun/Creatinine Ratio 79.9 (12.0-20.0); Calcium, Blood 9.3 mg/dL (8.5-10.1); Chloride, Blood 91 mmol/L (98-108); Creatinine, Blood 0.63 mg/dL (0.60-1.20); Glomerular Filtration Rate >60 (60-); Glucose, Blood 134 mg/dL (70-99); Magnesium, Blood 2.1 mg/dL (1.6-2.4); Potassium, Blood 3.5 mmol/L (3.5-5.5); Sodium, Blood 141 mmol/L (136-145)
[2020-07-22 06:06] LABS: Anion Gap Unable to Calculate mmol/L (6-16)
[2020-07-22 06:08] LABS: CO2, Blood >45 mmol/L (21-32)
--- NOTE | 2020-07-22 06:12 | NUR ---
SHIFT SUMMARY NO ACUTE CHANGES. VENT SETTINGS UNCHANGED. CONTINUES WITH COPIOUS THICK CAZARES SECRETIONS SUCTIONED VIA TRACH. CONITUNES WITH PEAK PRESSURES 50s-60s. MEDICATED WITH FENTANYL 50MCG IV X 2 FOR SEDATION/COMFORT. PT WIGGLED TOES AND SQUEEZED HANDS TO COMMAND THIS AM. ALSO NODDED HEAD YES/NO SEEMINGLY APPROPRIATELY. BILATERAL SOFT WRIST RESTRAINTS REMAIN IN PLACE. MINIMAL SPONTANEOUS MOVEMENT NOTED. VSS. OCCASIONALLY HYPERTENSIVE WITH STIMULATION. GARCIA PATENT AND DRAINING. DOBHOFF WITH TF AT GOAL RATE. WILL REPORT TO ONCOMING RN WHEN AVAILABLE.
--- NOTE | 2020-07-22 08:00 | NUR ---
PT OPENS EYES TO VOICE. FOLLOWS SOME SIMPLE COMMANDS. PT WIGGLED HIS TOES TO COMMAND, BUT WOULD NOT SQUEEZE HAND TO COMMAND. MURRAY, BUT VERY WEAK. PT NODDED "NO" WHEN ASKED IF HE IS IN ANY PAIN. PT NOT REACHING FOR LINES AND TUBES AT THIS TIME. RESTRAINTS REMOVED-PT NODDED HIS HEAD IN AGREEMENT THAT HER WOULD NOT REACH FOR LINES AND TUBES WHILE NOT RESTRAINED. PT IS AFEBRILE. ECG SHOWS SR WITH FREQUENT PAC'S. GENERALIZED EDEMA NOTED, SCLERAL EDEMA NOTED. HANDS AND FEET ARE PARTICULARLY EDEMATOUS-ELEVATED ON PILLOWS. TRACH CONTINUES TO VENT: AC/VC 26, TV 400, FIO2 40%, PEEP 8-MAINTAINS SATS>90%. LUNGS VERY COARSE THROUGH OUT AND PT CONTINUES TO HAVE COPIOUS, THICK, CAZARES SECRETIONS. ORAL CARE DONE-WITH SCANT AMOUNT OF OLD BLOODY SECRETIONS. PT CONTINUES TO TOLERATE DOBHOFF TF PIVOT 1.5 @ 25 ML/HR. BT'S HYPOACTIVE. GARCIA WITH SMALL AMOUNT OF YELLOW URINE TO BSD-SCHEDULED AM LASIX GIVEN-SEE EMAR. LEFT FOREARM SKIN TEAR WITH FOAM DRESSING C/D/I. COCCYX WITH FOAM DRESSING C/D/I. BILATERAL PROTECTIVE DRESSING REMAIN INTACT TO HEELS AND HEEL ARE FLOATED.
[2020-07-22 08:09] LABS: pH Blood Arterial 7.39 (7.35-7.45)
[2020-07-22 08:11] LABS: PCO2 Arterial 92 mmHg (35-45)
--- NOTE | 2020-07-22 09:05 | NUR ---
RESPIRATORY RATE 30'S, PEAK PRESSURES 60'S, SATS 82% PT GRIMACING AND NODS "YES" WHEN ASKED IF IN PAIN. MED WITH FENTANYL 50 MCG IVP X 1-SEE EMAR.
--- NOTE | 2020-07-22 09:50 | NUR ---
DR. RUSSELL AT BEDSIDE ATTEMPTED TO PLACE PT ON SPOTANEOUS MODE AND TITRATED DOWN TV 400-PT BECAME VERY AGITATED AND ASYNCHRONOUS WITH VENT. MED WITH 100 MCG FENTNAYL 1V X 1. PT BAGGED AND SUCTIONED COPIOUS THICK, CAZARES SECRETIONS-8.0/XLT INNER CANULA CHANGED WELL. SATS TP TEENS BRIEFLY. PT VERY CYANOTIC AT THAT TIME.
--- NOTE | 2020-07-22 10:13 | NUR ---
TO4 06/28-NIMBEX DRIP TO BE INITIATED-PT STILL ASYNCHRONOUS WITH VENT WITH PROPOFOL @ 50 MCG/KG/MIN-PT SISTER HAS BEEN UPDATED BY NITO MACIAS.
--- NOTE | 2020-07-22 10:45 | NUR ---
PT SISTER ROSETTA AND SON DUC HERE TO SEE PT. RN AND DR. RUSSELL UPDATED THEM ON PT STATUS. PT FAMILY DECIDED TO MAKE PT COMFORT CARE MR. HOPKINS WOULD "NOT WANT ALL OF THIS!"
--- NOTE | 2020-07-22 10:50 | NUR ---
NIMBEX DRIP DISCONTINUED.
--- NOTE | 2020-07-22 11:20 | NUR ---
Spiritual care note: Met with pt's sister and son outside the unit. Both are tearful and talkative. Clearly processessing leting Karel go. Listened to stories and affirmed obvious love. Complimented both on their diligent care for this often difficult man. They were appreciaitve of emotional support/camp head counselor. Provided education/couching on next steps to good effect. Family wants Karel to go to [facility]'s post mortem. They asked that he be made as comfortable as possible and allowed to pass in peace. They are not staying and asked that I be at bedside. Family responded well to interventions and verbalized gratitude for compassionate care by nursing over the years.
--- NOTE | 2020-07-22 11:30 | NUR ---
ATROPINE DROPS 2 SL AND 2 PER TRACH GIVEN PER DR. RUSSELL ORDERS. PROPOFOL DRIP OFF-PREP FOR REMOVAL OF VENT. PT IS COMFORT CARE STATUS.
--- NOTE | 2020-07-22 11:32 | NUR ---
PT MED WITH FENTANYL 100 MCG IVP X1 AND ATIVAN [address] RUSSELL ORDERS.
--- NOTE | 2020-07-22 11:37 | NUR ---
VENTILATOR REMOVED. TRACH SUCTIONED X 1. SATS IMMEDIATELY TO 60'S.
--- NOTE | 2020-07-22 11:45 | NUR ---
PT . DR. RUSSELL AND RESIDENT DR. HWANG NOTIFIED. FINAL DISCHARGE PAPER WORK BEING DONE BY SAMRA MACIAS RN. PT FAMILY NOTIFIED OF TIME OF BY ROBERTO GALDAMEZ.
--- NOTE | 2020-07-22 11:55 | NUR ---
Spiritual care note: Karel passed peacefully thanks to great care and attention by nursing and RT. Prayer provided.
--- NOTE | 2020-07-22 13:30 | NUR ---
[facility] CONTACTED REGARDING PT HOME VENT. PLACED PT HOME VENT IN SECURE LOCK UP DESIGNATED FOR PTS. [facility] TO GEMOLOGIST THE VENT TOMORROW.
== END 2020-07-22 11:45 | DRG 207 ==
LOC: ER 23:21 → PCU 07-09 01:12 → ICUW 07-09 01:15 → PCU 07-09 01:43 → ICUW 07-09 13:00
PROVIDERS: Emergency Medicine; Family Medicine; Internal Medicine Critical Care Medicine; ADMIT Family Medicine
PROC: 02HV33Z Insertion of Infusion Device into Superior Vena Cava, Percutaneous Approach (ICD-10-PCS; 2020-07-08)
PROC: B548ZZA Ultrasonography of Superior Vena Cava, Guidance (ICD-10-PCS; 2020-07-08)
PROC: 5A1955Z Respiratory Ventilation, Greater than 96 Consecutive Hours (ICD-10-PCS; principal; 2020-07-10)
PROC: 0B978ZZ Drainage of Left Main Bronchus, Via Natural or Artificial Opening Endoscopic (ICD-10-PCS; 2020-07-12)
PROC: 3E033XZ Introduction of Vasopressor into Peripheral Vein, Percutaneous Approach (ICD-10-PCS; 2020-07-12)
DX: J96.21 Acute and chronic respiratory failure with hypoxia (principal); J15.1 Pneumonia due to Pseudomonas; G92 Toxic encephalopathy; A41.52 Sepsis due to Pseudomonas; R65.21 Severe sepsis with septic shock; J81.0 Acute pulmonary edema; J95.851 Ventilator associated pneumonia; E66.2 Morbid (severe) obesity with alveolar hypoventilation; E87.2 Acidosis; J96.22 Acute and chronic respiratory failure with hypercapnia; Z66 Do not resuscitate; Z51.5 Encounter for palliative care; J43.9 Emphysema, unspecified; G47.33 Obstructive sleep apnea (adult) (pediatric); Z68.30 Body mass index [BMI] 30.0-30.9, adult; F41.9 Anxiety disorder, unspecified; J47.9 Bronchiectasis, uncomplicated; E11.9 Type 2 diabetes mellitus without complications; E87.6 Hypokalemia; E83.39 Other disorders of phosphorus metabolism; Z88.8 Allergy status to other drugs, medicaments and biological substances; Z90.49 Acquired absence of other specified parts of digestive tract; Z98.890 Other specified postprocedural states; Z93.0 Tracheostomy status; Z91.030 Bee allergy status; I95.2 Hypotension due to drugs; T42.75XA Adverse effect of unspecified antiepileptic and sedative-hypnotic drugs, initial encounter; I25.10 Atherosclerotic heart disease of native coronary artery without angina pectoris; Z85.828 Personal history of other malignant neoplasm of skin; F32.9 Major depressive disorder, single episode, unspecified; J39.2 Other diseases of pharynx
CPT/HCPCS: 36415; 36556; 36569; 36600; 51703; 71045; 71046; 71275; 80048; 80053; 80069; 80150; 81001; 82248; 82330; 82803; 82947; 83605; 83735; 84100; 84132; 84145; 84443; 84484; 85025; 87040; 87070; 87075; 87077; 87186; 87205; 93005; 93010; 93306; 94002; 94003; 94640; 94667; 94668; 96365; 96366; 96372; 96375; 96376; 97110; 97112; 97163; 97166; 97530; 99285-25; A9270; A9270-GY; C1751; C9113; G0378; J0278; J0282; J0360; J0713; J1160; J1170; J1650; J1720; J1815; J1940; J2060; J2185; J2370; J2704; J3010; J3480; J7040; J7050; J7060; J7070; P9046; Q9967